=== PATIENT | female | born 1965 | race Caucasian/White ===

== ENCOUNTER → 2020-06-02 11:39 | Outpatient (BNVA) | payer OTHER, SELFPAY | PROVIDERS: PCP Family Medicine; Referring Provider Family Medicine; Visit Provider Internal Medicine Gastroenterology | DX: K21.9 Gastro-esophageal reflux disease without esophagitis (principal); K76.0 Fatty (change of) liver, not elsewhere classified; Z79.899 Other long term (current) drug therapy | CPT/HCPCS: 99214 ==

== ENCOUNTER 2020-06-24 08:46 | Outpatient (REF) | payer OTHER, SELFPAY ==
--- NOTE | 2020-06-24 08:55 | XR_ITS ---
EXAMINATION: XR HAND WRIST, LEFT CLINICAL INFORMATION: Pain in left wrist, extending to left thumb COMPARISON: None TECHNIQUE: The left hand and wrist are imaged together each in combined large [id number] images for a total of 3 views. FINDINGS: There is no acute or healing fracture, dislocation, or destructive process. Bony mineralization is normal. The ulnar variance is neutral. There is some borderline spurring lateral ulnar head at the sigmoid notch. The carpus shows no focal joint narrowing or erosive change or visible chondrocalcinosis. There is a 3 mm corticated ossicle dorsal breast noted on lateral view. There is some borderline spurring base first metacarpal on lateral view. No significant narrowing first carpometacarpal joint. No erosive change. The MCP and interphalangeal joints are unremarkable. XR/XR hand wrist LT IMPRESSION: Small spur base first metacarpal. No significant joint narrowing or erosive changes.
--- NOTE | 2020-06-24 08:56 | XR_ITS ---
EXAMINATION: XR LUMBOSACRAL SPINE CLINICAL INFORMATION: Low back pain. COMPARISON: Radiographs lumbar spine 03/07/2018. TECHNIQUE: 3 views of the lumbosacral spine. FINDINGS: There is normal lumbar segmentation with 5 [id number] lumbar vertebrae of normal height and normal lumbar lordosis. There is no lumbar vertebral compression, spondylolisthesis, destructive process. Again, there are degenerative disc changes greatest at L2-L3 and mild at L1-L2 and L5-S1. There are degenerative disc changes again seen lower thoracic spine greatest at T11-T12 with disc narrowing and bridging anterior osteophyte. There is mild facet degeneration lower lumbar spine L4-S1. There are right lateral bridging osteophytes L-1-L2, L2-L3, and partially at L4-L5. The SI joints and visualized sacrum are unremarkable. XR/XR lumbar spine 2-3V IMPRESSION: 1. Multilevel degenerative disc and facet degeneration similar to prior study 03/07/2018. 2. No vertebral compression, spondylolisthesis, destructive process.
== END 2020-06-24 08:47 | disposition home or self-care (01) ==
LOC: HO.XRAY 08:46
PROVIDERS: PCP Family Medicine; Visit Provider Family Medicine
DX: M25.532 Pain in left wrist (principal); M54.5 Low back pain
CPT/HCPCS: 72100; 73110; 73130

== ENCOUNTER 2020-07-06 07:00 | Day surgery (SDC) | payer OTHER, SELFPAY ==
[2020-07-06 07:16] VITALS: BMI 41.5
[2020-07-06 07:26] VITALS: BP 113/73; PULSE 89; RESP 16; TEMP 36.2; O2SAT 98
[2020-07-06] MEDS: Lactated Ringers 1,000 ML 100 ML IVCONT (07:48)
--- NOTE | 2020-07-06 07:54 | P.CONAN_ITS ---
[facility] Past Medical History Medical History GERD (gastroesophageal reflux disease) Hepatic steatosis NANCY (obstructive sleep apnea) Family History Family History Father Brain cancer Mother Diabetes Family history of problems with anesthesia: No Surgical History Surgical History Hx of cholecystectomy Hx of colonoscopy History of Problems with Anesthesia: No Social History Social History Household Members: Spouse, Family and Children Housing: House Alcohol intake: never Smoking Status: Former smoker Second Hand Smoke Exposure: No Use of substances other than those prescribed or required for medical reasons: No Advance Directives: No Advance Directives Information Provided: Yes Advance Directives on File: No service: No Current occupational status: employed 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 Allergies Allergy/AdvReac Type Severity Reaction Status Date / Time No Known Allergies Allergy Unverified 05/06/20 18:17 Home Medications Medication Instructions Recorded Confirmed Type baclofen 5 mg tablet 5 mg PO TID 06/02/20 07/01/20 History ergocalciferol (vitamin D2) 1,250 1,250 mcg PO QWEEK 06/02/20 07/01/20 History mcg (50,000 unit) capsule loratadine 10 mg tablet 10 mg PO DAILY 06/02/20 07/01/20 History omeprazole 20 mg capsule,delayed 20 mg PO DAILY 06/02/20 07/01/20 History release Exam Exam Date and Time: July 06, 2020 0754 Height,Weight and Vital Signs: Height 5 ft 5 in Weight 113.398 kg Last Vital Signs Temp 97.1 F 07/06/20 07:26 Pulse 89 07/06/20 07:26 Resp 16 07/06/20 07:26 BP 113/73 07/06/20 07:26 Pulse Ox 98 07/06/20 07:26 Airway Mallampati Class: II TM Dist: >3cm Neck ROM: Full Loose/Missing/Broken Teeth: Yes (Missing sides) Heart: RRR Lungs: CTAB Assessment and Plan Assessment Anesthesia Assessment: Anesthesia Plan Discussed and Chart Reviewed Final Anesthetic Review NPO: Yes ASA Class: III Final Preanesthetic Review: No Changes in Pt Med Stat, Meds/Allgs Chart Reviewed, Consent Obtained/Reviewed and Anes Risks/Benef Reviewed Patient Risk: Intermediate Procedure Risk: Low Anesthetic Plan Anesthetic Plan: MAC: Disposition: Standard PACU
--- NOTE | 2020-07-06 09:40 | MHC.SHP ---
Pre-Procedural Eval Section B Chief Complaint: Gerd Details of Present Illness: Refractory symptoms Relevant Family History (Specify if Yes): No Relevant Social History: None Present Medications: see Short Stay Collaborative assessment Medical History: Significant History (NANCY, Hepatic Steatosis, GERD) History of Previous Operations: No relevant previous surgery Allergies: Allergies Allergy/AdvReac Type Severity Reaction Status Date / Time No Known Allergies Allergy Unverified 05/06/20 18:17 Review of Systems Sugical H&P ROS: Negative: Constitution, Cardiovascular and Respiratory and Yes, Specify: Gastrointestinal (worsening GERD) Exam Surgical H&P Exam: Normal: HEENT, Normal: Heart, Normal: Lungs, Normal: Extremities and Normal: Abdomen Plan Diagnosis/Plan: Unchanged Patient has been examined and remains a candidate for the planned procedure
--- NOTE | 2020-07-06 10:07 | PM.PROC ---
Brief Operative Note Date of procedure: 07/06/20 Pre-op diagnosis: Refractory GERD Post-op diagnosis: other (Hiatal hernia, superficial gastritis, Duodenitis) Procedure: endoscopy with bx Anesthesia: MAC (Vivian Chan CRNA) Surgeon: Cherry Arshad Estimated blood loss (mL): 5 Pathology: other (Random Gastric) Condition: stable Disposition: PACU
[2020-07-06 10:10] VITALS: BP 128/80; PULSE 95; RESP 14; TEMP 36.2; O2SAT 96
[2020-07-06 10:25] VITALS: BP 133/86; PULSE 81; RESP 16; TEMP 36.2; O2SAT 97
--- NOTE | 2020-07-06 11:18 | HO.POSTANES ---
Post Anesthesia Evaluation Post Anesthesia Evaluation Vital Signs: Vital Signs Temp Pulse Resp BP Pulse Ox 07/06/20 10:25 97.1 F 81 16 133/86 97 07/06/20 10:10 97.1 F 95 14 128/80 96 07/06/20 07:26 97.1 F 89 16 113/73 98 Anesthesia: Monitored Mental Status: Awake Pain Control: Satisfactory Nausea/Vomiting: None Hydration: Adequate Anesthesia-Related Issues: No Anes. Related Issues
--- NOTE | 2020-07-06 13:50 | OP_ITS ---
SURGEON: Cherry Arshad MD PREOPERATIVE DIAGNOSIS: Refractory gastroesophageal reflux disease. POSTOPERATIVE DIAGNOSIS: See below PROCEDURE PERFORMED: EGD with biopsy. ESTIMATED BLOOD LOSS: Minimal blood loss. COMPLICATIONS: No complications. ANESTHESIA: Monitored. ANESTHESIOLOGIST: Matt Chan CRNA ASSISTANTS: No real estate administrative assistant. SPECIMENS: Specimens removed; random gastric. PRIMARY CARE PROVIDER: Not readily available at the time of this dictation. POSTOPERATIVE DIAGNOSES: Moderate-sized hiatal hernia, elongated stomach, superficial gastritis, mild duodenitis. CATECHIST: Dr. Arshad. CONDITION: Stable. FINDINGS: Video endoscope was introduced without difficulty. It was navigated into the posterior pharynx and into the esophagus. Esophageal mucosa was normal down to the level of the GE junction. Distal to this, was a 2 to 3 cm hiatal hernia. On entering the stomach, there was significant elongation of the fundus, body down into a very short the antrum. There was diffuse erythema in the antrum entering the duodenal bulb and duodenum. There was some submucosal prominence of capillaries and some exudative change consistent with mild duodenitis. Scope was repositioned in the stomach. Random gastric biopsies were obtained as scope was withdrawn. Arytenoid cartilages were slightly puffy(no erythema noted.). Vocal cords were clear. PLAN: The patient will be reseen in the office or by tele visit postprocedure. Once biopsies have been reviewed, further management changes will be discussed with the patient. Changes will depend on the persistence of her clinical symptoms. GRAFT OR IMPLANTS: No grafts or implants. Cherry Arshad MD MEN/MODL / [id number] MTDD
== END 2020-07-06 11:20 | disposition home or self-care (01) ==
PROVIDERS: PCP Family Medicine; Visit Provider Internal Medicine Gastroenterology
PROC: 0DJ08ZZ Inspection of Upper Intestinal Tract, Via Natural or Artificial Opening Endoscopic (ICD-10-PCS; CPT 43235; principal; 2020-07-06 08:30)
DX: K21.9 Gastro-esophageal reflux disease without esophagitis (principal); K29.30 Chronic superficial gastritis without bleeding; K29.80 Duodenitis without bleeding; K76.0 Fatty (change of) liver, not elsewhere classified; K44.9 Diaphragmatic hernia without obstruction or gangrene; G47.33 Obstructive sleep apnea (adult) (pediatric); Z90.49 Acquired absence of other specified parts of digestive tract
CPT/HCPCS: 43239; 88305; 88342

== ENCOUNTER → 2020-08-02 09:10 | Outpatient (BNVA) | payer OTHER, SELFPAY | PROVIDERS: PCP Family Medicine; Referring Provider Family Medicine; Visit Provider Internal Medicine Gastroenterology | DX: Z76.89 Persons encountering health services in other specified circumstances (principal) ==

== ENCOUNTER → 2020-08-03 08:15 | Outpatient (BNVA) | payer OTHER, SELFPAY | PROVIDERS: PCP Family Medicine; Visit Provider Nurse Practitioner Family | DX: Z76.89 Persons encountering health services in other specified circumstances (principal) ==

== ENCOUNTER → 2020-08-23 07:44 | Outpatient (REF) | payer OTHER, SELFPAY ==
--- NOTE | 2020-08-23 07:46 | NM_ITS ---
EXAMINATION: RADIONUCLIDE SOLID FOOD GASTRIC EMPTYING 4-HOUR STUDY CLINICAL INFORMATION: Gastroesophageal reflux disease. COMPARISON: No previous gastric emptying study is available for comparison. TECHNIQUE: A standard meal consisting of 4 oz of Egg Beaters brand equivalent tagged was 1.0 mCi Tc-99m Sulfur Colloid, 8 oz water and 2 slices of toast with jelly was administered orally to the patient. Images were obtained using a dual head gamma camera in the anterior and posterior projections over of the stomach immediately post ingestion and at hourly intervals up to 4 hours post ingestion. The anterior and posterior counts at each time interval were averaged using the geometric mean and expressed as percentage of the immediate post ingestion counts. FINDINGS: There is good visualization of activity in the stomach immediately post ingestion. As the study progresses, there is good clearance of activity from the stomach and visualization of progressively increasing small bowel activity. By the end of the study, there is almost no retention noted in the stomach. Retention in the stomach at each time interval was: 1 hour 83% (normal 37%-90%) 2 hours 33% (normal 30%-60%) 3 hours 21% 4 hours 8% (normal 0%-10%) NM/NM gastric emptying study IMPRESSION: Normal 4-hour solid food gastric emptying study.
== END ==
LOC: HO.NUCMED 07:44
PROVIDERS: Visit Provider Internal Medicine Gastroenterology
DX: K21.9 Gastro-esophageal reflux disease without esophagitis (principal)
CPT/HCPCS: 78264; A9541

== ENCOUNTER → 2020-09-08 08:48 | Outpatient (BNVA) | payer OTHER, SELFPAY | PROVIDERS: PCP Family Medicine; Visit Provider Internal Medicine Cardiovascular Disease | DX: R00.2 Palpitations (principal) | CPT/HCPCS: 93005; 99212 ==

== ENCOUNTER → 2020-10-26 10:16 | Outpatient (BNVA) | payer OTHER, SELFPAY | PROVIDERS: PCP Family Medicine; Visit Provider Nurse Practitioner Family ==

== ENCOUNTER → 2020-11-07 19:47 | Outpatient (REF) | payer OTHER, SELFPAY | LOC: HO.SL 19:47 | PROVIDERS: Visit Provider Nurse Practitioner Family | DX: G47.33 Obstructive sleep apnea (adult) (pediatric) (principal) | CPT/HCPCS: 95810 ==

== ENCOUNTER 2020-11-17 08:04 | Outpatient (REF) | payer OTHER, SELFPAY ==
[2020-11-17 10:03] LABS: MANUAL DIFF FLAG NO
[2020-11-17 10:20] LABS: Basophils Absolute Auto 0.1 X10*3/uL (0.0-0.2); Basophils Percent Auto 0.5 % (0-2); Eosinophils Absolute Auto 0.2 X10*3/uL (0.0-0.4); Eosinophils Percent Auto 1.6 % (0-4); Hematocrit 45.3 % (37-47); Hemoglobin 14.8 g/dl (12.0-16.0); Imm Gran Abs Auto 0.04 X10*3/uL (0.00-0.03); Imm Gran Pct Auto 0.4 % (0.0-0.4); Lymphocytes Absolute Auto 3.4 X10*3/uL (1.2-4.9); Lymphocytes Percent Auto 32.9 % (20-40); Mean Corpuscular HGB Conc 32.7 g/dl (31.0-35.0); Mean Corpuscular Hemoglobin 29.8 pg (27.0-33.0); Mean Corpuscular Volume 91.1 fL (80-98); Mean Platelet Volume 11.2 fL (9.4-12.3); Monocytes Absolute Auto 0.6 X10*3/uL (0.1-1.2); Monocytes Percent Auto 5.6 % (2-11); Platelet Count 207 X10*3/uL (160-400); Red Blood Count 4.97 X10*6/uL (4.20-5.50); Red Cell Distribution Width 13.4 % (11.0-16.0); White Blood Count 10.2 X10*3/uL (4.8-10.8)
[2020-11-17 10:26] LABS: Alanine Aminotransferase 70 U/L (0-31); Albumin Level 4.1 g/dL (3.5-5.0); Alkaline Phosphatase 120 U/L (39-117); Anion Gap 13 (12-20); Aspartate Amino Transferase 62 U/L (5-31); Bilirubin Total 0.5 mg/dL (0.0-1.0); Blood Urea Nitrogen 10 mg/dL (9-16); Carbon Dioxide 26 mmol/L (22-29); Chloride 105 mmol/L (96-108); Cholesterol 140 mg/dL; Estimated Glomerular Filt Rate > 60; Gamma Glutamyl Transpeptidase 42 U/L (7-33); Glucose Fasting 90 mg/dL (60-99); HDL Cholesterol 53 mg/dL; LDL Cholesterol Calculated 70 mg/dl; Potassium 4.7 mmol/L (3.3-5.1); Sodium 139 mmol/L (135-145); Total Protein 7.5 g/dL (6.5-8.0); Triglycerides 87 mg/dL
[2020-11-17 10:41] LABS: Prothrombin Time 12.1 SEC (10.8-13.0)
[2020-11-17 10:52] LABS: TSH reflex Free T4 1.88 uIU/mL (0.32-4.0); Vitamin D 25-OH Total 23.9 ng/mL (>30)
== END 2020-11-17 08:05 | disposition home or self-care (01) ==
LOC: HO.LAB 08:04
PROVIDERS: PCP Family Medicine; Visit Provider Internal Medicine Gastroenterology
DX: K21.9 Gastro-esophageal reflux disease without esophagitis (principal); K59.01 Slow transit constipation; K76.0 Fatty (change of) liver, not elsewhere classified; E66.9 Obesity, unspecified; Z68.36 Body mass index [BMI] 36.0-36.9, adult
CPT/HCPCS: 36415; 80053; 80061; 82306; 82977; 84443; 85025; 85610; 99212

== ENCOUNTER → 2021-01-25 10:09 | Outpatient (BNVA) | payer OTHER, SELFPAY | PROVIDERS: PCP Family Medicine; Visit Provider Nurse Practitioner Family ==

== ENCOUNTER 2021-01-27 08:33 | Outpatient (REF) | payer OTHER, SELFPAY ==
--- NOTE | ~2021-01-27 | MM_ITS ---
EXAMINATION: MM SCREENING DIGITAL BREAST TOMOSYNTHESIS, BILATERAL CLINICAL INFORMATION: Screening. Asymptomatic. The lifetime risk of breast cancer based on the Tyrer-Cuzick Model is 15.8%. COMPARISON: Mammography: October 28, 2019 and studies dating back to October 12, 2011 TECHNIQUE: Digital breast tomosynthesis is performed in both the craniocaudal and mediolateral oblique views along with computer-aided detection (CAD). Synthesized 2D images are generated from the tomosynthesis. FINDINGS: There are scattered areas of fibroglandular density (ACR BI-RADS breast composition Category b). There are no significant masses, abnormal calcifications, or other abnormalities. MM/MM tomosynthesis screening BI IMPRESSION: There are no significant changes from prior study. ASSESSMENT: BI-RADS 1: Negative RECOMMENDATION: Routine annual mammography screening. This patient's information was entered into a reminder system with a target due date for their next mammogram.
== END 2021-01-27 08:34 | disposition home or self-care (01) ==
LOC: HO.MAMMO 08:33
PROVIDERS: Visit Provider Family Medicine
DX: Z12.31 Encounter for screening mammogram for malignant neoplasm of breast (principal)
CPT/HCPCS: 77063; 77067

== ENCOUNTER → 2021-04-27 07:14 | Outpatient (BNVA) | payer OTHER, SELFPAY | PROVIDERS: PCP Family Medicine; Visit Provider Physician Assistant | DX: K76.0 Fatty (change of) liver, not elsewhere classified (principal) | CPT/HCPCS: 99212 ==

== ENCOUNTER 2021-06-16 09:25 | Outpatient (REF) | payer OTHER, SELFPAY ==
--- NOTE | ~2021-06-16 | US_ITS ---
EXAMINATION: US ABDOMEN LIMITED WITH LIVER ELASTOGRAPHY CLINICAL INFORMATION: Fatty changes of the liver. COMPARISON: None. TECHNIQUE: Real-time imaging of the abdominal viscera. Noninvasive ultrasound liver fibrosis assessment is performed using Dago ElastPQ point quantification shear wave elastography (pSWE) with a C5-2 MHz transducer. Multiple elastography samples are obtained. FINDINGS: PANCREAS: Not well seen due to bowel gas. LIVER: The liver demonstrates normal size and shape with increased echogenicity. No focal lesion or intrahepatic biliary duct dilatation. The right lobe measures 18 cm in length. The left lobe measures 12.5 cm in length. Portal flow is towards the liver (hepatopetal). Shear wave liver elastography median stiffness is 1.5 m/s (reference: normal median stiffness is 1.3 m/s or less). IQR/median stiffness to assess sampling precision is 0.11 (reference: good quality data set is IQR/median stiffness of 0.15 or less). GALLBLADDER: Absent. COMMON BILE DUCT: Normal postsurgical caliber measuring 0.9 cm in diameter. RIGHT KIDNEY: Normal. No hydronephrosis. No renal calculi or focal parenchymal lesions. The kidney measures 13.7 cm in maximum dimension. FREE FLUID: None. US/US abdomen dela cruz w elastography IMPRESSION: 1. Hepatic steatosis. 2. Liver elastography: In the absence of other known clinical signs, measurements rule out compensated advanced chronic liver disease. If there are known clinical signs, further testing may be needed for confirmation. Liver stiffness measurement is without significant change from prior exam (change under 10%). REFERENCE: Society of Radiologists in Ultrasound Liver Stiffness Thresholds (2020): LIVER STIFFNESS THRESHOLDS: *Liver Stiffness equal or less than 1.3 m/s: High probability of being normal. *Liver Stiffness less than 1.7 m/s: In the absence of other known clinical signs, rules out compensated advanced chronic liver disease. *Liver Stiffness 1.7-2.1 m/s: Suggestive of compensated advanced chronic liver disease but need further test for confirmation. *Liver Stiffness over 2.1 m/s: Rules in compensated advanced chronic liver disease. *Liver Stiffness over 2.4 m/s: Suggestive of clinically significant portal hypertension. QUALITY OF DATA SET: *IQR/Median value equal or less than 0.15 implies a quality data set. *IQR/Median value over 0.15 implies a poor quality data set. SIGNIFICANT CHANGE FROM PRIOR EXAM: Significant change if liver stiffness measurement is 10% or greater from prior exam. OTHER CONSIDERATIONS: The stage of liver fibrosis may be overestimated in the setting of acute hepatitis, liver inflammation, elevated liver function tests, hepatic vascular congestion, obstructive cholestasis, non-fasting state, and infiltrative diseases such as amyloidosis and lymphoma. In some patients with NAFLD, the liver stiffness thresholds for compensated advanced chronic liver disease may be lower. In causes other than viral hepatitis and NAFLD, liver stiffness thresholds are not well established.
== END 2021-06-16 09:26 | disposition home or self-care (01) ==
LOC: HO.US 09:25
PROVIDERS: PCP Family Medicine; Visit Provider Physician Assistant
DX: K76.0 Fatty (change of) liver, not elsewhere classified (principal)
CPT/HCPCS: 76705; 76981

== ENCOUNTER → 2021-08-16 08:34 | Outpatient (BNVA) | payer OTHER, SELFPAY | PROVIDERS: PCP Family Medicine; Referring Provider Family Medicine; Visit Provider Nurse Practitioner Family | DX: G47.33 Obstructive sleep apnea (adult) (pediatric) (principal) | CPT/HCPCS: 99212 ==

== ENCOUNTER 2021-08-22 11:00 | Outpatient (REF) | payer OTHER, SELFPAY ==
[2021-08-22 11:57] LABS: Hematocrit 46.1 % (37.0-47.0); Hemoglobin 15.2 g/dl (12.0-16.0); Mean Corpuscular Hemoglobin 29.8 pg (27.0-33.0); Mean Corpuscular Volume 90.4 fL (80.0-98.0); Mean Platelet Volume 11.5 fL (9.4-12.3); Platelet Count 208 X10*3/uL (160-400); Red Cell Distribution Width 13.2 % (11.0-16.0); White Blood Count 9.1 X10*3/uL (4.8-10.8)
[2021-08-22 12:04] LABS: Estimated Average Glucose 128 mg/dL; Hemoglobin A1c % 6.1 %
[2021-08-22 12:19] LABS: Alanine Aminotransferase 83 U/L (0-31); Albumin Level 4.2 g/dL (3.5-5.0); Alkaline Phosphatase 154 U/L (39-117); Anion Gap 11 (12-20); Aspartate Amino Transferase 62 U/L (5-31); Bilirubin Direct 0.2 mg/dL (0.0-0.5); Bilirubin Total 0.5 mg/dL (0.0-1.0); Blood Urea Nitrogen 10 mg/dL (9-16); Calcium 9.9 mg/dL (8.4-10.2); Carbon Dioxide 26 mmol/L (22-29); Chloride 106 mmol/L (96-108); Cholesterol 156 mg/dL; Estimated Glomerular Filt Rate > 60; Glucose Random 121 mg/dL (60-115); HDL Cholesterol 54 mg/dL; LDL Cholesterol Calculated 67 mg/dl; Potassium 4.3 mmol/L (3.3-5.1); Sodium 139 mmol/L (135-145); Total Protein 7.8 g/dL (6.5-8.0); Triglycerides 178 mg/dL
[2021-08-22 12:21] LABS: Creatinine Urine 95.17 mg/dL; Microalbum/Creatinine Ratio Ur 12.6 ug/mg cr
[2021-08-22 12:41] LABS: Free T4 (Free Thyroxine) 0.88 ng/dL (0.71-1.85); Vitamin D 25-OH Total 17.1 ng/mL (>30)
[2021-08-22 12:43] LABS: Syphilis Screen Nonreactive (Nonreactive)
[2021-08-22 13:51] LABS: CT PCR NOT DETECTED (Not Detect.); NG PCR NOT DETECTED (Not Detect.)
[2021-08-23 04:38] LABS: ~HepC Num1 0.43 S/CO (0.00-0.79); ~Hepatitis C Antibody Nonreactive (Nonreactive)
[2021-08-23 04:39] LABS: HIV AB/AG Nonreactive (Nonreactive); HIV Num 1 0.08 S/CO (0.00-0.99)
[2021-08-23 11:56] LABS: Alpha Fetoprotein 5.5 ng/mL
== END 2021-08-22 11:01 | disposition home or self-care (01) ==
LOC: HO.LAB 11:00
PROVIDERS: PCP Family Medicine; Visit Provider Family Medicine
DX: Z00.00 Encounter for general adult medical examination without abnormal findings (principal); Z11.4 Encounter for screening for human immunodeficiency virus [HIV]; Z11.3 Encounter for screening for infections with a predominantly sexual mode of transmission; K76.0 Fatty (change of) liver, not elsewhere classified; R73.03 Prediabetes
CPT/HCPCS: 80048; 80061; 80076; 82043; 82105; 82306; 83036; 84439; 84443; 85027; 86780; 86803; 87389; 87491; 87591

== ENCOUNTER 2021-11-26 07:33 | Outpatient (REF) | payer OTHER, SELFPAY ==
[2021-11-26 08:35] LABS: Estimated Average Glucose 114 mg/dL; Hemoglobin A1c % 5.6 %
[2021-11-26 08:42] LABS: Alanine Aminotransferase 64 U/L (0-31); Albumin Level 4.1 g/dL (3.5-5.0); Alkaline Phosphatase 114 U/L (39-117); Anion Gap 12 (12-20); Aspartate Amino Transferase 50 U/L (5-31); Bilirubin Direct 0.4 mg/dL (0.0-0.5); Bilirubin Total 0.9 mg/dL (0.0-1.0); Blood Urea Nitrogen 12 mg/dL (9-16); Calcium 9.3 mg/dL (8.4-10.2); Carbon Dioxide 24 mmol/L (22-29); Chloride 108 mmol/L (96-108); Estimated Glomerular Filt Rate > 60; Glucose Random 112 mg/dL (60-115); Potassium 4.8 mmol/L (3.3-5.1); Sodium 139 mmol/L (135-145); Total Protein 7.2 g/dL (6.5-8.0)
== END 2021-11-26 07:34 | disposition home or self-care (01) ==
LOC: HO.LAB 07:33
PROVIDERS: Absent Provider Family Medicine; PCP Family Medicine; Visit Provider Physician Assistant
DX: K76.0 Fatty (change of) liver, not elsewhere classified (principal)
CPT/HCPCS: 36415; 80048; 80076; 83036

== ENCOUNTER → 2021-11-28 07:11 | Outpatient (BNVA) | payer OTHER, SELFPAY | PROVIDERS: PCP Family Medicine; Referring Provider Family Medicine; Visit Provider Physician Assistant | DX: Z01.818 Encounter for other preprocedural examination (principal); E66.9 Obesity, unspecified; K59.01 Slow transit constipation; K76.0 Fatty (change of) liver, not elsewhere classified; K21.9 Gastro-esophageal reflux disease without esophagitis | CPT/HCPCS: 99212 ==

== ENCOUNTER 2022-03-06 10:57 | Outpatient (REF) | payer OTHER, SELFPAY ==
--- NOTE | ~2022-03-06 | MM_ITS ---
EXAMINATION: MM SCREENING DIGITAL BREAST TOMOSYNTHESIS, BILATERAL CLINICAL INFORMATION: Screening. Asymptomatic. The lifetime risk of breast cancer based on the Tyrer-Cuzick Model is 16%. COMPARISON: Mammography: 01/27/2021, 10/28/2019, 08/10/2018 TECHNIQUE: Digital breast tomosynthesis is performed in both the craniocaudal and mediolateral oblique views along with computer-aided detection (CAD). Synthesized 2D images are generated from the tomosynthesis. Additional left MLO view is provided. FINDINGS: There are scattered areas of fibroglandular density (ACR BI-RADS breast composition Category b). There are no significant masses, abnormal calcifications, or other abnormalities. Incidental intramammary node again seen mid upper outer right breast. The axilla and skin contours are unremarkable. No significant changes. MM/MM tomosynthesis screening BI IMPRESSION: No mammographic evidence of malignancy. ASSESSMENT: BI-RADS 2: Benign RECOMMENDATION: Routine annual mammography screening. This patient's information was entered into a reminder system with a target due date for their next mammogram.
== END 2022-03-06 10:58 | disposition home or self-care (01) ==
LOC: HO.MAMMO 10:57
PROVIDERS: Visit Provider Family Medicine
DX: Z12.31 Encounter for screening mammogram for malignant neoplasm of breast (principal)
CPT/HCPCS: 77063; 77067

== ENCOUNTER 2022-03-09 10:14 | Day surgery (SDC) | payer OTHER, SELFPAY ==
[2022-03-06 09:13] VITALS: BMI 34.4
--- NOTE | 2022-03-08 08:54 | P.CONAN_ITS ---
Documented by User: Jaqueline Bingham NP 03/08/22 08:55 HPI - Anesthesia Eval Consult details Narrative: 56yo F for Colonoscopy PMFSH Active Problems Active Problems: All Active Problems (Updated 11/28/21 @ 08:31 by Jackie Ma PA-C) Encounter for screening colonoscopy (Acute) Obesity (BMI 35.0-39.9 without comorbidity) (Acute) Constipation by delayed colonic transit (Acute) NANCY (obstructive sleep apnea) (Acute) Palpitations (Acute) GERD (gastroesophageal reflux disease) (Acute) Hepatic steatosis (Acute) Past Medical History Medical History Constipation by delayed colonic transit GERD (gastroesophageal reflux disease) Hepatic steatosis History of colon polyps Obesity (BMI 35.0-39.9 without comorbidity) NANCY (obstructive sleep apnea) Family History Family History Father Brain cancer Mother Diabetes Maternal Aunt Breast cancer Paternal Aunt Breast cancer Family history of problems with anesthesia: No Surgical History Surgical History H/O esophagogastroduodenoscopy Hx of cholecystectomy Hx of colonoscopy History of Problems with Anesthesia: No Social History Social History Household Members: Spouse, Family and Children Housing: House Alcohol intake: never Patient Tobacco Use Status: Never used Tobacco Second Hand Smoke Exposure: No Are you DNR?: No Advance Directives: No Advance Directives Information Provided: Yes service: No Current occupational status: employed 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 Allergies Allergy/AdvReac Type Severity Reaction Status Date / Time No Known Allergies Allergy Verified 11/28/21 07:25 Home Medications Medication Instructions Recorded Confirmed Last Taken Type ergocalciferol (vitamin D2) 1,250 1,250 mcg PO QWEEK 06/02/20 11/28/21 Unknown History mcg (50,000 unit) capsule omeprazole 20 mg capsule,delayed 20 mg PO DAILY 06/02/20 11/28/21 07/06/20 History release loratadine 10 mg tablet 10 mg PO DAILY PRN 09/08/20 11/28/21 Unknown History Exam Exam Date and Time: March 08, 2022 0854 Height,Weight and Vital Signs: Height 5 ft 5 in Weight 93.894 kg Pertinent Lab Results Pertinent Lab Results: Laboratory Tests 08/22/21 11/26/21 11:36 07:50 WBC 9.1 Hgb 15.2 Hct 46.1 Plt Count 208 Sodium 139 Potassium 4.8 Chloride 108 Carbon Dioxide 24 BUN 12 Creatinine 0.69 Assessment and Plan Assessment Anesthesia Assessment: Chart Reviewed Final Anesthetic Review Family History of Problems with Anesthesia: No History of Problems with Anesthesia: No Documented by User: Santa Javed MD 03/09/22 11:57 [facility] Active Problems Active Problems: All Active Problems (Updated 11/28/21 @ 08:31 by Jackie Ma PA-C) Encounter for screening colonoscopy (Acute) Obesity (BMI 35.0-39.9 without comorbidity) (Acute) Constipation by delayed colonic transit (Acute) NANCY (obstructive sleep apnea) (Acute). Uses CPAP machine Palpitations (Acute) GERD (gastroesophageal reflux disease) (Acute) Hepatic steatosis (Acute) Back pain Past Medical History Medical History Constipation by delayed colonic transit GERD (gastroesophageal reflux disease) Hepatic steatosis History of colon polyps Obesity (BMI 35.0-39.9 without comorbidity) NANCY (obstructive sleep apnea) Family History Family History Father Brain cancer Mother Diabetes Maternal Aunt Breast cancer Paternal Aunt Breast cancer Surgical History Surgical History H/O esophagogastroduodenoscopy Hx of cholecystectomy Hx of colonoscopy Social History Social History Household Members: Spouse, Family and Children Housing: House Alcohol intake: never Patient Tobacco Use Status: Never used Tobacco Second Hand Smoke Exposure: No Are you DNR?: No Advance Directives: No Advance Directives Information Provided: Yes service: No Current occupational status: employed 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 Allergies Allergy/AdvReac Type Severity Reaction Status Date / Time No Known Allergies Allergy Verified 11/28/21 07:25 Home Medications Medication Instructions Recorded Confirmed Last Taken Type ergocalciferol (vitamin D2) 1,250 1,250 mcg PO QWEEK 06/02/20 11/28/21 Unknown History mcg (50,000 unit) capsule omeprazole 20 mg capsule,delayed 20 mg PO DAILY 06/02/20 11/28/21 07/06/20 History release loratadine 10 mg tablet 10 mg PO DAILY PRN 09/08/20 11/28/21 Unknown History Exam Height,Weight and Vital Signs: Height 5 ft 5 in Weight 93.894 kg Vital Signs Temp Pulse Resp BP Pulse Ox O2 Del Method 03/09/22 10:23 97.5 F 81 18 117/73 95 Room Air Airway Mallampati Class: II TM Dist: >3cm Neck ROM: Full Loose/Missing/Broken Teeth: No (Patient denies) Heart: RRR Lungs: CTAB Assessment and Plan Assessment Anesthesia Assessment: Anesthesia Plan Discussed Final Anesthetic Review NPO: Yes ASA Class: III Final Preanesthetic Review: No Changes in Pt Med Stat, Meds/Allgs Chart Reviewed, Consent Obtained/Reviewed and Anes Risks/Benef Reviewed Patient Risk: Intermediate Procedure Risk: Low Assessment/Block/Sedation in SS: Assess/Block/Sedation-SS Anesthetic Plan Anesthetic Plan: MAC: Disposition: Standard PACU
[2022-03-09 10:23] VITALS: BP 117/73; PULSE 81; RESP 18; TEMP 36.4; O2SAT 95
[2022-03-09] MEDS: Lactated Ringers 1,000 ML 100 ML IVCONT (10:38)
--- NOTE | 2022-03-09 12:32 | MHC.SHP ---
Pre-Procedural Eval Section A Date of Service: 03/09/22 Section B Chief Complaint: Slow transit constipation,screening Relevant Family History (Specify if Yes): No Relevant Social History: None Present Medications: see Short Stay Collaborative assessment Medical History: Significant History (Constipation by delayed colonic transit GERD (gastroesophageal reflux disease) Hepatic steatosis History of colon polyps Obesity (BMI 35.0-39.9 without comorbidity) NANCY (obstructive sleep apnea)) History of Previous Operations: Relevant previous surgery/procedure and date(s) (H/O esophagogastroduodenoscopy Hx of cholecystectomy Hx of colonoscopy) Allergies: Allergies Allergy/AdvReac Type Severity Reaction Status Date / Time No Known Allergies Allergy Verified 11/28/21 07:25 Review of Systems Sugical H&P ROS: Negative: Constitution, Cardiovascular, Respiratory, Neurological, Psychiatric, Hem-Onc, Allergic/Immunologic, Gastrointestinal, Genitourinary, Musculoskeletal, Integumentary, Endocrine and Eyes/Ears/Nose/Throat Exam Surgical H&P Exam: Normal: HEENT, Normal: Heart, Normal: Lungs, Normal: Extremities, Normal: Abdomen, Normal: Skin and Normal: Neurological Plan Diagnosis/Plan: Unchanged I have reviewed the history and physical and performed a pertinent physical examination on my patient. No changes have occurred unless specified.
--- NOTE | 2022-03-09 13:25 | W.PM.OPN ---
Operative Note Operative Note Date of Service: 03/09/22 Narrative: Operative Information Procedure Description: Colonoscopy Indication: constipation Anesthesia: MAC COLONOSCOPY Instrument: Olympus variable stiffness adult scope 190L Colonoscopy Monitoring: Vital signs and clinical assessment, continuous EKG monitoring, Pulse oximetry, Carbon Dioxide monitoring and blood pressure monitoring were done throughout the procedure. Colon withdrawal time was 10 minutes. Procedure: The patient was placed in the left lateral decubitis position and pre-procedure medications were administered. After a digital rectal examination of the ano-rectum, the video colonoscope was inserted into the rectum and advanced through the colon to the cecum/TI. The colonoscope was slowly withdrawn in a retrograde panoramic fashion and the colon mucosa was carefully examined including a retroflexed view of the rectum. Findings and interventions are described below. Procedure Difficulty: moderate, redundant colon and tortuous Findings: Terminal Ileum-normal, bx taken Cecum: granular mucosa, bx taken Ascending Colon: normal Transverse Colon -normal Descending Colon:normal Sigmoid Colon: normal Rectum: Retroflexion with small internal hemorrhoids, grade I Anorectum - normal Colon preparation: [place] Bowel Preparation Scale Right colon; 2 Transverse colon: 2 Left colon; 2 (0 = Unprepared colon segment with mucosa not seen due to solid stool that cannot be cleared. 1 = Portion of mucosa of the colon segment seen, but other areas of the colon segment not well seen due to staining, residual stool and/or opaque liquid. 2 = Minor amount of residual staining, small fragments of stool and/or opaque liquid, but mucosa of colon segment seen well. 3 = Entire mucosa of colon segment seen well with no residual staining, small fragments of stool or opaque liquid) Impression and Post Procedure Diagnosis: tortuous, redundant colon internal hemorrhoids granular mucosa of cecum Plan: High fiber diet leaflet Avoid straining at stool, epsom salts and sitz bath, anusol supps or cream Repeat Colonoscopy in 10 years or earlier if clinically indicated tortuous, redundant colon probable cause of her constipation Above findings were reviewed with the patient and relevant handouts were provided if indicated.
[2022-03-09 14:13] VITALS: BP 184/65; PULSE 88; RESP 16; TEMP 36.2; O2SAT 95
[2022-03-09 14:28] VITALS: BP 132/86; PULSE 79; RESP 16; TEMP 36.1; O2SAT 95
[2022-03-09 14:43] VITALS: BP 134/89; PULSE 82; RESP 16; TEMP 36.2; O2SAT 96
== END 2022-03-09 15:11 | disposition home or self-care (01) ==
PROVIDERS: PCP Family Medicine; Visit Provider Internal Medicine Gastroenterology
PROC: 0DJD8ZZ Inspection of Lower Intestinal Tract, Via Natural or Artificial Opening Endoscopic (ICD-10-PCS; CPT 45378; principal; 2022-03-09 13:30)
DX: Z12.11 Encounter for screening for malignant neoplasm of colon (principal); K59.01 Slow transit constipation; K64.0 First degree hemorrhoids; K63.89 Other specified diseases of intestine; K21.9 Gastro-esophageal reflux disease without esophagitis; K76.0 Fatty (change of) liver, not elsewhere classified; G47.33 Obstructive sleep apnea (adult) (pediatric); E66.9 Obesity, unspecified; Z68.34 Body mass index [BMI] 34.0-34.9, adult; Z79.899 Other long term (current) drug therapy; Z99.89 Dependence on other enabling machines and devices; Z90.49 Acquired absence of other specified parts of digestive tract
CPT/HCPCS: 45380; 88305

== ENCOUNTER → 2022-03-29 08:42 | Outpatient (BNVA) | payer OTHER, SELFPAY | PROVIDERS: PCP Family Medicine; Visit Provider Physician Assistant | DX: K59.01 Slow transit constipation (principal); K21.9 Gastro-esophageal reflux disease without esophagitis; K64.9 Unspecified hemorrhoids; Z98.890 Other specified postprocedural states | CPT/HCPCS: 99212 ==

== ENCOUNTER → 2022-08-01 13:26 | Outpatient (BNVA) | payer OTHER, SELFPAY | PROVIDERS: PCP Family Medicine; Visit Provider Nurse Practitioner Family | DX: G47.33 Obstructive sleep apnea (adult) (pediatric) (principal); Z99.89 Dependence on other enabling machines and devices | CPT/HCPCS: 99212 ==

== ENCOUNTER 2023-03-23 11:17 | Outpatient (REF) | payer OTHER, SELFPAY ==
--- NOTE | ~2023-03-23 | MM_ITS ---
EXAMINATION: MM SCREENING DIGITAL BREAST TOMOSYNTHESIS, BILATERAL CLINICAL INFORMATION: Screening. Asymptomatic. The lifetime risk of breast cancer based on the Tyrer-Cuzick Model is 18%. COMPARISON: Mammography: This study is compared with prior exams dating back to 2018. TECHNIQUE: Digital breast tomosynthesis is performed in both the craniocaudal and mediolateral oblique views along with computer-aided detection (CAD). Synthesized 2D images are generated from the tomosynthesis. FINDINGS: There are scattered areas of fibroglandular density (ACR BI-RADS breast composition Category b). There are no significant masses, abnormal calcifications, or other abnormalities. MM/MM tomosynthesis screening BI IMPRESSION: No mammographic evidence of malignancy. ASSESSMENT: BI-RADS BI-RADS 1 - Negative RECOMMENDATION: Routine annual mammography screening. 1 year F/U This examination should not preclude the clinical evaluation of a suspicious palpable abnormality. This patient's information was entered into a reminder system with a target due date for their next mammogram.
== END 2023-03-23 11:18 | disposition home or self-care (01) ==
LOC: HO.MAMMO 11:17
PROVIDERS: PCP Family Medicine; Visit Provider Family Medicine
DX: Z12.31 Encounter for screening mammogram for malignant neoplasm of breast (principal)
CPT/HCPCS: 77063; 77067

== ENCOUNTER → 2023-03-23 11:45 | Outpatient (BNV) | payer OTHER, SELFPAY | PROVIDERS: PCP Family Medicine; Visit Provider Radiology Diagnostic Radiology | DX: Z12.31 Encounter for screening mammogram for malignant neoplasm of breast (principal) | CPT/HCPCS: 77063; 77067 ==

== ENCOUNTER 2023-04-30 19:05 | Outpatient (REF) | payer OTHER, SELFPAY ==
[2023-04-30 19:49] LABS: Influenza A PCR NEGATIVE (Negative); Influenza B PCR NEGATIVE (Negative); Resp Syncy Virus RNA Qual PCR NEGATIVE (Negative); SARS COV2 PCR INHOUSE NEGATIVE (Negative)
== END 2023-04-30 19:06 | disposition home or self-care (01) ==
LOC: HO.HHCLNP 19:05
PROVIDERS: Visit Provider Emergency Medicine
DX: Z20.822 Contact with and (suspected) exposure to COVID-19 (principal)
CPT/HCPCS: 0241U

== ENCOUNTER 2023-06-08 | Outpatient (REF) | payer OTHER, SELFPAY ==
[2023-06-13 20:37] LABS: HPV mRNA E6/E7 rflx Not Detected (Not Detected)
== END 2023-06-08 00:01 | disposition home or self-care (01) ==
LOC: HO.HHCLNP
PROVIDERS: Visit Provider Family Medicine
DX: Z12.4 Encounter for screening for malignant neoplasm of cervix (principal); Z11.51 Encounter for screening for human papillomavirus (HPV)
CPT/HCPCS: 87624; 88142

== ENCOUNTER 2023-07-31 09:33 | Outpatient (AMB) | payer OTHER, SELFPAY ==
[2023-07-31 09:38] VITALS: BP 110/68; PULSE 80; O2SAT 97; BMI 34.9
--- NOTE | 2023-07-31 09:38 | A.OFFVIS_ITS ---
Intake Vital Signs 07/31/23 09:38 Height 5 ft 5 in Weight 210 lb BMI 34.9 BP 110/68 Blood Pressure Location Rt brachial Position Sitting Pulse 80 Pulse Source Pulse Oximeter Pulse Oximetry (%) 97 Oxygen Delivery Method Room Air Intake Visit Reasons: 1 yr f/u appt - Confirmed throught CW Intake Note: Patient presents for 1 year follow up Allergies No Known Allergies Allergy (Verified 07/31/23 09:40) HPI HPI Comments History of Present Illness Details 58-yr-old female presents for follow-up visit. Pt denies any significant interval medical history changes. Pt reports she is doing well with CPAP. She is sleeping well and feels well rested. However, she would like to try another mask, as she is finding that she is sleeping with her mouth open while suing her nasal mask. She states her uses the F30 mask- and thinks this would work better for her. She has enough CPAP supplies. 07/01/2023 - 07/30/2023 CPAP compliance report reveals: CPAP 9 cmH2O Usage days 30/30 days (100%) >= 4 hours 30 days (100%) EPR Fulltime EPR level 3 AHI: 1.6 PFSH Medical History Constipation by delayed colonic transit GERD (gastroesophageal reflux disease) Hepatic steatosis History of colon polyps Obesity (BMI 35.0-39.9 without comorbidity) NANCY (obstructive sleep apnea) Surgical History H/O esophagogastroduodenoscopy Hx of cholecystectomy Hx of colonoscopy Family History (Updated 07/31/23 @ 09:41 by RAY Kearns) Father Brain cancer Mother Diabetes Breast cancer Maternal Aunt Breast cancer Paternal Aunt Breast cancer Social History Household Members: Spouse, Family and Children Housing: House Alcohol intake: never Patient Tobacco Use Status: Never used Tobacco Second Hand Smoke Exposure: No service: No Current occupational status: employed 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 Review of Systems Const All systems reviewed & are unremarkable except as noted in HPI and below Physical Exam Vital Signs: Last Vital Signs Pulse 80 07/31/23 09:38 BP 110/68 07/31/23 09:38 Pulse Ox 97 07/31/23 09:38 Oxygen Delivery Method Room Air 07/31/23 09:38 BMI result Body Mass Index 34.9 Const General: no acute distress Orientation/consciousness: patient oriented x3 HEENT Head: Yes normocephalic Resp Effort & Inspection: normal respiratory effort and able to speak in complete sentences Auscultation: clear to auscultation bilaterally Cardio Rate: regular rate Rhythm: regular rhythm Neuro General: patient oriented x3 Psych Mental Status: mental status grossly normal Speech and movement: Clear speech present Attitude: cooperative Results Reviewed Results Reviewed: PAP compliance report- see HPI Assessment & Plan Assessment & Plan (1) NANCY (obstructive sleep apnea): Comment: [place] [facility] [place] AHI 11/hr, REM AHI 33/hr, O2 cesar 86%, PLMS 24/hr with PLMS arousal index of 1.5/hr. On CPAP 9 cmH2O. Home care company: [facility]. Code(s): G47.33 - Obstructive sleep apnea (adult) (pediatric) Plan Continue CPAP 9 cmH2O nightly > 4 hours, as pt continues to have good reduction in AHI with good clinical effect. Order written for F30 mask- small. Will send to [facility]- copy of order also given to pt. Clean CPAP machine and supplies routinely. Change CPAP supplies routinely. Monitor for any s/s PLMS. f/u in 1 yr or sooner prn. Coding Level of Care Code Est Pt Level 3 (09747) Diagnoses NANCY (obstructive sleep apnea) G47.33
== END 2023-07-31 10:05 | disposition home or self-care (01) ==
PROVIDERS: Visit Provider Nurse Practitioner Family
DX: G47.33 Obstructive sleep apnea (adult) (pediatric) (principal)
CPT/HCPCS: 99213

== ENCOUNTER → 2023-07-31 09:33 | Outpatient (BNVA) | payer OTHER, SELFPAY | PROVIDERS: Visit Provider Nurse Practitioner Family | DX: G47.33 Obstructive sleep apnea (adult) (pediatric) (principal) | CPT/HCPCS: 99212 ==

== ENCOUNTER 2023-12-28 08:38 | Outpatient (REF) | payer OTHER, SELFPAY ==
[2023-12-28 11:50] LABS: Hematocrit 47.4 % (37.0-47.0); Hemoglobin 15.6 g/dl (12.0-16.0); Mean Corpuscular HGB Conc 32.9 g/dl (31.0-35.0); Mean Corpuscular Hemoglobin 29.8 pg (27.0-33.0); Mean Corpuscular Volume 90.6 fL (80.0-98.0); Mean Platelet Volume 11.4 fL (9.4-12.3); Platelet Count 215 X10*3/uL (160-400); Red Blood Count 5.23 X10*6/uL (4.20-5.50); Red Cell Distribution Width 13.3 % (11.0-16.0); White Blood Count 7.3 X10*3/uL (4.8-10.8)
[2023-12-28 11:52] LABS: Estimated Average Glucose 126 mg/dL
[2023-12-28 12:29] LABS: Alanine Aminotransferase 85 U/L (0-31); Albumin Level 4.2 g/dL (3.5-5.0); Alkaline Phosphatase 137 U/L (39-117); Anion Gap 12 (12-20); Aspartate Amino Transferase 66 U/L (5-31); Bilirubin Direct 0.2 mg/dL (0.0-0.5); Bilirubin Total 0.6 mg/dL (0.0-1.0); Blood Urea Nitrogen 14 mg/dL (9-16); Calcium 9.9 mg/dL (8.4-10.2); Carbon Dioxide 27 mmol/L (22-29); Chloride 108 mmol/L (96-108); Cholesterol 148 mg/dL (<200); Estimated Glomerular Filt Rate > 60; Glucose Random 109 mg/dL (60-115); HDL Cholesterol 52 mg/dL (>40); LDL Cholesterol Calculated 80 mg/dL (<100); Potassium 4.5 mmol/L (3.3-5.1); Sodium 142 mmol/L (135-145); Total Protein 7.9 g/dL (6.5-8.0); Triglycerides 84 mg/dL (<150)
[2023-12-28 12:33] LABS: Vitamin D 25-OH Total 24.6 ng/mL (>30)
[2023-12-28 13:10] LABS: CT PCR NOT DETECTED (Not Detect.); NG PCR NOT DETECTED (Not Detect.)
[2023-12-31 08:36] LABS: Hepatitis A Antibody IgG REACTIVE (Nonreactive); ~Hepatitis A Antibody IgG 7.58 S/CO (0.00-0.99)
[2023-12-31 08:37] LABS: HBS Num1 10.04 mIU/mL (0-7.99); HBsAGNum1 0.23 S/CO (0.00-0.99); HIV AB/AG Nonreactive (Nonreactive); HIV Num 1 0.07 S/CO (0.00-0.99); Hepatitis B Core Antibody Nonreactive (Nonreactive); Hepatitis B Surface Antigen Negative (Negative); ~HepC Num1 0.16 S/CO (0.00-0.79); ~Hepatitis C Antibody Nonreactive (Nonreactive)
[2023-12-31 09:31] LABS: HBS Num2 10.03 mIU/mL (0-7.99); HBS Num3 9.83 mIU/mL (0-7.99); ~Hepatitis B Surface Antibody GRAYZONE (Nonreactive)
[2023-12-31 13:17] LABS: Alpha Fetoprotein 5.2 ng/mL
[2023-12-31 19:38] LABS: RPR Rapid Plasma Reagin NON-REACTIVE (NON-REACTIVE)
== END 2023-12-28 08:39 | disposition home or self-care (01) ==
LOC: HO.HHCL 08:38
PROVIDERS: Visit Provider Family Medicine
DX: Z00.00 Encounter for general adult medical examination without abnormal findings (principal); Z11.4 Encounter for screening for human immunodeficiency virus [HIV]; R73.03 Prediabetes; K76.0 Fatty (change of) liver, not elsewhere classified
CPT/HCPCS: 0353U; 36415; 80048; 80061; 80076; 82105; 82306; 83036; 84439; 84443; 85027; 86592; 86704; 86706; 86708; 86803; 87340; 87389

== ENCOUNTER 2024-04-10 13:50 | Outpatient (REF) | payer OTHER, SELFPAY ==
[2024-04-10 16:08] LABS: MANUAL DIFF FLAG NO
[2024-04-10 16:16] LABS: Basophils Absolute Auto 0.1 X10*3/uL (0.0-0.2); Basophils Percent Auto 0.7 % (0-2); Eosinophils Absolute Auto 0.1 X10*3/uL (0.0-0.4); Eosinophils Percent Auto 1.6 % (0-4); Hemoglobin 14.6 g/dl (12.0-16.0); Imm Gran Abs Auto 0.02 X10*3/uL (0.00-0.03); Imm Gran Pct Auto 0.2 % (0.0-0.4); Lymphocytes Absolute Auto 2.7 X10*3/uL (1.2-4.9); Lymphocytes Percent Auto 33.2 % (20-40); Mean Corpuscular Hemoglobin 30.6 pg (27.0-33.0); Mean Corpuscular Volume 90.1 fL (80.0-98.0); Mean Platelet Volume 11.4 fL (9.4-12.3); Monocytes Absolute Auto 0.5 X10*3/uL (0.1-1.2); Monocytes Percent Auto 6.2 % (2-11); Neutrophils Absolute Auto 4.7 x10*3/uL (2.0-8.3); Neutrophils Percent Auto 58.1 % (45-73); Platelet Count 219 X10*3/uL (160-400); Red Blood Count 4.77 X10*6/uL (4.20-5.50); Red Cell Distribution Width 13.5 % (11.0-16.0); White Blood Count 8.2 X10*3/uL (4.8-10.8)
[2024-04-10 16:31] LABS: Alanine Aminotransferase 75 U/L (0-31); Albumin Level 4.1 g/dL (3.5-5.0); Alkaline Phosphatase 140 U/L (39-117); Anion Gap 11 (12-20); Aspartate Amino Transferase 72 U/L (5-31); Bilirubin Total 0.4 mg/dL (0.0-1.0); Blood Urea Nitrogen 12 mg/dL (9-16); Calcium 9.5 mg/dL (8.4-10.2); Carbon Dioxide 27 mmol/L (22-29); Chloride 107 mmol/L (96-108); Estimated Glomerular Filt Rate > 60; Glucose Random 122 mg/dL (60-115); Lipase 51 U/L (8-78); Potassium 4.2 mmol/L (3.3-5.1); Sodium 141 mmol/L (135-145); Total Protein 7.4 g/dL (6.5-8.0)
== END 2024-04-10 13:51 | disposition home or self-care (01) ==
LOC: HO.HHCL 13:50
PROVIDERS: Visit Provider Internal Medicine
DX: R10.11 Right upper quadrant pain (principal)
CPT/HCPCS: 36415; 80053; 83690; 85025

== ENCOUNTER 2024-04-24 08:58 | Outpatient (REF) | payer OTHER, SELFPAY ==
--- NOTE | ~2024-04-24 | US_ITS ---
EXAMINATION: US ABDOMEN COMPLETE CLINICAL INFORMATION: Right upper quadrant abdominal pain. COMPARISON: Limited abdominal ultrasound with elastography 06/16/2021 and 09/15/2019. CT abdomen and pelvis 11/26/2018. TECHNIQUE: Real-time imaging of the abdominal viscera. FINDINGS: PANCREAS: The visualized pancreas appears unremarkable but the pancreatic tail is obscured by bowel gas. ABDOMINAL AORTA: The proximal, mid, and distal segments are normal in caliber. INFERIOR VENA CAVA: Visualized portions are normal. LIVER: The liver is enlarged measuring over 22 cm in cephalocaudad dimension. The liver contour is normal. There is diffuse increased liver parenchymal echogenicity, consistent with hepatic steatosis. No focal hepatic lesion. There is no intrahepatic biliary duct dilatation seen. GALLBLADDER: Surgically absent. COMMON BILE DUCT: Normal in caliber measuring 0.8 cm in diameter. RIGHT KIDNEY: Normal. No hydronephrosis. No renal calculi or focal parenchymal lesions. The kidney measures 13.0 cm in maximum dimension. LEFT KIDNEY: Normal. No hydronephrosis. No renal calculi or focal parenchymal lesions. The kidney measures 13.0 cm in maximum dimension. SPLEEN: Normal. The spleen measures 10.2 cm in maximum dimension. FREE FLUID: None. US/US abdomen complete IMPRESSION: Enlarged fatty liver. Electronically signed by: John Diaz MD 04/30/2024 03:34 PM EDT
== END 2024-04-24 08:59 | disposition home or self-care (01) ==
LOC: HO.US 08:58
PROVIDERS: Visit Provider Internal Medicine
DX: R10.11 Right upper quadrant pain (principal)
CPT/HCPCS: 76700

== ENCOUNTER 2024-05-02 08:31 | Outpatient (REF) | payer OTHER, SELFPAY ==
--- NOTE | ~2024-05-02 | MM_ITS ---
EXAMINATION: MM SCREENING DIGITAL BREAST TOMOSYNTHESIS, BILATERAL CLINICAL INFORMATION: Screening. Asymptomatic. COMPARISON: Mammography: Comparison is made with available priors TECHNIQUE: Digital breast mammography with tomosynthesis is performed in both the craniocaudal and mediolateral oblique views along with computer-aided detection (CAD). FINDINGS: There are scattered areas of fibroglandular density (ACR BI-RADS breast composition Category b). Left: Prominent axillary lymph node. No suspicious masses calcifications or other abnormal findings. Right: There are no significant masses, abnormal calcifications, or other abnormalities. MM/MM tomosynthesis screening BI IMPRESSION: Right: No mammographic evidence of malignancy. Left: Question prominent axillary lymph node. Ultrasound is recommended at this time. ASSESSMENT: BI-RADS BI-RADS 0 - Incomplete: Needs additional Imaging. RECOMMENDATION: 1. Ultrasound of the left axilla 2. Radiology department staff will contact the patient for additional imaging. Additional Imaging required This examination should not preclude the clinical evaluation of a suspicious palpable abnormality. This patient's information was entered into a reminder system with a target due date for their next mammogram. Electronically signed by: Juju Remy DO 05/14/2024 09:00 AM EDT
== END 2024-05-02 08:32 | disposition home or self-care (01) ==
LOC: HO.MAMMO 08:31
PROVIDERS: PCP Family Medicine; Visit Provider Family Medicine
DX: Z12.31 Encounter for screening mammogram for malignant neoplasm of breast (principal)
CPT/HCPCS: 77063; 77067

== ENCOUNTER → 2024-05-02 08:45 | Outpatient (BNV) | payer OTHER, SELFPAY | PROVIDERS: PCP Family Medicine; Visit Provider Internal Medicine | DX: Z12.31 Encounter for screening mammogram for malignant neoplasm of breast (principal) | CPT/HCPCS: 77063; 77067 ==

== ENCOUNTER 2024-05-22 12:30 | Outpatient (REF) | payer OTHER, SELFPAY ==
--- NOTE | ~2024-05-22 | US_ITS ---
EXAMINATION: US DIAGNOSTIC ULTRASOUND BREAST, left axillary ultrasound. CLINICAL INFORMATION: Called back from screening for prominent left axillary lymph node.. COMPARISON: Screening mammography 05/02/2024. TECHNIQUE: Targeted code Doppler ultrasound of the left axilla was performed with real-time grayscale imaging. FINDINGS: Targeted code upper ultrasound in the left axilla demonstrates a enlarged abnormal left axillary lymph node without a clear delineation of cortex and fatty hilum. There is an adjacent normal-appearing axillary lymph node. Results are discussed with the patient at time of visit. US/US breast LT limited mamm only IMPRESSION: Enlarged left axillary lymph node. Ultrasound guided core needle biopsy is recommended at this time for confirmation. The findings and recommendations were discussed with the patient and the procedure will be scheduled. ASSESSMENT: BI-RADS 4: Suspicious RECOMMENDATION: Left axillary lymph node biopsy recommended at this time. This patient's information was entered into a reminder system with a target due date for their next mammogram. Electronically signed by: Juju Remy DO 05/22/2024 01:36 PM EDT
== END 2024-05-22 12:31 | disposition home or self-care (01) ==
LOC: HO.MAMMO 12:30
PROVIDERS: PCP Family Medicine; Visit Provider Family Medicine
DX: N63.32 Unspecified lump in axillary tail of the left breast (principal)
CPT/HCPCS: 76642

== ENCOUNTER → 2024-05-22 13:00 | Outpatient (BNV) | payer OTHER, SELFPAY | PROVIDERS: PCP Family Medicine; Visit Provider Internal Medicine | DX: R92.8 Other abnormal and inconclusive findings on diagnostic imaging of breast (principal) | CPT/HCPCS: 76642 ==

== ENCOUNTER 2024-05-26 12:26 | Outpatient (AMB) | payer OTHER, SELFPAY ==
--- NOTE | 2024-05-26 13:15 | A.OFFVIS_ITS ---
Vital Signs 05/26/24 13:20 Height 5 ft 5 in Weight 212 lb BMI 35.3 BP 148/87 H Blood Pressure Location Rt brachial Position Sitting Pulse 84 Intake Visit Reasons: US bx Lt br axillary node Intake Note: [facility] for [facility] guided bx on Lt br axillary node. Bx scheduled tomorrow. Patient c/o: reports mass was reflected on mammo/US but she does not feel it on palpation. Mammo: 05-02-2024 US br: 05-23-2024. Nuclear Waste Management Engineer Required: Yes Nuclear Waste Management Engineer Language: Documentation Clerk Services: Nuclear Waste Management Engineer Present (Ai) Information Interpreted: non-clinical & clinical Accompanied by: Self / Same As Patient Allergies No Known Allergies Allergy (Verified 05/26/24 13:23) HPI Comments Details: Patient underwent routine mammography followed by sonogram demonstrating a suspicious left axillary lymph node. Patient herself has no breast issues or complaints. She denies any pain, skin changes, discharge. Her weight energy, and appetite are all good. No significant family history of breast cancer. Chart was reviewed and patient evaluate [facility] Medical History History of colon polyps Obesity (BMI 35.0-39.9 without comorbidity) Constipation by delayed colonic transit NANCY (obstructive sleep apnea) Hepatic steatosis GERD (gastroesophageal reflux disease) Surgical History H/O esophagogastroduodenoscopy Hx of cholecystectomy Hx of colonoscopy Family History Father Brain cancer Mother Diabetes Breast cancer Maternal Aunt Breast cancer Paternal Aunt Breast cancer Social History Household Members: Spouse, Family and Children Housing: House Alcohol intake: never Patient Tobacco Use Status: Never used Tobacco Second Hand Smoke Exposure: No service: No Current occupational status: employed 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 Chest Other: Breast exam demonstrates no obvious mass, discharge, skin changes. Patient was somewhat corpulent. No obvious axillary adenopathy demonstrated. Assessment & Plan Assessment & Plan (1) Lymph node enlargement: Code(s): R59.9 - Enlarged lymph nodes, unspecified Category: Surgical Plan Patient on radiographic findings, patient is to be scheduled for ultrasound- guided biopsy over suspicious left axillary lymph node. Arrangements were made for this and she will see me after the procedure. All questions answered. Orders: Orders US breast ndl core biopsy LT 1 Day R59.9 - Enlarged lymph nodes, unspecified Coding Level of Care Code New Pt Level 4 (80346) Diagnoses Lymph node enlargement R59.9
[2024-05-26 13:20] VITALS: BP 148/87; PULSE 84; BMI 35.3
== END 2024-05-26 13:26 | disposition home or self-care (01) ==
PROVIDERS: PCP Family Medicine; Visit Provider Surgery
DX: R59.9 Enlarged lymph nodes, unspecified (principal)
CPT/HCPCS: 99204

== ENCOUNTER → 2024-05-26 12:26 | Outpatient (BNVA) | payer OTHER, SELFPAY | PROVIDERS: PCP Family Medicine; Visit Provider Surgery | DX: R59.9 Enlarged lymph nodes, unspecified (principal) | CPT/HCPCS: 99202 ==

== ENCOUNTER 2024-05-27 07:32 | Outpatient (REF) | payer OTHER, SELFPAY ==
--- NOTE | ~2024-05-27 | MM_ITS ---
PROCEDURE: US GUIDED BREAST BIOPSY, LEFT CLINICAL INFORMATION: Enlarged left axillary lymph node of unknown etiology for biopsy . COMPARISON: Screening mammography 05/02/2024 and prior studies. Ultrasound left axilla 05/22/2024. PROCEDURAL DETAILS: The details of the procedure, as well as the risks, benefits, and alternatives to the procedure were explained to the patient in detail and all of her questions were answered, after which written informed consent was obtained. Site and side were confirmed. Prior to the procedure, sonography revealed an enlarged left low axillary lymph node measuring approximately 1.5 x 1.1 cm with effaced hilum and thickened cortex. A time-out was performed, the lesion intended for biopsy was targeted, and the skin of the overlying left axilla was then marked, prepped and draped in the usual sterile fashion. Using sonographic guidance, sterile technique, and 1% lidocaine without epinephrine for local anesthesia, multiple core biopsies were obtained through the targeted area with a 14G spring loaded [employer] core biopsy device. There was real-time confirmation of appropriate needle passage. Sampling was documented. At the completion of tissue sampling, a single butterfly shaped metallic clip was deposited at the biopsy site. There was no evidence of immediate complication. SPECIMEN: 4 well formed core samples were obtained. 1 was placed in solution for flow cytometry. DIGITAL POST-PROCEDURE MAMMOGRAPHY: Breast density: The tissue contains scattered areas of fibroglandular density. BI-RADS version 5, category B. There are no new mammographic findings demonstrated. The postprocedure 1-view direct digital mammogram MLO view reveals satisfactory and accurate positioning of the biopsy clip within the targeted lymph node. No hematoma present. The patient tolerated the procedure well and, after assuring adequate hemostasis, was discharged in good condition after reviewing postbiopsy breast care instructions. Final pathology results are pending. MM/MM tomosynthesis diagnostic LT IMPRESSION: 1. No immediate complication from ultrasound-guided percutaneous biopsy enlarged left low axillary lymph node. 2. Ultrasound was used to localize and guide marker clip placement. 3. A 1 view MLO direct digital postprocedure mammogram reveals accurate positioning of the biopsy clip. 4. Final pathology results are pending. A separate report with final recommendations will be issued once these results are made available. Electronically signed by: Karthik Patterson MD 05/27/2024 10:57 AM EDT
[2024-05-27] MEDS: Lidocaine HCl 1 % 20 ML VIAL 9 ML SUBCUT (09:31)
== END 2024-05-27 07:33 | disposition home or self-care (01) ==
LOC: HO.MAMMO 07:32
PROVIDERS: Radiology Diagnostic Radiology; PCP Family Medicine; Visit Provider Surgery
DX: R59.0 Localized enlarged lymph nodes (principal); N63.21 Unspecified lump in the left breast, upper outer quadrant
CPT/HCPCS: 36415; 38505; 76942; 77061; 77065; 88184; 88185; 88300; 88305; A4648; C1894; J2003

== ENCOUNTER → 2024-05-27 08:00 | Outpatient (BNV) | payer OTHER, SELFPAY | PROVIDERS: PCP Family Medicine; Visit Provider Radiology Diagnostic Radiology | DX: N63.32 Unspecified lump in axillary tail of the left breast (principal) | CPT/HCPCS: 38505; 76942; 77061; 77065 ==

== ENCOUNTER 2024-05-28 11:58 | Outpatient (REF) | payer OTHER, SELFPAY ==
[2024-05-28 13:59] LABS: Hematocrit 44.5 % (37.0-47.0); Hemoglobin 14.7 g/dl (12.0-16.0); Mean Corpuscular Hemoglobin 29.8 pg (27.0-33.0); Mean Corpuscular Volume 90.3 fL (80.0-98.0); Mean Platelet Volume 11.5 fL (9.4-12.3); Platelet Count 207 X10*3/uL (160-400); Red Blood Count 4.93 X10*6/uL (4.20-5.50); Red Cell Distribution Width 13.4 % (11.0-16.0); White Blood Count 8.7 X10*3/uL (4.8-10.8)
[2024-05-28 14:11] LABS: Estimated Average Glucose 128 mg/dL; Hemoglobin A1C 151.8834 umol/L; Hemoglobin A1c % 6.1 % (<6.0); Total Hemoglobin (HGBA1C) 3542.1937 umol/L
[2024-05-28 14:15] LABS: Alanine Aminotransferase 74 U/L (0-31); Alkaline Phosphatase 139 U/L (39-117); Anion Gap 10 (12-20); Aspartate Amino Transferase 62 U/L (5-31); Bilirubin Direct 0.2 mg/dL (0.0-0.5); Bilirubin Total 0.4 mg/dL (0.0-1.0); Blood Urea Nitrogen 13 mg/dL (9-16); Calcium 9.2 mg/dL (8.4-10.2); Carbon Dioxide 25 mmol/L (22-29); Chloride 111 mmol/L (96-108); Cholesterol 141 mg/dL (<200); Estimated Glomerular Filt Rate > 60; Gamma Glutamyl Transpeptidase 47 U/L (7-33); Glucose Random 101 mg/dL (60-115); HDL Cholesterol 53 mg/dL (>40); LDL Cholesterol Calculated 68 mg/dL (<100); Potassium 3.9 mmol/L (3.3-5.1); Sodium 142 mmol/L (135-145); Total Protein 7.4 g/dL (6.5-8.0); Triglycerides 104 mg/dL (<150)
[2024-05-28 14:35] LABS: Free T4 (Free Thyroxine) 0.86 ng/dL (0.71-1.85); Thyroid Stimulating Hormone 1.64 uIU/mL (0.32-4.0); Vitamin D 25-OH Total 30.7 ng/mL (>30)
[2024-05-30 13:13] LABS: Alpha Fetoprotein 5.3 ng/mL
== END 2024-05-28 11:59 | disposition home or self-care (01) ==
LOC: HO.HHCL 11:58
PROVIDERS: Visit Provider Family Medicine
DX: K76.0 Fatty (change of) liver, not elsewhere classified (principal)
CPT/HCPCS: 36415; 80048; 80061; 80076; 82105; 82306; 82977; 83036; 84439; 84443; 85027

== ENCOUNTER 2024-06-04 09:26 | Outpatient (AMB) | payer OTHER, SELFPAY ==
--- NOTE | 2024-06-04 11:04 | A.OFFVIS_ITS ---
Intake Visit Reasons: US bx Lt br axillary node Intake Note: Patient here to discuss US bx Lt br axillary node on 05-27-2024. Patient c/o: no concerns. Web Analytics Specialist Required: No Accompanied by: Self / Same As Patient Allergies No Known Allergies Allergy (Verified 06/04/24 11:04) Medication List - Last Reconciled 06/04/24 by Domenico Flores MD baclofen mg PO cholecalciferol (vitamin D3) 50 mcg PO DAILY magnesium oxide 400 mg PO DAILY naproxen 500 mg PO BID omeprazole 20 mg PO BID HPI Comments Details: Patient presents for follow-up. Ultrasound-guided biopsy of left lymph node was benign. Patient was delighted to hear this news. [facility] Medical History History of colon polyps Obesity (BMI 35.0-39.9 without comorbidity) Constipation by delayed colonic transit NANCY (obstructive sleep apnea) Hepatic steatosis GERD (gastroesophageal reflux disease) Surgical History H/O esophagogastroduodenoscopy Hx of cholecystectomy Hx of colonoscopy Family History Father Brain cancer Mother Diabetes Breast cancer Maternal Aunt Breast cancer Paternal Aunt Breast cancer Social History Household Members: Spouse, Family and Children Housing: House Alcohol intake: never Patient Tobacco Use Status: Never used Tobacco Second Hand Smoke Exposure: No service: No Current occupational status: employed 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 Assessment & Plan Assessment & Plan (1) Lymph node enlargement: Code(s): R59.9 - Enlarged lymph nodes, unspecified Category: Surgical Plan Current plan is see the patient 1 year's time with follow-up bilateral mammography. The meantime patient was encouraged to self-breast exams periodically/monthly. She will see me as directed or p.r.n.. Orders: Orders MM screening mammo BI 11 Months R59.9 - Enlarged lymph nodes, unspecified, Z12.31 - Encounter for screening mammogram for malignant neoplasm of breast Coding Level of Care Code Est Pt Level 4 (47946) Diagnoses Lymph node enlargement R59.9
== END 2024-06-04 09:35 | disposition home or self-care (01) ==
PROVIDERS: PCP Family Medicine; Visit Provider Surgery
DX: R59.9 Enlarged lymph nodes, unspecified (principal)
CPT/HCPCS: 99214

== ENCOUNTER → 2024-06-04 09:26 | Outpatient (BNVA) | payer OTHER, SELFPAY | PROVIDERS: PCP Family Medicine; Visit Provider Surgery | DX: R59.9 Enlarged lymph nodes, unspecified (principal) | CPT/HCPCS: 99212 ==

== ENCOUNTER 2024-06-17 08:18 | Outpatient (REF) | payer OTHER, SELFPAY | END 2024-06-17 08:19 | disposition home or self-care (01) | LOC: HO.US 08:18 | PROVIDERS: PCP Family Medicine; Visit Provider Family Medicine | DX: K76.0 Fatty (change of) liver, not elsewhere classified (principal) | CPT/HCPCS: 76700; 76981 ==

== ENCOUNTER 2024-08-04 08:59 | Outpatient (AMB) | payer OTHER, SELFPAY ==
--- NOTE | 2024-08-04 09:24 | A.OFFVIS_ITS ---
Vital Signs 08/04/24 09:25 Height 5 ft 5 in Weight 217 lb 6 oz BMI 36.2 BP 126/80 Blood Pressure Location Rt brachial Position Sitting Pulse 81 Pulse Source Pulse Oximeter Pulse Oximetry (%) 97 Oxygen Delivery Method Room Air Intake Visit Reasons: 1 yr f/u - Healthcare Advisory Services Manager Required: No Accompanied by: Self / Same As Patient Allergies No Known Allergies Allergy (Verified 08/04/24 09:29) HPI Comments Details: 58-yr-old female presents for follow-up visit. Pt denies any significant interval medical history changes. Pt reports she is doing well with CPAP. She is sleeping well and feels well rested. She never received an appointment to have a new mask fitting after last year's visit. However, she would still like to try another mask, as she is finding that she is sleeping with her mouth open while using her nasal mask. She states her uses the F20 mask- and thinks this would work better for her. She has enough CPAP supplies. [facility] Compliance Report Usage 07/05/2024 - 08/03/2024 Usage days 30/30 days (100%) >= 4 hours 29 days (97%) < 4 hours 1 days (3%) Average usage (days used) 7 hours 42 minutes AirSense 10 AutoSet Serial number [id number] Mode CPAP Set pressure 9 cmH2O EPR Fulltime EPR level 3 Therapy Leaks - L/min Median: 1.6 95th percentile: 15.2 Maximum: 24.8 Events per hour AI: 1.3 HI: 0.0 AHI: 1.3 PFSH Medical History History of colon polyps Obesity (BMI 35.0-39.9 without comorbidity) Constipation by delayed colonic transit NANCY (obstructive sleep apnea) Hepatic steatosis GERD (gastroesophageal reflux disease) Surgical History H/O esophagogastroduodenoscopy Hx of cholecystectomy Hx of colonoscopy Family History Father Brain cancer Mother Diabetes Breast cancer Maternal Aunt Breast cancer Paternal Aunt Breast cancer Social History Household Members: Spouse, Family and Children Housing: House Alcohol intake: never Patient Tobacco Use Status: Never used Tobacco Second Hand Smoke Exposure: No service: No Current occupational status: employed 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 Physical Exam Vital Signs: Last Vital Signs Pulse 81 08/04/24 09:25 BP 126/80 08/04/24 09:25 Pulse Ox 97 08/04/24 09:25 Oxygen Delivery Method Room Air 08/04/24 09:25 BMI result Body Mass Index 36.2 Const General: no acute distress Orientation/consciousness: patient oriented x3 Resp Effort & Inspection: normal respiratory effort and able to speak in complete sentences Auscultation: clear to auscultation bilaterally Neuro General: patient oriented x3 Psych Mental Status: mental status grossly normal Speech and movement: Clear speech present Attitude: cooperative Assessment & Plan Assessment & Plan (1) NANCY (obstructive sleep apnea): Comment: In-lab PSG (October [address] [facility] [place]): AHI 11/hr, REM AHI 33/hr, O2 cesar 86%, PLMS 24/hr with PLMS arousal index of 1.5/hr. On CPAP 9 cmH2O. Home care company: [facility]. Code(s): G47.33 - Obstructive sleep apnea (adult) (pediatric) Category: Medical Plan Continue CPAP 9 cmH2O w/ EPR 3 nightly > 4 hours, as pt continues to have good reduction in AHI with good clinical effect. Updated order written for F20/30 style mask fitting and supplies- well send updated order to [facility]. Copy of updated order also given to pt. Clean CPAP machine and supplies routinely. Continue to use distilled water in CPAP water reservoir. Change CPAP supplies routinely. Monitor for any s/s PLMS. f/u in 1 yr or sooner prn. Coding Level of Care Code Est Pt Level 3 (41718) Diagnoses NANCY (obstructive sleep apnea) G47.33
[2024-08-04 09:25] VITALS: BP 126/80; PULSE 81; O2SAT 97; BMI 36.2
== END 2024-08-04 10:13 | disposition home or self-care (01) ==
PROVIDERS: PCP Family Medicine; Visit Provider Nurse Practitioner Family
DX: G47.33 Obstructive sleep apnea (adult) (pediatric) (principal)
CPT/HCPCS: 99213

== ENCOUNTER → 2024-08-04 08:59 | Outpatient (BNVA) | payer OTHER, SELFPAY | PROVIDERS: PCP Family Medicine; Visit Provider Nurse Practitioner Family | DX: G47.33 Obstructive sleep apnea (adult) (pediatric) (principal); Z99.89 Dependence on other enabling machines and devices | CPT/HCPCS: 99212 ==

== ENCOUNTER 2024-08-06 09:51 | Outpatient (AMB) | payer OTHER, SELFPAY ==
--- NOTE | 2024-08-06 10:00 | A.OFFVIS_ITS ---
Vital Signs 08/06/24 10:01 Height 5 ft 5 in Weight 213 lb 13.574 oz BMI 35.6 BP 116/66 Blood Pressure Location Lt brachial Position Sitting Pulse 88 Intake Visit Reasons: jair pt Intake Note: Nae presents in the office as a jair patient for follow up Allergies No Known Allergies Allergy (Verified 08/06/24 10:01) HPI Comments Details: 59 y.o F with PMH of who is here for elevated LFTs. Pt reports RUQ pain x year which radiates to the back which is not associated with food intake, N,V, changes in stool or weight. Patient had LFTs done by primary care provider that have been remarkably elevated. On chart review, she has always had elevated transaminases, however have been gradually increasing as of this year. In addition, primary care provider also ordered a liver elastography on 06/17, however the results are still pending. Previous elastography 2020 did not show chronic liver disease. BMI 35. Pt does not drink. Has prediabetes. No HLD. Does have NANCY. No fam hx of liver disease. PFSH Medical History History of colon polyps Obesity (BMI 35.0-39.9 without comorbidity) Constipation by delayed colonic transit NANCY (obstructive sleep apnea) Hepatic steatosis GERD (gastroesophageal reflux disease) Surgical History H/O esophagogastroduodenoscopy Hx of cholecystectomy Hx of colonoscopy Family History Father Brain cancer Mother Diabetes Breast cancer Maternal Aunt Breast cancer Paternal Aunt Breast cancer Social History Household Members: Spouse, Family and Children Housing: House Alcohol intake: never Patient Tobacco Use Status: Never used Tobacco Second Hand Smoke Exposure: No service: No Current occupational status: employed 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 Review of Systems Const All systems reviewed & are unremarkable except as noted in HPI and below Physical Exam Vital Signs: Last Vital Signs Pulse 88 08/06/24 10:01 BP 116/66 08/06/24 10:01 BMI result Body Mass Index 35.6 No apparent distress Nonicteric Abdomen soft, nondistended Alert and oriented x3, normal gait Assessment & Plan Assessment & Plan (1) Elevated LFTs: Code(s): R79.89 - Other specified abnormal findings of blood chemistry Category: Medical (2) Obesity (BMI 35.0-39.9 without comorbidity): Code(s): E66.9 - Obesity, unspecified Category: Medical (3) Hepatic steatosis: Code(s): K76.0 - Fatty (change of) liver, not elsewhere classified Category: Medical Plan Reviewed with the patient that based on clinical history, most likely has nonalcohol related fatty liver disease. Fib 4 is 1.98 i.e advanced fibrosis not ruled out. As above, elastography has been done, but results are pending. Plan: -will obtain blood work to rule out other causes of chronic liver disease -patient counseled on control of metabolic diseases including obesity and pre diabetes -encourage her to discuss indication of GLP1 with her PCP at the next visit which will not only help with prediabetes, but will also help with obesity and hepatic steatosis -discussed 10% total body weight loss over the next 6 months -hep B surface antibodies in ann zone, will reorder along with core antibody Follow-up in 2 months Orders: Orders AB Reflex Titer and Pattern Today - Other specified abnormal findings of blood chemistry Comprehensive Met. Panel Today - Other specified abnormal findings of blood chemistry Gamma Glutamyl Transpeptidase Today - Other specified abnormal findings of blood chemistry Hepatitis B Core Antibody Today . - Other specified abnormal findings of blood chemistry Immunoglobulin A Today . - Other specified abnormal findings of blood chemistry Immunoglobulin G Today . - Other specified abnormal findings of blood chemistry IRON PROFILE Today . - Other specified abnormal findings of blood chemistry Liver Kidney Microsomal Ab Today . - Other specified abnormal findings of blood chemistry Mitochondrial Antibody Today . - Other specified abnormal findings of blood chemistry Smooth Muscle Antibody Today . - Other specified abnormal findings of blood chemistry Prothrombin Time INR Today . - Other specified abnormal findings of blood chemistry Transglutaminase IgA Today . - Other specified abnormal findings of blood chemistry TSH reflex Free T4 Today . - Other specified abnormal findings of blood chemistry Alkaline Phosphatase Isoenzyme Today . - Other specified abnormal findings of blood chemistry Alpha 1 Anti-trypsin Today . - Other specified abnormal findings of blood chemistry Ceruloplasmin Today R79.89 - Other specified abnormal findings of blood chemistry Ferritin Today R7. - Other specified abnormal findings of blood chemistry Hemoglobin A1c Today R7. - Other specified abnormal findings of blood chemistry Hepatitis B Surface Antibody Today R7. - Other specified abnormal findings of blood chemistry HIV Ab/Ag Today R7. - Other specified abnormal findings of blood chemistry Complete Blood Count no Diff Today R7 - Other specified abnormal findings of blood chemistry Coding Level of Care Code Est Pt Level 4 (17845) Complex EM visit Add On G2211 Diagnoses Elevated LFTs R79.89 Obesity (BMI 35.0-39.9 without comorbidity) E66.9 Hepatic steatosis K76.0
[2024-08-06 10:01] VITALS: BP 116/66; PULSE 88; BMI 35.6
== END 2024-08-06 11:28 | disposition home or self-care (01) ==
PROVIDERS: PCP Family Medicine; Visit Provider Internal Medicine
DX: R79.89 Other specified abnormal findings of blood chemistry (principal); E66.9 Obesity, unspecified; K76.0 Fatty (change of) liver, not elsewhere classified
CPT/HCPCS: 99214; G2211

== ENCOUNTER → 2024-08-06 09:51 | Outpatient (BNVA) | payer OTHER, SELFPAY | PROVIDERS: PCP Family Medicine; Visit Provider Internal Medicine | DX: R79.89 Other specified abnormal findings of blood chemistry (principal); K76.0 Fatty (change of) liver, not elsewhere classified; E66.9 Obesity, unspecified; Z68.35 Body mass index [BMI] 35.0-35.9, adult | CPT/HCPCS: 99212 ==

== ENCOUNTER 2024-08-07 10:21 | Outpatient (REF) | payer OTHER, SELFPAY ==
--- NOTE | ~2024-08-07 | XR_ITS ---
EXAMINATION: XR LUMBAR SPINE CLINICAL INFORMATION: worsening LBP COMPARISON: 2019 TECHNIQUE: Frontal lateral and coned-down L5-S1 frontal lateral, total of 3 views FINDINGS: Five [id number] lumbar vertebrae were identified maintaining normal height and alignments. Narrowing of intervertebral disc spaces suggest underlying degenerative disc disease. This is seen at all visualized levels T12-L1 through L5-S1., Surgical clip right upper quadrant from prior cholecystectomy. Paravertebral soft tissues are unremarkable. There are radiolucencies, most likely superimposed bowel gas.. No radiographic evidence of osteolytic or osteoblastic lesions. XR/XR lumbar spine 2-3V IMPRESSION: No evidence of acute fracture Bone alignment are satisfactory Narrowing of disc spaces at multiple levels suggest underlying degenerative disc disease. Electronically signed by: Coleen Sood MD 08/09/2024 11:52 AM NAVIN MORENO
[2024-08-07 11:17] LABS: Hematocrit 44.3 % (37.0-47.0); Hemoglobin 14.8 g/dl (12.0-16.0); Mean Corpuscular HGB Conc 33.4 g/dl (31.0-35.0); Mean Corpuscular Hemoglobin 30.1 pg (27.0-33.0); Mean Platelet Volume 11.2 fL (9.4-12.3); Platelet Count 204 X10*3/uL (160-400); Red Blood Count 4.92 X10*6/uL (4.20-5.50); Red Cell Distribution Width 13.8 % (11.0-16.0); White Blood Count 6.9 X10*3/uL (4.8-10.8)
[2024-08-07 11:21] LABS: Prothrombin Time 11.1 SEC (10.9-12.4)
[2024-08-07 11:26] LABS: Estimated Average Glucose 134 mg/dL; Hemoglobin A1C 170.3027 umol/L; Hemoglobin A1c % 6.3 % (<6.0); Total Hemoglobin (HGBA1C) 3769.4813 umol/L
[2024-08-07 11:55] LABS: Alkaline Phosphatase 166 U/L (39-117); Anion Gap 7 (12-20); Aspartate Amino Transferase 77 U/L (5-31); Bilirubin Total 0.5 mg/dL (0.0-1.0); Blood Urea Nitrogen 14 mg/dL (9-16); Calcium 9.4 mg/dL (8.4-10.2); Carbon Dioxide 29 mmol/L (22-29); Chloride 109 mmol/L (96-108); Estimated Glomerular Filt Rate > 60; Glucose Random 211 mg/dL (60-115); Iron 121 mcg/dL (30-160); Percent Iron Saturation 53 % (15-50); Potassium 4.4 mmol/L (3.3-5.1); Sodium 141 mmol/L (135-145); Total Iron Binding Capacity 228 mcg/dL (228-428); Total Protein 7.7 g/dL (6.5-8.0); Unsaturated Iron Binding 107 ug/dL
[2024-08-07 12:09] LABS: Alanine Aminotransferase 94 U/L (0-31)
[2024-08-07 12:17] LABS: HBS Num1 > 1000.00 mIU/mL (0-7.99); HBc Num1 0.16 S/CO (0.00-0.79); HIV AB/AG Nonreactive (Nonreactive); HIV Num 1 0.07 S/CO (0.00-0.99); Hepatitis B Core Antibody Nonreactive (Nonreactive); ~Hepatitis B Surface Antibody REACTIVE (Nonreactive)
[2024-08-07 12:26] LABS: Gamma Glutamyl Transpeptidase 54 U/L (7-33)
[2024-08-07 12:56] LABS: Ferritin 327 ng/mL (10-250); TSH reflex Free T4 2.24 uIU/mL (0.32-4.0)
[2024-08-08 19:24] LABS: Transglutaminase IgA <1.0 U/mL
[2024-08-09 14:37] LABS: Immunoglobulin A 247 mg/dL (47-310); Immunoglobulin G 1468 mg/dL (600-1640)
[2024-08-09 23:18] LABS: Alpha 1 Anti-trypsin 155 mg/dL (83-199); Ceruloplasmin 26 mg/dL (14-48)
[2024-08-11 14:43] LABS: Anti Nuclear Antibody Screen NEGATIVE (NEGATIVE)
[2024-08-12 11:13] LABS: Mitochondrial Antibodies NEGATIVE (NEGATIVE)
[2024-08-13 06:27] LABS: Liver Kidney Microsomal Ab <=20.0 U (<=20.0)
[2024-08-14 21:44] LABS: Alk.Phos Iso. Macrohepatic 0 % (<=0); Alk.Phos Isoenzymes Bone 33 % (28-66); Alk.Phos Isoenzymes Intest 35 % (1-24); Alk.Phos Isoenzymes Liver 33 % (25-69); Alk.Phos Isoenzymes Placental 0 % (<=0); Alk.Phos Isoenzymes Total 159 U/L (37-153)
[2024-08-15 14:18] LABS: Smooth Muscle Antibody <20 U (<20)
== END 2024-08-07 10:22 | disposition home or self-care (01) ==
LOC: HO.XRAY 10:21
PROVIDERS: Absent Provider Internal Medicine; PCP Family Medicine; Visit Provider Family Medicine
DX: R79.89 Other specified abnormal findings of blood chemistry (principal); M54.50 Low back pain, unspecified; G89.29 Other chronic pain
CPT/HCPCS: 36415; 72100; 80053; 82103; 82390; 82728; 82784; 82977; 83036; 83540; 84080; 84443; 85027; 85610; 86015; 86038; 86364; 86376; 86381; 86704; 86706; 87389

== ENCOUNTER 2024-09-03 08:01 | Outpatient (AMB) | payer OTHER, SELFPAY ==
--- NOTE | 2024-09-03 08:02 | A.OFFVIS_ITS ---
Vital Signs 09/03/24 08:09 Height 5 ft 5 in Weight 214 lb BMI 35.6 BP 118/61 Blood Pressure Location Rt brachial Position Sitting Pulse 73 Intake Visit Reasons: Consistent pain~ Lt axilla Executive Vice President And Chief Financial Officer Required: No Accompanied by: Self / Same As Patient Allergies No Known Allergies Allergy (Verified 09/03/24 08:09) HPI Comments Details: Patient presents with a several week history of upper anterior chest wall soft tissue discomfort. Patient wants to make sure it is not related to her axillary biopsy back of from the fall. She did not recall any recent trauma to the area. She has not noticed any skin changes. No masses. No other breast symptoms. Patient was due for follow-up bilateral mammograms in the few months time. [facility] Medical History History of colon polyps Obesity (BMI 35.0-39.9 without comorbidity) Constipation by delayed colonic transit NANCY (obstructive sleep apnea) Hepatic steatosis GERD (gastroesophageal reflux disease) Surgical History H/O esophagogastroduodenoscopy Hx of cholecystectomy Hx of colonoscopy Family History Father Brain cancer Mother Diabetes Breast cancer Maternal Aunt Breast cancer Paternal Aunt Breast cancer Social History Household Members: Spouse, Family and Children Housing: House Alcohol intake: never Patient Tobacco Use Status: Never used Tobacco Second Hand Smoke Exposure: No service: No Current occupational status: employed 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 Bilateral upper extremities are grossly neurovascularly intact. Assessment & Plan Assessment & Plan (1) Left-sided chest wall pain: Code(s): R07.89 - Other chest pain Category: Surgical Plan At present, patient was reassured that her symptoms were highly unlikely to be related to her axillary lymph node biopsy. She will be treated conservatively with Tylenol or Motrin. She should also follow up with her medical doctor. She will see me after her scheduled mammogram later this year or p.r.n.. She is encouraged to do self-breast exams. All questions answered. Coding Level of Care Code Est Pt Level 4 (34807) Diagnoses Left-sided chest wall pain R07.89
[2024-09-03 08:09] VITALS: BP 118/61; PULSE 73; BMI 35.6
== END 2024-09-03 08:25 | disposition home or self-care (01) ==
PROVIDERS: PCP Family Medicine; Visit Provider Surgery
DX: R07.89 Other chest pain (principal)
CPT/HCPCS: 99214

== ENCOUNTER → 2024-09-03 08:01 | Outpatient (BNVA) | payer OTHER, SELFPAY | PROVIDERS: PCP Family Medicine; Visit Provider Surgery | DX: R07.89 Other chest pain (principal) | CPT/HCPCS: 99212 ==

== ENCOUNTER 2024-09-04 09:05 | Outpatient (REF) | payer OTHER, SELFPAY ==
[2024-09-04 11:00] LABS: Iron 84 mcg/dL (30-160); Percent Iron Saturation 36 % (15-50); Total Iron Binding Capacity 231 mcg/dL (228-428); Unsaturated Iron Binding 147 ug/dL
[2024-09-04 11:16] LABS: Ferritin 266 ng/mL (10-250)
== END 2024-09-04 09:06 | disposition home or self-care (01) ==
LOC: HO.LAB 09:05
PROVIDERS: PCP Family Medicine; Visit Provider Internal Medicine
DX: E83.19 Other disorders of iron metabolism (principal); R79.89 Other specified abnormal findings of blood chemistry
CPT/HCPCS: 36415; 81256; 82728; 83540

== ENCOUNTER 2024-10-03 10:36 | Outpatient (REF) | payer OTHER, SELFPAY ==
--- NOTE | ~2024-10-03 | XR_ITS ---
EXAMINATION: XR SHOULDER 2 OR MORE VIEWS LEFT HISTORY: L shoulder pain, decreased ROM COMPARISON: There are no prior studies available for comparison. FINDINGS: Six views of the left shoulder are submitted. Osseous mineralization is normal. There is no fracture or dislocation. The glenohumeral joint is maintained. There is mild narrowing of the AC joint. The soft tissues are unremarkable. XR/XR shoulder LT min 2V IMPRESSION: Mild narrowing of the AC joint. Electronically signed by: Jc Chavis MD 10/03/2024 12:25 PM NAVIN MORENO
--- OUTSIDE RECORDS SUMMARY | 2024-10-03 11:25 | XMS_ITS | Encounter Summary ---
Author Organization [employer] [facility] Address [address] [place] [address] [address] [place] [address] Care Team Providers Care Nut Process Helper Name Role Phone Jinny Cunningham DO Primary Care Provider + [phone] Reason for Visit * Reason Onset Date Comments Referral 03/08/2023 Encounter Details Date Type Department Care Team (Late Contact Info) Description 03/08/2023 Telephone [facility] [address] [place], [place] [phone] Jinny Cunningham DO [address] [place] [address] Referral Social History Tobacco Use Types Packs/Day Years Used Date Smoking Tobacco: Never Smokeless Tobacco: Never Alcohol Use Standard Drinks/Week Comments Never 0 (1 standard drink = 0.6 oz pur e alcohol) Comments Unknown Sex and Gender Information Value Date Recorded Sex Assigned at Female 06/19/2022 10:22 AM EDT Legal Sex Female 10:22 AM EDT Gender Identity Female 06/19/2022 10:22 AM EDT Sexual Orientation Straight 06/19/2022 10 :22 AM EDT documented as of this encounter Miscellaneous Notes * Telephone Encounter - Ayesha Lucio - 03/08/2023 10:51 AM EDT Tc from pt requesting status on referral to bag maker. Please contact pt at [phone] (Kenyan) documented in this encounter Plan of Treatment Upcoming Encounters Date Type Department Care Team (Late Contact Info) Description 10/08/2024 8:00 AM EST Office Visit [facility] ADULT D[facility]AL [address] [place] [address] Onel Tejeda 12/29/2024 9:00 AM EDT Immunization [facility] [address] [place] [address] documented as of this encounter Visit Diagnoses Not on filedocumented in this encounter Care Teams Nut Process Helper Relationship Specialty Start Date End Date Jinny Cunningham DO [address] [place] [address] PCP - General Family Medicine 10/03/11 documented as of this encounter
--- OUTSIDE RECORDS SUMMARY | 2024-10-03 11:25 | XMS_ITS | Encounter Summary ---
Author Organization [employer] Address [address] [place] [address] Care Team Providers Care Supervisor Of Guidance And Testing Name Role Phone MarkyJinny canchola Primary Care Provider + [phone] Encounter Details Date Type Department Care Team (Latest Contact Info) Description 09/04/2024 Travel Social History Tobacco Use Types Packs/Day Years Used Date Smoking Tobacco: Never Passive Smoke Exposure: Never Smokeless Tobacco: Never Alcohol Use Standard Drinks/Week Comments Never 0 (1 standard drink = 0.6 oz pur e alcohol) Depression Answer Date Recorded Patient Health Questionnaire-9 Score 6 12/21/2023 Patient Health Questionnaire-9 Score 6 12/21/2023 Last PHQ-9: Questionnaire Data Not on file 0 12/21/2023 Housing Stability Answer Date Recorded What is your housing situation today? I have moe hall 12/14/[address] you li ve. Do you have problems with any of the following? None of the above 12/14/2023 Food Insecurity Answer Date Recorded Within the past 12 months, y ou worried that your food would run out before you got money to buy more: Never True 12/14/2023 Within the past 12 months,th e food you bought just didn't last and you didn't have enough money to get more: Never True Transportation Answer Date Recorded In the past 12 months, has l ack of transportation kept you from medical appts, meetings, work or from getting things needed for daily living? No 12/14/2023 Utilities Answer Date Recorded In the past 12 months, has t he electric, gas, oil or water company threatened to shut off services in your home? No 12/14/2023 Depression Answer Date Recorded Patient Health Questionnaire-2 Score 1 12/21/2023 Comments Unknown Sex and Gender Information Value Date Recorded Sex Assigned at Female 06/19/2022 10:22 AM EDT Legal Sex Female 10:22 AM EDT Gender Identity Female 06/19/2022 10:22 AM EDT Sexual Orientation Straight 06/19/2022 10 :22 AM EDT documented as of this encounter Plan of Treatment Upcoming Encounters Date Type Department Care Team (Late st Contact Info) Description 10/08/2024 8:00 AM EST Office Visit [facility] ADULT DENTAL [address] [place] [address] Onel Tejeda 12/29/2024 9:00 AM EDT Immunization [facility] [address] [place] [address] documented as of this encounter Visit Diagnoses Not on filedocumented in this encounter Additional Health Concerns Assessment Noted Time PHQ-9 Depression Total Score: 6 12/21/19 24 10:44 AM EDT documented as of this encounter Care Teams Supervisor Of Guidance And Testing Relationship Specialty Start Date End Date Jinny Cunningham DO [address] [place] [address] PCP - General Family Medicine 10/03/11 documented as of this encounter
--- OUTSIDE RECORDS SUMMARY | 2024-10-03 11:25 | XMS_ITS | Encounter Summary ---
Author Organization [employer] [facility] Address [address] [place] [address] Care Team Providers Care Dough Puncher Name Role Phone Jinny Cunningham DO Primary Care Provider + [phone] Reason for Visit * Reason Onset Date Comments Nurse Triage 02/15/2024 Encounter Details Date Type Department Care Team ([facility] st Contact Info) Description 02/15/2024 Telephone [facility] MED[facility] [address] [place], [place] [phone] Jinny Cunningham DO [address] [place] [address] Nurse Triage Social History Tobacco Use Types Packs/Day Years [...] encounter Miscellaneous Notes * Telephone Encounter - Batool Ware RN - 02/15/2024 10:51 AM EDT Call returned to Nae Arciniega to triage below. Reports having SE to methocarbamol 750mg 1 tablet BID. Per pt sx onset since first dose. Per pt started same day as visit 12/20. Last dose taken 2 day ago. Per pt having ALVAREZ, dizziness and nausea with taking meds. Per pt has continued Tylenol , diclofenac gel and lidocaine patch without any SE. Has not had sx since stopping med. Per pt just wanted to inform PCP that will continue to hold Methocarbamol and continue with other meds for pain management as providing mild relief. Pt would like Referral to Pain Management as discussed at visit (do not see mention in visit note). Pt advised to return call should pain worsen on stop responding to other meds for pain relief. Pt agrees. Protocol Used: Medication Question Call (Adult) Protocol-Based Disposition: Home Care Override (Final) Disposition: Discuss with PCP and Callback by Nurse PRN Override Reason: Other Override Notes: pt wanted to inform PCP. Positive Triage Question: * Caller has medicine question, adult has minor symptoms, caller declines triage, and triager answers question * All higher-acuity triage questions were negative * Telephone Encounter - Kathy Cordova - 02/15/2024 10:29 AM EDT Symptoms: Medication Reaction, Nausea But No Vomiting, Headache, Dizziness Outcome: Schedule an urgent appointment (within 1 hour) or talk to a nurse or provider soon Reason: methocarbamol (Robaxin) 750 MG tablet The caller accepted this outcome documented in this encounter Plan of Treatment Upcoming Encounters Date Type Department Care Team (Late st Contact Info) Description 10/08/2024 8:00 AM EST Office Visit [facility] ADULT DENTAL [address] [place] [address] Onel Tejeda 12/29/2024 9:00 AM EDT Immunization [facility] [address] [place] [address] documented as of this encounter Visit Diagnoses Not on filedocumented in this encounter Additional Health Concerns Assessment Noted Time PHQ-9 Depression Total Score: 6 12/21/19 24 10:44 AM EDT documented as of this encounter Care Teams Dough Puncher Relationship Specialty Start Date End Date Jinny Cunningham DO [address] [place] [address] PCP - General Family Medicine 10/03/11 documented as of this encounter
--- OUTSIDE RECORDS SUMMARY | 2024-10-03 11:25 | XMS_ITS | Encounter Summary ---
Author Organization [employer] Address [address] [place] [address] Care Team Providers Care Luster Applicator Name Role Phone Jinny Cunningham DO Primary Care Provider + [phone] Encounter Details Date Type Department Care Team (Latest Contact Info) Description 10/03/2024 9:15 AM EST Office Visit [facility] [address] [place], [place] [phone] Jinny Cunningham DO [address] [place] [address] Prediabetes (Primary Dx); Fatty liver; Chronic gastroesophageal reflux disease; Obstructive sleep apnea; Chronic bilateral low back pain, unspecified whether sciatica present; Abnormal mammogram; Healthcare maintenance; Chronic left shoulder pain; Encounter for immunization Social History Tobacco Use Types Packs/Day Years Used Date Smoking Tobacco: Never Passive Smoke Exposure: Never Smokeless Tobacco: Never Alcohol Use Standard Drinks/Week Comments Never 0 (1 standard drink = 0.6 oz pur e alcohol) Depression Answer Date Recorded Patient Health Questionnaire-9 Score 0 10/03/2024 Patient Health Questionnaire-9 Score 0 10/03/2024 Last PHQ-9: Questionnaire Data Not on file 0 10/03/2024 Housing Stability Answer Date Recorded What is your housing situation today? I have moe hall 10/03/[address] you li ve. Do you have problems with any of the following? I am not sure 10/03/2024 Food Insecurity Answer Date Recorded Within the [...] Answer Date Recorded Patient Health Questionnaire-2 Score 0 10/03/2024 Internet Access Answer Date Recorded Internet Access Q1 Yes 10/03/2024 Internet Access Q2 Not on file 10/03/2024 Comments Unknown Sex and Gender Information Value Date Recorded Sex Assigned at Female 06/19/2022 10:22 AM EDT Legal Sex Female 10:22 AM EDT Gender Identity Female 06/19/2022 10:22 AM EDT Sexual Orientation Straight 06/19/2022 10 :22 AM EDT documented as of this encounter Last Filed Vital Signs Vital Sign Reading Time Taken Comments Blood Pressure 122/70 10/03/2024 9:18 AM EST Pulse 80 10/03/2024 9:18 AM EST Temperature 36.1 ??C (97 ??F) 10/03/2024 9:18 AM EST Respiratory Rate 19 10/03/2024 9:18 AM EST Oxygen Saturation 98% 10/03/2024 9:18 AM EST Inhaled Oxygen Concentration - - Weight 95.7 kg (211 lb) 10/03/2024 9:18 AM EST Height 165.1 cm (5' 5 ) 10/03/2024 9:18 AM EST Body Mass Index 35.11 10/03/2024 9:18 AM EST documented in this encounter Plan of Treatment Upcoming Encounters Date Type Department Care Team (Late st Contact Info) Description 10/08/2024 8:00 AM EST Office Visit [facility] ADULT DENTAL [address] [place] [address] Onel Tejeda 12/29/2024 9:00 AM EDT Immunization [facility] [address] [place], [place] [phone] Scheduled Orders Name Type Priority Associated Diagnoses Orde r Schedule XR Shoulder 2+ Views Left Imaging Routine Chronic left shoulder pain Expected: 10/03/2024, Expires: 10/03/2025 Ferritin Lab Routine Fatty liver Expected: 10/03/2024, Expires: 10/03/2025 Iron And Total Iron Binding Capacity Lab Routine Fatty liver Expected: 10/03/2024, Expires: 10/03/2025 CBC Lab Routine Fatty liver Expected: 10/03/2024, Expires: 10/03/2025 Hepatic Function Panel Lab Routine Fatty liver Expected: 10/03/2024 (Approximate), Expires: 10/03/2025 documented as of this encounter Visit Diagnoses Diagnosis Prediabetes- Primary Other abnormal glucose Fatty liver Other chronic nonalcoholic liver disease Chronic gastroesophageal reflux disease Obstructive sleep apnea Obstructive sleep apnea (adult) (pediatric) Chronic bilateral low back pain, unspecified whether sciatica present Abnormal mammogram Abnormal mammogram, unspecified Healthcare maintenance Chronic left shoulder pain Pain in joint, shoulder region Encounter for immunization documented in this encounter Additional Health Concerns Assessment Noted Time PHQ-9 Depression Total Score: 0 10/03/19 25 9:21 AM EST documented as of this encounter Care Teams Luster Applicator Relationship Specialty Start Date End Date Jinny Cunningham DO [address] [place] [address] PCP - General Family Medicine 10/03/11 documented as of this encounter
--- OUTSIDE RECORDS SUMMARY | 2024-10-03 11:25 | XMS_ITS | Encounter Summary ---
Author Organization [employer] Address [address] [place] [address] Care Team Providers Care Addictions Recovery Specialist Name Role Phone MarkyJinny canchola Primary Care Provider + [phone] Encounter Details Date Type Department Care Team (Latest Contact Info) Description 10/03/2024 Travel Social History Tobacco Use Types Packs/Day [...] Description 10/08/2024 8:00 AM EST Office Visit [facility] ADULT D[facility] [address] [place] [address] Onel Tejeda 12/29/2024 9:00 AM EDT Immunization [facility] [address] [place] [address] documented as of this encounter Visit Diagnoses Not on filedocumented in this encounter Additional Health Concerns Assessment Noted Time PHQ-9 Depression Total Score: 0 10/03/19 25 9:21 AM EST documented as of this encounter Care Teams Addictions Recovery Specialist Relationship Specialty Start Date End Date Jinny Cunningham DO [address] [place] [address] PCP - General Family Medicine 10/03/11 documented as of this encounter
--- OUTSIDE RECORDS SUMMARY | 2024-10-03 11:25 | XMS_ITS | Encounter Summary ---
Author Organization [employer] [facility] Address [address] [place] [address] [address] [place] [address] Care Team Providers Care B2B Sales Consultant Name Role Phone Jinny Cunningham DO Primary Care Provider + [phone] Encounter Details Date Type Department Care Team (Late st Contact Info) Description 12/13/2022 Orders Only [facility] [address] [place] [address] Jinny Reynolds LPN Social History Tobacco Use Types Packs/Day Years [...] Description 10/08/2024 8:00 AM EST Office Visit [facility] ADULT DENTAL [address] [place] [address] Onel Tejeda 12/29/2024 9:00 AM EDT Immunization [facility] [address] [place], [place] [phone] documented as of this encounter Visit Diagnoses Not on filedocumented in this encounter Care Teams B2B Sales Consultant Relationship Specialty Start Date End Date Jinny Cunningham DO [address] [place], [place] [phone] PCP - General Family Medicine 10/03/11 documented as of this encounter
--- OUTSIDE RECORDS SUMMARY | 2024-10-03 11:25 | XMS_ITS | Encounter Summary ---
Author Organization [email or web address] [facility] Address [address] [place] [address] Care Team Providers Care Channel Rebuilder Name Role Phone MarkyJinny canchola Primary Care Provider + [phone] Encounter Details Date Type Department Care Team (Late st Contact Info) Description 09/04/2024 Orders Only GENERIC EXTERNAL DATA DEPARTMENT Provider, Generic External Data Social History Tobacco Use Types Packs/Day Years [...] Description 10/08/2024 8:00 AM EST Office Visit [facility] [address] [place] [address] BeMendoza whitakerouard 12/29/2024 9:00 AM EDT Immunization [facility] [address] [place] [address] documented as of this encounter Procedures Procedure Name Priority Date/Time Associated Diagnosis Comments HEREDITARY HEMOCHROMATOSIS DNA MUTATION ANALYSIS Routine 09/04/2024 9:26 AM EST IRON AND TOTAL IRON BINDING CAPACITY Routine 09/04/2024 9:26 AM EST FERRITIN Routine 09/04/2024 9:26 AM EST documented in this encounter Results * Hereditary Hemochromatosis DNA Mutation Analysis (09/04/2024 9:26 AM EST) Hereditary Hemochromatosis DNA Mutation See Below [facility] Comment: 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 This patient is negative for [id number] pathogenic variant. Individuals with this genotype mayhave elevated serum transferrin iron saturation levels. Thisresult reduces the likelihood of hereditary hemochromatosis(HH). However, it does not rule out the presence of otherpathogenic variants within the HFE gene or a diagnosis ofHH. The risk of this individual to carry an HFE pathogenicvariant other than those tested in this assay dependsgreatly on family and clinical history as well as ethnicity.This assay does not test for other primary or secondary ironoverload disorders. Consider genetic counseling and DNAtesting for at-risk family members.Laboratory results and submitted clinical informationreviewed by Krystyna Presley, Ph.D., [facility], [facility].DETAILED ASSAY INFORMATION: Hereditary hemochromatosis (HH)is an autosomal recessive disorder of iron metabolism thatcan result in iron overload and potential organ failure. Itis one of the most common genetic disorders in individualsof - ancestry, with an estimated carrierfrequency of 10%. HH is caused by pathogenic variants in theHFE gene. Most individuals with HH (60-90%) are homozygousfor the C282Y pathogenic variant. A smaller percentage ofaffected individuals are either compound heterozygous forthe C282Y and H63D pathogenic variants (3%-8%), orhomozygous for the H63D pathogenic variant (approximately1%).METHODOLOGY: This assay detects two pathogenic variants inthe HFE gene, C282Y (NM 286129.2: c.845G>A, p.Mfz191Yfh) onpG69F (NM 716750.2: c.187C>G, p.Rig83Nsz), that are commonlyassociated with HH. These variants are detected bymultiplex-polymerase chain reaction (PCR) amplification,followed by restriction enzyme digestion and capillaryelectrophoresis.LIMITATIONS: This assay does not detect other pathogenicvariants in the HFE gene that may be associated with H H.Although rare, false positive or false negative results mayoccur. All results should be interpreted in the context ofclinical findings, relevant history, and other laboratorydata.Health care providers, please contact your local [employer] genetic counselor or call [phone] for assistance with the interpretation ofthese results.This test was developed and its analytical performancecharacteristics have been determined by [employer] [facility]. It has not beencleared or approved by FDA. This assay has been validatedpursuant to the CLIA regulations and is used for clinicalpurposes.For more information, please refer tohttp://education.[employer]/faq/hemochromatosis.(This link is being provided for informational/educationalpurposes only.)A portion of the testing was performed at [facility].Reviewed and signed by Laboratory results and submittedclinical information reviewed by Krystyna Presley, Ph.D., FACMG,CGMB, Signed on 09/15/19 25 at 06:20THIS TEST WAS PERFORMED AT:[employer] [id number] ABRIL HONG ??[id number] FUNK MD,PHD,TEJAS 09/04/2024 9:26 AM EST 09/04/2024 9:26 AM EST us Generic External Data Provider LAB BLOOD ORDERAB LES Final Result Performing Organization Address [facility] Co de Phone Number [facility] [address] [place] [phone] * (ABNORMAL) Ferritin (09/04/2024 9:26 AM EST) Ferritin 266(H) 10 - 250 ng/mL [facility] 09/04/2024 9:26 AM EST 09/04/2024 9:26 AM EST Generic External Data Provider LAB BLOOD ORDERAB LES Final Result Performing Organization Address [facility] de Phone Number [facility] [address] [place] [phone] * Iron And Total Iron Binding Capacity (09/04/2024 9:26 AM EST) Iron 84 30 - 160 mcg/dL [facility] Total Iron Binding Capacity 231 228 - 428 mcg/dL [facility] Percent Iron Saturation 36 15 - 50 % [facility] Unsaturated Iron Binding 147 ug/dL [facility] 09/04/2024 9:26 AM EST 09/04/2024 9:26 AM EST us Generic External Data Provider LAB BLOOD ORDERAB LES Final Result Performing Organization Address [facility] Co de Phone Number [facility] [address] [place] [phone] documented in this encounter Visit Diagnoses Not on filedocumented in this encounter Additional Health Concerns Assessment Noted Time PHQ-9 Depression Total Score: 6 12/21/19 24 10:44 AM EDT documented as of this encounter Care Teams Channel Rebuilder Relationship Specialty Start Date End Date Jinny Cunningham DO [address] [place] [address] PCP - General Family Medicine 10/03/11 documented as of this encounter
--- OUTSIDE RECORDS SUMMARY | 2024-10-03 11:25 | XMS_ITS | Clinical Summary ---
Author Organization [employer] Address [address] [place] [address] Care Team Providers Care Rattlesnake Farmer Name Role Phone MarkyJinny canchola Primary Care Provider + [phone] Allergies No known active allergies Medications magnesium oxide (Mag-Ox) 400 (240 Mg) MG tablet Take 400 mg by mouth in the morning. 3 Active methocarbamol (Robaxin) 750 MG tablet Take 1 tablet (750 mg) by mouth if needed in the morning and at bedtime for muscle spasms. 60 tablet 1 4 12/21/19 25 Active acetaminophen (Tylenol 8 Hour) 650 MG ER tablet Take 1 tablet (650 mg) by mouth every 8 (eight) hours. 40 tablet 1 4 Active Diclofenac Sodium 1 % gel Apply 2 g topically if needed in the morning, at noon, in the evening, and at bedtime (pain). 150 g 3 4 Active triamcinolone (Kenalog) 0.1 % ointment Apply topically if needed in the morning and at bedtime for rash (and itching). 30 g 1 4 Active lidocaine (Lidoderm) 5 % patch Apply 2 patches topically Once per day. Remove & discard patch within 12 hours or as directed by MD. 60 patch 3 4 12/21/19 25 Active omeprazole (PriLOSEC) [address] capsule TAKE 1 CAPSULE (40 MG) BY MOUTH BEFORE BREAKFAST 90 capsule 1 4 Active naproxen (Naprosyn) 500 MG tablet TAKE 1 TABLET BY MOUTH TWICE A DAY 60 tablet Active Active Problems Problem Noted Date Diagnosed Date Healthcare maintenance 10/03/2024 Obstructive sleep apnea 01/20/2024 Prediabetes 12/21/2023 Chronic bilateral low back pain 12/21/2023 Chronic gastroesophageal reflux disease 07/30/20 15 BMI 35.0-35.9,adult 07/30/2015 Osteoarthritis 07/30/2015 Fatty liver 07/30/2015 Resolved Problems Problem Noted Date Diagnosed Date Resolved Date Right upper quadrant abdominal pain 04/10/2024 05/28/2024 Assessment & Plan (04/10/2024 1:48 PM EDT): Pt with c/o new onset of RUQ pain x 4 days, no other associated symptoms. She has a Hx of CCY. On exam there is tenderness to deep palpation RUQ, No rebound, no guarding. Etiology ? Plan: Abd U/S LFTs, CBC and Lipase. F/u with PCP after initial testing completed Pt instructed to present herself to nearest ER if symptoms worsen Encounters Date Type Department Care Team Description 10/03/2024 9:15 AM EST Office Visit [facility] MEDICINE [address] [place] [phone] Jinny Cunningham DO Prediabetes (Primary Dx); Fatty liver; Chronic gastroesophageal reflux disease; Obstructive sleep apnea; Chronic bilateral low back pain, unspecified whether sciatica present; Abnormal mammogram; Healthcare maintenance; Chronic left shoulder pain; Encounter for immunization 10/03/2024 Travel 10/02/2024 Travel 09/26/2024 Travel 09/04/2024 Travel 09/04/2024 Telephone [facility] [address] [place] [address] [phone] Jinny Cunningham DO Recall Follow Up (Follow up for Labs Result) 09/04/2024 Orders Only GENERIC EXTERNAL DATA DEPARTMENT Provider, Generic External Data 08/07/2024 Orders Only GENERIC EXTERNAL DATA DEPARTMENT Provider, Generic External Data 07/28/2024 9:00 AM EST Nurse Only [facility]INE [address] [place] [phone] Jalyn Maciel LPN Encounter for immunization (Primary Dx) 07/22/2024 Refill [facility] [address] [place] [address] [phone] Jinny Cunningham DO from Last 3 Months Immunizations Name Administration Dates Next Due Hep A, Adult 03/26/2013,11/24/2011 Hep B, adult 07/28/2024, 4,08/01/2013,2012,11/24/2011 Influenza injectable quadriv alent IIV4 with preservative 05/22/2018,07/18/2017,08/02/2016,2014 Influenza injectable quadriv alent preservative free 06/08/2023,05/30/2022,05/27/2021,2019 Influenza, IIV3, injectable 05/01/2014, 2 Influenza, Split (incl. krystin fied surface antigen) 06/06/2013,06/11/2012 Influenza, seasonal, injecta ble, preservative free 06/30/2024 Pneumococcal Conjugate PCV 20 10/03/2024 TD (adult), 2 Lf tetanus tox oid, preservative free, adsorbed 10/30/2022 Tdap 06/11/2012,10/03/2011 Social History Tobacco Use Types Packs/Day Years Used Date Smoking Tobacco: Never Passive Smoke Exposure: Never Smokeless Tobacco: Never Tobacco Cessation:Counseling Given: Not Answered Alcohol Use Standard Drinks/Week Comments Never 0 [...] Orientation Straight 06/19/2022 10 :22 AM EDT Last Filed Vital Signs Vital Sign Reading [...] Mass Index 35.11 10/03/2024 9:18 AM EST Plan of Treatment Upcoming Encounters Date Type Department Care Team (Late st Contact Info) Description 10/08/2024 8:00 AM EST Office Visit [facility] ADULT DENTAL [address] [place] [address] Onel Tejeda 12/29/2024 9:00 AM EDT Immunization [facility] [address], [place] [phone] Health Maintenance Due Date Last Done Comments CT Colonography 1965 FIT DNA/Cologuard 1967 FIT 1965 FOBT 1965 Sigmoidoscopy 1965 Zoster Vaccines (1 of 2) 2017 COVID-19 Vaccine ( season) 2024 08/04/2021, 10/22/2020, 10/01/2020 Dental X-Ray: Bitewings 09/22/2024 09/21/2023, 08/31 Dental Oral Exam 10/04/2024 04/02/2024, 09/2023, 08/31/2020 Dental Prophylaxis 10/04/2024 04/02/2024, 0 09/21/2023, 09/16/2020 Mammogram 05/27/2025 05/27/2024, 10/2023, 05/02/2024, Additional history exists Diabetes: Hemoglobin A1C 08/07/2025 024, 05/28/2024, 12/28/2023, Additional history exists Alcohol/Substance Use Screening 10/03/2025 10/03/2024 Depression Screening 10/03/2025 10/03/2024, 10/03/19 25 SDOH Screening 10/03/2025 10/03/2024 Tobacco Screening 10/03/2025 10/03/2024 Cervical Cancer Screening 06/08/2026 Pap Smear 06/08/2026 06/08/2023, 06/25/2020 Dental X-Ray: Full Mouth 09/22/2026 09/21/2023, 08/20 HPV/Cotest 06/08/2028 06/08/2023, 1101/2020, 05/03/2016 Colonoscopy 03/09/2032 03/09/2022, 01/02/2019 Colorectal Cancer Screening 03/09/2032 DTaP/Tdap/Td Vaccines (4 - Td or Tdap) 10/30/2032 10/30/2022, 06/11/2012, 10/03/2011 RSV Patients and Patients Aged 60 years or older (1 - 1-dose 75+ series) 2042 Hepatitis A Vaccines Completed 03/26/2013, 11/24/19 12 Hepatitis C Screening Completed 12/28/2023 , 11/08/2022, 04/07/2022, Additional history exists Influenza Vaccine Completed 06/30/2024, , 05/30/2022, Additional history exists Hepatitis B Vaccines Completed 07/28/2024, 06/30/2024, 08/01/2013, Additional history exists HIV Screening Completed 08/07/2024, 12/18, 11/08/2022, Additional history exists Pneumococcal Vaccine: 50+ Years Completed 10/03/2024 HIB Vaccines Aged Out No longer eligi ble based on patient's age to complete this topic HPV Vaccines Aged Out No longer eligi ble based on patient's age to complete this topic IPV Vaccines Aged Out No longer eligi ble based on patient's age to complete this topic Meningococcal Vaccine Aged Out No rich sebastian eligible based on patient's age to complete this topic RSV under 20 months Aged Out No longe r eligible based on patient's age to complete this topic Rotavirus Vaccines Aged Out No longer eligible based on patient's age to complete this topic Procedures Procedure Name Priority Date/Time Associated Diagnosis Comments HEREDITARY HEMOCHROMATOSIS DNA MUTATION ANALYSIS Routine 09/04/2024 9:26 AM EST FERRITIN Routine 09/04/2024 9:26 AM EST IRON AND TOTAL IRON BINDING CAPACITY Routine 09/04/2024 9:26 AM EST XR LUMBAR SPINE 2-3 VIEWS Routine 08/07/2024 10:44 AM EST Chronic bilateral low back pain with right-sided sciatica ACTIN (SMOOTH MUSCLE) ANTIBODY (IGG) Routine 08/07/2024 10:28 AM EST ALKALINE PHOSPHATASE, ISOENZYMES Routine 08/07/2024 10:28 AM EST LIVER KIDNEY MICROSOME (LKM-1) AB (IGG) Routine 08/07/2024 10:28 AM EST MITOCHONDRIAL ANTIBODY WITH REFLEX TO TITER Routine 08/07/2024 10:28 AM EST AB SCREEN, IFA, W/REFL TITER AND PATTERN Routine 08/07/2024 10:28 AM EST RVDOY-2-JPXBGWQOXJI QN Routine 10:28 AM EST CERULOPLASMIN Routine 08/07/2024 10:28 AM EST IMMUNOGLOBULIN A Routine 08/07/2024 10:2 8 AM EST IMMUNOGLOBULIN G Routine 08/07/2024 10:2 8 AM EST TISSUE TRANSGLUTAMINASE AB, IGA Routine 08/07/2024 10:28 AM EST TSH W/REFLEX TO FT4 Routine 08/07/2024 1 0:28 AM EST FERRITIN Routine 08/07/2024 10:28 AM EST GGT Routine 08/07/2024 10:28 AM EST HIV 1/2 ANTIGEN/ANTIBODY, FOURTH GENERATION W/RFL Routine 08/07/2024 10:28 AM EST HEPATITIS B CORE AB TOTAL Routine 08/07/2024 10:28 AM EST HEPATITIS B SURFACE ANTIBODY, QUALITATIVE Routine 08/07/2024 10:28 AM EST IRON AND TOTAL IRON BINDING CAPACITY Routine 08/07/2024 10:28 AM EST COMPREHENSIVE METABOLIC PANEL Routine 08/07/2024 10:28 AM EST HEMOGLOBIN A1C Routine 08/07/2024 10:28 AM EST PROTHROMBIN TIME-INR Routine 08/07/2024 10:28 AM EST CBC Routine 08/07/2024 10:28 AM EST BI MAMMOGRAM DIAGNOSTIC TOMOSYNTHESIS LEFT Routine 05/27/2024 8:32 AM EDT PROPHYLAXIS - ADULT Routine 04/02/2024 1 0:00 AM EDT PERIODIC ORAL EVALUATION - ESTABLISHED PATIENT Routine 04/02/2024 10:00 AM EDT HEPATITIS C AB W/REFL TO HCV RNA, QN, PCR Routine 12/28/2023 8:42 AM EDT Routine history and physical examination of adult INTRAORAL - COMPLETE SERIES OF RADIOGRAPHIC IMAGES Routine 09/21/2023 2:00 PM EST HPV MRNA E6/E7 REFLEX TO HPV 16, 18/45 Routine 06/08/2023 11:45 AM EDT PAP SMEAR Routine 06/08/2023 11:45 AM EDT HM COLONOSCOPY Routine 03/09/2022 10:01 AM EDT from Last 3 Months or Most Recently Relevant to Health Maintenance Results * Hereditary Hemochromatosis DNA Mutation Analysis (09/04/2024 9:26 AM EST) Hereditary Hemochromatosis DNA Mutation See Below [facility] Comment: 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 This patient is negative for [id number] pathogenic variant. Individuals with this genotype mayhave [...] submitted clinical informationreviewed by Krystyna Presley, Ph.D., [facility], [facility].DETAILED ASSAY INFORMATION: Hereditary hemochromatosis (HH)is an autosomal [...] pathogenic variants inthe HFE gene, C282Y (NM 701735.2: c.845G>A, p.Whv777Lmu) ltzZ55I (NM 503772.2: c.187C>G, p.Sec53Jki), that are commonlyassociated with HH. These variants [...] laboratorydata.Health care providers, please contact your local [employer] genetic counselor or call [phone]( [phone] for assistance with the interpretation ofthese results.This test was developed and its analytical performancecharacteristics have been determined by [facility]. It has not beencleared or approved by FDA. This assay has been validatedpursuant to the CLIA regulations and is used for clinicalpurposes.For more information, please refer [email or web address]/hemochromatosis.(This link is being provided for informational/educationalpurposes only.)A portion of the testing was performed at [facility].Reviewed and signed by Laboratory results and submittedclinical information reviewed by Krystyna Presley, Ph.D., [facility], Signed on 09/15/19 25 at 06:20THIS TEST WAS PERFORMED AT:[employer]/[facility] [id number] [facility], [place] ??[phone] FUNK MD,PHD,TEJAS 09/04/2024 9:26 AM EST 09/04/2024 9:26 AM EST Generic External Data Provider LAB BLOOD ORDERAB LES Final Result Performing Organization Address [facility] de Phone Number [facility] [address] [place] [address] [phone] * Iron And Total Iron Binding Capacity (09/04/2024 9:26 AM EST) Only the most recent of2 resultswithin the time period is included. Iron 84 30 - 160 mcg/dL [facility] Total Iron Binding Capacity 231 228 - 428 mcg/dL [facility] Percent Iron Saturation 36 15 - 50 % [facility] Unsaturated Iron Binding 147 ug/dL [facility] 09/04/2024 9:26 AM EST 09/04/2024 9:26 AM EST Generic External Data Provider LAB BLOOD ORDERAB LES Final Result Performing Organization Address [facility] Phone Number [facility] [address] [place] [address] [phone] * (ABNORMAL) Ferritin (09/04/2024 9:26 AM EST) Only the most recent of2 resultswithin the time period is included. Ferritin 266(H) 10 - 250 ng/mL [facility] 09/04/2024 9:26 AM EST 09/04/2024 9:26 AM EST Generic External Data Provider LAB BLOOD ORDERAB LES Final Result Performing Organization Address [facility] de Phone Number [facility] [address] [place] [phone] * XR Lumbar Spine 2-3 Views (08/07/2024 10:44 AM EST) Anatomical Region Laterality Modality Spine, L-spine Radiographic Sarah ging 08/07/2024 10:4 4 AM EST Narrative 08/09/2024 11:55 AM EST ? [facility] ?[address] ?[place] [address] ?XRay Report ? Signed ? Patient: Jason Demian,Nae ?MR#: [id number] ?? [id number] ? : 1965 ?Acct:[id number] ? Age/Sex: 59 / F ?ADM Date: 08/07/24 ? Loc: HO.XRAY ? Attending Dr: Jinny Cunningham DO ? Ordering Physician: Jinny Cunningham DO ?? Date of Service: 08/07/24 ?? Procedure(s): XR lumbar spine 2-3V ?? Accession Number(s): [id number] ? cc: Jinny Cunningham DO ? EXAMINATION: ?? XR LUMBAR SPINE ? CLINICAL INFORMATION: ?? worsening LBP ? COMPARISON: ?? 2019 ? TECHNIQUE: ?? Frontal lateral and coned-down L5-S1 frontal lateral, total of 3 views ? FINDINGS: ? Five ogq-xoe-ylcymlp lumbar vertebrae were identified maintaining ?? normal height and alignments. Narrowing of intervertebral disc spaces ?? suggest underlying degenerative disc disease. ??This is seen at all ?? visualized levels T12-L1 through L5-S1., Surgical clip right upper ?? quadrant from prior cholecystectomy. Paravertebral soft tissues are ?? unremarkable. There are radiolucencies, most likely superimposed bowel ?? gas.. No radiographic evidence of osteolytic or osteoblastic lesions. ? XR/XR lumbar spine 2-3V ?? IMPRESSION: ?? No evidence of acute fracture ? Bone alignment are satisfactory ? Narrowing of disc spaces at multiple levels suggest underlying ?? degenerative disc disease. ? Electronically signed by: ??Coleen Sood MD ??08/09/2024 11:52 AM EST ?? RP ? Dictated By: ?Coleen Sood MD ? Signed By: ?<Electronically signed by Coleen Sood MD in OV> ?08/09/24 1152 ? DD/ 1044 ? TD/TT: 08/07/24 1104 ? Ruling Machine Set Up Operator: HS ? Procedure Note Amilcar Edmonds - 08/09/[address] [place] [address] XRay Report Signed Patient: Carina Pulido#: [id number] : 1965Acct:[id number] Age/Sex: 59 / FADM Date: 08/07/24 Loc: [facility] Attending Dr: Jinny Cunningham DO Ordering Physician: Jinny Cunningham DO Date of Service: 08/07/24 Procedure(s): XR lumbar spine 2-3V Accession Number(s): [id number] cc: Jinny Cunningham DO EXAMINATION: XR LUMBAR SPINE CLINICAL INFORMATION: worsening LBP COMPARISON: 2019 TECHNIQUE: Frontal lateral and coned-down L5-S1 frontal lateral, total of 3 views FINDINGS: Five xuv-iwr-usjwklk lumbar vertebrae were identified maintaining normal height and alignments. Narrowing of intervertebral disc spaces suggest underlying degenerative disc disease. This is seen at all visualized levels T12-L1 through L5-S1., Surgical clip right upper quadrant from prior cholecystectomy. Paravertebral soft tissues are unremarkable. There are radiolucencies, most likely superimposed bowel gas.. No radiographic evidence of osteolytic or osteoblastic lesions. XR/XR lumbar spine 2-3V IMPRESSION: No evidence of acute fracture Bone alignment are satisfactory Narrowing of disc spaces at multiple levels suggest underlying degenerative disc disease. Electronically signed by: Coleen Sood MD 08/09/2024 11:52 AM EST Dictated By: Coleen Sood MD Signed By: <Electronically signed by Coleen Sood MD in OV> 08/09/24 1152 DD/ 1044 TD/TT: 08/07/24 1104 Ruling Machine Set Up Operator: YUN us Jinny Cunningham DO IMG XR PROCEDURES Edited Res ult - Final * TSH with Reflex to Free T4 (08/07/2024 10:28 AM EST) TSH reflex Free T4 2.24 0.32 - 4.0 uIU/mL [facility] 08/07/2024 10:2 8 AM EST 08/07/2024 10:36 AM EST Generic External Data Provider LAB BLOOD ORDERAB LES Final Result Performing Organization Address [facility]/ZIP Co de Phone Number [facility] [address] [place] [address] [phone] * Actin (Smooth Muscle) Antibody (IgG) (08/07/2024 10:28 AM EST) Smooth Muscle Antibody <20 <20 U [facility] Comment:Reference Range: <20 U: Negative>or=20 U: PositiveAntibodies recognizing actin are the main componentof smooth muscle antibodies associated with auto- immune liver disease. Actin antibodies are found inapproximately 75% of patients with autoimmunehepatitis (AIH) type 1, approximately 65% of patientswith autoimmune cholangitis, approximately 30% ofpatients with primary biliary cirrhosis andapproximately 2% of healthy controls. High values areclosely correlated with AIH type 1.THIS TEST WAS PERFORMED AT:[employer]/[facility] [place] [address]YSHWVRHARPIT GILBERT MD,PHD 08/07/2024 10:2 8 AM EST 08/07/2024 10:36 AM EST Generic External Data Provider LAB BLOOD ORDERAB LES Final Result Performing Organization Address [facility] Co de Phone Number [facility] [address] [place] [address] [phone] * Hhukt-3-Sfjgkvcvgaz, Quantitative (08/07/2024 10:28 AM EST) Mpemy-1-Zzkxjbjv sin QN 155 83 - 199 mg/dL [facility] Comment:THIS TEST WAS PERFOR MED AT:[facility] [address] [address]FPSSDRAFFY AVERY MD 08/07/2024 10:2 8 AM EST 08/07/2024 10:36 AM EST Generic External Data Provider LAB BLOOD ORDERAB LES Final Result Performing Organization Address [facility]/ZIP Co de Phone Number [facility] [address] [place] [phone] * (ABNORMAL) Alkaline phosphatase, isoenzymes (08/07/2024 10:28 AM EST) Alkaline Phosphatase 159(A) 37 - 153 U/L [facility] Intestinal Isoenzymes 35(A) 1 - 24 % [facility] Comment:Increased intestinal alkaline phosphatase can beseen in blood group O and B secretors and afterfatty meals. Bone Isoenzymes 33 28 - 66 % [facility] Liver Isoenzymes 33 25 - 69 % [facility] Placental Isoenzymes 0 <=0 % [facility] Macrohepatic Isoenzymes 0 <=0 % [facility] Comment:THIS TEST WAS PERFOR MED AT:[employer]/[id number] [place] [address]WOHHVOSARPIT GILBERT MD,PHD Interpretation [facility] 08/07/2024 10:2 8 AM EST 08/07/2024 10:36 AM EST Generic External Data Provider LAB BLOOD ORDERAB LES Final Result Performing Organization Address [facility] Co de Phone Number [facility] [address] [place] [address] [phone] * Tissue Transglutaminase Antibody, IgA (08/07/2024 10:28 AM EST) Transglutaminase IgA <1.0 U/mL [facility] Comment:Value Interpretation ----- <15.0 Antibody not detected> or = 15.0 Antibody detectedTHIS TEST WAS PERFORMED AT:[facility] [address] [address]MKKBIRAFFY AVERY MD 08/07/2024 10:2 8 AM EST 08/07/2024 10:36 AM EST us Generic External Data Provider LAB BLOOD ORDERAB LES Final Result Performing Organization Address [facility] de Phone Number [facility] [address] [place] [phone] * Ceruloplasmin (08/07/2024 10:28 AM EST) Ceruloplasmin 26 14 - 48 mg/dL [facility] Comment:THIS TEST WAS PERFOR MED AT:[facility] [place] [id number] AVERY MD 08/07/2024 10:2 8 AM EST 08/07/2024 10:36 AM EST Generic External Data Provider LAB BLOOD ORDERAB LES Final Result Performing Organization Address [facility] Number [facility] [address] [place] [phone] * Hepatitis B Core Antibody, Total (08/07/2024 10:28 AM EST) Hepatitis B Core Antibody Nonreactive Nonreactive [facility] 08/07/2024 10:2 8 AM EST 08/07/2024 10:36 AM EST Generic External Data Provider LAB BLOOD ORDERAB LES Final Result Performing Organization Address [facility] Phone Number [facility] [address] [place] [phone] * Liver Kidney Microsomal (LKM-1) Antibody??(IgG) (08/07/2024 10:28 AM EST) Liver Kidney Microsomal (LKM-1) Antibody IgG <=20.0 <=20.0 U [facility] Comment:Reference Range: <=2 0.0 Negative 20.1-24.9 Equivocal >=25.0 PositiveAnti-liver/kidney microsomal antibodies (Anti-LKM-1)were previously tested by indirect immunofluorescence(IF) using rodent liver/kidney substrate.Identification of a specific antibody target ascytochrome P450 IID6 has led to the current recombinantbased ADORE. Antibodies to this cytochrome are presentin approximately 70% of patients with autoimmunehepatitis type 2. This antibody is also present inapproximately 10% of patients with hepatitis Cinfection.THIS TEST WAS PERFORMED AT:[employer]ITALFFUVABLTT[address] [place] [address]ZZAEIPHARPIT GILBERT MD,PHD 08/07/2024 10:2 8 AM EST 08/07/2024 10:36 AM EST Generic External Data Provider LAB BLOOD ORDERAB LES Final Result Performing Organization Address [facility] Co de Phone Number [facility] [address] [place] [phone] * Mitochondrial Antibody with Reflex to Titer (08/07/2024 10:28 AM EST) Mitochondrial Antibodies NEGATIVE NEGATIVE [facility] Comment:THIS TEST WAS PERFOR MED AT:[facility] [address] [address]QORYCRAFFY AVERY MD Mitochondrial Ab Titer TNP [facility] 08/07/2024 10:2 8 AM EST 08/07/2024 10:36 AM EST us Generic External Data Provider LAB BLOOD ORDERAB LES Final Result Performing Organization Address [facility] Co de Phone Number [facility] [address] [place] [phone] * HIV-1/2 Antigen and Antibodies, Fourth Generation, with Reflexes (08/07/2024 10:28 AM EST) HIV AB/AG Nonreactive Nonreactive [facility] Comment:HIV-1 p24 Ag and/or HIV-1/HIV-2 Ab not detected.A test result that is nonreactive does not exclude thepossibility of exposure to or infection with HIV-1 and/orHIV-2. Nonreactive results in this assay for individualswith prior exposure to HIV-1 and/or HIV-2 may be due toantigen and antibody levels that are below the limit ofdetection of this assay.The [employer] HIV Ag/Ab Combo assay result andsupplemental assay results should be interpreted inconjunction with the patient's clinical presentation,history and other laboratory results. If the results areinconsistent with clinical evidence, additional testing issuggested to confirm the result. 08/07/2024 10:2 8 AM EST 08/07/2024 10:36 AM EST Generic External Data Provider LAB BLOOD ORDERAB LES Final Result Performing Organization Address City/[facility]/ZIP Co de Phone Number [facility] [address] [place] [phone] * Hepatitis B Surface Antibody, Qualitative (08/07/2024 10:28 AM EST) ~Hepatitis B Surface Antibody REACTIVE Nonreactive [facility] Comment:REACTIVE: > 11.99 mI U/mL 08/07/2024 10:2 8 AM EST 08/07/2024 10:36 AM EST Generic External Data Provider LAB BLOOD ORDERAB LES Final Result Performing Organization Address [facility] Co de Phone Number [facility] [address] [place] [phone] * Prothrombin Time-INR (08/07/2024 10:28 AM EST) Prothrombin Time 11.1 10.9 - 12.4 SEC [facility] INTERNATIONAL NORM RATIO 1.0 0.9 - 1.1 [facility] Comment:INTERNATIONAL NORMAL IZED RATIO (INR) REFERENCE RANGES Reference RangeFor patients not on anticoagulant therapy: 0.9 - 1.1INR ranges for oral anticoagulanttherapy:For prevention and treatment of venous thrombosis and pulmonary embolism: 2.0 - 3.0For acute myocardial infarction with aspirin therapy: 2.0 - 3.0For acute myocardial infarction without aspirin therapy: 3.0 - 4.0For patients with mechanical prosthetic heart valves: 2.5 - 3.5 08/07/2024 10:2 8 AM EST 08/07/2024 10:36 AM EST us Generic External Data Provider LAB BLOOD ORDERAB LES Final Result Performing Organization Address [facility] Co de Phone Number [facility] [address] [place] [phone] * CBC (08/07/2024 10:28 AM EST) White Blood Count 6.9 4.8 - 10.8 X10*3/uL [facility] Red Blood Count 4.92 4.20 - 5.50 X10*6/uL [facility] Hemoglobin 14.8 12.0 - 16.0 g/dl [facility] Hematocrit 44.3 37.0 - 47.0 % [facility] Mean Corpuscular Volume 90.0 80.0 - 98.0 fL [facility] Mean Corpuscular Hemoglobin 30.1 27.0 - 33.0 pg [facility] Mean Corpuscular HGB Conc 33.4 31.0 - 35.0 g/dl [facility] Red Cell Distribution Width 13.8 11.0 - 16.0 % [facility] Platelet Count 204 160 - 400 X10*3/uL [facility] Mean Platelet Volume 11.2 9.4 - 12.3 fL [facility] NRBC Pct Auto 0.0 0.0 - 0.2 /100WBC [facility] NRBC Abs Auto 0.000 0.0 - 0.012 X10*3/uL [facility] 08/07/2024 10:2 8 AM EST 08/07/2024 10:36 AM EST us Generic External Data Provider LAB BLOOD ORDERAB LES Final Result Performing Organization Address City/[facility]/ZIP Co de Phone Number [facility] [address] [place] [address] [phone] * AB Screen,IFA, with Reflex to Titer and Pattern (08/07/2024 10:28 AM EST) Anti Nuclear Antibody Screen NEGATIVE NEGATIVE [facility] Comment:AB IFA is a first l ine screen for detecting thepresence of up to approximately 150 autoantibodies invarious autoimmune diseases. A negative AB IFA resultsuggests an AB-associated autoimmune disease is notpresent at this time, but is not definitive. If thereis high clinical suspicion for Sjogren's syndrome,testing for anti-SS-A/Ro antibody should be considered.Anti-Cleo-1 antibody should be considered for clinicallysuspected inflammatory myopathies.AC-0: NegativeInternational Consensus on AB Patterns(https://doi.org/10.1515/vizt-3764-2367)For additional information, please refer tohttp://education.[employer]/faq/PFU322(This link is being provided for informational/educational purposes only.)THIS TEST WAS PERFORMED AT:[email or web address] [place] [phone] AVERY MD AB Titer [facility] AB Pattern [facility] AB TITER 2 (REF LAB) [facility] AB Pattern 2 [facility] AB TITER 3 [facility] AB PATTERN 3 [facility] 08/07/2024 10:2 8 AM EST 08/07/2024 10:36 AM EST us Generic External Data Provider LAB BLOOD ORDERAB LES Final Result Performing Organization Address [facility] Co de Phone Number [facility] [address] [place] [phone] * (ABNORMAL) Hemoglobin A1c (08/07/2024 10:28 AM EST) Hemoglobin A1c 6.3(H) <6.0 % [facility] Comment:Hemoglobin A1C Refer ence Range Adults: 4.8 - 6.0 % Non diabetic: < 6.0 % Goal: < 7.0 %Additional Action Suggested: > 8.0 %Note: Hemoglobin A1c results are invalid for patients with abnormal amounts of HbF. Blood transfusions may impact the HbA1c concentration in the patient sample. Estimated Average Glucose 134 mg/dL [facility] Comment:eAG = Estimated ave rage glucose which is %A1C expressed asaverage glucose, using the formula of the P9X-LbwpieoRfevrcy Glucose study (ADAG), Diabetes Care, Vol.31,#8,2007 08/07/2024 10:2 8 AM EST 08/07/2024 10:36 AM EST Generic External Data Provider LAB BLOOD ORDERAB LES Final Result Performing Organization Address [facility] Co de Phone Number [facility] [address] [place] [phone] * (ABNORMAL) Gamma Glutamyl Transferase (GGT) (08/07/2024 10:28 AM EST) Gamma Glutamyl Transpeptidase 54(H) 7 - 33 U/L [facility] 08/07/2024 10:2 8 AM EST 08/07/2024 10:36 AM EST Generic External Data Provider LAB BLOOD ORDERAB LES Final Result Performing Organization Address [facility] Co de Phone Number [facility] [address] [place] [phone] * Immunoglobulin A (08/07/2024 10:28 AM EST) Immunoglobulin A 247 47 - 310 mg/dL [facility] Comment:THIS TEST WAS PERFOR MED AT:[facility] [place] [phone] AVERY MD 08/07/2024 10:2 8 AM EST 08/07/2024 10:36 AM EST us Generic External Data Provider LAB BLOOD ORDERAB LES Final Result Performing Organization Address [facility] Co de Phone Number [facility] [address] [place] [phone] * Immunoglobulin G (08/07/2024 10:28 AM EST) Immunoglobulin G 1468 600 - 1640 mg/dL [facility] Comment:THIS TEST WAS PERFOR MED AT:[facility] [place] [phone] AVERY MD 08/07/2024 10:2 8 AM EST 08/07/2024 10:36 AM EST Generic External Data Provider LAB BLOOD ORDERAB LES Final Result Performing Organization Address [facility] de Phone Number [facility] [address] [place] [phone] * (ABNORMAL) Comprehensive Metabolic Panel (08/07/2024 10:28 AM EST) Pathologist [facility] Sodium 141 135 - 145 mmol/L [facility] Potassium 4.4 3.3 - 5.1 mmol/L [facility] Chloride 109(H) 96 - 108 mmol/L [facility] Carbon Dioxide 29 22 - 29 mmol/L [facility] Anion Gap 7(L) 12 - 20 [facility] Urea Nitrogen (BUN) 14 9 - 16 mg/dL [facility] Creatinine, Serum 0.82 0.5 - 1.4 mg/dL [facility] Estimated Glomerular Filt Rate >60 [facility] Comment:Chronic Kidney Disea se: Estimated GFR < 60 mL/min/1.77h4Ycltls Kidney Disease: Estimated GFR < 15 mL/min/1.73m2 Glucose 211(H) 60 - 115 mg/dL [facility] Calcium 9.4 8.4 - 10.2 mg/dL [facility] Bilirubin, Total 0.5 0.0 - 1.0 mg/dL [facility] Aspartate Amino Transferase 77(H) 5 - 31 U/L [facility] Alanine Aminotransferase 94(H) 0 - 31 U/L [facility] Total Protein 7.7 6.5 - 8.0 g/dL [facility] Albumin Level 4.0 3.5 - 5.0 g/dL [facility] Alkaline Phosphatase 166(H) 39 - 117 U/L [facility] 08/07/2024 10:2 8 AM EST 08/07/2024 10:36 AM EST us Generic External Data Provider LAB BLOOD ORDERAB LES Final Result Performing Organization Address City/State/[facility] Co de Phone Number [facility] [address] [place] [address] [phone] * BI Mammogram Diagnostic Tomosynthesis Left (05/27/2024 8:32 AM EDT) Anatomical Region Laterality Modality Breast Left Mammography 05/27/2024 8:32 AM EDT Narrative 05/27/2024 11:00 AM EDT ? [facility] [place] ? [address] ?[place] [address] ? Mammography Report ? Signed with Addenda ? Patient: Jason Arciniega,Nae ?MR#: [id number] ?? [id number] ? : 1965 ?Acct:[id number] ? Age/Sex: 58 / F ?ADM Date: 10/08/24 ? Loc: HO.MAMMO ? Attending : Domenico Flores MD ? Ordering Physician: Mark,Domenico JAIN ?Results: ? Date of Service: 05/27/24 ?Follow Up: ? Procedure(s): MM tomosynthesis diagnostic LT ?? Accession Number(s): [id number] ? cc: Jinny Cunningham DO; Domenico Flores MD ?ADDENDUM ? ADDENDUM #1 ? ADDENDUM: ?? Pathology results: ? Lymph node, left axillary region, ultrasound-guided core biopsy of ?? lymph node with flow cytometry: ?? -Reactive lymph node. No evidence of lymphoproliferative disorder or ?? metastatic carcinoma. ? Please see pathology report for comprehensive information regarding the ?? specimen. ? Pathology results are considered concordant with imaging expectations. ? Results made available to Dr. Flores, Dr. Cunningham, and myself via secure ?? fax, 06/02/2024, 8:22 AM. ? RECOMMENDATIONS: ?? Return to routine annual screening. ? Clinical management and follow-up advised for reactive lymph node. ? BI-RADS 2: Benign. ? RECOMMENDATION: ?? 1 year F/U ? Electronically signed by: ??Karthik Patterson MD ??06/03/2024 09:21 AM EDT RP ? Addendum Dictated By: ?Karthik Patterson MD ? Addendum Signed By: ? <Electronically signed by Karthik Patterson MD in OV> ?06/03/24 09 ?? Addendum Cosigned By: ? DD/ /12/832 ? TD/TT: 05/27/2404/12/918 ? PROCEDURE: ?? US GUIDED BREAST BIOPSY, LEFT ? CLINICAL INFORMATION: ?? Enlarged left axillary lymph node of unknown etiology for biopsy . ? COMPARISON: ?? Screening mammography 05/02/2024 and prior studies. ?? Ultrasound left axilla 05/22/2024. ? PROCEDURAL DETAILS: ?? The details of the procedure, as well as the risks, benefits, and ?? alternatives to the procedure were explained to the patient in detail ?? and all of her questions were answered, after which written informed ?? consent was obtained. Site and side were confirmed. ? Prior to the procedure, sonography revealed an enlarged left low ?? axillary lymph node measuring approximately 1.5 x 1.1 cm with effaced ?? hilum and thickened cortex. A time-out was performed, the lesion ?? intended for biopsy was targeted, and the skin of the overlying left ?? axilla was then marked, prepped and draped in the usual sterile ?? fashion. ? Using sonographic guidance, sterile technique, and 1% lidocaine without ?? epinephrine for local anesthesia, multiple core biopsies were obtained ?? through the targeted area with a 14G spring loaded [employer]elligent [employer] System[employer] core ??biopsy ?? device. There was real-time confirmation of appropriate needle passage. ?? Sampling was documented. At the completion of tissue sampling, a single ?? butterfly shaped metallic clip was deposited at the biopsy site. ? There was no evidence of immediate complication. ? SPECIMEN: ?? 4 well formed core samples were obtained. 1 was placed in solution for ?? flow cytometry. ? DIGITAL POST-PROCEDURE MAMMOGRAPHY: ?? Breast density: The tissue contains scattered areas of fibroglandular ?? density. BI-RADS version 5, category B. ? There are no new mammographic findings demonstrated. ? The postprocedure 1-view direct digital mammogram MLO view reveals ?? satisfactory and accurate positioning of the biopsy clip within the ?? targeted lymph node. No hematoma present. ? The patient tolerated the procedure well and, after assuring adequate ?? hemostasis, was discharged in good condition after reviewing postbiopsy ?? breast care instructions. Final pathology results are pending. ? MM/MM tomosynthesis diagnostic LT ?? IMPRESSION: ?? 1. No immediate complication from ultrasound-guided percutaneous biopsy ?? enlarged left low axillary lymph node. ? 2. Ultrasound was used to localize and guide marker clip placement. ? 3. A 1 view MLO direct digital postprocedure mammogram reveals accurate ?? positioning of the biopsy clip. ? 4. Final pathology results are pending. A separate report with final ?? recommendations will be issued once these results are made available. ? Electronically signed by: ??Karthik Patterson MD ??05/27/2024 10:57 AM EDT RP ? Dictated By: ?Karthik Patterson MD ? Signed By: ?<Electronically signed by Karthik Patterson MD in OV> ?05/27/241056 ? DD/ 0832 ? TD/TT: 05/27/24917 ? Ruling Machine Set Up Operator: ? Procedure Note Donotsarahinterpreter, Image - [facility] [address] [place] [address] Mammography Report Signed with Addenda Patient: Carina Pulido#: [id number] : 1965Acct:[id number] Age/Sex: 58 / FADM Date: 05/27/24 Loc: HO.MAMMO Attending Dr: Domenico Flores MD Ordering Physician: Domenico Floresesults: Date of Service: 05/27/24Follow Up: Procedure(s): MM tomosynthesis diagnostic LT Accession Number(s): [id number] cc: Jinny Cunningham DO; Domenico Flores MD ADDENDUM ADDENDUM #1 ADDENDUM: Pathology results: Lymph node, left axillary region, ultrasound-guided core biopsy of lymph node with flow cytometry: -Reactive lymph node. No evidence of lymphoproliferative disorder or metastatic carcinoma. Please see pathology report for comprehensive information regarding the specimen. Pathology results are considered concordant with imaging expectations. Results made available to Dr. Flores, Dr. Cunningham, and myself via secure fax, 06/02/2024, 8:22 AM. RECOMMENDATIONS: Return to routine annual screening. Clinical management and follow-up advised for reactive lymph node. BI-RADS 2: Benign. RECOMMENDATION: 1 year F/U Electronically signed by: Karthik Patterson MD 06/03/2024 09:21 AM EDT Addendum Dictated By: Karthik Patterson MD Addendum Signed By: <Electronically signed by Karthik Patterson MD in OV> 06/03/24920 Addendum Cosigned By: DD/ /12/832 TD/TT: 05/27/2404/12/918 PROCEDURE: US GUIDED BREAST BIOPSY, LEFT CLINICAL INFORMATION: Enlarged left axillary lymph node of unknown etiology for biopsy . COMPARISON: Screening mammography 05/02/2024 and prior studies. Ultrasound left axilla 05/22/2024. PROCEDURAL DETAILS: The details of the procedure, as well as the risks, benefits, and alternatives to the procedure were explained to the patient in detail and all of her questions were answered, after which written informed consent was obtained. Site and side were confirmed. Prior to the procedure, sonography revealed an enlarged left low axillary lymph node measuring approximately 1.5 x 1.1 cm with effaced hilum and thickened cortex. A time-out was performed, the lesion intended for biopsy was targeted, and the skin of the overlying left axilla was then marked, prepped and draped in the usual sterile fashion. Using sonographic guidance, sterile technique, and 1% lidocaine without epinephrine for local anesthesia, multiple core biopsies were obtained through the targeted area with a 14G spring loaded [employer] core biopsy device. There was real-time confirmation of appropriate needle passage. Sampling was documented. At the completion of tissue sampling, a single butterfly shaped metallic clip was deposited at the biopsy site. There was no evidence of immediate complication. SPECIMEN: 4 well formed core samples were obtained. 1 was placed in solution for flow cytometry. DIGITAL POST-PROCEDURE MAMMOGRAPHY: Breast density: The tissue contains scattered areas of fibroglandular density. BI-RADS version 5, category B. There are no new mammographic findings demonstrated. The postprocedure 1-view direct digital mammogram MLO view reveals satisfactory and accurate positioning of the biopsy clip within the targeted lymph node. No hematoma present. The patient tolerated the procedure well and, after assuring adequate hemostasis, was discharged in good condition after reviewing postbiopsy breast care instructions. Final pathology results are pending. MM/MM tomosynthesis diagnostic LT IMPRESSION: 1. No immediate complication from ultrasound-guided percutaneous biopsy enlarged left low axillary lymph node. 2. Ultrasound was used to localize and guide marker clip placement. 3. A 1 view MLO direct digital postprocedure mammogram reveals accurate positioning of the biopsy clip. 4. Final pathology results are pending. A separate report with final recommendations will be issued once these results are made available. Electronically signed by: Karthik Patterson MD 05/27/2024 10:57 AM EDT Dictated By: Karthik Patterson MD Signed By: <Electronically signed by Karthik Patterson MD in OV> 05/27/24 1057 DD/ 0832 TD/TT: 05/27/24 0918 Ruling Machine Set Up Operator: [facility] External Provider IMG BI PROCEDURES Edited Result - Final * Hepatitis C Antibody with Reflex to HCV, RNA, Quantitative, Real-Time PCR (12/28/2023 8:42 AM EDT) Hepatitis C Antibody Nonreactive Nonreactive [facility] Comment:Antibodies to HCV no t detected; does not exclude early acuteHCV infection. Blood Venous blood specimen / Unknown 12/28/2023 8:42 AM EDT 12/28/2023 11:28 AM EDT Jinny Cunningham DO LAB BLOOD ORDERABLES Final R esult [facility] [address] [place] [phone] * HPV mRNA E6/E7 w/Reflex to HPV Genotypes 16, 18/45 (06/08/2023 11:45 AM EDT) HPV nRNA E6/E7 Not Detected Not Detected [facility] Comment:Methodology: Transcr iption-Mediated AmplificationThis assay detects E6/E7 viral messenger RNA (mRNA) from 14high-risk HPV types (16,18,31,33,35,39,45,51,52,56,58,59,66,68).Cervical sources are required for HPV testing.If a vaginal source from a patient who has had atotal hysterectomy with removal of cervix wassubmitted, please contact the testing laboratoryfor alternative testing options.For additional information, please refer tohttp://education.[employer]/faq/LHE480o0(This link if provided for information/educational purposes only.)THIS TEST WAS PERFORMED AT:[facility] [place] [phone] AVERY MD HPV mRNA E6/E7 TNP [facility] HPV 16 RNA TNP [facility] HPV 18/45 RNA TNP [facility] 06/08/2023 11:4 5 AM EDT 06/11/2023 9:15 AM EDT us Jinny Cunningham DO LAB CYTOLOGY ORDERABLES Tahira longoria Result [facility] [address] [place] [phone] * Pap Smear (06/08/2023 11:45 AM EDT) 06/08/2023 11:4 5 AM EDT 06/11/2023 9:15 AM EDT Narrative [facility] - 06/14/2023 9:39 AM EDT ----- ------- Name: Nae Pulido ?Age/Sex: 57/F ? : 1965 Unit#: [id number] ?? Attend Dr: Jinny Cunningham DO ?Re06/08/23 ?Status: DEP REF ? Location: HO.HHCLNP ? Disch: ? ----- ------- SPEC : [id number] ?RECD: 06/11/23 ? STATUS: ??SOUT ? REQ NUM: [id number] ? ZION: 06/08/23 ? SUBM DR: Jinny Cunningham DO ? ENTERED: ??06/11/23 ?SP TYPE: Pap Smr ?OTHR : ? ORDERED: ??Pap Smear ? Interpretation ?? Satisfactory for evaluation. ?? Mild inflammation. ?? Negative for intraepithelial lesion or malignancy. ?HPV mRNA E6/E7: ?NOT DETECTED ? This assay detects E6/E7 viral messenger RNA (mRNA) from 14 high-risk HPV types (16, 18, ?? 31, 33, 35, 39, 45, 51, 52, 56, 58, 59, 66, 68) ?? HPV testing performed by [facility], [place], [place]. ??See reference laboratory ?? pion of the EMR for entire report. ?Clinical Information LMP: Unknown date Previous PAP test: Unknown date, WNL ? Material Received ?? ThinPrep-Cervical ----- ------- Signed (signature on file) SRAVAN Sanches ([facility]) 06/14/23 0939 ? ----- ------- ? END OF REPORT ? us Jinny Cunningham DO LAB CYTOLOGY ORDERABLES Tahira l Result [facility] [address] [place] [phone] * Hm Colonoscopy (03/09/2022 10:01 AM EDT) us Historical Provider HEALTH MAINTENANCE Final Result from Last 3 Months or Most Recently Relevant to Health Maintenance Insurance DENTAL - HSN PARTIAL (MEDICAID) Care Teams Rattlesnake Farmer Relationship Specialty Start Date End Date Jinny Cunningham DO [address] [place] [phone] PCP - General Family Medicine 10/03/11
--- OUTSIDE RECORDS SUMMARY | 2024-10-03 11:25 | XMS_ITS | Encounter Summary ---
Author Organization [facility] Address [address] [place] [address] Care Team Providers Care Golf Ball Cover Treater Name Role Phone Marisa Jinny Primary Care Provider + [phone] Reason for Visit * Reason Comments Med Change Request Encounter Details Date Type Department Care Team ([facility] st Contact Info) Description 03/19/2024 Refill [facility] W[facility] [address] [place] [address] Kristina Cid FNP [address] [place] [phone] Social History Tobacco Use Types Packs/Day Years [...] Description 10/08/2024 8:00 AM EST Office Visit [facility] CHC ADULT DENTAL [address] [place] [address] Onel Tejeda 12/29/2024 9:00 AM EDT Immunization [facility] MEDICINE [address] [place] [address] documented as of this encounter Visit Diagnoses Not on filedocumented in this encounter Additional Health Concerns Assessment Noted Time PHQ-9 Depression Total Score: 6 12/21/19 24 10:44 AM EDT documented as of this encounter Care Teams Golf Ball Cover Treater Relationship Specialty Start Date End Date Jinny Cunningham DO [address] [place] [address] PCP - General Family Medicine 10/03/11 documented as of this encounter
--- OUTSIDE RECORDS SUMMARY | 2024-10-03 11:25 | XMS_ITS | Encounter Summary ---
Author Organization 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
--- OUTSIDE RECORDS SUMMARY | 2024-10-03 11:25 | XMS_ITS | Encounter Summary ---
Author Organization [employer] Address [address] [place] [address] Care Team Providers Care Order Entry Name Role Phone MarkyJinny canchola Primary Care Provider + [phone] Encounter Details Date Type Department Care Team (Latest Contact Info) Description 09/26/2024 Travel Social History Tobacco Use Types Packs/Day [...] Description 10/08/2024 8:00 AM EST Office Visit [facility] ADULT DENTAL [address] [place] [address] Onel Tejeda 12/29/2024 9:00 AM EDT Immunization [facility] MEDICINE [address] [place] [address] documented as of this encounter Visit Diagnoses Not on filedocumented in this encounter Additional Health Concerns Assessment Noted Time PHQ-9 Depression Total Score: 6 12/21/19 24 10:44 AM EDT documented as of this encounter Care Teams Order Entry Relationship Specialty Start Date End Date Jinny Cunningham DO [address] [place] [address] PCP - General Family Medicine 10/03/11 documented as of this encounter
--- OUTSIDE RECORDS SUMMARY | 2024-10-03 11:25 | XMS_ITS | Encounter Summary ---
Author Organization [employer] Address [address] [place] [address] Care Team Providers Care Emergency Planner Name Role Phone MarkyJinny canchola Primary Care Provider + [phone] Encounter Details Date Type Department Care Team (Latest Contact Info) Description 10/02/2024 Travel Social History Tobacco Use Types Packs/Day [...] Description 10/08/2024 8:00 AM EST Office Visit [facility] CHC ADULT DENTAL [address] [place] [address] Onel Tejeda 12/29/2024 9:00 AM EDT Immunization [facility] MEDICINE [address] [place] [address] documented as of this encounter Visit Diagnoses Not on filedocumented in this encounter Additional Health Concerns Assessment Noted Time PHQ-9 Depression Total Score: 6 12/21/19 24 10:44 AM EDT documented as of this encounter Care Teams Emergency Planner Relationship Specialty Start Date End Date Jinny Cunningham DO [address] [place] [address] PCP - General Family Medicine 10/03/11 documented as of this encounter
--- OUTSIDE RECORDS SUMMARY | 2024-10-03 11:25 | XMS_ITS | Encounter Summary ---
Author Organization [facility] Address [address] [place] [address] 7t [place] [address] Care Team Providers Care Paraprofessional Interpreter Name Role Phone Jinny Cunningham DO Primary Care Provider + [phone] Encounter Details Date Type Department Care Team (Latest Contact Info) Description 08/31/2020 Abstract [facility] CONVERSIONS Dental, Provider, DDS Social History Tobacco Use Types Packs/Day Years Used Date Smoking Tobacco: Never Assessed Comments Unknown Sex and Gender Information Value [...] Description 10/08/2024 8:00 AM EST Office Visit [facility] ADULT DENTAL [address] [place] [address] Onel Tejeda 12/29/2024 9:00 AM EDT Immunization [facility] MEDICINE [address] [place] [address] documented as of this encounter Visit Diagnoses Not on filedocumented in this encounter Care Teams Paraprofessional Interpreter Relationship Specialty Start Date End Date Jinny Cunningham DO [address] [place] [address] PCP - General Family Medicine 10/03/11 documented as of this encounter
--- OUTSIDE RECORDS SUMMARY | 2024-10-03 11:25 | XMS_ITS | Encounter Summary ---
Author Organization [facility] Address [address] [place] [address] 7t [place] [address] Care Team Providers Care Baggage Security Checker Name Role Phone Jinny Cunningham Primary Care Provider + [phone] Encounter Details Date Type Department Care Team (Late Contact Info) Description 11/29/2023 Orders Only [facility] MEDICINE [address] [place] [address] Provider, MD Roro Social History Tobacco Use Types Packs/Day Years [...] Description 10/08/2024 8:00 AM EST Office Visit [facility] CHC ADULT DENTAL [address] [place] [address] Onel Tejeda 12/29/2024 9:00 AM EDT Immunization [facility] MEDICINE [address] [place] [address] [phone] documented as of this encounter Procedures Procedure Name Priority Date/Time Associated Diagnosis Comments HM COLONOSCOPY Routine 03/09/2022 10:01 AM EDT HM COLONOSCOPY Routine 01/02/2019 9:59 AM EDT documented in this encounter Results * Hm Colonoscopy (03/09/2022 10:01 AM EDT) us Historical Provider HEALTH MAINTENANCE Final Result * Hm Colonoscopy (01/02/2019 9:59 AM EDT) us Historical Provider HEALTH MAINTENANCE Final Result documented in this encounter Visit Diagnoses Not on filedocumented in this encounter Care Teams Baggage Security Checker Relationship Specialty Start Date End Date Jinny Cunningham DO [address] [place] [phone] PCP - General Family Medicine 10/03/11 documented as of this encounter
--- OUTSIDE RECORDS SUMMARY | 2024-10-03 11:25 | XMS_ITS | Encounter Summary ---
Author Organization [facility] Address [address] [facility] 7t [place] [address] Care Team Providers Care Liquor Grinder Mill Operator Name Role Phone Jinny Cunningham DO Primary Care Provider + [phone] Reason for Visit * Reason Onset Date Comments Recall Follow Up 09/04/2024 Follow up for L abs Result Encounter Details Date Type Department Care Team ([facility] st Contact Info) Description 09/04/2024 Telephone [facility] MEDICINE [address] [place], [place] [phone] Jinny Cunningham DO [address] [place], [place] [phone] Recall Follow Up (Follow up for Labs Result) Social History Tobacco Use Types Packs/Day Years [...] encounter Miscellaneous Notes * Telephone Encounter - Carly Murphy [place] - 09/04/2024 2:19 PM EST 09/04/24-Spoke with patient schedule Follow up for Labs Result. Mailed appt. Letter. * Telephone Encounter - Isaac Seymour - 09/04/2024 1:19 PM EST Tc from pt requesting a callback as requesting appointment for office visit or physical , blocks are on hold so unable to schedule pt. [phone] documented in this encounter Plan of Treatment Upcoming Encounters Date Type Department Care Team (Late st Contact Info) Description 10/08/2024 8:00 AM EST Office Visit [facility] CHC ADULT DENTAL [address] [place] [address] Onel Tejeda 12/29/2024 9:00 AM EDT Immunization [facility] MEDICINE [address] [place] [address] documented as of this encounter Visit Diagnoses Not on filedocumented in this encounter Additional Health Concerns Assessment Noted Time PHQ-9 Depression Total Score: 6 12/21/19 24 10:44 AM EDT documented as of this encounter Care Teams Liquor Grinder Mill Operator Relationship Specialty Start Date End Date Jinny Cunningham DO [address] [place] [address] PCP - General Family Medicine 10/03/11 documented as of this encounter
--- OUTSIDE RECORDS SUMMARY | 2024-10-03 11:25 | XMS_ITS | Encounter Summary ---
Author Organization [facility] Address [address] [place] [address] 7t [place] [address] Care Team Providers Care Dough Scaler And Mixer Name Role Phone Jinny Cunningham DO Primary Care Provider + [phone] Reason for Visit * Reason Onset Date Comments Appointment Request 09/21/2023 Encounter Details Date Type Department Care Team ([facility] Contact Info) Description 09/21/2023 Telephone [facility] MEDICINE [address] [place], [place] [phone] Jinny Cunningham DO [address] [place], [place] [phone] Appointment Request Social History Tobacco Use Types Packs/Day Years [...] encounter Miscellaneous Notes * Telephone Encounter - Benson Abebe - 09/21/2023 10:59 AM EST Tc from patient requesting a follow up appt states was instructed by PCP to call from last appt to schedule however insurance underwriter sales does not see anything on patients chart documented in this encounter Plan of Treatment Upcoming Encounters Date Type Department Care Team ([facility] st Contact Info) Description 10/08/2024 8:00 AM EST Office Visit [facility] CHC ADULT DENTAL [address] [place] [address] Onel Tejeda 12/29/2024 9:00 AM EDT Immunization [facility] MEDICINE [address] [place] [address] documented as of this encounter Visit Diagnoses Not on filedocumented in this encounter Care Teams Dough Scaler And Mixer Relationship Specialty Start Date End Date Jinny Cunningham DO [address] [place] [address] PCP - General Family Medicine 10/03/11 documented as of this encounter
--- OUTSIDE RECORDS SUMMARY | 2024-10-03 11:25 | XMS_ITS | Encounter Summary ---
Author Organization [facility] Address [address] [facility] 7t [place] [address] Care Team Providers Care Fast Food Sales Assistant Name Role Phone Carolina Cunninghamfer Primary Care Provider + [phone] Reason for Referral * Consultation (Routine) - Closed Specialty Diagnoses / Procedures Referred By Contac t Referred To Contact Nutrition Diagnoses Fatty liver Obesity (BMI 30-39.9) Delilah Ayala MD [address] [place] [address] Phone: tel: fax: Referral ID Status Reason Start Date Expiration Date V isits Requested Visits Authorized [id number] Closed Specialty Services Required 04/03/2023 04/02/2024 1 1 Encounter Details Date Type Department Care Team (Late st Contact Info) Description 04/03/2023 Orders Only [facility] MEDICINE [address] [place], [place] [phone] Delilah Ayala MD [address] [place], [place] [phone] Fatty liver (Primary Dx); Obesity (BMI 30-39.9) Social History Tobacco Use Types Packs/Day Years [...] Description 10/08/2024 8:00 AM EST Office Visit [facility] CHC ADULT DENTAL [address] [place] [address] Onel Tejeda 12/29/2024 9:00 AM EDT Immunization [facility] MEDICINE [address] [place] [address] Scheduled Referrals Name Type Priority Associated Diagnoses Orde r Schedule Referral to Nutrition Services Outpatient Referral Routine Fatty liver Obesity (BMI 30-39.9) Expected: 04/03/2023 (Approximate), Expires: 04/03/2024 documented as of this encounter Visit Diagnoses Diagnosis Fatty liver- Primary Other chronic nonalcoholic liver disease Obesity (BMI 30-39.9) documented in this encounter Care Teams Fast Food Sales Assistant Relationship Specialty Start Date End Date Jinny Cunningham DO [address] [place] [address] PCP - General Family Medicine 10/03/11 documented as of this encounter
== END 2024-10-03 10:37 | disposition home or self-care (01) ==
LOC: HO.HHCX 10:36
PROVIDERS: Visit Provider Family Medicine
DX: M25.512 Pain in left shoulder (principal); G89.29 Other chronic pain
CPT/HCPCS: 73030

== ENCOUNTER → 2024-10-03 10:37 | Outpatient (BNV) | payer OTHER, SELFPAY | PROVIDERS: Visit Provider Radiology Diagnostic Radiology | DX: M25.512 Pain in left shoulder (principal) | CPT/HCPCS: 73030 ==

== ENCOUNTER 2024-10-03 10:53 | Outpatient (REF) | payer OTHER, SELFPAY ==
--- OUTSIDE RECORDS SUMMARY | 2024-10-03 11:51 | XMS_ITS | Encounter Summary ---
Author Organization [facility] Address [address] [place] [address] 7t [place] [address] Care Team Providers Care Relay Dispatcher Name Role Phone Jinny Cunningham Primary Care Provider + [phone] Encounter Details Date Type Department Care Team (Late Contact Info) Description 11/29/2023 Orders Only [facility] MEDICINE [address] [place] [phone] Provider, MD Roro Social History Tobacco [...] Description 10/08/2024 8:00 AM EST Office Visit [facility] CHC ADULT DENTAL [address] [place] [address] Onel Tejeda 12/29/2024 9:00 AM EDT Immunization [facility] MEDICINE [address] [place] [address] [phone] documented as of this encounter Procedures Procedure [...] on filedocumented in this encounter Care Teams Relay Dispatcher Relationship Specialty Start Date End Date Jinny Cunningham DO [address] [place] [phone] PCP - General Family Medicine 10/03/11 documented as of this encounter
--- OUTSIDE RECORDS SUMMARY | 2024-10-03 11:51 | XMS_ITS | Encounter Summary ---
Author Organization [facility] Address [address] [place] [address] 7t [place] [address] Care Team Providers Care Pocket And Pulley Machine Operator Name Role Phone Jinny Cunningham DO Primary Care Provider + [phone] Reason for Visit * Reason Onset Date Comments Referral 03/08/2023 Encounter Details Date Type Department Care Team (Late Contact Info) Description 03/08/2023 Telephone [facility] MEDICINE [address] [place], [place] [phone] Jinny Cunningham DO [address] [place] [address] Referral Social History Tobacco Use Types Packs/Day [...] from pt requesting status on referral to saw operator. Please contact pt at [phone] (Uruguayan) documented in this encounter Plan of Treatment Upcoming Encounters Date Type Department Care Team (Late Contact Info) Description 10/08/2024 8:00 AM EST Office Visit [facility] CHC ADULT DENTAL [address] [place] [address] Onel Tejeda 12/29/2024 9:00 AM EDT Immunization [facility] MEDICINE [address] [place] [address] documented as of this encounter Visit Diagnoses Not on filedocumented in this encounter Care Teams Pocket And Pulley Machine Operator Relationship Specialty Start Date End Date Jinny Cunningham DO [address] [place] [address] PCP - General Family Medicine 10/03/11 documented as of this encounter
--- OUTSIDE RECORDS SUMMARY | 2024-10-03 11:51 | XMS_ITS | Encounter Summary ---
Author Organization [employer] Address [address] [facility] 7t [place] [address] Care Team Providers Care Submersible Pilot Name Role Phone Marisa Jinny Primary Care Provider + [phone] Reason for Visit * Reason Comments Med Change Request Encounter Details Date Type Department Care Team ([facility] st Contact Info) Description 03/19/2024 Refill [facility] [address] [place] [address] Kristina Cid FNP [address] [place] [address] Social History Tobacco Use Types Packs/Day Years [...] Description 10/08/2024 8:00 AM EST Office Visit [facility] CHC ADULT DENTAL [address] [place] [address] Onel Tejeda 12/29/2024 9:00 AM EDT Immunization [facility] MEDICINE [address] [place] [address] documented as of this encounter Visit Diagnoses Not on filedocumented in this encounter Additional Health Concerns Assessment Noted Time PHQ-9 Depression Total Score: 6 12/21/19 24 10:44 AM EDT documented as of this encounter Care Teams Submersible Pilot Relationship Specialty Start Date End Date iJnny Cunningham DO [address] [place] [address] PCP - General Family Medicine 10/03/11 documented as of this encounter
--- OUTSIDE RECORDS SUMMARY | 2024-10-03 11:51 | XMS_ITS | Encounter Summary ---
Author Organization [facility] [facility] Address [address] [place] [address] 7t [place] [address] Care Team Providers Care Public Health Educator Name Role Phone Jinny Cunningham DO Primary Care Provider + [phone] Encounter Details Date Type Department Care Team (Late st Contact Info) Description 12/13/2022 Orders Only [facility] [address] [place] [address] Jinny Reynolds LPN Social History Tobacco Use [...] Description 10/08/2024 8:00 AM EST Office Visit [facility] ADULT DENTAL [address] [place] [address] Onel Tejeda 12/29/2024 9:00 AM EDT Immunization [facility] MEDICINE [address] [place], [place] [phone] documented as of this encounter Visit Diagnoses Not on filedocumented in this encounter Care Teams Public Health Educator Relationship Specialty Start Date End Date Jinny Cunningham DO [address] [place], [place] [phone] PCP - General Family Medicine 10/03/11 documented as of this encounter
--- OUTSIDE RECORDS SUMMARY | 2024-10-03 11:51 | XMS_ITS | Encounter Summary ---
Author Organization [facility] Address [address] [facility] 7t [place] [address] Care Team Providers Care Video Surveillance Technician Name Role Phone MarkyJinny canchola Primary Care Provider + [phone] Encounter Details Date Type Department Care Team [...] Description 10/08/2024 8:00 AM EST Office Visit [facility] CHC ADULT DENTAL [address] [place] [address] BeMendoza whitakerouard 12/29/2024 9:00 AM EDT Immunization [facility] MEDICINE [address] [place] [address] documented as of this encounter Procedures Procedure Name Priority Date/Time Associated Diagnosis Comments HEREDITARY HEMOCHROMATOSIS DNA MUTATION ANALYSIS Routine 09/04/2024 9:26 AM EST IRON AND TOTAL IRON BINDING CAPACITY Routine 09/04/2024 9:26 AM EST FERRITIN Routine 09/04/2024 9:26 AM EST documented in this encounter Results * Hereditary Hemochromatosis DNA Mutation Analysis (09/04/2024 9:26 AM EST) Hereditary Hemochromatosis DNA Mutation See Below [facility] Comment: 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 This patient is negative for [id number] pathogenic variant. Individuals with this genotype mayhave [...] submitted clinical informationreviewed by Krystyna Presley, Ph.D., [facility], [facility].DETAILED ASSAY INFORMATION: Hereditary hemochromatosis (HH)is an [...] pathogenic variants inthe HFE gene, C282Y (NM [id number]: c.845G>A, p.Dbj524Soq) bkhZ58T (NM [id number]: c.187C>G, p.Olo79Ggd), that are commonlyassociated with HH. These variants [...] laboratorydata.Health care providers, please contact your local [place] genetic counselor or call [phone]( [phone] for assistance with the interpretation ofthese results.This test was developed and its analytical performancecharacteristics have been determined by [employer] [facility] [place]. It has not beencleared or approved by FDA. This assay has been validatedpursuant to the CLIA regulations and is used for clinicalpurposes.For more information, please refer [email or web address]/faq/hemochromatosis.(This link is being provided for informational/educationalpurposes only.)A portion of the testing was performed at [facility].Reviewed and signed by Laboratory results and submittedclinical information reviewed by Krystyna Presley, Ph.D., FACMG,CGMB, Signed on 09/15/19 25 at 06:20THIS TEST WAS PERFORMED AT:[employer] [id number] ABRIL HONG ??[id number] FUNK MD,PHD,TEJAS 09/04/2024 9:26 AM EST 09/04/2024 9:26 AM EST us Generic External Data Provider LAB BLOOD ORDERAB LES Final Result Performing Organization Address [facility] Co de Phone Number [facility] [address] [place] [phone] * (ABNORMAL) Ferritin (09/04/2024 9:26 AM EST) Ferritin 266(H) 10 - 250 ng/mL [facility] 09/04/2024 9:26 AM EST 09/04/2024 9:26 AM EST Generic External Data Provider LAB BLOOD ORDERAB LES Final Result Performing Organization Address [facility] de Phone Number [facility] [address] [place] [phone] * Iron And Total Iron Binding Capacity (09/04/2024 9:26 AM EST) Iron 84 30 - 160 mcg/dL [facility] Total Iron Binding Capacity 231 228 - 428 mcg/dL [facility] Percent Iron Saturation 36 15 - 50 % [facility] Unsaturated Iron Binding 147 ug/dL [facility] 09/04/2024 9:26 AM EST 09/04/2024 9:26 AM EST us Generic External Data Provider LAB BLOOD ORDERAB LES Final Result Performing Organization Address City/[facility] Co de Phone Number [facility] [address] [place] [address] [phone] documented in this encounter Visit Diagnoses Not on filedocumented in this encounter Additional Health Concerns Assessment Noted Time PHQ-9 Depression Total Score: 6 12/21/19 24 10:44 AM EDT documented as of this encounter Care Teams Video Surveillance Technician Relationship Specialty Start Date End Date Jinny Cunningham DO [address] [place] [address] PCP - General Family Medicine 10/03/11 documented as of this encounter
--- OUTSIDE RECORDS SUMMARY | 2024-10-03 11:51 | XMS_ITS | Encounter Summary ---
Author Organization [employer] [facility] Address [address] [facility] 7t [place] [address] Care Team Providers Care Intellectual Property Legal Assistant Name Role Phone Jinny Cunningham DO Primary Care Provider + [phone] Reason for Visit * Reason Onset Date Comments Nurse Triage 02/15/2024 Encounter Details Date Type Department Care Team ([facility] st Contact Info) Description 02/15/2024 Telephone [facility] MEDICINE [address] [place], [place] [phone] Jinny Cunningham DO [address] [place] [address] Nurse Triage Social History Tobacco Use Types [...] 8:00 AM EST Office Visit [facility] ADULT DENTAL [address] [place] [address] Onel Tejeda 12/29/2024 9:00 AM EDT Immunization [facility] MEDICINE [address] [place] [address] documented as of this encounter Visit Diagnoses Not on filedocumented in this encounter Additional Health Concerns Assessment Noted Time PHQ-9 Depression Total Score: 6 12/21/19 24 10:44 AM EDT documented as of this encounter Care Teams Intellectual Property Legal Assistant Relationship Specialty Start Date End Date Jinny Cunningham DO [address] [place] [address] PCP - General Family Medicine 10/03/11 documented as of this encounter
--- OUTSIDE RECORDS SUMMARY | 2024-10-03 11:51 | XMS_ITS | Clinical Summary ---
Author Organization [employer] Address [address] [place] [address] Care Team Providers Care Broaching Machine Operator Name Role Phone MarkyJinny canchola Primary Care Provider + [phone] Allergies No known active allergies Medications magnesium [...] Description 10/03/2024 9:15 AM EST Office Visit [facility] [address] [place] [phone] Jinny Cunningham DO Prediabetes (Primary Dx); Fatty liver; Chronic gastroesophageal reflux disease; Obstructive sleep apnea; Chronic bilateral low back pain, unspecified whether sciatica present; Abnormal mammogram; Healthcare maintenance; Chronic left shoulder pain; Encounter for immunization 10/03/2024 Travel 10/02/2024 Travel 09/26/2024 Travel 09/04/2024 Travel 09/04/2024 Telephone [facility] [address] [place] [phone] Jinny Cunningham DO Recall Follow Up (Follow up for Labs Result) 09/04/2024 Orders Only GENERIC EXTERNAL DATA DEPARTMENT Provider, Generic External Data 08/07/2024 Orders Only GENERIC EXTERNAL DATA DEPARTMENT Provider, Generic External Data 07/28/2024 9:00 AM EST Nurse Only [facility] [address] [place] [phone] Jalyn Maciel LPN Encounter for immunization (Primary Dx) 07/22/2024 Refill [facility] [address] [place] [address] [phone] Jinny Cunningham DO from Last 3 Months [...] Description 10/08/2024 8:00 AM EST Office Visit [facility] ADULT DENTAL [address] [place] [address] Onel Tejeda 12/29/2024 9:00 AM EDT Immunization [facility] [address] [place], [place] [phone] Health Maintenance Due Date Last Done Comments [...] AND PATTERN Routine 08/07/2024 10:28 AM EST [id number] QN Routine 10:28 AM EST CERULOPLASMIN Routine [...] EST) Hereditary Hemochromatosis DNA Mutation See Below [facility] Comment: 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 This patient is negative for frqH06R pathogenic variant. Individuals with this genotype mayhave [...] submitted clinical informationreviewed by Krystyna Presley, Ph.D., [facility].DETAILED ASSAY INFORMATION: Hereditary hemochromatosis (HH)is an [...] pathogenic variants inthe HFE gene, C282Y (NM 231638.2: c.845G>A, p.Qnv023Gwi) dguN73S ([place] 292331.2: c.187C>G, p.Rhn21Gmk), that are commonlyassociated with HH. These variants [...] laboratorydata.Health care providers, please contact your local [facility] genetic counselor or call [phone]( [phone] for assistance with the interpretation ofthese results.This test was developed and its analytical performancecharacteristics have been determined by [facility]. It has not beencleared or approved by FDA. This assay has been validatedpursuant to the CLIA regulations and is used for clinicalpurposes.For more information, please refer tohttp://education.Needcheck.[employer]/faq/hemochromatosis.(This link is being provided for informational/educationalpurposes only.)A portion of the testing was performed at [facility].Reviewed and signed by Laboratory results and submittedclinical information reviewed by Krystyna Presley, Ph.D., [facility], Signed on 09/15/19 25 at 06:20THIS TEST WAS PERFORMED AT:[employer]/OLIVA [id number] [facility], [place] ??[address]NKUGURYAN FUNK MD,PHD,TEJAS 09/04/2024 9:26 AM EST 09/04/2024 9:26 AM EST Generic External Data Provider LAB BLOOD ORDERAB LES Final Result Performing Organization Address [facility] de Phone Number [facility] [address] [place] [phone] * Iron And Total Iron Binding Capacity (09/04/2024 9:26 AM EST) Only the most recent of2 resultswithin the time period is included. Iron 84 30 - 160 mcg/dL [facility] Total Iron Binding Capacity 231 228 - 428 mcg/dL [facility] Percent Iron Saturation 36 15 - 50 % [facility] Unsaturated Iron Binding 147 ug/dL [facility] 09/04/2024 9:26 AM EST 09/04/2024 9:26 AM EST Generic External Data Provider LAB BLOOD ORDERAB LES Final Result Performing Organization Address [facility] Phone Number [facility] [address] [place] [phone] * (ABNORMAL) Ferritin (09/04/2024 9:26 AM EST) Only the most recent of2 resultswithin the time period is included. Ferritin 266(H) 10 - 250 ng/mL [facility] 09/04/2024 9:26 AM EST 09/04/2024 9:26 AM EST Generic External Data Provider LAB BLOOD ORDERAB LES Final Result Performing Organization Address [facility] de Phone Number [facility] [address] [place] [phone] * XR Lumbar Spine 2-3 Views (08/07/2024 10:44 AM EST) Anatomical Region Laterality Modality Spine, L-spine Radiographic Sarah ging 08/07/2024 10:4 4 AM EST Narrative 08/09/2024 11:55 AM EST ? [facility] [facility] ?[address] ?[place] [address] ?XRay Report ? Signed ? Patient: Jason Demian,Nae ?MR#: [id number] ?? [id number] ? : 1965 ?Acct:[id number] ? Age/Sex: 59 / F ?ADM Date: 08/07/24 ? Loc: HO.XRAY ? Attending Dr: Jinny Cunningham DO ? Ordering Physician: Jinny Cunningham DO ?? Date of Service: 08/07/24 ?? Procedure(s): XR lumbar spine 2-3V ?? Accession Number(s): [id number] ? cc: Jinny Cunningham DO ? EXAMINATION: ?? XR LUMBAR SPINE ? CLINICAL INFORMATION: ?? worsening LBP ? COMPARISON: ?? 2019 ? TECHNIQUE: ?? Frontal lateral and coned-down L5-S1 frontal lateral, total of 3 views ? FINDINGS: ? Five zqi-bjq-trucosq lumbar vertebrae were identified maintaining ?? normal [...] DD/ 1044 ? TD/TT: 08/07/24 1104 ? Last Marker: HS ? Procedure Note Amilcar Edmonds - 08/09/[address] [place] [address] XRay Report Signed Patient: Carina Pulido#: [id number] : 1965Acct:[id number] Age/Sex: 59 / FADM Date: 08/07/24 Loc: [facility]OR[facility]XRCEDRIC Attending Dr: Jinny Cunningham DO Ordering Physician: Jinny Cunningham DO Date of Service: 08/07/24 Procedure(s): XR lumbar spine 2-3V Accession Number(s): [id number] cc: Jinny Cunningham DO EXAMINATION: XR LUMBAR SPINE CLINICAL INFORMATION: worsening LBP COMPARISON: 2019 TECHNIQUE: Frontal lateral and coned-down L5-S1 frontal lateral, total of 3 views FINDINGS: Five zzt-ivx-qyioupq lumbar vertebrae were identified maintaining normal height [...] 08/09/24 1152 DD/ 1044 TD/TT: 08/07/24 1104 Last Marker: YUN us Jinny Cunningham DO IMG XR PROCEDURES Edited Res ult - Final * TSH with Reflex to Free T4 (08/07/2024 10:28 AM EST) TSH reflex Free T4 2.24 0.32 - 4.0 uIU/mL [facility] 08/07/2024 10:2 8 AM EST 08/07/2024 10:36 AM EST Generic External Data Provider LAB BLOOD ORDERAB LES Final Result Performing Organization Address [facility]/ZIP Co de Phone Number [facility] [address] [place] [phone] * Actin (Smooth Muscle) Antibody (IgG) (08/07/2024 10:28 AM EST) Smooth Muscle Antibody <20 <20 U [facility] Comment:Reference Range: <20 U: Negative>or=20 [...] with AIH type 1.THIS TEST WAS PERFORMED AT:[employer] [place] [address]VTXRUDQARPIT GILBERT MD,PHD 08/07/2024 10:2 8 AM EST 08/07/2024 10:36 AM EST Generic External Data Provider LAB BLOOD ORDERAB LES Final Result Performing Organization Address [facility] Co de Phone Number [facility] [address] [place] [phone] * Yakyd-3-Krhzghuexxd, Quantitative (08/07/2024 10:28 AM EST) Bswla-3-Dljcousi sin QN 155 83 - 199 mg/dL [facility] Comment:THIS TEST WAS PERFOR MED AT:[employer] [address] [address]VGDGLRAFFY AVERY MD 08/07/2024 10:2 8 AM EST 08/07/2024 10:36 AM EST Generic External Data Provider LAB BLOOD ORDERAB LES Final Result Performing Organization Address [facility]/ZIP Co de Phone Number [facility] [address] [place] [phone] * (ABNORMAL) Alkaline phosphatase, isoenzymes (08/07/2024 10:28 AM EST) Alkaline Phosphatase 159(A) 37 - 153 U/L [facility] Intestinal Isoenzymes 35(A) 1 - 24 % [facility] Comment:Increased intestinal alkaline phosphatase can beseen in blood group O and B secretors and afterfatty meals. Bone Isoenzymes 33 28 - 66 % [facility] Liver Isoenzymes 33 25 - 69 % [facility] Placental Isoenzymes 0 <=0 % [facility] Macrohepatic Isoenzymes 0 <=0 % [facility] Comment:THIS TEST WAS PERFOR MED AT:[employer]/[facility] [place] [address]HIGVLGAARPIT GILBERT MD,PHD Interpretation [facility] 08/07/2024 10:2 8 AM EST 08/07/2024 10:36 AM EST Generic External Data Provider LAB BLOOD ORDERAB LES Final Result Performing Organization Address [facility] Co de Phone Number [facility] [address] [place] [phone] * Tissue Transglutaminase Antibody, IgA (08/07/2024 10:28 AM EST) Transglutaminase IgA <1.0 U/mL [facility] Comment:Value Interpretation ----- <15.0 Antibody not detected> or = 15.0 Antibody detectedTHIS TEST WAS PERFORMED AT:[employer] [address] [address]QXUWQRAFFY AVERY MD 08/07/2024 10:2 8 AM EST 08/07/2024 10:36 AM EST us Generic External Data Provider LAB BLOOD ORDERAB LES Final Result Performing Organization Address [facility] de Phone Number [facility] [address] [place] [phone] * Ceruloplasmin (08/07/2024 10:28 AM EST) Ceruloplasmin 26 14 - 48 mg/dL [facility] Comment:THIS TEST WAS PERFOR MED AT:[facility] [place] [phone] AVERY MD 08/07/2024 10:2 8 AM EST 08/07/2024 10:36 AM EST Generic External Data Provider LAB BLOOD ORDERAB LES Final Result Performing Organization Address [facility] Number [facility] [address] [place] [phone] * Hepatitis B Core Antibody, Total (08/07/2024 10:28 AM EST) Hepatitis B Core Antibody Nonreactive Nonreactive [facility] 08/07/2024 10:2 8 AM EST 08/07/2024 10:36 AM EST Generic External Data Provider LAB BLOOD ORDERAB LES Final Result Performing Organization Address [facility] Phone Number [facility] [address] [place] [phone] * Liver Kidney Microsomal (LKM-1) Antibody??(IgG) (08/07/2024 10:28 AM EST) Liver Kidney Microsomal (LKM-1) Antibody IgG <=20.0 <=20.0 U [facility] Comment:Reference Range: <=2 0.0 Negative [...] patients with hepatitis Cinfection.THIS TEST WAS PERFORMED AT:[employer]/[facility]ITALZQQUUAIEW[address] [place] [address]ZVAPQDUARPIT GILBERT MD,PHD 08/07/2024 10:2 8 AM EST 08/07/2024 10:36 AM EST Generic External Data Provider LAB BLOOD ORDERAB LES Final Result Performing Organization Address [facility] Co de Phone Number [facility] [address] [place] [phone] * Mitochondrial Antibody with Reflex to Titer (08/07/2024 10:28 AM EST) Mitochondrial Antibodies NEGATIVE NEGATIVE [facility] Comment:THIS TEST WAS PERFOR MED AT:[employer] [address] [address]MXYBCRAFFY AVERY MD Mitochondrial Ab Titer TNP [facility] 08/07/2024 10:2 8 AM EST 08/07/2024 10:36 AM EST us Generic External Data Provider LAB BLOOD ORDERAB LES Final Result Performing Organization Address [facility] Co de Phone Number [facility] [address] [place] [phone] * HIV-1/2 Antigen and Antibodies, Fourth Generation, with Reflexes (08/07/2024 10:28 AM EST) HIV AB/AG Nonreactive Nonreactive [facility] Comment:HIV-1 p24 Ag and/or HIV-1/HIV-2 Ab not detected.A test result that is nonreactive does not exclude thepossibility of exposure to or infection with HIV-1 and/orHIV-2. Nonreactive results in this assay for individualswith prior exposure to HIV-1 and/or HIV-2 may be due toantigen and antibody levels that are below the limit ofdetection of this assay.The [employer] HIV Ag/Ab Combo assay result andsupplemental assay results should be interpreted inconjunction with the patient's clinical presentation,history and other laboratory results. If the results areinconsistent with clinical evidence, additional testing issuggested to confirm the result. 08/07/2024 10:2 8 AM EST 08/07/2024 10:36 AM EST Generic External Data Provider LAB BLOOD ORDERAB LES Final Result Performing Organization Address City/[facility]/ZIP Co de Phone Number [facility] [address] [place] [phone] * Hepatitis B Surface Antibody, Qualitative (08/07/2024 10:28 AM EST) ~Hepatitis B Surface Antibody REACTIVE Nonreactive [facility] Comment:REACTIVE: > 11.99 mI U/mL 08/07/2024 10:2 8 AM EST 08/07/2024 10:36 AM EST Generic External Data Provider LAB BLOOD ORDERAB LES Final Result Performing Organization Address [facility] Co de Phone Number [facility] [address] [place] [phone] * Prothrombin Time-INR (08/07/2024 10:28 AM EST) Prothrombin Time 11.1 10.9 - 12.4 SEC [facility] INTERNATIONAL NORM RATIO 1.0 0.9 - 1.1 [facility] Comment:INTERNATIONAL NORMAL IZED RATIO (INR) [...] ORDERAB LES Final Result Performing Organization Address [facility] Co de Phone Number [facility] [address] [place] [phone] * CBC (08/07/2024 10:28 AM EST) White Blood Count 6.9 4.8 - 10.8 X10*3/uL [facility] Red Blood Count 4.92 4.20 - 5.50 X10*6/uL [facility] Hemoglobin 14.8 12.0 - 16.0 g/dl [facility] Hematocrit 44.3 37.0 - 47.0 % [facility] Mean Corpuscular Volume 90.0 80.0 - 98.0 fL [facility] Mean Corpuscular Hemoglobin 30.1 27.0 - 33.0 pg [facility] Mean Corpuscular HGB Conc 33.4 31.0 - 35.0 g/dl [facility] Red Cell Distribution Width 13.8 11.0 - 16.0 % [facility] Platelet Count 204 160 - 400 X10*3/uL [facility] Mean Platelet Volume 11.2 9.4 - 12.3 fL [facility] NRBC Pct Auto 0.0 0.0 - 0.2 /100WBC [facility] NRBC Abs Auto 0.000 0.0 - 0.012 X10*3/uL [facility] 08/07/2024 10:2 8 AM EST 08/07/2024 10:36 AM EST us Generic External Data Provider LAB BLOOD ORDERAB LES Final Result Performing Organization Address City/[facility]/ZIP Co de Phone Number [facility] [address] [place] [phone] * AB Screen,IFA, with Reflex to Titer and Pattern (08/07/2024 10:28 AM EST) Anti Nuclear Antibody Screen NEGATIVE NEGATIVE [facility] Comment:AB IFA is a first [...] clinicallysuspected inflammatory myopathies.AC-0: NegativeInternational Consensus on AB Patterns(https://doi.org/10.1515/pzyw-1319-1726)For additional information, please refer tohttp://education.Mogad/faq/PAB746(This link is being provided for informational/educational purposes only.)THIS TEST WAS PERFORMED AT:[facility] [place] [address]ZXHLTRAFFY AVERY MD AB Titer [facility] AB Pattern [facility] AB TITER 2 (REF LAB) [facility] AB Pattern 2 [facility] AB TITER 3 [facility] AB PATTERN 3 [facility] 08/07/2024 10:2 8 AM EST 08/07/2024 10:36 AM EST us Generic External Data Provider LAB BLOOD ORDERAB LES Final Result Performing Organization Address [facility] Co de Phone Number [facility] [address] [place] [phone] * (ABNORMAL) Hemoglobin A1c (08/07/2024 10:28 AM EST) Hemoglobin A1c 6.3(H) <6.0 % [facility] Comment:Hemoglobin A1C Refer ence Range Adults: 4.8 - 6.0 % Non diabetic: < 6.0 % Goal: < 7.0 %Additional Action Suggested: > 8.0 %Note: Hemoglobin A1c results are invalid for patients with abnormal amounts of HbF. Blood transfusions may impact the HbA1c concentration in the patient sample. Estimated Average Glucose 134 mg/dL [facility] Comment:eAG = Estimated ave rage glucose which is %A1C expressed asaverage glucose, using the formula of the T8R-HjjivbeZqamyfv Glucose study (ADAG), Diabetes Care, Vol.31,#8,2007 08/07/2024 10:2 8 AM EST 08/07/2024 10:36 AM EST Generic External Data Provider LAB BLOOD ORDERAB LES Final Result Performing Organization Address [facility] Co de Phone Number [facility] [address] [place] [phone] * (ABNORMAL) Gamma Glutamyl Transferase (GGT) (08/07/2024 10:28 AM EST) Gamma Glutamyl Transpeptidase 54(H) 7 - 33 U/L [facility] 08/07/2024 10:2 8 AM EST 08/07/2024 10:36 AM EST Generic External Data Provider LAB BLOOD ORDERAB LES Final Result Performing Organization Address [facility] Co de Phone Number [facility] [address] [place] [phone] * Immunoglobulin A (08/07/2024 10:28 AM EST) Immunoglobulin A 247 47 - 310 mg/dL [facility] Comment:THIS TEST WAS PERFOR MED AT:[facility] [place] [address]GARVDRAFFY AVERY MD 08/07/2024 10:2 8 AM EST 08/07/2024 10:36 AM EST us Generic External Data Provider LAB BLOOD ORDERAB LES Final Result Performing Organization Address [facility] Co de Phone Number [facility] [address] [place] [phone] * Immunoglobulin G (08/07/2024 10:28 AM EST) Immunoglobulin G 1468 600 - 1640 mg/dL [facility] Comment:THIS TEST WAS PERFOR MED AT:[facility] [place] [address]SOBVZRAFFY AVERY MD 08/07/2024 10:2 8 AM EST 08/07/2024 10:36 AM EST Generic External Data Provider LAB BLOOD ORDERAB LES Final Result Performing Organization Address [facility] de Phone Number [facility] [address] [place] [phone] * (ABNORMAL) Comprehensive Metabolic Panel (08/07/2024 10:28 AM EST) Pathologist [facility] Sodium 141 135 - 145 mmol/L [facility] Potassium 4.4 3.3 - 5.1 mmol/L [facility] Chloride 109(H) 96 - 108 mmol/L [facility] Carbon Dioxide 29 22 - 29 mmol/L [facility] Anion Gap 7(L) 12 - 20 [facility] Urea Nitrogen (BUN) 14 9 - 16 mg/dL [facility] Creatinine, Serum 0.82 0.5 - 1.4 mg/dL [facility] Estimated Glomerular Filt Rate >60 [facility] Comment:Chronic Kidney Disea se: Estimated GFR < 60 mL/min/1.79l1Kybnrd Kidney Disease: Estimated GFR < 15 mL/min/1.73m2 Glucose 211(H) 60 - 115 mg/dL [facility] Calcium 9.4 8.4 - 10.2 mg/dL [facility] Bilirubin, Total 0.5 0.0 - 1.0 mg/dL [facility] Aspartate Amino Transferase 77(H) 5 - 31 U/L [facility] Alanine Aminotransferase 94(H) 0 - 31 U/L [facility] Total Protein 7.7 6.5 - 8.0 g/dL [facility] Albumin Level 4.0 3.5 - 5.0 g/dL [facility] Alkaline Phosphatase 166(H) 39 - 117 U/L [facility] 08/07/2024 10:2 8 AM EST 08/07/2024 10:36 AM EST us Generic External Data Provider LAB BLOOD ORDERAB LES Final Result Performing Organization Address City/State/[facility] Co de Phone Number [facility] [address] [place] [phone] * BI Mammogram Diagnostic Tomosynthesis Left (05/27/2024 8:32 AM EDT) Anatomical Region Laterality Modality Breast Left Mammography 05/27/2024 8:32 AM EDT Narrative 05/27/2024 11:00 AM EDT ? [facility] [place] ? [address] ?[place] [address] ? Mammography Report ? Signed with Addenda ? Patient: Jason Arciniega,Nae ?MR#: [id number] ?? [id number] ? : 1965 ?Acct:[id number] ? Age/Sex: 58 / F ?ADM Date: 10/08/24 ? Loc: HO.MAMMO ? Attending : Domenico Flores MD ? Ordering Physician: Mark,Domenico JAIN ?Results: ? Date of Service: 05/27/24 ?Follow Up: ? Procedure(s): MM tomosynthesis diagnostic LT ?? Accession Number(s): [id number] ? cc: Jinny Cunningham DO; Domenico Flores [...] targeted area with a 14G spring loaded Nanigansera core ??biopsy ?? device. There was real-time [...] ? DD/ 0832 ? TD/TT: 05/27/24917 ? Last Marker: ? Procedure Note Donotsarahinterpreter, Image - [facility] [address] [place] [address] Mammography Report Signed with Addenda Patient: Carina Pulido#: [id number] : 1965Acct:[id number] Age/Sex: 58 / FADM Date: 05/27/24 Loc: HO.MAMMO Attending Dr: Domenico Flores MD Ordering Physician: Domenico Floresesults: Date of Service: 05/27/24Follow Up: Procedure(s): MM tomosynthesis diagnostic LT Accession Number(s): [id number] cc: Jinny Cunningham DO; Domenico Flores MD [...] targeted area with a 14G spring loaded Nanigansera core biopsy device. There was real-time confirmation [...] 05/27/24 1057 DD/ 0832 TD/TT: 05/27/24 0918 Last Marker: [facility] External Provider IMG BI PROCEDURES Edited Result - Final * Hepatitis C Antibody with Reflex to HCV, RNA, Quantitative, Real-Time PCR (12/28/2023 8:42 AM EDT) Hepatitis C Antibody Nonreactive Nonreactive [facility] Comment:Antibodies to HCV no t detected; does not exclude early acuteHCV infection. Blood Venous blood specimen / Unknown 12/28/2023 8:42 AM EDT 12/28/2023 11:28 AM EDT Jinny Cunningham DO LAB BLOOD ORDERABLES Final R esult [facility] [address] [place] [phone] * HPV mRNA E6/E7 w/Reflex to HPV Genotypes 16, 18/45 (06/08/2023 11:45 AM EDT) HPV nRNA E6/E7 Not Detected Not Detected [facility] Comment:Methodology: Transcr iption-Mediated AmplificationThis assay detects E6/E7 viral messenger RNA (mRNA) from 14high-risk HPV types (16,18,31,33,35,39,45,51,52,56,58,59,66,68).Cervical sources are required for HPV testing.If a vaginal source from a patient who has had atotal hysterectomy with removal of cervix wassubmitted, please contact the testing laboratoryfor alternative testing options.For additional information, please refer tohttp://education.[employer] Talk[employer]c (P)/faq/FAN783r2(This link if provided for information/educational purposes only.)THIS TEST WAS PERFORMED AT:[facility] [place] [id number] AVERY MD HPV mRNA E6/E7 TNP [facility] HPV 16 RNA TNP [facility] HPV 18/45 RNA TNP [facility] 06/08/2023 11:4 5 AM EDT 06/11/2023 9:15 AM EDT us Jinny Cunningham DO LAB CYTOLOGY ORDERABLES Tahira longoria Result [facility] [address] [place] [phone] * Pap Smear (06/08/2023 11:45 AM EDT) 06/08/2023 11:4 5 AM EDT 06/11/2023 9:15 AM EDT Narrative [facility] - 06/14/2023 9:39 AM EDT ----- ------- Name: Nae Pulido ?Age/Sex: 57/F ? : 1965 Unit#: [id number] ?? Attend Dr: Jinny Cunningham DO ?Re06/08/23 ?Status: DEP REF ? Location: HO.[facility]CLNP ? Disch: ? ----- ------- SPEC : [id number] ?RECD: 06/11/23 ? STATUS: ??SOUT ? REQ NUM: [id number] ? ZION: 06/08/23 ? SUBM DR: Jinny [...] 66, 68) ?? HPV testing performed by [employer], [place], [place]. ??See reference laboratory ?? pion of the EMR for entire report. ?Clinical Information LMP: Unknown date Previous PAP test: Unknown date, WNL ? Material Received ?? ThinPrep-Cervical ----- ------- Signed (signature on file) SRAVAN Sanches ([facility]) 06/14/23 0939 ? ----- ------- ? END OF REPORT ? us Jinny Cunningham DO LAB CYTOLOGY ORDERABLES Tahira l Result [facility] [address] [place] [phone] * Hm Colonoscopy (03/09/2022 10:01 AM EDT) us Historical Provider HEALTH MAINTENANCE Final Result from Last 3 Months or Most Recently Relevant to Health Maintenance Insurance DENTAL - HSN PARTIAL (MEDICAID) Care Teams Broaching Machine Operator Relationship Specialty Start Date End Date Jinny Cunningham DO [address] [place] [address] PCP - General Family Medicine 10/03/11
--- OUTSIDE RECORDS SUMMARY | 2024-10-03 11:51 | XMS_ITS | Encounter Summary ---
Author Organization [employer] [facility] Address [address] [facility] 7t [place] [address] Care Team Providers Care Supervisor Lending Activities Name Role Phone Carolina Cunninghamfer Primary Care Provider + [phone] Reason for Referral * Consultation (Routine) - Closed Specialty Diagnoses / Procedures Referred By Contac t Referred To Contact Nutrition Diagnoses Fatty liver Obesity (BMI 30-39.9) Delilah Ayala MD [address] [place] [address] Phone: tel: fax: Referral ID Status Reason Start Date Expiration Date V isits Requested Visits Authorized [id number] Closed Specialty Services Required 04/03/2023 04/02/2024 1 1 Encounter Details Date Type Department Care Team (Late st Contact Info) Description 04/03/2023 Orders Only [facility] [address] [place], [place] [phone] Delilah Ayala MD [address] [place], [place] [phone] Fatty liver (Primary Dx); Obesity (BMI 30-39.9) [...] Description 10/08/2024 8:00 AM EST Office Visit [facility] ADULT DENTAL [address] [place] [address] Onel Tejeda 12/29/2024 9:00 AM EDT Immunization [facility] [address] [place] [address] Scheduled Referrals Name Type Priority Associated Diagnoses Orde r Schedule Referral to Nutrition Services Outpatient Referral Routine Fatty liver Obesity (BMI 30-39.9) Expected: 04/03/2023 (Approximate), Expires: 04/03/2024 documented as of this encounter Visit Diagnoses Diagnosis Fatty liver- Primary Other chronic nonalcoholic liver disease Obesity (BMI 30-39.9) documented in this encounter Care Teams Supervisor Lending Activities Relationship Specialty Start Date End Date Jinny Cunningham DO [address] [place] [address] PCP - General Family Medicine 10/03/11 documented as of this encounter
--- OUTSIDE RECORDS SUMMARY | 2024-10-03 11:51 | XMS_ITS | Encounter Summary ---
Author Organization [employer] Address [address] [facility] [address] 7t [place] [address] Care Team Providers Care Welfare Eligibility Interviewer Name Role Phone MarkyJinny canchola Primary Care Provider + [phone] Encounter Details Date Type Department Care Team [...] [facility] [address] [place] [address] Onel Tejeda 12/29/2024 9:00 AM EDT Immunization [facility] [address] [place] [address] documented as of this encounter Visit Diagnoses Not on filedocumented in this encounter Additional Health Concerns Assessment Noted Time PHQ-9 Depression Total Score: 6 12/21/19 24 10:44 AM EDT documented as of this encounter Care Teams Welfare Eligibility Interviewer Relationship Specialty Start Date End Date Jinny Cunningham DO [address] [place] [address] PCP - General Family Medicine 10/03/11 documented as of this encounter
--- OUTSIDE RECORDS SUMMARY | 2024-10-03 11:51 | XMS_ITS | Encounter Summary ---
Author Organization [employer] [facility] Address [address] [place] [address] 7t [place] [address] Care Team Providers Care Back Closer Name Role Phone Jinny Cunningham DO Primary Care Provider + [phone] Encounter Details Date Type Department Care Team (Latest Contact Info) Description 08/31/2020 Abstract [facility] CONVERSIONS Dental, Provider, DDS Social History Tobacco [...] Description 10/08/2024 8:00 AM EST Office Visit [facility] ADULT DENTAL [address] [place] [address] Onel Tejeda 12/29/2024 9:00 AM EDT Immunization [facility] [address] [place] [address] documented as of this encounter Visit Diagnoses Not on filedocumented in this encounter Care Teams Back Closer Relationship Specialty Start Date End Date Jinny Cunningham DO [address] [place] [address] PCP - General Family Medicine 10/03/11 documented as of this encounter
--- OUTSIDE RECORDS SUMMARY | 2024-10-03 11:51 | XMS_ITS | Encounter Summary ---
Author Organization [employer] [facility] Address [address] [place] [address] 7t [place] [address] Care Team Providers Care As400 Administrator Name Role Phone Jinny Cunningham DO Primary Care Provider + [phone] Reason for Visit * Reason Onset Date Comments Appointment Request 09/21/2023 Encounter Details Date Type Department Care Team ([facility] Contact Info) Description 09/21/2023 Telephone [facility] [address] [place], [place] [phone] Jinny Cunningham DO [address] [place], [place] [phone] Appointment Request Social History Tobacco Use Types [...] call from last appt to schedule however race and sports book writer does not see anything on patients chart documented in this encounter Plan of Treatment Upcoming Encounters Date Type Department Care Team ([facility] st Contact Info) Description 10/08/2024 8:00 AM EST Office Visit [facility] CH[facility] ADULT DENTAL [address] [place] [address] Onel Tejeda 12/29/2024 9:00 AM EDT Immunization [facility] [address] [place] [address] documented as of this encounter Visit Diagnoses Not on filedocumented in this encounter Care Teams As400 Administrator Relationship Specialty Start Date End Date Jinny Cunningham DO [address] [place] [address] PCP - General Family Medicine 10/03/11 documented as of this encounter
--- OUTSIDE RECORDS SUMMARY | 2024-10-03 11:51 | XMS_ITS | Encounter Summary ---
Author Organization [employer] Address [address] 7t [place] [address] Care Team Providers Care Bi Lead Name Role Phone MarkyJinny canchola Primary Care Provider + [phone] Encounter Details Date Type Department Care Team [...] Description 10/08/2024 8:00 AM EST Office Visit [facility] CH[facility] ADULT DENTAL [address] [place] [address] Onel Tejeda 12/29/2024 9:00 AM EDT Immunization [facility] MEDICINE [address] [place] [address] documented as of this encounter Visit Diagnoses Not on filedocumented in this encounter Additional Health Concerns Assessment Noted Time PHQ-9 Depression Total Score: 0 10/03/19 25 9:21 AM EST documented as of this encounter Care Teams Bi Lead Relationship Specialty Start Date End Date Jinny Cunningham DO [address] [place] [address] PCP - General Family Medicine 10/03/11 documented as of this encounter
--- OUTSIDE RECORDS SUMMARY | 2024-10-03 11:51 | XMS_ITS | Encounter Summary ---
Author Organization [employer] [facility] Address [address] [facility] 7t [place] [address] Care Team Providers Care Slurry Plant Operator Name Role Phone Jinny Cunningham DO Primary Care Provider + [phone] Reason for Visit * Reason Onset Date Comments Recall Follow Up 09/04/2024 Follow up for L abs Result Encounter Details Date Type Department Care Team ([facility] st Contact Info) Description 09/04/2024 Telephone [facility] [address] [place], [place] [phone] Jinny Cunningham DO [address] [place], [place] [phone] Recall Follow Up (Follow up for Labs [...] on hold so unable to schedule pt. [phone] documented in this encounter Plan of Treatment Upcoming Encounters Date Type Department Care Team (Late st Contact Info) Description 10/08/2024 8:00 AM EST Office Visit [facility] CH[facility] ADULT DENTAL [address] [place] [address] Onel Tejeda 12/29/2024 9:00 AM EDT Immunization [facility] [address] [place] [address] documented as of this encounter Visit Diagnoses Not on filedocumented in this encounter Additional Health Concerns Assessment Noted Time PHQ-9 Depression Total Score: 6 12/21/19 24 10:44 AM EDT documented as of this encounter Care Teams Slurry Plant Operator Relationship Specialty Start Date End Date Jinny Cunningham DO [address] [place] [address] PCP - General Family Medicine 10/03/11 documented as of this encounter
--- OUTSIDE RECORDS SUMMARY | 2024-10-03 11:51 | XMS_ITS | Encounter Summary ---
Author Organization [employer] Address [address] [place] [address] Care Team Providers Care Rubber Tubing Backer Name Role Phone MarkyJinny canchola Primary Care Provider + [phone] Encounter Details Date Type Department Care Team [...] Description 10/08/2024 8:00 AM EST Office Visit [facility] CHC ADULT DENTAL [address] [place] [address] Onel Tejeda 12/29/2024 9:00 AM EDT Immunization [facility] MED[facility] [address] [place] [address] documented as of this encounter Visit Diagnoses Not on filedocumented in this encounter Additional Health Concerns Assessment Noted Time PHQ-9 Depression Total Score: 6 12/21/19 24 10:44 AM EDT documented as of this encounter Care Teams Rubber Tubing Backer Relationship Specialty Start Date End Date Jinny Cunningham DO [address] [place] [address] PCP - General Family Medicine 10/03/11 documented as of this encounter
--- OUTSIDE RECORDS SUMMARY | 2024-10-03 11:51 | XMS_ITS | Encounter Summary ---
Author Organization [employer] Address [address] [place] [address] Care Team Providers Care Manager Health Name Role Phone MarkyJinny canchola Primary Care Provider + [phone] Encounter Details Date Type Department Care Team [...] Description 10/08/2024 8:00 AM EST Office Visit [facility] ADULT D[facility]AL [address] [place] [address] Onel Tejeda 12/29/2024 9:00 AM EDT Immunization [facility] [address] [place] [address] documented as of this encounter Visit Diagnoses Not on filedocumented in this encounter Additional Health Concerns Assessment Noted Time PHQ-9 Depression Total Score: 6 12/21/19 24 10:44 AM EDT documented as of this encounter Care Teams Manager Health Relationship Specialty Start Date End Date Jinny Cunningham DO [address] [place] [address] PCP - General Family Medicine 10/03/11 documented as of this encounter
--- OUTSIDE RECORDS SUMMARY | 2024-10-03 11:51 | XMS_ITS | Encounter Summary ---
Author Organization [employer] Address [address] [facility] 7t [place] [address] Care Team Providers Care Laborer Shipyard Name Role Phone Jinny Cunningham DO Primary Care Provider + [phone] Encounter Details Date Type Department Care Team (Latest Contact Info) Description 10/03/2024 9:15 AM EST Office Visit [facility] [address] [place], [place] [phone] Jinny Cunningham DO [address] [place] [address] Prediabetes (Primary Dx); Fatty liver; Chronic gastroesophageal [...] Description 10/08/2024 8:00 AM EST Office Visit [facility] CHC ADULT DENTAL [address] [place] [address] Onel Tejeda 12/29/2024 9:00 AM EDT Immunization [facility] MED[facility] [address] [place], [place] [phone] Scheduled Orders Name Type Priority Associated Diagnoses [...] documented as of this encounter Care Teams Laborer Shipyard Relationship Specialty Start Date End Date Jinny Cunningham DO [address] [place] [address] PCP - General Family Medicine 10/03/11 documented as of this encounter
[2024-10-03 13:24] LABS: Hematocrit 45.4 % (37.0-47.0); Hemoglobin 15.1 g/dl (12.0-16.0); Mean Corpuscular HGB Conc 33.3 g/dl (31.0-35.0); Mean Corpuscular Hemoglobin 30.3 pg (27.0-33.0); Mean Corpuscular Volume 91.2 fL (80.0-98.0); Mean Platelet Volume 11.9 fL (9.4-12.3); Platelet Count 202 X10*3/uL (160-400); Red Blood Count 4.98 X10*6/uL (4.20-5.50); Red Cell Distribution Width 13.3 % (11.0-16.0); White Blood Count 8.1 X10*3/uL (4.8-10.8)
[2024-10-03 13:44] LABS: Alanine Aminotransferase 98 U/L (0-31); Albumin Level 4.1 g/dL (3.5-5.0); Alkaline Phosphatase 144 U/L (39-117); Aspartate Amino Transferase 85 U/L (5-31); Bilirubin Direct 0.2 mg/dL (0.0-0.5); Bilirubin Total 0.5 mg/dL (0.0-1.0); Iron 105 mcg/dL (30-160); Percent Iron Saturation 44 % (15-50); Total Iron Binding Capacity 237 mcg/dL (228-428); Total Protein 7.9 g/dL (6.5-8.0); Unsaturated Iron Binding 132 ug/dL
[2024-10-03 14:03] LABS: Ferritin 209 ng/mL (10-250)
== END 2024-10-03 10:54 | disposition home or self-care (01) ==
LOC: HO.HHCL 10:53
PROVIDERS: Visit Provider Family Medicine
DX: K76.0 Fatty (change of) liver, not elsewhere classified (principal)
CPT/HCPCS: 36415; 80076; 82728; 83540; 85027

== ENCOUNTER 2024-10-15 09:08 | Outpatient (AMB) | payer OTHER, SELFPAY ==
--- NOTE | 2024-10-15 09:12 | A.OFFVIS_ITS ---
Vital Signs 10/15/24 09:16 Height 5 ft 5 in Weight 202 lb 13.204 oz BMI 33.7 BP 136/71 Blood Pressure Location Lt brachial Position Sitting Pulse 82 Intake Visit Reasons: 2 mo f/u LFT'S Intake Note: Nae presents in the office as a 2 month follow up for elevated LFTs. CC: She states that her Dr did labs and liver and iron are high. She states that she has been watching her diet so it is concerning her. [employer] Consultant Required: Yes [employer] Consultant Name: Martha Allergies No Known Allergies Allergy (Verified 10/15/24 09:16) HPI Comments Details: 59 y.o F with PMH of who is here for elevated LFTs. Pt reports RUQ pain x year which radiates to the back which is not associated with food intake, N,V, changes in stool or weight. Patient had LFTs done by primary care provider that have been remarkably elevated. On chart review, she has always had elevated transaminases, however have been gradually increasing as of this year. In addition, primary care provider also ordered a liver elastography on 06/17, however the results are still pending. Previous elastography 2020 did not show chronic liver disease. BMI 35. Pt does not drink. Has prediabetes. No HLD. Does have NANCY. No fam hx of liver disease. 10/15/24: Seen with Martha WRAY for interpretation. W/up consistent with non etOH fatty liver. Pt has been working on weight and has already lost 10 lbs since she was last seen! Also waiting on insurance approval for GLP-1. Results were already reviewed with the pt previously and reinforced again today. [facility] Medical History History of colon polyps Obesity (BMI 35.0-39.9 without comorbidity) Constipation by delayed colonic transit NANCY (obstructive sleep apnea) Hepatic steatosis GERD (gastroesophageal reflux disease) Surgical History H/O esophagogastroduodenoscopy Hx of cholecystectomy Hx of colonoscopy Family History Father Brain cancer Mother Diabetes Breast cancer Maternal Aunt Breast cancer Paternal Aunt Breast cancer Social History Household Members: Spouse, Family and Children Housing: House Alcohol intake: never Patient Tobacco Use Status: Never used Tobacco Second Hand Smoke Exposure: No service: No Current occupational status: employed 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 Review of Systems Const All systems reviewed & are unremarkable except as noted in HPI and below Physical Exam Vital Signs: Last Vital Signs Pulse 82 10/15/24 09:16 BP 136/71 10/15/24 09:16 BMI result Body Mass Index 33.7 No apparent distress Nonicteric Abdomen soft, nondistended Alert and oriented x3, normal gait Assessment & Plan Assessment & Plan (1) Elevated LFTs: Code(s): R79.89 - Other specified abnormal findings of blood chemistry Category: Medical (2) Obesity (BMI 35.0-39.9 without comorbidity): Code(s): E66.9 - Obesity, unspecified Category: Medical (3) Hepatic steatosis: Code(s): K76.0 - Fatty (change of) liver, not elsewhere classified Category: Medical (4) Type 2 diabetes mellitus: Code(s): E11.9 - Type 2 diabetes mellitus without complications Category: Medical Plan Reviewed with the patient that based on clinical history, most likely has nonalcohol related fatty liver disease. Risk factors include obesity, prediabetes. Fib 4 is 1.98. Elastography NOT consistent with cirrhosis. Plan: -Encouraged modification of metabolic risk factors including DM, obesity -150 mins/week of mod intensity exercise -GLP-1 being Rxed by PCP -Limited benefit of Vit E in non-biopsy proven STEELE -Nutrition referral -Will recheck Fib 4 and elastography in 6 months Follow up 6 months Orders: Orders US abdomen comp w elastography 6 Months K76.0 - Fatty (change of) liver, not elsewhere classified, R79.89 - Other specified abnormal findings of blood chemistry Prothrombin Time INR 6 Months K76.0 - Fatty (change of) liver, not elsewhere classified, R79.89 - Other specified abnormal findings of blood chemistry Complete Blood Count no Diff 6 Months K76.0 - Fatty (change of) liver, not elsewhere classified, R79.89 - Other specified abnormal findings of blood chemistry Comprehensive Met. Panel 6 Months K76.0 - Fatty (change of) liver, not elsewhere classified, R79.89 - Other specified abnormal findings of blood chemistry Referrals Medical Nutrition Therapy Referral R79.89 - Other specified abnormal findings of blood chemistry Coding Level of Care Code Est Pt Level 4 (41248) Diagnoses Elevated LFTs R79.89 Obesity (BMI 35.0-39.9 without comorbidity) E66.9 Hepatic steatosis K76.0 Type 2 diabetes mellitus E11.9
[2024-10-15 09:16] VITALS: BP 136/71; PULSE 82; BMI 33.7
--- OUTSIDE RECORDS SUMMARY | 2024-10-15 10:04 | XMS_ITS | Encounter Summary ---
Author Organization [employer] Address [address] [facility] 7t [place] [address] Care Team Providers Care Water Chemist Name Role Phone Marisa Jinny Primary Care Provider + [phone] Reason for Visit * Reason Comments Med Change Request Encounter Details Date Type Department Care Team ([facility] st Contact Info) Description 03/19/2024 Refill [facility] [address] [place] [address] Kristina Cid FNP [address] [place] [address] Social History Tobacco Use Types Packs/Day Years [...] Care Team (Late st Contact Info) Description 12/29/2024 9:00 AM EDT Immunization [facility] MEDICINE [address] [place] [address] 04/08/2025 9:00 AM EDT Office Visit [facility] CHC ADULT DENTAL [address] [place] [address] Onel Tejeda documented as of this encounter Visit Diagnoses Not on filedocumented in this encounter Additional Health Concerns Assessment Noted Time PHQ-9 Depression Total Score: 6 12/21/19 24 10:44 AM EDT documented as of this encounter Care Teams Water Chemist Relationship Specialty Start Date End Date Jinny Cunningham DO [address] [place] [address] PCP - General Family Medicine 10/03/11 documented as of this encounter
--- OUTSIDE RECORDS SUMMARY | 2024-10-15 10:04 | XMS_ITS | Encounter Summary ---
Author Organization [facility] Address [address] [place] [address] Care Team Providers Care Sexual Health Physician Name Role Phone Jinny Cunningham DO Primary Care Provider Unava ilable Encounter Details Date Type Department Care Team Description 09/16/2018 Commissions Specialist Report Medical Records [address] [place] [address] Jinny Cunningham DO Social History Tobacco Use Types Packs/Day Years Used Date Smoking Tobacco: Never Assessed Sex Assigned at Date Recorded Not on file documented as of this encounter Plan of Treatment Not on file documented as of this encounter Visit Diagnoses Not on filedocumented in this encounter Care Teams Sexual Health Physician Relationship Specialty Start Date End Date Jinny Cunningham DO PCP - General Internal Medicine 12/12/18 documented as of this encounter
--- OUTSIDE RECORDS SUMMARY | 2024-10-15 10:04 | XMS_ITS | Encounter Summary ---
Author Organization [employer] Address [address] [facility] 7t [place] [address] Care Team Providers Care E Commerce Architect Name Role Phone MarkyJinny canchola Primary Care Provider + [phone] Encounter Details Date Type Department Care Team [...] Info) Description 12/29/2024 9:00 AM EDT Immunization [facility] [address] [place] [address] 04/08/2025 9:00 AM EDT Office Visit [facility] CH[facility] ADULT DENTAL [address] [place] [address] Onel Tejeda documented as of this encounter Visit Diagnoses Not on filedocumented in this encounter Additional Health Concerns Assessment Noted Time PHQ-9 Depression Total Score: 6 12/21/19 24 10:44 AM EDT documented as of this encounter Care Teams E Commerce Architect Relationship Specialty Start Date End Date Jinny Cunningham DO [address] [place] [address] PCP - General Family Medicine 10/03/11 documented as of this encounter
--- OUTSIDE RECORDS SUMMARY | 2024-10-15 10:04 | XMS_ITS | Encounter Summary ---
Author Organization [facility] Address [address] [place] [address] Care Team Providers Care Timber Sizer Operator Name Role Phone Jinny Cunningham DO Primary Care Provider Unava ilable Encounter Details Date Type Department Care Team Description 08/26/2019 Release of Information Medical Records [address] [place] [phone] Abstract, Provider Social History Tobacco Use Types Packs/Day Years Used Date Smoking Tobacco: Never Smokeless Tobacco: Never Alcohol Use Standard Drinks/Week Comments No 0 (1 standard drink = 0.6 oz pur e alcohol) Sex Assigned at Date Recorded Not on file documented as of this encounter Plan of Treatment Not on file documented as of this encounter Visit Diagnoses Not on filedocumented in this encounter Care Teams Timber Sizer Operator Relationship Specialty Start Date End Date Jinny Cunningham DO PCP - General Internal Medicine 12/12/18 documented as of this encounter
--- OUTSIDE RECORDS SUMMARY | 2024-10-15 10:04 | XMS_ITS | Encounter Summary ---
Author Organization [employer] [facility] Address [address] [place] [address] 7t [place] [address] Care Team Providers Care Ultrasonic Seaming Machine Operator Name Role Phone Jinny Cunningham Primary Care Provider + [phone] Encounter Details Date Type Department Care Team (Late Contact Info) Description 11/29/2023 Orders Only [address] [phone] Provider, MD Roro Social History Tobacco Use [...] Department Care Team (Late Contact Info) Description 12/29/2024 9:00 AM EDT Immunization [facility] [address] [place] [phone] 04/08/2025 9:00 AM EDT Office Visit [facility] CHC ADULT DENTAL [address] [place] [address] Onel Tejeda documented as of this encounter Procedures Procedure [...] on filedocumented in this encounter Care Teams Ultrasonic Seaming Machine Operator Relationship Specialty Start Date End Date Jinny Cunningham DO [address] [place] [address] PCP - General Family Medicine 10/03/11 documented as of this encounter
--- OUTSIDE RECORDS SUMMARY | 2024-10-15 10:04 | XMS_ITS | Encounter Summary ---
Author Organization [employer] Address [address] 7[address] [place] [address] Care Team Providers Care Wireline Supervisor Name Role Phone Jinny Cunningham DO Primary Care Provider + [phone] Reason for Visit * Reason Onset Date Comments Results 10/03/2024 Encounter Details Date Type Department Care Team ([facility] st Contact Info) Description 10/03/2024 Telephone [facility] MEDICINE [address] [place], [place] [phone] Jinny Cunningham DO [address] [place], [place] [phone] Results Social History Tobacco Use Types Packs/Day Years [...] encounter Miscellaneous Notes * Telephone Encounter - Jade Crowe RN - 10/03/2024 2:34 PM EST TC placed to patient [phone] in regards to below message. Patient verbalized understanding andis aware she will receive a letter or a call from the office with appointment date and time. Patient to f/u PRN. ----- Message from Jinny Cunningham DO sent at 10/03/2024 2:19 PM EST ----- Please let pt know that her MRI showed mild arthritis. She will be contacted with ortho appt. Melissa. ----- Message ----- From: Interface, Ris Results In Sent: 10/03/2024 12:29 PM EST To: Jinny Cunningham DO documented in this encounter Plan of Treatment Upcoming Encounters Date Type Department Care Team (Late st Contact Info) Description 12/29/2024 9:00 AM EDT Immunization [facility] MEDICINE [address] [place], [place] [phone] 04/08/2025 9:00 AM EDT Office Visit [facility] CHC ADULT DENTAL [address] [place] [address] Onel Tejeda documented as of this encounter Visit Diagnoses Not on filedocumented in this encounter Additional Health Concerns Assessment Noted Time PHQ-9 Depression Total Score: 0 10/03/19 25 9:21 AM EST documented as of this encounter Care Teams Wireline Supervisor Relationship Specialty Start Date End Date Jinny Cunningham DO [address] [place] [address] PCP - General Family Medicine 10/03/11 documented as of this encounter
--- OUTSIDE RECORDS SUMMARY | 2024-10-15 10:04 | XMS_ITS | Encounter Summary ---
Author Organization [employer] [facility] Address [address] [place] [address] 7t [place] [address] Care Team Providers Care Automatic Wheel Line Operator Name Role Phone Jinny Cunningham DO Primary Care Provider + [phone] Encounter Details Date Type Department Care Team (Latest Contact Info) Description 08/31/2020 Abstract [facility] CONVERSIONS Dental, Provider, DDS Social [...] Info) Description 12/29/2024 9:00 AM EDT Immunization [facility] MEDICINE [address] [place] [address] 04/08/2025 9:00 AM EDT Office Visit [facility] CHC ADULT DENTAL [address] [place] [address] Onel Tejeda documented as of this encounter Visit Diagnoses Not on filedocumented in this encounter Care Teams Automatic Wheel Line Operator Relationship Specialty Start Date End Date Jinny Cunningham DO [address] [place] [address] PCP - General Family Medicine 10/03/11 documented as of this encounter
--- OUTSIDE RECORDS SUMMARY | 2024-10-15 10:04 | XMS_ITS | Encounter Summary ---
Author Organization [employer] [facility] Address [address] [place] [address] Care Team Providers Care Jockey Agent Name Role Phone Jinny Cunningham DO Primary Care Provider + [phone] Reason for Visit * Reason Onset Date Comments Nurse Triage 02/15/2024 Encounter Details Date Type Department Care Team ([facility] st Contact Info) Description 02/15/[address] [facility] MEDICINE [address] [place], [place] [phone] Jinny Cunningham DO [address] [place], [place] [phone] Nurse Triage Social History Tobacco Use Types [...] Info) Description 12/29/2024 9:[address] [facility] MEDICINE [address] [place] [address] 04/08/2025 9:00 AM EDT Office Visit [facility] ADULT DENTAL [address] [place] [address] Onel Tejeda documented as of this encounter Visit Diagnoses Not on filedocumented in this encounter Additional Health Concerns Assessment Noted Time PHQ-9 Depression Total Score: 6 12/21/19 24 10:44 AM EDT documented as of this encounter Care Teams Jockey Agent Relationship Specialty Start Date End Date Jinny Cunningham DO [address] [place] [address] PCP - General Family Medicine 10/03/11 documented as of this encounter
--- OUTSIDE RECORDS SUMMARY | 2024-10-15 10:04 | XMS_ITS | Encounter Summary ---
Author Organization [employer] [facility] Address [address] [place] [address] Care Team Providers Care Pershing Missile Crewmember Name Role Phone Jinny Cunningham DO Primary Care Provider [phone] Reason for Referral * Medications - Closed Specialty Diagnoses / Procedures Referred By Contac t Referred To Contact Diagnoses BMI 35.0-35.9,adult Jinny Cunningham DO [address] [place] [address] Phone: tel: fax: Referral ID Status Reason Start Date Expiration Date Visits Re quested Visits Authorized [id number] Closed 10/03/2024 10/03/2025 1 1 * Consultation (Urgent) - Authorized Specialty Diagnoses / Procedures Referred By Contac t Referred To Contact Orthopaedic Surgery Diagnoses Chronic left shoulder pain Jinny Cunnignham DO [address] [place] [address] Phone: tel: fax: [facility] [address] [place], [place] Phone: tel: fax: Referral ID Status Reason Start Date Expiration Date Visits Requested Visits Authorized [id number] Authorized Specialty Services Required 10/03/2024 10/03/2025 1 1 * Consultation (Urgent) - Authorized Specialty Diagnoses / Procedures Referred By Contac t Referred To Contact Cardiology Diagnoses Chest pain, unspecified type Jinny Cunningham DO [address] [place] [address] Phone: tel: fax: [facility] Referral ID Status Reason Start Date Expiration Date Visits Requested Visits Authorized [id number] Authorized Specialty Services Required 10/03/2024 10/03/2025 1 1 * Consultation (Routine) - Pending Review Specialty Diagnoses / Procedures Referred By Contstephanie motta Referred To Contact Bariatrics Diagnoses BMI 35.0-35.9,adult Jinny Cunningham DO [address] [place] [address] Phone: tel: fax: Referral ID Status Reason Start Date Expiration Date Visits Requested Visits Authorized [id number] Pending Review Specialty Services Required 10/03/2024 10/03/2025 1 1 Encounter Details Date Type Department Care Team (Latest Contact Info) Description 10/03/2024 9:15 AM EST Office Visit [facility] MEDICINE [address] [place] [phone] Jinny Cunningham DO [address] [place] [address] Prediabetes (Primary Dx); Fatty liver; Chronic gastroesophageal reflux disease; Obstructive sleep apnea; Chronic bilateral low back pain, unspecified whether sciatica present; Abnormal mammogram; Chronic left shoulder pain; Chest pain, unspecified type; BMI 35.0-35.9,adult; Healthcare maintenance; Encounter for immunization; Dietary counseling; Exercise counseling Social History Tobacco Use Types Packs/Day Years [...] 9:18 AM EST documented in this encounter Progress Notes * Jinny Guerreroak, DO - 10/03/2024 9:15 AM EST SUBJECTIVE: Nae Arciniega is a 59 y.o. year old female who presents for follow up. HPI She had axillary LN biopsy in May; path showed reactive LN, no evidence of lymphoproliferative disorder or metastatic disease. She says that since her bx she has been having pain in her L shoulder and L chest which she never had before. She went to see her surgeon and was dx'd with L sided chest wall pain and was advised to see her PCP. She says that the pain in her chest and shoulder is constant, sometimes more than others. Sometimes the pain is burning, other times sharp. She denies any associated sx; no SOB, no N/V, no heartburn. Her pain is worse when she moves her arm. She can't carry anything heavy. She can't sleep on her left side. She hasn't used any pain meds because she doesn't like to take meds. She has nofamily h/o heart disease. She saw GI in Jul and was sent for bloodwork. She received a call to review labs and was told that they are concerned about her iron levels and the size of her liver. She has appt with GI in October She has been on a strict diet since her visit with GI but has only lost 7 lbs. She was seen by PSS for her back and referred to PT. She went to PT for 3 mos and had no improvement. She had f/u last week and was referred for MRI which she already had done and has f/u at end of the mos. She is using naprosyn only when she can't take the pain. Review of Systems Constitutional: Negative for chills and fever. Eyes: Negative for visual disturbance. Respiratory: Negative for shortness of breath. Cardiovascular: Negative for chest pain and leg swelling. Gastrointestinal: Negative for abdominal pain, diarrhea and vomiting. Neurological: Negative for headaches. Patient Active Problem List Diagnosis Chronic gastroesophageal reflux disease BMI 35.0-35.9,adult Osteoarthritis Fatty liver Prediabetes Chronic bilateral low back pain Obstructive sleep apnea Healthcare maintenance No Known Allergies OBJECTIVE Vitals: 10/03/24 0918 BP: 122/70 BP Location: Left arm Patient Position: Sitting BP Cuff Size: Adult Pulse: 80 Resp: 19 Temp: 97 ??F (36.1 ??C) TempSrc: Oral SpO2: 98% Weight: 211 lb (95.7 kg) Height: 5' 5 (1.651 m) Physical Exam Constitutional: General: She is not in acute distress. Appearance: Normal appearance. Cardiovascular: Rate and Rhythm: Normal rate and regular rhythm. Heart sounds: Normal heart sounds. No murmur heard. Pulmonary: Effort: Pulmonary effort is normal. Breath sounds: Normal breath sounds. No wheezing or rhonchi. Neurological: General: No focal deficit present. Mental Status: She is alert and oriented to person, place, and time. Cranial Nerves: No cranial nerve deficit. Motor: No weakness. Gait: Gait normal. Psychiatric: Mood and Affect: Mood normal. ASSESSMENT/PLAN Diagnoses and all orders for this visit: Pre-diabetes A1c 6.20 May 2024 -encouraged dietary changes for prevention of DM Fatty liver -abd US with enlarged echogenic liver, elastography 1.24 May 2024 -abd US with enlarged echogenic liver, no focal lesion May 2024 -LFTs stable, AFP nml May 2024 -Hep A/B immune -f/u with GI next mos as scheduled - Ferritin; Future - Iron And Total Iron Binding Capacity; Future - CBC; Future - Hepatic Function Panel; Future Obstructive sleep apnea -cont CPAP nightly -f/u with sleep medicine as scheduled Chronic GERD -encouraged prilosec BID -f/u with GI as scheduled Chronic bilateral low back pain without sciatica No improvement with PT -MRI L spine with mild degenerative changes with no nerve root impingement AUG 2021, awaiting copy of recent MRI -L spine XR with multilevel DDD and facet degeneration, similar to prior JUN 2020 -encouraged robaxin as needed -encouraged tylenol/naprosyn prn -cont diclofenac gel prn -f/u with PSS as scheduled Abnormal mammogram -mammo BIRADS Apr->US BIRADS 23 MAY 2024, s/p US-guided breast biopsy MAY 2024 path negative May 2024 Chronic left shoulder pain Likely 2/2 OA flare -referred for xrays -encouraged pain meds as needed -she declines PT -referred to ortho for eval - XR Shoulder 2+ Views Left; Future - Referral to Orthopaedic Surgery; Future Chest pain, unspecified type Likely atypical CP -provided reassurance -given age and RF, referred to cardiology for eval and stress testing -advised rtc or go to ED if sx change or worsen - Referral to Cardiology; Future BMI 35.0-35.9,adult Desiring weight loss -she is appropriate candidate for GLP-1, she has no contraindications and agrees to trial zepbound,will begin PA process -referred to weight loss program at [facility] to discuss surgical weight loss options - Referral to Bariatric Surgery; Future - Tirzepatide-Weight Management (Zepbound) 2.5 MG/0.5ML solution auto-injector; Inject 0.5 mL (2.5 mg) under the skin 1 (one) time per week. Healthcare maintenance -s/p flu vaccine MAY 2023, she declines repeat -she declines COVID vaccine -s/p Tdap Sep 2011 -s/p Td OCT 2022 -PCV20 today -Hep A/B immune -mammo BIRADS Apr->US BIRADS 23 MAY 2024 -pap nml/HPV neg MAY 2023 -colonoscopy with poor prep and hyperplastic polyp DECEMBER 2018, review next visit* -LDL May -STI/HIV screen negative neg DECEMBER 2023 Encounter for immunization - PCV-20 VACCINE 6 wks + F/U with me in 4 mos or sooner prn Current Outpatient Medications: acetaminophen (Tylenol 8 Hour) 650 MG ER tablet, Take 1 tablet (650 mg) by mouth every 8 (eight) hours., Disp: 40 tablet, Rfl: 1 Diclofenac Sodium 1 % gel, Apply 2 g topically if needed in the morning, at noon, in the evening, and at bedtime (pain)., Disp: 150 g, Rfl: 3 lidocaine (Lidoderm) 5 % patch, Apply 2 patches topically Once per day. Remove & discard patch within 12 hours or as directed by MD., Disp: 60 patch, Rfl: 3 magnesium oxide (Mag-Ox) 400 (240 Mg) MG tablet, Take 400 mg by mouth in the morning., Disp: , Rfl: methocarbamol (Robaxin) 750 MG tablet, Take 1 tablet (750 mg) by mouth if needed in the morning andat bedtime for muscle spasms., Disp: 60 tablet, Rfl: 1 naproxen (Naprosyn) 500 MG tablet, TAKE 1 TABLET BY MOUTH TWICE A DAY, Disp: 60 tablet, Rfl: 0 omeprazole (PriLOSEC) [address] capsule, TAKE 1 CAPSULE (40 MG) BY MOUTH BEFORE BREAKFAST, Disp: 90 capsule, Rfl: 1 triamcinolone (Kenalog) 0.1 % ointment, Apply topically if needed in the morning and at bedtime forrash (and itching)., Disp: 30 g, Rfl: 1 documented in this encounter Plan of Treatment Upcoming Encounters Date Type Department Care Team (Late st Contact Info) Description 12/29/2024 9:00 AM EDT Immunization [facility] MEDICINE [address] [place], [place] [phone] 04/08/2025 9:00 AM EDT Office Visit [facility] CH[facility] ADULT DENTAL [address] [place] [address] Onel Tejeda Scheduled Referrals Name Type Priority Associated Diagnoses Orde r Schedule Referral to Bariatric Surgery Outpatient Referral Routine BMI 35.0-35.9,adult Expected: 10/03/2024 (Approximate), Expires: 10/03/2025 Referral to Cardiology Outpatient Referral Urgent Chest pain, unspecified type Expected: 10/03/2024 (Approximate), Expires: 10/03/2025 Referral to Orthopaedic Surgery Outpatient Referral Urgent Chronic left shoulder pain Expected: 10/03/2024 (Approximate), Expires: 10/03/2025 documented as of this encounter Procedures Procedure Name Priority Date/Time Associated Diagnosis Comments IRON AND TOTAL IRON BINDING CAPACITY Routine 10/03/2024 10:58 AM EST Fatty liver CBC Routine 10/03/2024 10:58 AM EST Fatty liver FERRITIN Routine 10/03/2024 10:58 AM EST Fatty liver HEPATIC FUNCTION PANEL Routine 10/03/2024 10:58 AM EST Fatty liver XR SHOULDER 2+ VIEWS LEFT Routine 10/03/2024 10:37 AM EST Chronic left shoulder pain documented in this encounter Results * (ABNORMAL) Hepatic Function Panel (10/03/2024 10:58 AM EST) Pathologist [facility] Bilirubin, Total 0.5 0.0 - 1.0 mg/dL [facility] Bilirubin, Direct 0.2 0.0 - 0.5 mg/dL [facility] Aspartate Amino Transferase 85(H) 5 - 31 U/L [facility] Alanine Aminotransferase 98(H) 0 - 31 U/L [facility] Total Protein 7.9 6.5 - 8.0 g/dL [facility] Albumin Level 4.1 3.5 - 5.0 g/dL [facility] Alkaline Phosphatase 144(H) 39 - 117 U/L [facility] Blood Venous blood specimen / Unknown 10/03/2024 10:58 AM EST 10/03/2024 1:10 PM EST us Jinny Cunningham DO LAB BLOOD ORDERABLES Final R esult Performing Organization Address City/State/[facility] Co de Phone Number [facility] [address] [place] [phone] * CBC (10/03/2024 10:58 AM EST) [facility] White Blood Count 8.1 4.8 - 10.8 X10*3/uL [facility] Red Blood Count 4.98 4.20 - 5.50 X10*6/uL [facility] Hemoglobin 15.1 12.0 - 16.0 g/dl [facility] Hematocrit 45.4 37.0 - 47.0 % [facility] Mean Corpuscular Volume 91.2 80.0 - 98.0 fL [facility] Mean Corpuscular Hemoglobin 30.3 27.0 - 33.0 pg [facility] Mean Corpuscular HGB Conc 33.3 31.0 - 35.0 g/dl [facility] Red Cell Distribution Width 13.3 11.0 - 16.0 % [facility] Platelet Count 202 160 - 400 X10*3/uL [facility] Mean Platelet Volume 11.9 9.4 - 12.3 fL [facility] NRBC Pct Auto 0.0 0.0 - 0.2 /100WBC [facility] NRBC Abs Auto 0.000 0.0 - 0.012 X10*3/uL [facility] Blood Venous blood specimen / Unknown 10/03/2024 10:58 AM EST 10/03/2024 1:10 PM EST Jinny Cunningham DO LAB BLOOD ORDERABLES Final R esult Performing Organization Address City/[facility] Co de Phone Number [facility] [address] [place] [phone] * Iron And Total Iron Binding Capacity (10/03/2024 10:58 AM EST) Iron 105 30 - 160 mcg/dL [facility] Total Iron Binding Capacity 237 228 - 428 mcg/dL [facility] Percent Iron Saturation 44 15 - 50 % [facility] Unsaturated Iron Binding 132 ug/dL [facility] Blood Venous blood specimen / Unknown 10/03/2024 10:58 AM EST 10/03/2024 1:10 PM EST Jinny Cunningham DO LAB BLOOD ORDERABLES Final R esult Performing Organization Address [facility] Co de Phone Number [facility] [address] [place] [phone] * Ferritin (10/03/2024 10:58 AM EST) Ferritin 209 10 - 250 ng/mL [facility] Blood Venous blood specimen / Unknown 10/03/2024 10:58 AM EST 10/03/2024 1:10 PM EST Jinny Cunningham DO LAB BLOOD ORDERABLES Final R esult Performing Organization Address City/[facility] Co de Phone Number [facility] [address] [place] [phone] * XR Shoulder 2+ Views Left (10/03/2024 10:37 AM EST) Anatomical Region Laterality Modality Upper Extremities, Shoulder Left Radi ographic Imaging 10/03/2024 10:3 7 AM EST Narrative 10/03/2024 12:29 PM EST ?[facility] ?[address] ?[place] ?XRay Report ? Signed ? Patient: Jason Arciniega,Nae ?MR#: [id number] ?? [id number] ? : 1965 ?Acct:[id number] ? Age/Sex: 59 / F ?ADM Date: 10/03/24 ? Loc: HO.HHCX ? Attending Dr: Jinny Cunningham DO ? Ordering Physician: Jinny Cunningham DO ?? Date of Service: 10/03/24 ?? Procedure(s): XR shoulder LT min 2V ?? Accession Number(s): [id number] ? cc: Jinny Cunningham DO ? EXAMINATION: ??XR SHOULDER 2 OR MORE VIEWS LEFT ? HISTORY: L shoulder pain, decreased ROM ? COMPARISON: There are no prior studies available for comparison. ? FINDINGS: ? Six views of the left shoulder are submitted. ??Osseous mineralization ?? is normal. ??There is no fracture or dislocation. ??The glenohumeral ?? joint is maintained. There is mild narrowing of the AC joint. ??The soft ?? tissues are unremarkable. ? XR/XR shoulder LT min 2V ?? IMPRESSION: ? Mild narrowing of the AC joint. ? Electronically signed by: ??Jc Chavis MD ??10/03/2024 12:25 PM EST ?? RP ? Dictated By: ?Jc Chavis MD ? Signed By: ?<Electronically signed by Jc Chavis MD in OV> ?10/03/24 1225 ? DD/ 1037 ? TD/TT: 10/03/24 1100 ? Residential Living Assistant: ? Procedure Note Kendal, Amilcar - 10/03/2024 [facility] [address] [place] [address] XRay Report Signed Patient: Carina Pulido#: [id number] : 1965Acct:[id number] Age/Sex: 59 / FADM Date: 10/03/24 Loc: HO.HHCX Attending Dr: Jinny Cunningham DO Ordering Physician: Jinny Cunningham DO Date of Service: 10/03/24 Procedure(s): XR shoulder LT min 2V Accession Number(s): [id number] cc: Jinny Cunningham DO EXAMINATION: XR SHOULDER 2 OR MORE VIEWS LEFT HISTORY: L shoulder pain, decreased ROM COMPARISON: There are no prior studies available for comparison. FINDINGS: Six views of the left shoulder are submitted. Osseous mineralization is normal. There is no fracture or dislocation. The glenohumeral joint is maintained. There is mild narrowing of the AC joint. The soft tissues are unremarkable. XR/XR shoulder LT min 2V IMPRESSION: Mild narrowing of the AC joint. Electronically signed by: Jc Chavis MD 10/03/2024 12:25 PM EST Dictated By: Jc Chavis MD Signed By: <Electronically signed by Jc Chavis MD in OV> 10/03/24 1225 DD/ 1037 TD/TT: 10/03/24 1100 Residential Living Assistant: Jinny Cunningham DO IMG XR PROCEDURES Edited Res ult - Final documented in this encounter Visit Diagnoses Diagnosis Prediabetes- Primary Other abnormal glucose Fatty liver Other chronic nonalcoholic liver disease Chronic gastroesophageal reflux disease Obstructive sleep apnea Obstructive sleep apnea (adult) (pediatric) Chronic bilateral low back pain, unspecified whether sciatica present Abnormal mammogram Abnormal mammogram, unspecified Chronic left shoulder pain Pain in joint, shoulder region Chest pain, unspecified type BMI 35.0-35.9,adult Healthcare maintenance Encounter for immunization Dietary counseling Dietary surveillance and counseling Exercise counseling documented in this encounter Additional Health Concerns Assessment Noted Time PHQ-9 Depression Total Score: 0 10/03/19 9:21 AM EST documented as of this encounter Care Teams Pershing Missile Crewmember Relationship Specialty Start Date End Date Jinny Cunningham DO [address] [place] [address] PCP - General Family Medicine 10/03/11 documented as of this encounter
--- OUTSIDE RECORDS SUMMARY | 2024-10-15 10:04 | XMS_ITS | Encounter Summary ---
Author Organization [employer] [facility] Address [address] [place] [address] 7[address] [place] [address] Care Team Providers Care Capsule Filling Machine Operator Name Role Phone Jinny Cunningham DO Primary Care Provider + [phone] Reason for Visit * Reason Onset Date Comments Referral 03/08/2023 Encounter Details Date Type Department Care Team (Late Contact Info) Description 03/08/2023 Telephone [facility] MEDICINE [address] [place], [place] [phone] Jinny Cunningham DO [address] [place] [address] Referral Social History Tobacco Use Types Packs/Day [...] from pt requesting status on referral to director of vocational training. Please contact pt at [phone] (Chilean) documented in this encounter Plan of Treatment Upcoming Encounters Date Type Department Care Team (Late Contact Info) Description 12/29/2024 9:00 AM EDT Immunization [facility] MEDICINE [address] [place] [address] 04/08/2025 9:00 AM EDT Office Visit [facility] CHC ADULT DENTAL [address] [place] [address] Onel Tejeda documented as of this encounter Visit Diagnoses Not on filedocumented in this encounter Care Teams Capsule Filling Machine Operator Relationship Specialty Start Date End Date Jinny Cunningham DO [address] [place] [address] PCP - General Family Medicine 10/03/11 documented as of this encounter
--- OUTSIDE RECORDS SUMMARY | 2024-10-15 10:04 | XMS_ITS | Encounter Summary ---
Author Organization [employer] [facility] Address [address] [place] [address] [address] [place] [address] Care Team Providers Care Physical Biochemist Name Role Phone Jinny Cunningham DO Primary Care Provider + [phone] Encounter Details Date Type Department Care Team (Late st Contact Info) Description 12/13/2022 Orders Only [facility] [address] [place] [address] Jinny Reynolds LPN Social History Tobacco Use [...] Info) Description 12/29/2024 9:00 AM EDT Immunization [facility] MED[facility] [address] [place] [address] 04/08/2025 9:00 AM EDT Office Visit [facility] ADULT DENTAL [address] [place] [address] Onel Tejeda documented as of this encounter Visit Diagnoses Not on filedocumented in this encounter Care Teams Physical Biochemist Relationship Specialty Start Date End Date Jinny Cunningham DO [address] [place] [address] PCP - General Family Medicine 10/03/11 documented as of this encounter
--- OUTSIDE RECORDS SUMMARY | 2024-10-15 10:04 | XMS_ITS | Encounter Summary ---
Author Organization [email or web address] Address [address] [facility] 7 [place] [address] Care Team Providers Care Blood Bank Credit Clerk Name Role Phone MarkyJinny canchola Primary Care Provider + [phone] Reason for Visit * Reason Comments Routine Cleaning Dental Exam Encounter Details Date Type Department Care Team ([facility] Contact Info) Description 10/08/2024 8:00 AM EST Office Visit [facility] ADULT DENTAL [address] [place] [address] James Bello [address] [place] [address] Dental calculus (Primary Dx) Social History Tobacco Use Types Packs/Day Years [...] Sign Reading Time Taken Comments Blood Pressure 114/64 10/08/2024 8:02 AM EST Pulse 65 10/08/2024 8:02 AM EST Temperature - - Respiratory Rate - - Oxygen Saturation - - Inhaled Oxygen Concentration - - Weight - - Height - - Body Mass Index - - documented in this encounter Progress Notes * Onel Tejeda - 10/08/2024 8:00 AM EST Patient ID: Nae Arciniega is a 59 y.o. female. Time Out: Timeout Date: 10/08/24, Timeout Time: 0809 Location: [facility] Tooth: Maxilla and Mandible Procedure: Exam, X-rays, and Prophylaxis Verified the above with patient, janitorial assistant, and provider. Confirmed via patient's chart, intraorally and by radiographs. Certified Master Safe Technician: not applicable Medical Hx: Vitals: Blood pressure 114/64, pulse 65. Medications, Med Hx reviewed with patient and updated in chart. Treatment Provided Dental procedures in this visit D1110 - PROPHYLAXIS - ADULT Full (Completed) Service provider: Onel Tejeda Billing provider: Yoli Anaya DDS D0274 - BITEWINGS - 4 RADIOGRAPHIC IMAGES (Completed) Service provider: Onel Tejeda Billing provider: Yoli Anaya DDS D1230 - ORAL HYGIENE INSTRUCTIONS (Completed) Service provider: Onel Tejeda Billing provider: Yoli Anaya DDS D0220 - INTRAORAL - PERIAPICAL FIRST RADIOGRAPHIC IMAGE (Completed) Service provider: Onel Tejeda Billing provider: Yoli Anaya DDS D0230 - INTRAORAL - PERIAPICAL EACH ADDITIONAL RADIOGRAPHIC IMAGE (Completed) Service provider: Onel Tejeda Billing provider: Yoli Anaya DDS D9450 - CASE PRESENTATION, DETAILED AND EXTENSIVE TREATMENT PLANNING (Completed) Service provider: Onel Tejeda Billing provider: Yoli Anaya DDS Instruments Used: Hand Scalers and Prophy angle Fluoride: N/A Oral Cancer Screening: No lesions Head/Neck Exam: No Lesions Calculus: Light and Localized Plaque: Light and Localized Stain: Light and Generalized Bleeding: Light and Localized Gingiva: Healthy and Perio Charting Completed [place]: Fair Perio Chart: Completed Oral hygiene instructions provided to patient including brushing technique and flossing. Dental exam done by . Recommendations: [place] two times daily, modified dhaliwal technique, Floss daily Recall Frequency: 6 mo NV: christin #18 Hygienist: Onel Tejeda RDH * James Bello - 10/08/2024 8:00 AM EST Dental procedures in this visit D1110 - PROPHYLAXIS - ADULT Full (Completed) Service provider: Onel Tejeda [place] provider: Yoli Anaya DDS D0274 - BITEWINGS - 4 RADIOGRAPHIC IMAGES (Completed) Service provider: Onel Tejeda [place] provider: Yoli Anaya DDS D1330 - ORAL HYGIENE INSTRUCTIONS (Completed) Service provider: Onel Tejeda Billing provider: Yoli Anaya DDS D0220 - INTRAORAL - PERIAPICAL FIRST RADIOGRAPHIC IMAGE (Completed) Service provider: Onel Tejeda Billing provider: Yoli Anaya DDS D0230 - INTRAORAL - PERIAPICAL EACH ADDITIONAL RADIOGRAPHIC IMAGE (Completed) Service provider: Onel Tejeda Billing provider: Yoli Anaya DDS D9450 - CASE PRESENTATION, DETAILED AND EXTENSIVE TREATMENT PLANNING (Completed) Service provider: Onel Andersoning provider: Yoli Anaya DDS D0120 - PERIODIC ORAL EVALUATION - ESTABLISHED PATIENT (Completed) Service provider: Jmaes Bello Billing provider: Yoli Anaya DDS D0180 - COMPREHENSIVE PERIODONTAL EVALUATION - NEW OR ESTABLISHED PATIENT (Completed) Service provider: James Bello Billing provider: Yoli Anaya DDS Patient ID: Nae Arciniega is a 59 y.o. female. Time Out: Date: 10/08/2024 Location: [facility] Tooth: Maxilla and Mandible Procedure: Exam Verified the above with patient, janitorial assistant, and provider. Confirmed via patient's chart, intraorally and by radiographs. Certified Master Safe Technician: not applicable 59 y.o. years old female presents for a periodic examination done by Dr. James Bello CONSENT FORM INITIALED & SIGNED BY THE PATIENT AND COUNTER SIGNED BY Dr. James Bello Chief Complaint: I'm here for my cleaning Medical History: Patient does not report any changes in health issues that could alter the Treatment Plan. Medical consult / medical clearance needed: No [facility] [employer] [place]: Pain: N/A Duration: N/A Scale of pain from 1 - 10: N/A Aggravating factors: N/A Pain radiating: N/A Postural variation: N/A Allergies: Reviewed in EHR Medications: Reviewed in EHR Vital signs: Blood pressure 114/64, pulse 65. Habits: Smoking: No Drinking: No Brushing: Twice Flossing: Yes Cancer screening: Extra-oral: wnl Intraoral: wnl Extra-oral examination TMJ Deviation - right Clicking - yes right Tenderness - no Facial symmetry - yes Lymph nodes - wnl Cheeks - wnl Intraoral examination Soft tissues - wnl Palate - wnl Tongue - wnl Buccal mucosa - wnl Floor of mouth - wnl Vestibules - wnl Glands - wnl Duct area - wnl Oropharynx - wnl Gingiva Color - pink Contour - Smooth Recession - Yes Consistency - Smooth Texture - Thin Bleeding on probing - No Radiographs Full Mouth X-rays taken on: 10/08/24 Quality are of diagnostic value and appropriate for radiographic analysis? : yes Radiograph interpretation Thickened PDL on: No Abnormal root resorption: No Horizontal Bone Resorption: Yes Abnormal root formation: No Vertical Bone Loss: Yes Periodontal diagnosis: Periodontitis Stage 2 Grade B Hard tissue exam Missing - as charted Plaque - light localized Calculus - light localized Abfraction - yes Mobility - no Furcation - no Occlusion Overbite (mm): can't be determined Overjet (mm): can't be determined Diastema: none Right Molar Occlusion: class 1 Left Molar Occlusion: class 1 Right Canine Occlusion: class 1 Left Canine Occlusion: class 1 Midline: can't be determined Anterior/Posterior crossbite: anterior Arches: narrow Wear Facets: yes DIAGNOSIS Findings, risks, benefits and alternatives discussed with pt. Reviewed radiographs with pt. Pointedout areas of radiographic calculus. Discussed sequelae of bacteria on gingiva and underlying bone. Recommended prophy, OHI, and SRP. Advised increased frequency of brushing and flossing. 4-6 week perio reevaluation to determine if further treatment indicated. TREATMENT PLAN Phase 1 - Christin Phase 2 - Recall Patient agrees with treatment plan. Patient satisfied, dismissed in stable condition. NV: Recall Provider: Dr. James Bello Dental Care Attendant: Hanna Grant Supervising Dentist: Dr. Anaya * Yoli Anaya DDS - 10/08/2024 8:00 AM EST I have reviewed the documentation and dental procedures completed by the rendering provider, James Bello DDS, and approve their chart entries for this visit. ARIADNE Magana DDS documented in this encounter Plan of Treatment Upcoming Encounters Date Type Department Care Team (Late st Contact Info) Description 12/29/2024 9:00 AM EDT Immunization [facility] MEDICINE [address] [place] [address] 04/08/2025 9:00 AM EDT Office Visit [facility] ADULT DENTAL [address] [place] [address] Onel Tejeda documented as of this encounter Procedures Procedure Name Priority Date/Time Associated Diagnosis Comments Full PROPHYLAXIS - ADULT Routine 025 8:00 AM EST PERIODIC ORAL EVALUATION - ESTABLISHED PATIENT Routine 10/08/2024 8:00 AM EST ORAL HYGIENE INSTRUCTIONS Routine 2024 8:00 AM EST INTRAORAL - PERIAPICAL FIRST RADIOGRAPHIC IMAGE Routine 10/08/2024 8:00 AM EST INTRAORAL - PERIAPICAL EACH ADDITIONAL RADIOGRAPHIC IMAGE Routine 10/08/2024 8:00 AM EST COMPREHENSIVE PERIODONTAL EVALUATION - NEW OR ESTABLISHED PATIENT Routine 10/08/2024 8:00 AM EST CASE PRESENTATION, DETAILED AND EXTENSIVE TREATMENT PLANNING Routine 10/08/2024 8:00 AM EST BITEWINGS - 4 RADIOGRAPHIC IMAGES Routine 10/08/2024 8:00 AM EST documented in this encounter Visit Diagnoses Diagnosis Dental calculus- Primary Accretions on teeth documented in this encounter Additional Health Concerns Assessment Noted Time PHQ-9 Depression Total Score: 0 10/03/19 25 9:21 AM EST documented as of this encounter Care Teams Blood Bank Credit Clerk Relationship Specialty Start Date End Date Jinny Cunningham DO [address] [place] [address] PCP - General Family Medicine 10/03/11 documented as of this encounter
--- OUTSIDE RECORDS SUMMARY | 2024-10-15 10:04 | XMS_ITS | Encounter Summary ---
Author Organization [facility] Address [address] [place] [address] Care Team Providers Care Casing Tier Name Role Phone Jinny Cunningham DO Primary Care Provider Unava ilable Encounter Details Date Type Department Care Team Description 02/15/2019 Building Inspector Report Medical Records [address] [place] [address] Jinny Cunningham DO Social History Tobacco Use [...] on filedocumented in this encounter Care Teams Casing Tier Relationship Specialty Start Date End Date Jinny Cunningham DO PCP - General Internal Medicine 12/12/18 documented as of this encounter
--- OUTSIDE RECORDS SUMMARY | 2024-10-15 10:04 | XMS_ITS | Encounter Summary ---
Author Organization [employer] [facility] Address [address] [facility] [address]t [place] [address] Care Team Providers Care Columnist Name Role Phone Carolina Cunninghamfer Primary Care Provider + [phone] Reason for Referral * Consultation (Routine) - Closed Specialty Diagnoses / Procedures Referred By Contac t Referred To Contact Nutrition Diagnoses Fatty liver Obesity (BMI 30-39.9) Delilah Ayala MD [address] [place] [address] Phone: tel: fax: Referral ID Status Reason Start Date Expiration Date V isits Requested Visits Authorized [id number] Closed Specialty Services Required 04/03/2023 04/02/2024 1 1 Encounter Details Date Type Department Care Team (Late st Contact Info) Description 04/03/2023 Orders Only [facility] MEDICINE [address] [place], [place] [phone] Delilah Ayala MD [address] [place], [place] [phone] Fatty liver (Primary Dx); Obesity (BMI 30-39.9) [...] Info) Description 12/29/2024 9:00 AM EDT Immunization [facility] MEDICINE [address] [place] [address] 04/08/2025 9:00 AM EDT Office Visit [facility] ADULT DENTAL [address] [place] [address] Onel Tejeda Scheduled Referrals Name Type Priority Associated Diagnoses Orde r Schedule Referral to Nutrition Services Outpatient Referral Routine Fatty liver Obesity (BMI 30-39.9) Expected: 04/03/2023 (Approximate), Expires: 04/03/2024 documented as of this encounter Visit Diagnoses Diagnosis Fatty liver- Primary Other chronic nonalcoholic liver disease Obesity (BMI 30-39.9) documented in this encounter Care Teams Columnist Relationship Specialty Start Date End Date Jinny Cunningham DO [address] [place] [id number] PCP - General Family Medicine 10/03/11 documented as of this encounter
--- OUTSIDE RECORDS SUMMARY | 2024-10-15 10:04 | XMS_ITS | Encounter Summary ---
Author Organization [employer] [facility] Address [address] [place] [address] [address] [place] [address] Care Team Providers Care Bath Tester Name Role Phone Jinny Cunningham DO Primary Care Provider + [phone] Reason for Visit * Reason Onset Date Comments Appointment Request 09/21/2023 Encounter Details Date Type Department Care Team ([facility] Contact Info) Description 09/21/2023 Telephone [facility] MEDICINE [address] [place], [place] [phone] Jinny Cunningham DO [address] [place], [place] [phone] Appointment Request Social History Tobacco Use Types [...] call from last appt to schedule however junior technical writer does not see anything on patients chart documented in this encounter Plan of Treatment Upcoming Encounters Date Type Department Care Team ([facility] st Contact Info) Description 12/29/2024 9:00 AM EDT Immunization [facility] MEDICINE [address] [place] [address] 04/08/2025 9:00 AM EDT Office Visit [facility] ADULT DENTAL [address] [place] [address] Onel Tejeda documented as of this encounter Visit Diagnoses Not on filedocumented in this encounter Care Teams Bath Tester Relationship Specialty Start Date End Date Jinny Cunningham DO [address] [place] [address] PCP - General Family Medicine 10/03/11 documented as of this encounter
--- OUTSIDE RECORDS SUMMARY | 2024-10-15 10:04 | XMS_ITS | Clinical Summary ---
Author Organization [employer] Address [address] [place] [address] Care Team Providers Care Global Marketing Intern Name Role Phone YolandaJinny salas Primary Care Provider + [phone] Allergies No known active allergies Medications magnesium oxide (Mag-Ox) 400 (240 Mg) MG tablet Take 400 mg by mouth in the morning. 03/11/20 23 Active methocarbamol (Robaxin) 750 MG tablet Take 1 tablet (750 mg) by mouth if needed in the morning and at bedtime for muscle spasms. 60 tablet 1 12/21/19 24 025 Active acetaminophen (Tylenol 8 Hour) 650 MG ER tablet Take 1 tablet (650 mg) by mouth every 8 (eight) hours. 40 tablet 1 12/21/19 24 Active triamcinolone (Kenalog) 0.1 % ointment Apply topically if needed in the morning and at bedtime for rash (and itching). 30 g 1 12/21/19 24 Active lidocaine (Lidoderm) 5 % patch Apply 2 patches topically Once per day. Remove & discard patch within 12 hours or as directed by MD. 60 patch 3 12/21/19 24 025 Active omeprazole (PriLOSEC) [address] capsule TAKE 1 CAPSULE (40 MG) BY MOUTH BEFORE BREAKFAST 90 capsule 1 06/05/20 24 Active naproxen (Naprosyn) 500 MG tablet TAKE 1 TABLET BY MOUTH TWICE A DAY 60 tablet 07/23/20 24 Active Diclofenac Sodium 1 % gel Apply 2 g topically if needed in the morning, at noon, in the evening, and at bedtime (pain). 150 g 3 10/03/19 25 Active Tirzepatide-We ight Management (Zepbound) 2.5 MG/0.5ML solution auto-injectorI ndications:BMI 35.0-35.9,adul t Inject 0.5 mL (2.5 mg) under the skin 1 (one) time per week. 2 mL 3 10/03/19 25 Active Diclofenac Sodium 1 % gel Apply 2 g topically if needed in the morning, at noon, in the evening, and at bedtime (pain). 150 g 3 12/21/19 24 025 Discontinued(Re order (will not trigger notification to Pharmacy)) Active Problems Problem Noted Date Diagnosed Date [...] Encounters Date Type Department Care Team Description 10/08/2024 9:00 AM EST Office Visit [facility] [address] [place] [address] Eugenia, James 10/08/2024 8:00 AM EST Office Visit [facility] [address] [place] [address] James Bello Dental calculus (Primary Dx) 10/03/2024 9:15 AM EST Office Visit [address] [phone] Jinny Cunningham DO Prediabetes (Primary Dx); Fatty liver; Chronic gastroesophageal reflux disease; Obstructive sleep apnea; Chronic bilateral low back pain, unspecified whether sciatica present; Abnormal mammogram; Chronic left shoulder pain; Chest pain, unspecified type; BMI 35.0-35.9,adult; Healthcare maintenance; Encounter for immunization; Dietary counseling; Exercise counseling 10/03/2024 Telephone [facility] MEDICINE [address] [place] [phone] Jinny Cunningham DO Results 10/03/2024 Travel 10/02/2024 Travel 09/26/2024 Travel 09/04/2024 Travel 09/04/2024 Telephone [facility] MED[facility]INE [address] [place] [phone] Jinny Cunningham DO Recall Follow Up (Follow up for Labs Result) 09/04/2024 Orders Only GENERIC EXTERNAL DATA DEPARTMENT Provider, Generic External Data 08/07/2024 Orders Only GENERIC EXTERNAL DATA DEPARTMENT Provider, Generic External Data 07/28/2024 9:00 AM EST Nurse Only [facility]INE [address] [place] [phone] Jalyn Maciel LPN Encounter for immunization (Primary Dx) 07/22/2024 Refill [facility] W[facility] [address] [place] [phone] Jinny Cunningham DO from Last 3 Months Immunizations Name Administration Dates Next Due Hep A, Adult 03/26/2013,11/24/2011 Hep B, adult 07/28/2024,,08/01/2013,2012,11/24/2011 Influenza injectable quadriv alent IIV4 with preservative [...] Pulse 65 10/08/2024 8:02 AM EST Temperature 36.1 ??C (97 ??F) [...] Info) Description 12/29/2024 9:00 AM EDT Immunization [facility] MED[facility]INE [address], [place] [phone] 04/08/2025 9:00 AM EDT Office Visit [facility] ADULT DENTAL [address] [place] [address] Onel Tejeda Health Maintenance Due Date Last Done Comments CT Colonography 1965 FIT DNA/Cologuard 1967 FIT 1965 FOBT 1965 Sigmoidoscopy 1965 Zoster Vaccines (1 of 2) 2017 COVID-19 Vaccine ( season) 2024 08/04/2021, 10/22/2020, 10/01/2020 Dental Oral Exam 04/08/2025 10/08/2024, , 09/21/2023, Additional history exists Dental Prophylaxis 04/08/2025 10/08/2024, 0 04/02/2024, 09/21/2023, Additional history exists Mammogram 05/27/2025 05/27/2024, 1010/2023, 05/02/2024, Additional history exists Diabetes: Hemoglobin A1C 08/07/2025 024, 05/28/2024, 12/28/2023, Additional history exists Alcohol/Substance Use Screening 10/03/2025 10/03/2024 Depression Screening 10/03/2025 10/03/2024, 10/03/19 25 SDOH Screening 10/03/2025 10/03/2024 Tobacco Screening 10/08/2025 10/08/2024 Dental X-Ray: Bitewings 10/09/2025 10/08/19 25, 09/21/2023, 08/31/2020 Cervical Cancer Screening 06/08/2026 Pap Smear 06/08/2026 [...] Procedure Name Priority Date/Time Associated Diagnosis Comments 18 AMALGAM - 3 SURF, PRIMARY OR PERMANENT Routine 10/08/2024 9:00 AM EST PERIODIC ORAL EVALUATION - ESTABLISHED PATIENT Routine 10/08/2024 8:00 AM EST COMPREHENSIVE PERIODONTAL EVALUATION - NEW OR ESTABLISHED PATIENT Routine 10/08/2024 8:00 AM EST INTRAORAL - PERIAPICAL EACH ADDITIONAL RADIOGRAPHIC IMAGE Routine 10/08/2024 8:00 AM EST INTRAORAL - PERIAPICAL FIRST RADIOGRAPHIC IMAGE Routine 10/08/2024 8:00 AM EST ORAL HYGIENE INSTRUCTIONS Routine 10/08/2024 8:00 AM EST BITEWINGS - 4 RADIOGRAPHIC IMAGES Routine 10/08/2024 8:00 AM EST Full PROPHYLAXIS - ADULT Routine 025 8:00 AM EST CASE PRESENTATION, DETAILED AND EXTENSIVE TREATMENT PLANNING Routine 10/08/2024 8:00 AM EST HEPATIC FUNCTION PANEL Routine 10:58 AM EST Fatty liver CBC Routine 10/03/2024 10:58 AM EST Fatty liver IRON AND TOTAL IRON BINDING CAPACITY Routine 10/03/2024 10:58 AM EST Fatty liver FERRITIN Routine 10/03/2024 10:58 AM EST Fatty liver XR SHOULDER 2+ VIEWS LEFT Routine 10/03/2024 10:37 AM EST Chronic left shoulder pain HEREDITARY HEMOCHROMATOSIS DNA MUTATION ANALYSIS Routine 09/04/2024 [...] AND PATTERN Routine 08/07/2024 10:28 AM EST [id number] QN Routine 10:28 AM EST CERULOPLASMIN Routine [...] TOMOSYNTHESIS LEFT Routine 05/27/2024 8:32 AM EDT HEPATITIS C AB W/REFL TO [...] Recently Relevant to Health Maintenance Results * Iron And Total Iron Binding Capacity (10/03/2024 10:58 AM EST) Only the most recent of3 resultswithin the time period is included. Iron 105 30 - 160 mcg/dL [facility] Total Iron Binding Capacity 237 228 - 428 mcg/dL [facility] Percent Iron Saturation 44 15 - 50 % [facility] Unsaturated Iron Binding 132 ug/dL [facility] Blood Venous blood specimen / Unknown 10/03/2024 10:58 AM EST 10/03/2024 1:10 PM EST us Jinny Cunningham DO LAB BLOOD ORDERABLES Final R esult [facility] [address] [place] [phone] * CBC (10/03/2024 10:58 AM EST) Only the most recent of2 resultswithin the time period is included. White Blood Count 8.1 4.8 - 10.8 X10*3/uL [facility] Red Blood Count 4.98 4.20 - 5.50 X10*6/uL [facility] Hemoglobin 15.1 12.0 - 16.0 g/dl [facility] Hematocrit 45.4 37.0 - 47.0 % [facility] Mean Corpuscular Volume 91.2 80.0 - 98.0 fL [facility] Mean Corpuscular Hemoglobin 30.3 27.0 - 33.0 pg [facility] Mean Corpuscular HGB Conc 33.3 31.0 - 35.0 g/dl [facility] Red Cell Distribution Width 13.3 11.0 - 16.0 % [facility] Platelet Count 202 160 - 400 X10*3/uL [facility] Mean Platelet Volume 11.9 9.4 - 12.3 fL [facility] NRBC Pct Auto 0.0 0.0 - 0.2 /100WBC [facility] NRBC Abs Auto 0.000 0.0 - 0.012 X10*3/uL [facility] Blood Venous blood specimen / Unknown 10/03/2024 10:58 AM EST 10/03/2024 1:10 PM EST us Jinny Cunningham DO LAB BLOOD ORDERABLES Final R esult [facility] [address] [place] [phone] * Ferritin (10/03/2024 10:58 AM EST) Only the most recent of3 resultswithin the time period is included. Ferritin 209 10 - 250 ng/mL [facility] Blood Venous blood specimen / Unknown 10/03/2024 10:58 AM EST 10/03/2024 1:10 PM EST us Jinny Cunningham DO LAB BLOOD ORDERABLES Final R esult Performing Organization Address [facility] de Phone Number [facility] [address] [place] [address] [phone] * (ABNORMAL) Hepatic Function Panel (10/03/2024 10:58 AM EST) Bilirubin, Total 0.5 0.0 - 1.0 mg/dL [facility] Bilirubin, Direct 0.2 0.0 - 0.5 mg/dL [facility] Aspartate Amino Transferase 85(H) 5 - 31 U/L [facility] Alanine Aminotransferase 98(H) 0 - 31 U/L [facility] Total Protein 7.9 6.5 - 8.0 g/dL [facility] Albumin Level 4.1 3.5 - 5.0 g/dL [facility] Alkaline Phosphatase 144(H) 39 - 117 U/L [facility] Blood Venous blood specimen / Unknown 10/03/2024 10:58 AM EST 10/03/2024 1:10 PM EST Jinny Negronnekamaritza DO LAB BLOOD ORDERABLES Final Marietta Gladitoodtavo Performing Organization Address [facility] de Phone Number [facility] [address] [place] [phone] * XR Shoulder 2+ Views Left (10/03/2024 10:37 AM EST) Anatomical Region Laterality Modality Upper Extremities, Shoulder Left Radi ographic Imaging 10/03/2024 10:3 7 AM EST Narrative 10/03/2024 12:29 PM EST ?[facility] ?[address] ?[place] [address] ?XRay Report ? Signed ? Patient: Jason Demian,Nae ?MR#: [id number] ?? [id number] ? : 1965 ?Acct:[id number] ? Age/Sex: 59 / F ?ADM Date: /14/25 ? Loc: HO.HHCX ? Attending Dr: Jinny Cunningham DO ? Ordering Physician: Jinny Cunningham DO ?? Date of Service: 10/03/24 ?? Procedure(s): XR shoulder LT min 2V ?? Accession Number(s): [id number] ? cc: Jinny Cunningham DO ? EXAMINATION: [...] ??Jc Chavis MD ??10/03/2024 12:25 PM EST ? Dictated By: ?Jc Chavis MD ? Signed By: ?<Electronically signed by Jc Chavis MD in OV> ?10/03/24 1225 ? DD/ 1037 ? TD/TT: 10/03/24 1100 ? Garnett Machine Operator Helper: ? Procedure Note Amilcar Edmonds - 10/03/2024 [place] [address] XRay Report Signed Patient: Carina Pulido#: [id number] : 1965Acct:[id number] Age/Sex: 59 / FADM Date: 10/03/24 Loc: HO.HHCX Attending Dr: Jinny Cunningham DO Ordering Physician: Jinny Cunningham DO Date of Service: 10/03/24 Procedure(s): XR shoulder LT min 2V Accession Number(s): [id number] cc: Jinny Cunningham DO EXAMINATION: XR SHOULDER [...] Jc Chavis MD 10/03/2024 12:25 PM EST RP Dictated By: Jc Chavis MD Signed By: <Electronically signed by Jc Chavis MD in OV> 10/03/24 1225 DD/ 1037 TD/TT: 10/03/24 1100 Garnett Machine Operator Helper: us Jinny Marisa DO IMG XR PROCEDURES Edited Res ult - Final * Hereditary Hemochromatosis DNA Mutation Analysis (09/04/2024 9:26 AM EST) Hereditary Hemochromatosis DNA Mutation See Below [facility] Comment: 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 This patient is negative for jbsB12T pathogenic variant. Individuals with this genotype mayhave [...] submitted clinical informationreviewed by Krystyna Presley, Ph.D., [facility], [facility].DETAILED ASSAY INFORMATION: Hereditary hemochromatosis (HH)is an [...] pathogenic variants inthe HFE gene, C282Y (NM 480733.2: c.845G>A, p.Syz804Yhh) nluK67C (NM 885312.2: c.187C>G, p.Xwa41Pbk), that are commonlyassociated with HH. These variants [...] laboratorydata.Health care providers, please contact your local [employer] genetic counselor or call [phone]( ) for assistance with the interpretation ofthese results.This test was developed and its analytical performancecharacteristics have been determined by [facility]. It has not beencleared or approved by FDA. This assay has been validatedpursuant to the CLIA regulations and is used for clinicalpurposes.For more information, please refer tohttp://education.Neterion.GeoVario/faq/hemochromatosis.(This link is being provided for informational/educationalpurposes only.)A portion of the testing was performed at [facility].Reviewed and signed by Laboratory results and submittedclinical information reviewed by Krystyna Presley, Ph.D., [facility], Signed on 09/15/19 25 at 06:20THIS TEST WAS PERFORMED AT:[employer]/[facility] [id number] [place] ??[address]NBRWORYAN FUNK MD,PHD,TEJAS 09/04/2024 9:26 AM EST 09/04/2024 9:26 AM EST us Generic External Data Provider LAB BLOOD ORDERAB LES Final Result [facility] [address] [place] [phone] [phone] * XR Lumbar Spine 2-3 Views (08/07/2024 10:44 AM EST) Anatomical Region Laterality Modality Spine, L-spine Radiographic Sarah ging 08/07/2024 10:4 4 AM EST Narrative 08/09/2024 11:55 AM EST ? [facility] ?[address] ?[place] [address] ?XRay Report ? Signed ? Patient: Nae Pulido ?MR#: [id number] ?? [id number] ? : 1965 ?Acct:[id number] ? Age/Sex: 59 / F ?ADM Date: 08/07/24 ? Loc: HO.XRAY ? Attending Dr: Jinny Cunningham DO ? Ordering Physician: Jinny Cunningham DO ?? Date of Service: 08/07/24 ?? Procedure(s): XR lumbar spine 2-3V ?? Accession Number(s): [id number] ? cc: Jinny Cunningham DO ? EXAMINATION: ?? XR LUMBAR SPINE ? CLINICAL INFORMATION: ?? worsening LBP ? COMPARISON: ?? 2020 ? TECHNIQUE: ?? Frontal lateral and coned-down L5-S1 frontal lateral, total of 3 views ? FINDINGS: ? Five ntb-jxd-ypulvhm lumbar vertebrae were identified maintaining ?? normal [...] DD/ 1044 ? TD/TT: 08/07/24 1104 ? Garnett Machine Operator Helper: HS ? Procedure Note Donotsarahinterpreter, Image - 08/09/[address] [address] XRay Report Signed Patient: Carina Pulido#: [id number] : 1965Acct:[id number] Age/Sex: 59 / FADM Date: 08/07/24 Loc: HO.CHRISTA Attending Dr: Jinny Cunningham DO Ordering Physician: Jinny Cunningham DO Date of Service: 08/07/24 Procedure(s): XR lumbar spine 2-3V Accession Number(s): [id number] cc: Jinny Cunningham DO EXAMINATION: XR LUMBAR SPINE CLINICAL INFORMATION: worsening LBP COMPARISON: 2020 TECHNIQUE: Frontal lateral and coned-down L5-S1 frontal lateral, total of 3 views FINDINGS: Five txs-roz-ykmbizy lumbar vertebrae were identified maintaining normal height [...] 08/09/24 1152 DD/ 1044 TD/TT: 08/07/24 1104 Garnett Machine Operator Helper: HS us Jinny Cunningham DO IMG XR PROCEDURES Edited Res ult - Final * TSH with Reflex to Free T4 (08/07/2024 10:28 AM EST) TSH reflex Free T4 2.24 0.32 - 4.0 uIU/mL [facility] 08/07/2024 10:2 8 AM EST 08/07/2024 10:36 AM EST us Generic External Data Provider LAB BLOOD ORDERAB LES Final Result Performing Organization Address [facility]/ZIP Co de Phone Number [facility] [address] [place] [phone] * Actin (Smooth Muscle) Antibody (IgG) (08/07/2024 10:28 AM EST) Smooth Muscle Antibody <20 <20 U [facility] Comment:Reference Range: <20 U: Negative>or=20 [...] with AIH type 1.THIS TEST WAS PERFORMED AT:[employer] [place] [address]XAUXXARARPIT GILBERT MD,PHD 08/07/2024 10:2 8 AM EST 08/07/2024 10:36 AM EST us Generic External Data Provider LAB BLOOD ORDERAB LES Final Result Performing Organization Address City/[facility]/ZIP Co de Phone Number [facility] [address] [place] [phone] * Dcchr-0-Clupvrkpoya, Quantitative (08/07/2024 10:28 AM EST) Brqqb-9-Bqcudpjf sin QN 155 83 - 199 mg/dL [facility] Comment:THIS TEST WAS PERFOR MED AT:[facility] [id number] [place] [id number] AVERY MD 08/07/2024 10:2 8 AM EST 08/07/2024 10:36 AM EST Generic External Data Provider LAB BLOOD ORDERAB LES Final Result Performing Organization Address [facility] Co de Phone Number [facility] [address] [place] [phone] * (ABNORMAL) Alkaline phosphatase, isoenzymes (08/07/2024 10:28 AM EST) Alkaline Phosphatase 159(A) 37 - 153 U/L [facility] Intestinal Isoenzymes 35(A) 1 - 24 % [facility] Comment:Increased intestinal alkaline phosphatase can beseen in blood group O and B secretors and afterfatty meals. Bone Isoenzymes 33 28 - 66 % [facility] Liver Isoenzymes 33 25 - 69 % [facility] Placental Isoenzymes 0 <=0 % [facility] Macrohepatic Isoenzymes 0 <=0 % [facility] Comment:THIS TEST WAS PERFOR MED AT:[employer]/[id number] [place] [address]NROZJLUARPIT GILBERT MD,PHD Interpretation [facility] 08/07/2024 10:2 8 AM EST 08/07/2024 10:36 AM EST Generic External Data Provider LAB BLOOD ORDERAB LES Final Result Performing Organization Address [facility] Co de Phone Number [facility] [address] [place] [phone] * Tissue Transglutaminase Antibody, IgA (08/07/2024 10:28 AM EST) Transglutaminase IgA <1.0 U/mL [facility] Comment:Value Interpretation ----- <15.0 Antibody not detected> or = 15.0 Antibody detectedTHIS TEST WAS PERFORMED AT:[facility] [place] [phone] AVERY MD 08/07/2024 10:2 8 AM EST 08/07/2024 10:36 AM EST us Generic External Data Provider LAB BLOOD ORDERAB LES Final Result Performing Organization Address [facility] Co de Phone Number [facility] [address] [place] [phone] * Ceruloplasmin (08/07/2024 10:28 AM EST) Ceruloplasmin 26 14 - 48 mg/dL [facility] Comment:THIS TEST WAS PERFOR MED AT:[facility] [place] [phone] AVERY MD 08/07/2024 10:2 8 AM EST 08/07/2024 10:36 AM EST us Generic External Data Provider LAB BLOOD ORDERAB LES Final Result Performing Organization Address [facility] Co de Phone Number [facility] [address] [place] [phone] * Hepatitis B Core Antibody, Total (08/07/2024 10:28 AM EST) Hepatitis B Core Antibody Nonreactive Nonreactive [facility] 08/07/2024 10:2 8 AM EST 08/07/2024 10:36 AM EST us Generic External Data Provider LAB BLOOD ORDERAB LES Final Result Performing Organization Address City/[facility] Co de Phone Number [facility] [address] [place] [address] [place] [phone] * Liver Kidney Microsomal (LKM-1) Antibody??(IgG) (08/07/2024 10:28 AM EST) Liver Kidney Microsomal (LKM-1) Antibody IgG <=20.0 <=20.0 U [facility] Comment:Reference Range: <=2 0.0 Negative [...] patients with hepatitis Cinfection.THIS TEST WAS PERFORMED AT:[facility] [place] [address]QBUGCFIARPIT GILBERT MD,PHD 08/07/2024 10:2 8 AM EST 08/07/2024 10:36 AM EST Generic External Data Provider LAB BLOOD ORDERAB LES Final Result Performing Organization Address [facility] Co de Phone Number [facility] [address] [place] [phone] * Mitochondrial Antibody with Reflex to Titer (08/07/2024 10:28 AM EST) Mitochondrial Antibodies NEGATIVE NEGATIVE [facility] Comment:THIS TEST WAS PERFOR MED AT:[facility] [address] [phone] AVERY MD Mitochondrial Ab Titer TNP [facility] 08/07/2024 10:2 8 AM EST 08/07/2024 10:36 AM EST us Generic External Data Provider LAB BLOOD ORDERAB LES Final Result Performing Organization Address City/[facility]/ZIP Co de Phone Number [facility] [address] [place] [phone] * HIV-1/2 Antigen and Antibodies, Fourth Generation, with Reflexes (08/07/2024 10:28 AM EST) HIV AB/AG Nonreactive Nonreactive [facility] Comment:HIV-1 p24 Ag and/or HIV-1/HIV-2 Ab not detected.A test result that is nonreactive does not exclude thepossibility of exposure to or infection with HIV-1 and/orHIV-2. Nonreactive results in this assay for individualswith prior exposure to HIV-1 and/or HIV-2 may be due toantigen and antibody levels that are below the limit ofdetection of this assay.The [employer] HIV Ag/Ab Combo assay result andsupplemental assay results should be interpreted inconjunction with the patient's clinical presentation,history and other laboratory results. If the results areinconsistent with clinical evidence, additional testing issuggested to confirm the result. 08/07/2024 10:2 8 AM EST 08/07/2024 10:36 AM EST us Generic External Data Provider LAB BLOOD ORDERAB LES Final Result Performing Organization Address [facility] Co de Phone Number [facility] [address] [place] [phone] * Hepatitis B Surface Antibody, Qualitative (08/07/2024 10:28 AM EST) ~Hepatitis B Surface Antibody REACTIVE Nonreactive [facility] Comment:REACTIVE: > 11.99 mI U/mL 08/07/2024 10:2 8 AM EST 08/07/2024 10:36 AM EST us Generic External Data Provider LAB BLOOD ORDERAB LES Final Result Performing Organization Address [facility]/ZIP Co de Phone Number [facility] [address] [place] [phone] * Prothrombin Time-INR (08/07/2024 10:28 AM EST) Prothrombin Time 11.1 10.9 - 12.4 SEC [facility] INTERNATIONAL NORM RATIO 1.0 0.9 - 1.1 [facility] Comment:INTERNATIONAL NORMAL IZED RATIO (INR) [...] ORDERAB LES Final Result Performing Organization Address City/State/[facility] Co de Phone Number [facility] [address] [place] [phone] * AB Screen,IFA, with Reflex to Titer and Pattern (08/07/2024 10:28 AM EST) Anti Nuclear Antibody Screen NEGATIVE NEGATIVE [facility] Comment:AB IFA is a first [...] clinicallysuspected inflammatory myopathies.AC-0: NegativeInternational Consensus on AB Patterns(https://doi.org/10.1515/fxys-6157-3023)For additional information, please refer tohttp://education.Curbsy/faq/URY614(This link is being provided for informational/educational purposes only.)THIS TEST WAS PERFORMED AT:[facility] [place], [place] [phone] AVERY MD AB Titer TNP [facility] AB Pattern TNP [facility] AB TITER 2 ([facility]) [facility] AB Pattern 2 TNP [facility] AB TITER 3 [facility] 3 [facility] 08/07/2024 10:2 8 AM EST 08/07/2024 10:36 AM EST us Generic External Data Provider LAB BLOOD ORDERAB LES Final Result Performing Organization Address [facility]/ZIP Co de Phone Number [facility] [address] [place] [phone] * (ABNORMAL) Hemoglobin A1c (08/07/2024 10:28 AM EST) Hemoglobin A1c 6.3(H) <6.0 % [facility] Comment:Hemoglobin A1C Refer ence Range Adults: 4.8 - 6.0 % Non diabetic: < 6.0 % Goal: < 7.0 %Additional Action Suggested: > 8.0 %Note: Hemoglobin A1c results are invalid for patients with abnormal amounts of HbF. Blood transfusions may impact the HbA1c concentration in the patient sample. Estimated Average Glucose 134 mg/dL [facility] Comment:eAG = Estimated ave rage glucose which is %A1C expressed asaverage glucose, using the formula of the L3N-WswwlskStqtrzd Glucose study (ADAG), Diabetes Care, Vol.31,#8,Mar. 2007 08/07/2024 10:2 8 AM EST 08/07/2024 10:36 AM EST us Generic External Data Provider LAB BLOOD ORDERAB LES Final Result Performing Organization Address [facility]/ZIP Co de Phone Number [facility] [address] [place] [phone] * (ABNORMAL) Gamma Glutamyl Transferase (GGT) (08/07/2024 10:28 AM EST) Gamma Glutamyl Transpeptidase 54(H) 7 - 33 U/L [facility] 08/07/2024 10:2 8 AM EST 08/07/2024 10:36 AM EST us Generic External Data Provider LAB BLOOD ORDERAB LES Final Result Performing Organization Address [facility]/ZIP Co de Phone Number [facility] [address] [place] [phone] * Immunoglobulin A (08/07/2024 10:28 AM EST) Pathologist [facility] Immunoglobulin A 247 47 - 310 mg/dL [facility] Comment:THIS TEST WAS PERFOR MED AT:[facility] [place] [phone] AVERY MD 08/07/2024 10:2 8 AM EST 08/07/2024 10:36 AM EST Generic External Data Provider LAB BLOOD ORDERAB LES Final Result Performing Organization Address [facility] Phone Number [facility] [address] [place] [phone] * Immunoglobulin G (08/07/2024 10:28 AM EST) Pathologist [facility] Immunoglobulin G 1468 600 - 1640 mg/dL [facility] Comment:THIS TEST WAS PERFOR MED AT:[facility] [place] [phone] AVERY MD 08/07/2024 10:2 8 AM EST 08/07/2024 10:36 AM EST us Generic External Data Provider LAB BLOOD ORDERAB LES Final Result Performing Organization Address [facility]/RUST Co de Phone Number [facility] [address] [place] [phone] * (ABNORMAL) Comprehensive Metabolic Panel (08/07/2024 10:28 AM EST) Sodium 141 135 - 145 mmol/L [facility] Potassium 4.4 3.3 - 5.1 mmol/L [facility] Chloride 109(H) 96 - 108 mmol/L [facility] Carbon Dioxide 29 22 - 29 mmol/L [facility] Anion Gap 7(L) 12 - 20 [facility] Urea Nitrogen (BUN) 14 9 - 16 mg/dL [facility] Creatinine, Serum 0.82 0.5 - 1.4 mg/dL [facility] Estimated Glomerular Filt Rate >60 [facility] Comment:Chronic Kidney Disea se: Estimated GFR < 60 mL/min/1.17d4Ebsxcj Kidney Disease: Estimated GFR < 15 mL/min/1.73m2 Glucose 211(H) 60 - 115 mg/dL [facility] Calcium 9.4 8.4 - 10.2 mg/dL [facility] Bilirubin, Total 0.5 0.0 - 1.0 mg/dL [facility] Aspartate Amino Transferase 77(H) 5 - 31 U/L [facility] Alanine Aminotransferase 94(H) 0 - 31 U/L [facility] Total Protein 7.7 6.5 - 8.0 g/dL [facility] Albumin Level 4.0 3.5 - 5.0 g/dL [facility] Alkaline Phosphatase 166(H) 39 - 117 U/L [facility] 08/07/2024 10:2 8 AM EST 08/07/2024 10:36 AM EST us Generic External Data Provider LAB BLOOD ORDERAB LES Final Result [facility] [address] [place] [phone] * BI Mammogram Diagnostic Tomosynthesis Left (05/27/2024 8:32 AM EDT) Anatomical Region Laterality Modality Breast Left Mammography 05/27/2024 8:32 AM EDT Narrative 05/27/2024 11:00 AM EDT ? [facility] ? [address] ?[place] [address] ? Mammography Report ? Signed with Addenda ? Patient: Jason Demian,Nae ?MR#: [id number] ?? [id number] ? : 1965 ?Acct:[id number] ? Age/Sex: 58 / F ?ADM Date: 05/27/24 ? Loc: HO.MAMMO ? Attending Dr: Domenico Flores MD ? Ordering Physician: Domenico Flores MD ?Results: ? Date of Service: 05/27/24 ?Follow Up: ? Procedure(s): MM tomosynthesis diagnostic LT ?? Accession Number(s): [id number] ? cc: Jinny Cunningham DO; Mark,Domenico MD ?ADDENDUM ? ADDENDUM #1 ? ADDENDUM: [...] by Karthik Patterson MD in [place]> ?06/03/24 0921 ?? Addendum Cosigned By: ? DD/ /12/832 [...] targeted area with a 14G spring loaded Sertera core ??biopsy ?? device. There was real-time [...] Patterson MD ??05/27/2024 10:57 AM EDT RP ?? Workstation: [place] [id number] ? Dictated By: ?Karthik Patterson MD ? Signed By: ?<Electronically signed by Karthik Patterson MD in [place]> ?05/27/241056 ? DD/ 1 ? TD/TT: 05/27/24917 ? Garnett Machine Operator Helper: ? Procedure Note Amilcar Edmonds - 06/12/2024 [facility] [address] [place], [place] [address] Mammography Report Signed with Addenda Patient: aCrina Pulido#: [id number] : 1965Acct:[id number] Age/Sex: 58 / FADM Date: 05/27/24 Loc: [facility] Attending Dr: Domenico Flores MD Ordering Physician: Domenico Floresesults: Date of Service: 05/27/24Follow Up: Procedure(s): MM tomosynthesis diagnostic LT Accession Number(s): [id number] cc: Jinny Cunningham DO; Domenico Flores MD [...] targeted area with a 14G spring loaded [employer] core biopsy device. There was real-time confirmation [...] 05/27/24 1057 DD/ 0832 TD/TT: 05/27/24 0918 Garnett Machine Operator Helper: [facility] External Provider IMG BI PROCEDURES Edited Result - Final * Hepatitis C Antibody with Reflex to HCV, RNA, Quantitative, Real-Time PCR (12/28/2023 8:42 AM EDT) Hepatitis C Antibody Nonreactive Nonreactive [facility] Comment:Antibodies to HCV no t detected; does not exclude early acuteHCV infection. Blood Venous blood specimen / Unknown 12/28/2023 8:42 AM EDT 12/28/2023 11:28 AM EDT Jinny Cunningham DO LAB BLOOD ORDERABLES Final R esult [facility] [address] [place] [phone] * HPV mRNA E6/E7 w/Reflex to HPV Genotypes 16, 18/45 (06/08/2023 11:45 AM EDT) HPV nRNA E6/E7 Not Detected Not Detected [facility] Comment:Methodology: Transcr iption-Mediated AmplificationThis assay detects E6/E7 viral messenger RNA (mRNA) from 14high-risk HPV types (16,18,31,33,35,39,45,51,52,56,58,59,66,68).Cervical sources are required for HPV testing.If a vaginal source from a patient who has had atotal hysterectomy with removal of cervix wassubmitted, please contact the testing laboratoryfor alternative testing options.For additional information, please refer tohttp://education.WorkProducts/faq/LTQ772g4(This link if provided for information/educational purposes only.)THIS TEST WAS PERFORMED AT:[facility] [place] [phone] AVERY MD HPV mRNA E6/E7 [facility] HPV 16 RNA [facility] HPV 18/45 RNA [facility] 06/08/2023 11:4 5 AM EDT 06/11/2023 9:15 AM EDT us Jinny Cunningham DO LAB CYTOLOGY ORDERABLES Tahira l Result [facility] [address] [place], [place] [phone] * Pap Smear (06/08/2023 11:45 AM EDT) 06/08/2023 11:4 5 AM EDT 06/11/2023 9:15 AM EDT Narrative [facility] - 06/14/2023 9:39 AM EDT ----- ------- Name: Nae Pulido ?Age/Sex: 57/F ? : 1965 Unit#: [id number] ?? Attend Dr: Jinny Cunningham DO ?Re06/08/23 ?Status: DEP REF ? Location: HO.HHCLNP ? Disch: ? ----- ------- SPEC : [id number] ?RECD: 06/11/23 ? STATUS: ??SOUT ? REQ NUM: [id number] ? ZION: 06/08/238528 ? SUBM DR: Jinny Cunningham DO ? ENTERED: ??06/11/237 ?SP TYPE: Pap Smr ?OTHR : ? [...] 66, 68) ?? HPV testing performed by [facility], [place], [place]. ??See reference laboratory ?? pion of the EMR for entire report. ?Clinical Information LMP: Unknown date Previous PAP test: Unknown date, WNL ? Material Received ?? ThinPrep-Cervical ----- ------- Signed (signature on file) SRAVAN Sanches (ASCP) 06/14/23 0939 ? ----- ------- ? END OF REPORT ? us Jinny Cunningham DO LAB CYTOLOGY ORDERABLES Tahira l Result [facility] [address] [place] [phone] [phone] * Hm Colonoscopy (03/09/2022 10:01 AM EDT) Historical Provider HEALTH MAINTENANCE Final Result from Last 3 Months or Most Recently Relevant to Health Maintenance [place] [address] [place] [address] [id number]MEDICAID) Care Teams Global Marketing Intern Relationship Specialty Start Date End Date Jinny Cunningham DO [address] [place] [phone] PCP - General Family Medicine 10/03/11
--- OUTSIDE RECORDS SUMMARY | 2024-10-15 10:04 | XMS_ITS | Encounter Summary ---
Author Organization [employer] Address [address] [facility] 7 [place] [address] Care Team Providers Care Machine Loader Name Role Phone Yolandamaritza Jinny Primary Care Provider + [phone] Reason for Visit * Reason Comments cheondoism Encounter Details Date Type Department Care Team ([facility] Contact Info) Description 10/08/2024 9:00 AM EST Office Visit [facility] [address] [place], [place] [phone] James Bello [address] [place] [address] Social History Tobacco Use Types Packs/Day Years [...] AM EDT documented as of this encounter Progress Notes * James Bello - 10/08/2024 9:00 AM EST Dental procedures in this visit D2160 - AMALGAM - 3 SURF, PRIMARY OR PERMANENT 18 (Completed) Service provider: James Bello Billing provider: Yoli Anaya DDS Patient ID: Nae Arciniega is a 59 y.o. female. Time Out: Date: 10/08/2024 Location: [facility] Tooth: #3 Procedure: Yazdanism Verified the above with patient, assistant financial accountant, and provider. Confirmed via patient's chart, intraorally and by radiographs. Sales Planning Analyst: not applicable Amalgam cheondoism done on # [address] James Bello Risk, benefits, and alternatives discussed with the patient. CONSENT FORM INITIALED & SIGNED BY THE PATIENT AND COUNTERSIGNED BY Dr. James Bello Medical history: Reviewed in EHR Vitals: There were no vitals taken for this visit. Allergies: Reviewed in EHR Medications: Reviewed in EHR - LA: 20% topical benzocaine; Local infiltration with 1 carpule 4% septocaine/articaine 1:100,000 epinephrine - Decay removed. - Matrix band and wedge used as needed. - Amalgam cheondoism alloy type placed - Anatomy and margins adjusted - Occlusion checked with articulating paper. - Proximal contact confirmed with floss. - Necessary reductions made. - post op instructions given Patient satisfied, left in stable condition Patient made aware possible post op sensitivity NV: Recall Provider: Dr. James Bello Clerk Checker: Hanna Grant Supervising dentist: Dr. Anaya * Yoli Anaya DDS - 10/08/2024 9:00 AM EST I have reviewed the documentation and dental procedures completed by the rendering provider, James Bello DDS, and approve their chart entries for this visit. ARIADNE Mgaana DDS documented in this encounter Plan of Treatment Upcoming Encounters Date Type Department Care Team (Late st Contact Info) Description 12/29/2024 9:00 AM EDT Immunization [facility] [address] [place] [address] 04/08/2025 9:00 AM EDT Office Visit [facility] [address] [place] [address] Onel Tejeda documented as of this encounter Procedures Procedure Name Priority Date/Time Associated Diagnosis Comments 18 AMALGAM - 3 SURF, PRIMARY OR PERMANENT Routine 10/08/2024 9:00 AM EST documented in this encounter Visit Diagnoses Not on filedocumented in this encounter Additional Health Concerns Assessment Noted Time PHQ-9 Depression Total Score: 0 10/03/19 25 9:21 AM EST documented as of this encounter Care Teams Machine Loader Relationship Specialty Start Date End Date Jinny Cunningham DO [address] [place] [phone] PCP - General Family Medicine 10/03/11 documented as of this encounter
--- OUTSIDE RECORDS SUMMARY | 2024-10-15 10:04 | XMS_ITS | Encounter Summary ---
Author Organization [employer] Address [address] [facility] 7t [place] [address] Care Team Providers Care Kitchen Lead Name Role Phone MarkyJinny canchola Primary Care Provider + [phone] Encounter Details Date Type Department Care Team [...] Info) Description 12/29/2024 9:00 AM EDT Immunization [facility] [address] [place] [address] 04/08/2025 9:00 AM EDT Office Visit [facility] [address] [place] [address] Onel Tejeda documented as of this encounter Visit Diagnoses Not on filedocumented in this encounter Additional Health Concerns Assessment Noted Time PHQ-9 Depression Total Score: 6 12/21/19 24 10:44 AM EDT documented as of this encounter Care Teams Kitchen Lead Relationship Specialty Start Date End Date Jinny Cunningham DO [address] [place] [phone] PCP - General Family Medicine 10/03/11 documented as of this encounter
--- OUTSIDE RECORDS SUMMARY | 2024-10-15 10:04 | XMS_ITS | Encounter Summary ---
Author Organization [employer] Address [address] [facility] 7t [place] [address] Care Team Providers Care Production Assembly Operator Name Role Phone MarkyJinny canchola Primary Care Provider + [phone] Encounter Details Date Type Department Care Team [...] Info) Description 12/29/2024 9:00 AM EDT Immunization [facility] [address] [place] [address] 04/08/2025 9:00 AM EDT Office Visit [facility]ULT [facility] [address] [place] [address] Onel Tejeda documented as of this encounter Visit Diagnoses Not on filedocumented in this encounter Additional Health Concerns Assessment Noted Time PHQ-9 Depression Total Score: 0 10/03/19 25 9:21 AM EST documented as of this encounter Care Teams Production Assembly Operator Relationship Specialty Start Date End Date Jinny Cunningham DO [address] [place] [address] PCP - General Family Medicine 10/03/11 documented as of this encounter
== END 2024-10-15 10:04 | disposition home or self-care (01) ==
PROVIDERS: PCP Family Medicine; Visit Provider Internal Medicine
DX: R79.89 Other specified abnormal findings of blood chemistry (principal); E66.9 Obesity, unspecified; K76.0 Fatty (change of) liver, not elsewhere classified; E11.9 Type 2 diabetes mellitus without complications
CPT/HCPCS: 99214

== ENCOUNTER → 2024-10-15 09:08 | Outpatient (BNVA) | payer OTHER, SELFPAY | PROVIDERS: PCP Family Medicine; Visit Provider Internal Medicine | DX: R79.89 Other specified abnormal findings of blood chemistry (principal); E66.9 Obesity, unspecified; Z68.33 Body mass index [BMI] 33.0-33.9, adult; K76.0 Fatty (change of) liver, not elsewhere classified; E11.9 Type 2 diabetes mellitus without complications | CPT/HCPCS: 99212 ==

== ENCOUNTER 2024-11-19 10:30 | Outpatient (AMB) | payer OTHER, SELFPAY ==
--- NOTE | 2024-11-19 10:35 | MHC.OFFVIS ---
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 Patient was seen by her PCP for left shoulder and chest pain s/p biopsy. Patient reports constant burning pain and at times sharp for about 5 months. Her pain increases with arm movement and she is unable to sleep on her left side due to her discomfort. She states that she has tried taking naproxen with mild relief. 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 She associates the onset of pain with positioning during a biopsy performed under her left armpit. The pain is reported to radiate to her neck and chest, affecting her ability to lift heavy objects. She experiences pain during movements above shoulder height or behind her back and reports discomfort at night. The patient denies numbness or tingling and has not undergone previous treatments like physical therapy or injections. [facility] Medical History History of colon polyps Obesity (BMI 35.0-39.9 without comorbidity) Constipation by delayed colonic transit NANCY (obstructive sleep apnea) Hepatic steatosis GERD (gastroesophageal reflux disease) Surgical History H/O esophagogastroduodenoscopy Hx of cholecystectomy Hx of colonoscopy Family History Father Brain cancer Mother Diabetes Breast cancer Maternal Aunt Breast cancer Paternal Aunt Breast cancer Social History (Updated 11/19/24 @ 10:37 by Darryn Ramirez) Household Members: Spouse, Family and Children Housing: House Alcohol intake: never Patient Tobacco Use Status: Never used Tobacco Second Hand Smoke Exposure: No service: No Current occupational status: employed 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 She has full range of motion in all planes. She has tenderness to palpation over the proximal biceps tendon and into the AC joint. She has positive Mena and positive cross-body abduction. She is able to activate rotator cuff strength with mild discomfort. Office Procedures AMB Joint Injection/Aspiration Joint Injection/Aspiration Primary Site: left shoulder Prep: site was prepped using aseptic technique, ethochloride spray was applied and injection warnings given Injected: 80 mg of, DepoMedrol, with 8 mL of, 1% plain lidocaine and in the subcromial space Approach Used: posterolateral Procedure: The patient tolerated the procedure well and there was some relief with the local anesthesia Coding - Glenohumeral/Tronchanteric Bursa/Intraarticular Procedure code (CPT) selection complete Results Reviewed Results Reviewed: X-rays of the left shoulder obtained on 10/03/2024 are negative for any acute or chronic abnormalities. Assessment & Plan Assessment & Plan (1) Tendonitis of left rotator cuff: Code(s): M75.82 - Other shoulder lesions, left shoulder Category: Medical (2) Myofascial pain on left side: Code(s): M79.18 - Myalgia, other site Category: Medical Plan I discussed with the patient her diagnosis of left shoulder pain due to presumed rotator cuff inflammation. We agreed on administering a cortisone injection to manage inflammation and subsequently referred her to physical therapy, which is intended to stabilize and strengthen the affected muscles. I explained the benefits of the injection in reducing pain and inflammation and emphasized the importance of physical therapy for long-term improvement. Consent for the injection was obtained and injection was tolerated well without complications, and the patient was agreeable to the proposed treatment plan. She will f/u in 6-8 weeks if symptoms persist or worsen. Orders: Orders PT Evaluation and Treatment Today M75.82 - Other shoulder lesions, left shoulder, M79.18 - Myalgia, other site Coding Level of Care Code New Pt Level 3 (43927) Complex EM visit Add On G2211 Diagnoses Tendonitis of left rotator cuff M75.82 Myofascial pain on left side M79.18 CPT Codes Coding - Joint 7: 95975 - Glenohumeral/Tronchanteric Bursa/Intraarticular ([id number])
--- OUTSIDE RECORDS SUMMARY | 2024-11-19 12:21 | XMS_ITS | Encounter Summary ---
Author Organization [email or web address] Address 75 [facility] 7t [place] [address] Care Team Providers Care Pets Salesperson Name Role Phone Marisa Jinny Primary Care Provider + [phone] Reason for Visit * Reason Comments Med Change Request Encounter Details Date Type Department Care Team ([facility] st Contact Info) Description 03/19/2024 Refill [facility] [address] [place] [address] Kristina Cid FNP [address] [place] [address] Social History Tobacco Use Types Packs/Day Years [...] Info) Description 12/29/2024 9:00 AM EDT Immunization [facility] [address] [place] [address] 04/08/2025 9:00 AM EDT Office Visit [facility] [address] [place] [address] Onel Tejeda documented as of this encounter Visit Diagnoses Not on filedocumented in this encounter Additional Health Concerns Assessment Noted Time PHQ-9 Depression Total Score: 6 12/21/19 24 10:44 AM EDT documented as of this encounter Care Teams Pets Salesperson Relationship Specialty Start Date End Date Jinny Cunningham DO [address] [place] [address] PCP - General Family Medicine 10/03/11 documented as of this encounter
--- OUTSIDE RECORDS SUMMARY | 2024-11-19 12:21 | XMS_ITS | Encounter Summary ---
Author Organization [facility] Address [address] [place] [address] Care Team Providers Care Plant Facilities Technician Name Role Phone Jinny Cunningham DO Primary Care Provider Unava ilable Encounter Details Date Type Department Care Team Description 09/16/2018 Pediatrician Report Medical Records [address] [place] [phone] Jinny Cunningham DO Social History Tobacco Use Types Packs/Day Years Used Date Smoking Tobacco: Never Assessed Sex Assigned at Date Recorded Not on file documented as of this encounter Plan of Treatment Not on file documented as of this encounter Visit Diagnoses Not on filedocumented in this encounter Care Teams Plant Facilities Technician Relationship Specialty Start Date End Date Jinny Cunningham DO PCP - General Internal Medicine 12/12/18 documented as of this encounter
--- OUTSIDE RECORDS SUMMARY | 2024-11-19 12:21 | XMS_ITS | Encounter Summary ---
Author Organization [facility] Address [address] [place] [address] 7t [place] [address] Care Team Providers Care Dance Artist Name Role Phone Jinny Cunningham DO Primary Care Provider + [phone] Encounter Details Date Type Department Care Team (Late st Contact Info) Description 12/13/2022 Orders Only [facility] [address] [place] [address] Jinny Reynolds LPN Social History Tobacco Use [...] Description 12/29/2024 9:[address] [facility] [address] [place] [address] 04/08/2025 9:00 AM EDT Office Visit [facility] ADULT [facility] [address] [place] [address] Onel Tejeda documented as of this encounter Visit Diagnoses Not on filedocumented in this encounter Care Teams Dance Artist Relationship Specialty Start Date End Date Jinny Cunningham DO [address] [place] [address] PCP - General Family Medicine 10/03/11 documented as of this encounter
--- OUTSIDE RECORDS SUMMARY | 2024-11-19 12:21 | XMS_ITS | Encounter Summary ---
Author Organization [employer] [facility] Address [address] [facility] 7t [place] [address] Care Team Providers Care Technology Officer Name Role Phone Carolina Cunninghamfer Primary Care Provider + [phone] Reason for Referral * Consultation (Routine) - Closed Specialty Diagnoses / Procedures Referred By Contac t Referred To Contact Nutrition Diagnoses Fatty liver Obesity (BMI 30-39.9) Delilah Ayala MD [address] [place] [address] Phone: tel: fax: Referral ID Status Reason Start Date Expiration Date V isits Requested Visits Authorized [id number] Closed Specialty Services Required 04/03/2023 04/02/2024 1 1 Encounter Details Date Type Department Care Team (Late st Contact Info) Description 04/03/2023 Orders Only [facility] [address] [place], [place] [phone] Delilah Ayala MD [address] [place], [place] [phone] Fatty liver (Primary Dx); Obesity (BMI 30-39.9) [...] Info) Description 12/29/2024 9:00 AM EDT Immunization [facility] [address] [place] [address] 04/08/2025 9:00 AM EDT Office Visit [facility] ADULT D[facility]AL [address] [place] [address] Onel Tejeda Scheduled Referrals Name Type Priority Associated Diagnoses Orde r Schedule Referral to Nutrition Services Outpatient Referral Routine Fatty liver Obesity (BMI 30-39.9) Expected: 04/03/2023 (Approximate), Expires: 04/03/2024 documented as of this encounter Visit Diagnoses Diagnosis Fatty liver- Primary Other chronic nonalcoholic liver disease Obesity (BMI 30-39.9) documented in this encounter Care Teams Technology Officer Relationship Specialty Start Date End Date Jinny Cunningham DO [address] [place] [phone] PCP - General Family Medicine 10/03/11 documented as of this encounter
--- OUTSIDE RECORDS SUMMARY | 2024-11-19 12:21 | XMS_ITS | Encounter Summary ---
Author Organization [facility] Address [address] [place] [address] 7t [place] [address] Care Team Providers Care Data Center Consultant Name Role Phone Jinny Cunningham DO Primary Care Provider + [phone] Reason for Visit * Reason Onset Date Comments Referral 03/08/2023 Encounter Details Date Type Department Care Team (Late Contact Info) Description 03/08/2023 Telephone [facility] [address] [place], [place] [phone] Jinny Cunningham DO [address] [place] [address] Referral Social History Tobacco Use Types Packs/Day [...] from pt requesting status on referral to early head start teacher. Please contact pt at [phone] (Kyrgyz) documented in this encounter Plan of Treatment Upcoming Encounters Date Type Department Care Team (Late Contact Info) Description 12/29/2024 9:00 AM EDT Immunization [facility] [address] [place] [address] 04/08/2025 9:00 AM EDT Office Visit [facility] ADULT [facility] [address] [place] [address] Onel Tejeda documented as of this encounter Visit Diagnoses Not on filedocumented in this encounter Care Teams Data Center Consultant Relationship Specialty Start Date End Date Jinny Cunningham DO [address] [place] [address] PCP - General Family Medicine 10/03/11 documented as of this encounter
--- OUTSIDE RECORDS SUMMARY | 2024-11-19 12:21 | XMS_ITS | Clinical Summary ---
Author Organization [email or web address] Address [address] [facility] 7t [place] [address] Care Team Providers Care Plate Shop Helper Name Role Phone YolandaJinny salas Primary Care Provider + [phone] Allergies No known active allergies Medications magnesium [...] (eight) hours. 40 tablet 1 4 Active triamcinolone (Kenalog) 0.1 % ointment [...] BY MOUTH TWICE A DAY 60 tablet 4 Active Diclofenac Sodium 1 % gel Apply 2 g topically if needed in the morning, at noon, in the evening, and at bedtime (pain). 150 g 3 5 Active Tirzepatide-Dwight ght Management (Zepbound) 2.5 MG/0.5ML solution auto-injectorIn dications:BMI 35.0-35.9,adult Inject 0.5 mL (2.5 mg) under the skin 1 (one) time per week. 2 mL 3 5 Active Active Problems Problem Noted Date Diagnosed [...] Encounters Date Type Department Care Team Description 11/04/2024 Telephone [facility] [address] [place] [phone] Jinny Cunningham DO Referral 10/15/[address] [address] Jinny Cunningham DO Medication Question 10/08/2024 9:00 AM EST Office Visit [facility] ADULT D[facility] [address] [place] [address] EugeniaHilary escalantericio 10/08/2024 8:00 AM EST Office Visit [facility] ADULT D[facility]AL [address] [place] [address] EugeniaHilary escalantericio Dental calculus (Primary Dx) 10/03/2024 9:15 AM EST Office Visit [address] [address] Jinny Cunningham DO Prediabetes (Primary Dx); Fatty liver; Chronic gastroesophageal reflux disease; Obstructive sleep apnea; Chronic bilateral low back pain, unspecified whether sciatica present; Abnormal mammogram; Chronic left shoulder pain; Chest pain, unspecified type; BMI 35.0-35.9,adult; Healthcare maintenance; Encounter for immunization; Dietary counseling; Exercise counseling 10/03/2024 Telephone [facility] [address] [place] [address] Jinny Cunningham DO Results 10/03/2024 Travel 10/02/2024 Travel 09/26/2024 Travel 09/04/2024 Travel 09/04/2024 Telephone [facility] [address] [place] [address] Jinny Cunningham DO Recall Follow Up (Follow up for Labs Result) 09/04/2024 Orders Only GENERIC EXTERNAL DATA DEPARTMENT Provider, Generic External Data from Last 3 Months Immunizations Name Administration [...] Info) Description 12/29/2024 9:00 AM EDT Immunization [facility] [address] [place] [address] 04/08/2025 9:00 AM EDT Office Visit [facility] ADULT [facility] [address] [place] [address] Onel Tejeda Health Maintenance Due Date Last [...] 10/03/2025 10/03/2024 Depression Screening 10/03/2025 10/03/2024, 10/03/19 SDOH Screening 10/03/2025 10/03/2024 Tobacco Screening 10/08/2025 10/08/2024 Dental X-Ray: Bitewings 10/09/2025 10/08/19, 09/21/2023, 08/31/2020 Cervical Cancer Screening 06/08/2026 Pap Smear 06/08/2026 06/08/2023, 06/25/2020 Dental X-Ray: Full Mouth 09/22/2026 09/21/2023, 08/20 HPV/Cotest 06/08/2028 06/08/2023, 11/0 01/2020, 05/03/2016 Colonoscopy 03/09/2032 03/09/2022, 01/02/2019 Colorectal Cancer [...] AM EST Full PROPHYLAXIS - ADULT Routine 10/08/2024 8:00 AM EST CASE PRESENTATION, [...] BINDING CAPACITY Routine 09/04/2024 9:26 AM EST HIV 1/2 ANTIGEN/ANTIBODY, FOURTH GENERATION W/RFL Routine 08/07/2024 10:28 AM EST HEMOGLOBIN A1C Routine 08/07/2024 10:28 AM EST BI MAMMOGRAM [...] of2 resultswithin the time period is included. Pathologist [facility] Iron 105 30 - 160 mcg/dL [facility] Total Iron Binding Capacity 237 228 - 428 mcg/dL [facility] Percent Iron Saturation 44 15 - 50 % [facility] Unsaturated Iron Binding 132 ug/dL [facility] Blood Venous blood specimen / Unknown 10/03/2024 10:58 AM EST 10/03/2024 1:10 PM EST us Jinny Cunningham DO LAB BLOOD ORDERABLES Final R esult Performing Organization Address City/State/[facility] Co de Phone Number [facility] [address] [place] [phone] * CBC (10/03/2024 10:58 AM EST) [facility] White Blood Count 8.1 4.8 - 10.8 X10*3/uL [facility] Red Blood Count 4.98 4.20 - 5.50 X10*6/uL [facility] Hemoglobin 15.1 12.0 - 16.0 g/dl [facility] Hematocrit 45.4 37.0 - 47.0 % [facility] Mean Corpuscular Volume 91.2 80.0 - 98.0 fL [facility] Mean Corpuscular Hemoglobin 30.3 27.0 - 33.0 pg [facility] Mean Corpuscular HGB Conc 33.3 31.0 - 35.0 g/dl [facility] Red Cell Distribution Width 13.3 11.0 - 16.0 % [facility] Platelet Count 202 160 - 400 X10*3/uL [facility] Mean Platelet Volume 11.9 9.4 - 12.3 fL [facility] NRBC Pct Auto 0.0 0.0 - 0.2 /100WBC [facility] NRBC Abs Auto 0.000 0.0 - 0.012 X10*3/uL [facility] Blood Venous blood specimen / Unknown 10/03/2024 10:58 AM EST 10/03/2024 1:10 PM EST Jinny Cunningham DO LAB BLOOD ORDERABLES Final R esult Performing Organization Address City/[facility]/ZIP Co de Phone Number [facility] [address] [place] [phone] * Ferritin (10/03/2024 10:58 AM EST) Only the most recent of2 resultswithin the time period is included. Pathologist [facility] Ferritin 209 10 - 250 ng/mL [facility] Blood Venous blood specimen / Unknown 10/03/2024 10:58 AM EST 10/03/2024 1:10 PM EST Jinny Cunningham DO LAB BLOOD ORDERABLES Final R esult Performing Organization Address City/[facility]/ZIP Co de Phone Number [facility] [address] [place] [phone] * (ABNORMAL) Hepatic Function Panel (10/03/2024 10:58 AM EST) Bilirubin, Total 0.5 0.0 - 1.0 mg/dL [facility] Bilirubin, Direct 0.2 0.0 - 0.5 mg/dL [facility] Aspartate Amino Transferase 85(H) 5 - 31 U/L [facility] Alanine Aminotransferase 98(H) 0 - 31 U/L [facility] Total Protein 7.9 6.5 - 8.0 g/dL [facility] Albumin Level 4.1 3.5 - 5.0 g/dL [facility] Alkaline Phosphatase 144(H) 39 - 117 U/L [facility] Blood Venous blood specimen / Unknown 10/03/2024 10:58 AM EST 10/03/2024 1:10 PM EST us Jinny Cunningham DO LAB BLOOD ORDERABLES Final R esult [facility] [address] [place] [phone] * XR Shoulder 2+ Views Left (10/03/2024 10:37 AM EST) Anatomical Region Laterality Modality Upper Extremities, Shoulder Left Radi ographic Imaging 10/03/2024 10:3 7 AM EST Narrative 10/03/2024 12:29 PM EST ?[facility] ?[address] ?[place] [address] ?XRay Report ? Signed ? Patient: Nae Pulido ?MR#: [id number] ?? [id number] ? : 1965 ?Acct:[id number] ? Age/Sex: 59 / F ?ADM Date: 10/03/24 ? Loc: HO.HHCX ? Attending Dr: Jinny Cunningham DO ? Ordering Physician: Jinny Cunningham DO ?? Date of Service: 10/03/24 ?? Procedure(s): XR shoulder LT min 2V ?? Accession Number(s): [id number] ? cc: Jinny Cunningham DO ? EXAMINATION: [...] DD/ 1037 ? TD/TT: 10/03/24 1100 ? Termite Control Representative: ? Procedure Note Donotuseinterpreter, Image - 10/03/[address] [address] XRay Report Signed Patient: Carina Pulido#: [id number] : 1965Acct:[id number] Age/Sex: 59 / FADM Date: 10/03/24 Loc: HO.HHCX Attending Dr: Jinny Cunningham DO Ordering Physician: Jinny Cunningham DO Date of Service: 10/03/24 Procedure(s): XR shoulder LT min 2V Accession Number(s): [id number] cc: Jinny Cunningham DO EXAMINATION: XR SHOULDER [...] 10/03/24 1225 DD/ 1037 TD/TT: 10/03/24 1100 Termite Control Representative: Jinny Cunningham DO IMG XR PROCEDURES Edited Res ult - Final * Hereditary Hemochromatosis DNA Mutation Analysis (09/04/2024 9:26 AM EST) Hereditary Hemochromatosis DNA Mutation See Below [facility] Comment: 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 This patient is negative for ekiE40A pathogenic variant. Individuals with this genotype mayhave [...] submitted clinical informationreviewed by Krystyna Presley, Ph.D., [facility], [facility].DETAILED ASSAY INFORMATION: Hereditary hemochromatosis (HH)is an [...] pathogenic variants inthe HFE gene, C282Y (NM 658732.2: c.845G>A, p.Vgv939Mvq) asgU94G (NM 205650.2: c.187C>G, p.Qjn46Zeh), that are commonlyassociated with HH. These variants [...] laboratorydata.Health care providers, please contact your local [facility] genetic counselor or call [phone]( ) for assistance with the interpretation ofthese results.This test was developed and its analytical performancecharacteristics have been determined by [facility]. It has not beencleared or approved by FDA. This assay has been validatedpursuant to the CLIA regulations and is used for clinicalpurposes.For more information, please refer tohttp://education.DigitalMR/faq/hemochromatosis.(This link is being provided for informational/educationalpurposes only.)A portion of the testing was performed at [facility].Reviewed and signed by Laboratory results and submittedclinical information reviewed by Krystyna Presley, Ph.D., [facility], Signed on 09/15/19 25 at 06:20THIS TEST WAS PERFORMED AT:[employer] [id number] [facility], [place] ??[id number] FUNK MD,PHD,TEJAS 09/04/2024 9:26 AM EST 09/04/2024 9:26 AM EST us Generic External Data Provider LAB BLOOD ORDERAB LES Final Result [facility] [address] [place] [phone] * HIV-1/2 Antigen and Antibodies, Fourth Generation, with Reflexes (08/07/2024 10:28 AM EST) HIV AB/AG Nonreactive Nonreactive [facility] Comment:HIV-1 p24 Ag and/or HIV-1/HIV-2 Ab not detected.A test result that is nonreactive does not exclude thepossibility of exposure to or infection with HIV-1 and/orHIV-2. Nonreactive results in this assay for individualswith prior exposure to HIV-1 and/or HIV-2 may be due toantigen and antibody levels that are below the limit ofdetection of this assay.The Fullbridge HIV Ag/Ab Combo assay result andsupplemental assay results should be interpreted inconjunction with the patient's clinical presentation,history and other laboratory results. If the results areinconsistent with clinical evidence, additional testing issuggested to confirm the result. 08/07/2024 10:2 8 AM EST 08/07/2024 10:36 AM EST Generic External Data Provider LAB BLOOD ORDERAB LES Final Result Performing Organization Address [facility] Co de Phone Number [facility] [address] [place] [phone] * (ABNORMAL) Hemoglobin A1c (08/07/2024 10:28 AM EST) Hemoglobin A1c 6.3(H) <6.0 % [facility] Comment:Hemoglobin A1C Refer ence Range Adults: 4.8 - 6.0 % Non diabetic: < 6.0 % Goal: < 7.0 %Additional Action Suggested: > 8.0 %Note: Hemoglobin A1c results are invalid for patients with abnormal amounts of HbF. Blood transfusions may impact the HbA1c concentration in the patient sample. Estimated Average Glucose 134 mg/dL [facility] Comment:eAG = Estimated ave rage glucose which is %A1C expressed asaverage glucose, using the formula of the T5J-UtconmqUcbrmke Glucose study (ADAG), Diabetes Care, Vol.31,#8,Mar. 2007 08/07/2024 10:2 8 AM EST 08/07/2024 10:36 AM EST [employer] External Data Provider LAB BLOOD ORDERAB LES Final Result Performing Organization Address [facility] Co de Phone Number [facility] [address] [place] [phone] * BI Mammogram Diagnostic Tomosynthesis Left (05/27/2024 8:32 AM EDT) Anatomical Region Laterality Modality Breast Left Mammography 05/27/2024 8:32 AM EDT Narrative 05/27/2024 11:00 AM EDT ? [place] [facility] ? [address] ?[place] [address] ? Mammography Report ? Signed with Addenda ? Patient: Jason Demian,Nae ?MR#: [id number] ?? [id number] ? : 1965 ?Acct:[id number] ? Age/Sex: 58 / F ?ADM Date: 05/27/24 ? Loc: HO.MAMMO ? Attending Dr: Domenico Flores MD ? Ordering Physician: Domenico Flores MD ?Results: ? Date of Service: 05/27/24 ?Follow Up: ? Procedure(s): MM tomosynthesis diagnostic LT ?? Accession Number(s): [id number] ? cc: Jinny Cunningham DO; Domenico Flores [...] ? DD/ 1 ? TD/TT: 05/27/24917 ? Termite Control Representative: ? Procedure Note Kendal, Amilcar - 06/12/2024 [facility] [address] [place], [place] [address] Mammography Report Signed with Addenda Patient: Carina Pulido#: [id number] : 1965Acct:[id number] Age/Sex: 58 / FADM Date: 05/27/24 Loc: HORavenMAMMO Attending Dr: Domenico Flores MD Ordering Physician: Domenico Floresesults: Date of Service: 05/27/24Follow Up: Procedure(s): MM tomosynthesis diagnostic LT Accession Number(s): [id number] cc: Jinny Cunningham DO; Domenico Flores MD [...] targeted area with a 14G spring loaded Tidal Lab[employer]a core biopsy device. There was real-time confirmation [...] 05/27/24 1057 DD/ 0832 TD/TT: 05/27/24 0918 Termite Control Representative: [facility] External Provider IMG BI PROCEDURES Edited Result - Final * Hepatitis C Antibody with Reflex to HCV, RNA, Quantitative, Real-Time PCR (12/28/2023 8:42 AM EDT) Hepatitis C Antibody Nonreactive Nonreactive [facility] Comment:Antibodies to HCV no t detected; does not exclude early acuteHCV infection. Blood Venous blood specimen / Unknown 12/28/2023 8:42 AM EDT 12/28/2023 11:28 AM EDT Jinny Cunningham DO LAB BLOOD ORDERABLES Final R esult [facility] [address] [place] [phone] * HPV mRNA E6/E7 w/Reflex to HPV Genotypes 16, 18/45 (06/08/2023 11:45 AM EDT) HPV nRNA E6/E7 Not Detected Not Detected [facility] Comment:Methodology: Transcr iption-Mediated AmplificationThis assay detects E6/E7 viral messenger RNA (mRNA) from 14high-risk HPV types (16,18,31,33,35,39,45,51,52,56,58,59,66,68).Cervical sources are required for HPV testing.If a vaginal source from a patient who has had atotal hysterectomy with removal of cervix wassubmitted, please contact the testing laboratoryfor alternative testing options.For additional information, please refer tohttp://education.DigitalMR/faq/PRW269x7(This link if provided for information/educational purposes only.)THIS TEST WAS PERFORMED AT:[facility] [place] [phone] AVERY MD HPV mRNA E6/E7 TNP [facility] HPV 16 [facility] HPV 18/45 RNA [facility] 06/08/2023 11:4 5 AM EDT 06/11/2023 9:15 AM EDT us Jinny Cunningham DO LAB CYTOLOGY ORDERABLES Tahira longoria Result [facility] [address] [place] [phone] * Pap Smear (06/08/2023 11:45 AM EDT) 06/08/2023 11:4 5 AM EDT 06/11/2023 9:15 AM EDT Narrative [facility] - 06/14/2023 9:39 AM EDT ----- ------- Name: Nae Pulido ?Age/Sex: 57/F ? : 1965 Unit#: [id number] ?? Attend Dr: Jinny Cunningham DO ?Re06/08/23 ?Status: DEP REF ? Location: HO.HHCLNP ? Disch: ? ----- ------- SPEC : [id number] ?RECD: 06/11/23 ? STATUS: ??SOUT ? REQ NUM: [id number] ? ZION: 06/08/23 ? SUBM DR: Jinny Cunningham DO ? ENTERED: ??06/11/232 ?SP TYPE: Pap Smr ?OTHR : ? [...] 66, 68) ?? HPV testing performed by [employer] [facility], [place], [place]. ??See reference laboratory ?? pion of the EMR for entire report. ?Clinical Information LMP: Unknown date Previous PAP test: Unknown date, WNL ? Material Received ?? ThinPrep-Cervical ----- ------- Signed (signature on file) SRAVAN Sanches (ASCP) 06/14/23 0939 ? ----- ------- ? END OF REPORT ? us Jinny Cunningham DO LAB CYTOLOGY ORDERABLES Tahira von Result [facility] [address] [place] [phone] * Hm Colonoscopy (03/09/2022 10:01 AM EDT) us Historical Provider MD HEALTH MAINTENANCE Final Result from Last 3 Months or Most Recently Relevant to Health Maintenance [place] [address] [facility]ICAID) Care Teams Plate Shop Helper Relationship Specialty Start Date End Date Jinny Cunningham DO [address] [place] [phone] PCP - General Family Medicine 10/03/11
--- OUTSIDE RECORDS SUMMARY | 2024-11-19 12:21 | XMS_ITS | Encounter Summary ---
Author Organization [employer] [facility] Address [address] [place] [address] 7t [place] [address] Care Team Providers Care Missing Persons Investigator Name Role Phone Jinny Cunningham DO Primary Care Provider + [phone] Reason for Visit * Reason Onset Date Comments Appointment Request 09/21/2023 Encounter Details Date Type Department Care Team ([facility] Contact Info) Description 09/21/2023 Telephone [facility] [address] [place], [place] [phone] Jinny Cunningham DO [address] [place] [address] Appointment Request Social History Tobacco Use Types [...] call from last appt to schedule however customs entry writer does not see anything on patients chart documented in this encounter Plan of Treatment Upcoming Encounters Date Type Department Care Team ([facility] st Contact Info) Description 12/29/2024 9:00 AM EDT Immunization [facility] [address] [place] [address] 04/08/2025 9:00 AM EDT Office Visit [facility] ADULT [facility] [address] [place] [address] Onel Tejeda documented as of this encounter Visit Diagnoses Not on filedocumented in this encounter Care Teams Missing Persons Investigator Relationship Specialty Start Date End Date Jinny Cunningham DO [address] [place] [address] PCP - General Family Medicine 10/03/11 documented as of this encounter
--- OUTSIDE RECORDS SUMMARY | 2024-11-19 12:21 | XMS_ITS | Encounter Summary ---
Author Organization [employer] [facility] Address [address] [place] [address] 7t [place] [address] Care Team Providers Care Cartographic Aide Name Role Phone Jinny Cunningham Primary Care Provider + [phone] Encounter Details Date Type Department Care Team (Late Contact Info) Description 11/29/2023 Orders Only [address] [phone] Provider, MD Roro Social History Tobacco Use [...] Info) Description 12/29/2024 9:00 AM EDT Immunization [facility] [address] [place] [phone] 04/08/2025 9:00 AM EDT Office Visit [facility] ADULT DENTAL [address] [place] [address] Onel Tejeda documented as of this encounter [...] on filedocumented in this encounter Care Teams Cartographic Aide Relationship Specialty Start Date End Date Jinny Cunningham DO [address] [place] [phone] PCP - General Family Medicine 10/03/11 documented as of this encounter
--- OUTSIDE RECORDS SUMMARY | 2024-11-19 12:21 | XMS_ITS | Encounter Summary ---
Author Organization [email or web address] [facility] Address [address] [place] [address] 7t [place] [address] Care Team Providers Care Coach Name Role Phone Jinny Cunningham DO Primary Care Provider + [phone] Encounter Details Date Type Department Care Team (Latest Contact Info) Description 08/31/2020 Abstract [facility] CONVERSIONS Dental, Provider, DDS Social History [...] Info) Description 12/29/2024 9:00 AM EDT Immunization [facility] [address] [place] [address] 04/08/2025 9:00 AM EDT Office Visit [facility] ADULT DENTAL [address] [place] [address] Onel Tejeda documented as of this encounter Visit Diagnoses Not on filedocumented in this encounter Care Teams Coach Relationship Specialty Start Date End Date Jinny Cunningham DO [address] [place] [address] PCP - General Family Medicine 10/03/11 documented as of this encounter
--- OUTSIDE RECORDS SUMMARY | 2024-11-19 12:21 | XMS_ITS | Encounter Summary ---
Author Organization [employer] [facility] Address [address] [facility] 7t [place] [address] Care Team Providers Care Construction Project Mgr Name Role Phone Jinny Cunningham DO Primary Care Provider + [phone] Reason for Visit * Reason Onset Date Comments Nurse Triage 02/15/2024 Encounter Details Date Type Department Care Team ([facility] st Contact Info) Description 02/15/2024 Telephone [facility] MEDICINE [address] [place], [place] [phone] Jinny Cunningham DO [address] [place] [address] Nurse Triage Social History Tobacco Use Types [...] 12/29/2024 9:00 AM EDT Immunization [facility] MED[facility]INE [address] [place] [address] 04/08/2025 9:00 AM EDT Office Visit [facility] ADULT DENTAL [address] [place] [address] Onel Tejeda documented as of this encounter Visit Diagnoses Not on filedocumented in this encounter Additional Health Concerns Assessment Noted Time PHQ-9 Depression Total Score: 6 12/21/19 24 10:44 AM EDT documented as of this encounter Care Teams Construction Project Mgr Relationship Specialty Start Date End Date Jinny Cunningham DO [address] [place] [phone] PCP - General Family Medicine 10/03/11 documented as of this encounter
--- OUTSIDE RECORDS SUMMARY | 2024-11-19 12:22 | XMS_ITS | Encounter Summary ---
Author Organization [facility] Address [address] [place] [address] Care Team Providers Care Gas Cutting Machine Operator Name Role Phone Jinny Cunningham DO Primary Care Provider Unava ilable Encounter Details Date Type Department Care Team Description 02/15/2019 Lithographic Artist Report Medical Records [address] [place] [id number] Jinny Cunningham DO Social History Tobacco Use [...] on filedocumented in this encounter Care Teams Gas Cutting Machine Operator Relationship Specialty Start Date End Date Jinny Cunningham DO PCP - General Internal Medicine 12/12/18 documented as of this encounter
--- OUTSIDE RECORDS SUMMARY | 2024-11-19 12:22 | XMS_ITS | Clinical Summary ---
Author Organization [facility] Address [address] [place] [address] Care Team Providers Care Farm Machinery Erector Name Role Phone Jinny Cunningham DO Primary Care Provider Unava ilable Medications Medication Sig Dispensed Refills Start Date End Date Status omeprazole (PRILOSEC) 20 MG capsule Take 20 mg by mouth daily. 0 Active acetaminophen (TYLENOL) 650 MG CR tablet Take 650 mg by mouth every 8 hours as needed. 0 Active baclofen (LIORESAL) 10 MG tablet Take 10 mg by mouth 3 times daily. 0 Active Vitamins A & D (VITAMIN A & D OR) Take 3,000 Units by mouth. 0 Active Social History Tobacco Use Types Packs/Day Years Used Date Smoking Tobacco: Never Smokeless Tobacco: Never Alcohol Use Standard Drinks/Week Comments No 0 (1 standard drink = 0.6 oz pur e alcohol) Sex Assigned at Date Recorded Not on file Last Filed Vital Signs Vital Sign Reading Time Taken Comments Blood Pressure 110/70 01/15/2019 2:33 PM EDT Pulse 72 01/15/2019 2:33 PM EDT Temperature - - Respiratory Rate - - Oxygen Saturation - - Inhaled Oxygen Concentration - - Weight 93 kg (205 lb) 01/15/2019 2:33 PM EDT Height - - Body Mass Index - - Plan of Treatment Health Maintenance Due Date Last Done Comments Covid-19 Vaccine (#1) 1967 HEPATITIS C SCREENING 1985 DTAP/TDAP/TD (1 - Tdap) 1986 CHOLESTEROL SCREENING 1987 CERVICAL CANCER SCREENING 1988 BASELINE HEALTH EXAM 40-64 2007 MAMMOGRAM 2007 COLON CANCER SCREENING 2017 SHINGLES VACCINE (1 of 2) 2017 BMI CHECK/ADVISE 08/20/2024 DEPRESSION SCREENING/FOLLOWUP 08/20/2024 SOCIAL NEEDS SCREENING 08/20/2024 INFLUENZA (Season Ended) 2025 PNEUMOCOCCAL VACCINE FOR HIGH RISK PATIENTS (#1) 06/09 Care Teams Farm Machinery Erector Relationship Specialty Start Date End Date Jinny Cunningham DO PCP - General Internal Medicine 12/12/18
== END 2024-11-19 11:26 | disposition home or self-care (01) ==
LOC: HO.HOS 10:30
PROVIDERS: Visit Provider Physician Assistant
DX: M75.82 Other shoulder lesions, left shoulder (principal); M79.18 Myalgia, other site
CPT/HCPCS: 20610; 99203

== ENCOUNTER → 2024-11-19 10:30 | Outpatient (BNVA) | payer OTHER, SELFPAY | PROVIDERS: Visit Provider Physician Assistant | DX: M75.82 Other shoulder lesions, left shoulder (principal); M79.18 Myalgia, other site | CPT/HCPCS: 20610; 99202; J1010; J2003 ==

== ENCOUNTER 2024-12-29 09:53 | Outpatient (AMB) | payer OTHER, SELFPAY ==
--- OUTSIDE RECORDS SUMMARY | 2024-12-29 10:14 | XMS_ITS | Encounter Summary ---
Author Organization [employer] Address [address] 7[address] [place] [address] Care Team Providers Care Debridging Machine Operator Name Role Phone Marisa Jinny Primary Care Provider + [phone] Reason for Visit * Reason Comments Med Change Request Encounter Details Date Type Department Care Team ([facility] st Contact Info) Description 03/19/2024 Refill [facility] [address] [place] [address] Kristina Cid FNP [address] [place] [address] Social History Tobacco Use Types Packs/Day Years [...] Care Team (Late st Contact Info) Description 02/02/2025 9:15 AM EDT Office Visit [facility] MEDICINE [address] [place] [address] Mable Price MD [address] [place] [address] 04/08/2025 9:00 AM EDT Office Visit [facility] ADULT DENTAL [address] [place] [address] Onel Tejeda documented as of this encounter Visit Diagnoses Not on filedocumented in this encounter Additional Health Concerns Assessment Noted Time PHQ-9 Depression Total Score: 6 12/21/19 24 10:44 AM EDT documented as of this encounter Care Teams Debridging Machine Operator Relationship Specialty Start Date End Date Jinny Cunningham DO [address] [place] [phone] PCP - General Family Medicine 10/03/11 documented as of this encounter
--- OUTSIDE RECORDS SUMMARY | 2024-12-29 10:14 | XMS_ITS | Clinical Summary ---
Author Organization [facility] Address [address] [place] [address] Care Team Providers Care Foster Care Worker Name Role Phone Jinny Cunningham DO Primary [...] HIGH RISK PATIENTS (#1) 06/09 Care Teams Foster Care Worker Relationship Specialty Start Date End Date Jinny Cunningham DO PCP - General Internal Medicine 12/12/18
--- OUTSIDE RECORDS SUMMARY | 2024-12-29 10:14 | XMS_ITS | Encounter Summary ---
Author Organization [employer] Address [address] [facility] 7t [place] [address] Care Team Providers Care Digital Imaging Technician Name Role Phone Jinny Cunningham Primary Care Provider + [phone] Encounter Details Date Type Department Care Team (Late st Contact Info) Description 11/29/2023 Orders Only [facility] MEDICINE [address] [place] [phone] ProviderRoro MD Social History Tobacco Use Types Packs/Day Years [...] Description 02/02/2025 9:15 AM EDT Office Visit [facility] MEDICINE [address] [place] [address] Mable Price MD [address] [place] [address] 04/08/2025 9:00 AM EDT Office Visit [facility] CHC ADULT DENTAL [address] [place] [address] Onel Tejeda documented as of this encounter Procedures Procedure Name Priority Date/Time Associated Diagnosis Comments COLONOSCOPY Routine 03/09/2022 10:01 AM EDT HM COLONOSCOPY Routine 01/02/2019 9:59 AM EDT documented in this encounter Results * Hm Colonoscopy (03/09/2022 10:01 AM EDT) us Historical Provider HEALTH MAINTENANCE Final Result * Hm Colonoscopy (01/02/2019 9:59 AM EDT) us Historical Provider HEALTH MAINTENANCE Final Result documented in this encounter Visit Diagnoses Not on filedocumented in this encounter Care Teams Digital Imaging Technician Relationship Specialty Start Date End Date Jinny Cunningham DO [address] [place] [phone] PCP - General Family Medicine 10/03/11 documented as of this encounter
--- OUTSIDE RECORDS SUMMARY | 2024-12-29 10:14 | XMS_ITS | Encounter Summary ---
Author Organization [employer] Address [address] [facility] [address] [place] [address] Care Team Providers Care Paper Handler Name Role Phone Jinny Cunningham DO Primary Care Provider + [phone] Encounter Details Date Type Department Care Team (Latest Contact Info) Description 08/31/2020 Abstract [facility] CONVERSIONS Dental, Provider, DDS Social History Tobacco [...] Description 02/02/2025 9:15 AM EDT Office Visit [facility] MEDICINE [address] [place] [address] Mable Price MD [address] [place] [address] 04/08/2025 9:00 AM EDT Office Visit [facility] ADULT DENTAL [address] [place] [address] Onel Tejeda documented as of this encounter Visit Diagnoses Not on filedocumented in this encounter Care Teams Paper Handler Relationship Specialty Start Date End Date Jinny Cunningham DO [address] [place] [address] PCP - General Family Medicine 10/03/11 documented as of this encounter
--- OUTSIDE RECORDS SUMMARY | 2024-12-29 10:14 | XMS_ITS | Encounter Summary ---
Author Organization [employer] Address [address] [facility] 7t [place] [address] Care Team Providers Care Solar Project Manager Name Role Phone Jinny Cunningham DO Primary Care Provider + [phone] Encounter Details Date Type Department Care Team (Late st Contact Info) Description 12/13/2022 Orders Only [facility] MED & PEDS [address] [place] [address] Jinny Reynolds LPN Social History Tobacco Use [...] Description 02/02/2025 9:15 AM EDT Office Visit [facility] MEDICINE [address] [place] [address] Mable Price MD [address] [place], [place] [phone] 04/08/2025 9:00 AM EDT Office Visit [facility] ADULT DENTAL [address] [place] [address] Onel Tejeda documented as of this encounter Visit Diagnoses Not on filedocumented in this encounter Care Teams Solar Project Manager Relationship Specialty Start Date End Date Jinny Cunningham DO [address] [place] [address] PCP - General Family Medicine 10/03/11 documented as of this encounter
--- OUTSIDE RECORDS SUMMARY | 2024-12-29 10:14 | XMS_ITS | Encounter Summary ---
Author Organization [employer] Address [address] [place] [address] Care Team Providers Care Coat Examiner Name Role Phone MarkyJinny canchola Primary Care Provider + [phone] Encounter Details Date Type Department Care Team (Latest Contact Info) Description 12/29/2024 Travel Social History Tobacco Use Types Packs/Day [...] Description 02/02/2025 9:15 AM EDT Office Visit [facility] MEDICINE [address] [place] [phone] Mable Price MD [address] [place] [address] 04/08/2025 9:00 AM EDT Office Visit [facility] CHC ADULT DENTAL [address] [place] [address] Onel Tejeda documented as of this encounter Visit Diagnoses Not on filedocumented in this encounter Additional Health Concerns Assessment Noted Time PHQ-9 Depression Total Score: 0 10/03/19 25 9:21 AM EST documented as of this encounter Care Teams Coat Examiner Relationship Specialty Start Date End Date Jinny Cunningham DO [address] [place] [address] PCP - General Family Medicine 10/03/11 documented as of this encounter
--- OUTSIDE RECORDS SUMMARY | 2024-12-29 10:14 | XMS_ITS | Encounter Summary ---
Author Organization [employer] Address [address] [facility] 7t [place] [address] Care Team Providers Care Supervisor Pastry Name Role Phone Jinny Cunningham DO Primary Care Provider [phone] Reason for Referral * Consultation (Routine) - Closed Specialty Diagnoses / Procedures Referred By Contac t Referred To Contact Nutrition Diagnoses Fatty liver Obesity (BMI 30-39.9) Delilah Ayala MD [address] [place] [address] Phone: tel: fax: Referral ID Status Reason Start Date Expiration Date V isits Requested Visits Authorized [id number] Closed Specialty Services Required 04/03/2023 04/02/2024 1 1 Encounter Details Date Type Department Care Team (Late st Contact Info) Description 04/03/2023 Orders Only [facility] MEDICINE [address] [place], [place] [phone] Delilah Ayala MD [address] [place], [place] [phone] Fatty liver (Primary Dx); Obesity (BMI 30-39.9) [...] Description 02/02/2025 9:15 AM EDT Office Visit [facility] MEDICINE [address] [place] [address] Mable Price MD [address] [place] [address] 04/08/2025 9:00 AM EDT Office Visit [facility] CHC ADULT DENTAL [address] [place] [address] Onel Tejeda Scheduled Referrals Name Type Priority Associated Diagnoses Orde r Schedule Referral to Nutrition Services Outpatient Referral Routine Fatty liver Obesity (BMI 30-39.9) Expected: 04/03/2023 (Approximate), Expires: 04/03/2024 documented as of this encounter Visit Diagnoses Diagnosis Fatty liver- Primary Other chronic nonalcoholic liver disease Obesity (BMI 30-39.9) documented in this encounter Care Teams Supervisor Pastry Relationship Specialty Start Date End Date Jinny Cunningham DO [address] [place] [address] PCP - General Family Medicine 10/03/11 documented as of this encounter
--- OUTSIDE RECORDS SUMMARY | 2024-12-29 10:14 | XMS_ITS | Clinical Summary ---
Author Organization [employer] Address [address] [employer] [employer] [address] [employer] [address] [place] [address] Care Team Providers Care Appointment Specialist Name Role Phone MarisaJinny Primary Care Provider + [phone] Allergies No known active allergies Medications magnesium oxide (Mag-Ox) 400 (240 Mg) MG tablet Take 400 mg by mouth in the morning. 03/11/20 23 Active methocarbamol (Robaxin) 750 MG tablet Take 1 tablet (750 mg) by mouth if needed in the morning and at bedtime for muscle spasms. 60 tablet 1 12/21/19 24 Active acetaminophen (Tylenol 8 Hour) 650 MG ER tablet Take 1 tablet (650 mg) by mouth every 8 (eight) hours. 40 tablet 1 12/21/19 24 Active triamcinolone (Kenalog) 0.1 % ointment Apply topically if needed in the morning and at bedtime for rash (and itching). 30 g 1 12/21/19 24 Active naproxen (Naprosyn) 500 MG tablet [...] week. 2 mL 3 10/03/19 25 Active omeprazole (PriLOSEC) [address] capsule TAKE 1 CAPSULE (40 MG) BY MOUTH BEFORE BREAKFAST 90 capsule 1 12/02/19 25 Active lidocaine (Lidoderm) 5 % patch Apply 2 patches topically Once per day. Remove & discard patch within 12 hours or as directed by . 60 patch 3 12/21/19 24 025 omeprazole (PriLOSEC) [address] capsule TAKE 1 CAPSULE (40 MG) BY MOUTH BEFORE BREAKFAST 90 capsule 1 06/05/20 24 025 Discontinued meclizine (Antivert) 25 MG tablet Take 1 tablet (25 mg) by mouth if needed in the morning, at noon, and at bedtime for dizziness for up to 10 days. 30 tablet 12/12/19 25 025 Active Problems Problem Noted Date Diagnosed Date Vertigo 12/11/2024 Assessment & Plan (12/11/2024 9:06 AM EDT): EKG was normal as well as RBS. Start meclizine 25 mg 2-3 times per day as needed vertigo. Discussed with her regarding side effects including sedation and occasional palpitations. I advised to take 1 or 2 days off work Reminded her to remain hydrated, to have small infection meals and follow-up with PCP Reconsult as needed worsening of symptoms, new onset of severe headache, visual changes or worsening chest pain Healthcare maintenance 10/03/2024 Obstructive sleep apnea 01/20/2024 [...] Encounters Date Type Department Care Team Description 12/29/2024 9:30 AM EDT Clinical Support [address] [address] Diane De León RN Encounter for immunization 12/29/2024 Travel 12/22/2024 Travel 12/18/[address] [address] Jinny Cunningham DO Appointment Confirmation 12/16/2024 Travel 12/11/2024 9:00 AM EDT Office Visit [facility] [address] [address] Adrianna Bonilla MD Fatty liver (Primary Dx); Vertigo; Dizziness 12/11/2024 Telephone [facility] [address] [address] Adrianna Bonilla MD Nurse Triage 12/11/2024 Travel 12/09/[address] [address] Jinny Cunningham DO Lab Orders 11/29/[address] [address] Jinny Cunningham DO 11/04/[address] [address] Jinny Cunningham DO Referral 10/15/[address] [address] Jinny Cunningham DO Medication Question 10/08/2024 9:00 AM EST Office Visit [facility] [address] [place] [address] Eugenia, James 10/08/2024 8:00 AM EST Office Visit [facility] [address] [place] [address] EugeniaHilary escalantericio Dental calculus (Primary Dx) 10/03/2024 9:15 AM EST Office Visit [address] [address] Jinny Cunningham DO Prediabetes (Primary Dx); Fatty liver; Chronic gastroesophageal reflux disease; Obstructive sleep apnea; Chronic bilateral low back pain, unspecified whether sciatica present; Abnormal mammogram; Chronic left shoulder pain; Chest pain, unspecified type; BMI 35.0-35.9,adult; Healthcare maintenance; Encounter for immunization; Dietary counseling; Exercise counseling 10/03/2024 Telephone [facility] [address] [place] [address] Jinny Cunningham DO Results 10/03/2024 Travel 10/02/2024 Travel from Last 3 Months Immunizations Name Administration Dates Next Due Hep A, Adult 03/26/2013,11/24/2011 Hep B, adult 12/29/2024,,06/30/2024,2012,04/16/2013,11/24/2011 Influenza injectable quadriv alent IIV4 with preservative [...] your housing situation today? I have moe sing 10/03/[address] you li [...] Sign Reading Time Taken Comments Blood Pressure 130/82 12/11/2024 8:57 AM EDT Pulse 69 12/11/2024 8:57 AM EDT Temperature 36.6 ??C (97.9 ??F) 12/11/2024 8:57 AM ED T Respiratory Rate 18 12/11/2024 8:57 AM EDT Oxygen Saturation 94% 12/11/2024 8:57 AM EDT Inhaled Oxygen Concentration - - Weight 95.7 kg (211 lb) 10/03/2024 9:18 AM EST Height 165.1 cm (5' 5 ) 10/03/2024 9:18 AM EST Body Mass Index 35.11 10/03/2024 9:18 AM EST Plan of Treatment Upcoming Encounters Date Type Department Care Team (Late st Contact Info) Description 02/02/2025 9:15 AM EDT Office Visit [facility] [address] [place] [address] Mable Price MD [address] [place] [address] 04/08/2025 9:00 AM EDT Office Visit [facility] [address] [place] [address] Onel Tejeda Health Maintenance Due Date Last Done Comments CT Colonography 1965 FIT DNA/Cologuard 1965 FIT 1965 FOBT 1965 Sigmoidoscopy 1965 Zoster Vaccines (1 of 2) 2017 COVID-19 Vaccine ( season) 2024 08/04/2021, 10/22/2020, 10/01/2020 Dental Oral Exam 04/08/2025 10/08/2024, , 09/21/2023, Additional history exists Dental Prophylaxis 04/08/2025 10/08/2024, 0 04/02/2024, 09/21/2023, Additional history exists Mammogram 05/27/2025 05/27/2024, 10/2023, 05/02/2024, Additional history exists Diabetes: Hemoglobin A1C 08/07/2025 024, 05/28/2024, 12/28/2023, Additional history exists Alcohol/Substance Use Screening 10/03/2025 10/03/2024 Depression Screening 10/03/2025 10/03/2024, 10/03/19 SDOH Screening 10/03/2025 10/03/2024 Tobacco Screening 10/08/2025 10/08/2024 Dental X-Ray: Bitewings 10/09/2025 10/08/19, 09/21/2023, 08/31/2020 Cervical Cancer Screening 06/08/2026 Pap Smear 06/08/2026 06/08/2023, 06/25/2020 Dental X-Ray: Full Mouth 09/22/2026 09/21/2023, 01/1 09/2020 HPV/Cotest 06/08/2028 06/08/2023, 11/0 01/2020, 05/03/2016 Colonoscopy [...] Completed 06/30/2024, , 05/30/2022, Additional history exists HIV Screening Completed 08/07/2024, 12/18, 11/08/2022, Additional history exists Pneumococcal Vaccine: 50+ Years Completed 10/03/2024 Hepatitis B Vaccines Completed 12/29/2024, 07/28/2024, 06/30/2024, Additional history exists HIB Vaccines Aged Out No longer eligi [...] Procedure Name Priority Date/Time Associated Diagnosis Comments ECG 12-LEAD Routine 12/11/2024 1:41 PM EDT Dizziness AMB REFERRAL TO ORTHOPAEDIC SURGERY Urgent 11/19/2024 Chronic left shoulder pain 18 AMALGAM - 3 SURF, PRIMARY OR [...] 10:37 AM EST Chronic left shoulder pain HIV 1/2 ANTIGEN/ANTIBODY, FOURTH GENERATION W/RFL Routine [...] Recently Relevant to Health Maintenance Results * ECG 12 lead (12/11/2024 1:41 PM EDT) Narrative Adrianna Bonilla MD - 12/11/2024 1:41 PM EDT NSR@64 bpm, normal axis. No ST/T abn. No ischemic changes Adrianna Bonilla MD ECG ORDERABLES Final Re sult * Referral to Orthopaedic Surgery (11/19/2024) Jinny Cunningham DO OUTPATIENT REFERRAL ORDERABL ES Final Result * Iron And Total Iron Binding Capacity (10/03/2024 10:58 AM EST) [facility] Iron 105 30 - 160 mcg/dL [facility] Total Iron Binding Capacity 237 228 - 428 mcg/dL [facility] Percent Iron Saturation 44 15 - 50 % [facility] Unsaturated Iron Binding 132 ug/dL [facility] Blood Venous blood specimen / Unknown 10/03/2024 10:58 AM EST 10/03/2024 1:10 PM EST Jinny Cunningham DO LAB BLOOD ORDERABLES Final R esult [facility] [address] [place] [phone] * CBC (10/03/2024 10:58 AM EST) [facility] White Blood Count 8.1 4.8 - 10.8 X10*3/uL [facility] Red Blood Count 4.98 4.20 - 5.50 X10*6/uL [facility] Hemoglobin 15.1 12.0 - 16.0 g/dl [facility] Hematocrit 45.4 37.0 - 47.0 % [facility] Mean Corpuscular Volume 91.2 80.0 - 98.0 fL [facility] Mean Corpuscular Hemoglobin 30.3 27.0 - 33.0 pg [facility] Mean Corpuscular HGB Conc 33.3 31.0 - 35.0 g/dl [facility] Red Cell Distribution Width 13.3 11.0 - 16.0 % [facility] Platelet Count 202 160 - 400 X10*3/uL [facility] Mean Platelet Volume 11.9 9.4 - 12.3 fL [facility] NRBC Pct Auto 0.0 0.0 - 0.2 /100WBC [facility] NRBC Abs Auto 0.000 0.0 - 0.012 X10*3/uL [facility] Blood Venous blood specimen / Unknown 10/03/2024 10:58 AM EST 10/03/2024 1:10 PM EST Jinny Cunningham LAB BLOOD ORDERABLES Final R esult Performing Organization Address City/[facility]/ZIP Co de Phone Number [facility] [address] [place] [phone] * Ferritin (10/03/2024 10:58 AM EST) Pathologist [facility] Ferritin 209 10 - 250 ng/mL [facility] Blood Venous blood specimen / Unknown 10/03/2024 10:58 AM EST 10/03/2024 1:10 PM EST Jinny Cunningham LAB BLOOD ORDERABLES Final R esult Performing Organization Address City/[facility]/ZIP Co de Phone Number [facility] [address] [place] [phone] * (ABNORMAL) Hepatic Function Panel (10/03/2024 10:58 AM EST) Bilirubin, Total 0.5 0.0 - 1.0 mg/dL [facility] Bilirubin, Direct 0.2 0.0 - 0.5 mg/dL [facility] Aspartate Amino Transferase 85(H) 5 - 31 U/L [facility] Alanine Aminotransferase 98(H) 0 - 31 U/L [facility] Total Protein 7.9 6.5 - 8.0 g/dL [facility] Albumin Level 4.1 3.5 - 5.0 g/dL [facility] Alkaline Phosphatase 144(H) 39 - 117 U/L [facility] Blood Venous blood specimen / Unknown 10/03/2024 10:58 AM EST 10/03/2024 1:10 PM EST us Jinny Marisa DO LAB BLOOD ORDERABLES Final R esult [facility] [address] [place] [address] [phone] * XR Shoulder 2+ Views Left (10/03/2024 10:37 AM EST) Anatomical Region Laterality Modality Upper Extremities, Shoulder Left Radi ographic Imaging 10/03/2024 10:3 7 AM EST Narrative 10/03/2024 12:29 PM EST ?[facility] ?[address] ?[place] [address] ?XRay Report ? Signed ? Patient: Jason DemianNae ?MR#: [id number] ?? [id number] ? : 1965 ?Acct:[id number] ? Age/Sex: 59 / F ?ADM Date: 10/03/24 ? Loc: HO.HHCX ? Attending Dr: Jinny Cunningham DO ? Ordering Physician: Jinny Cunningham DO ?? Date of Service: 10/03/24 ?? Procedure(s): XR shoulder LT min 2V ?? Accession Number(s): [id number] ? cc: Jinny Cunningham DO ? EXAMINATION: [...] 1037 ? TD/TT: 10/03/24 1100 ? Residential Solar Sales Consultant: ? Procedure Note Donsalaster, Image - 10/03/[address] [address] XRay Report Signed Patient: Carina Pulido#: [id number] : 1965Acct:[id number] Age/Sex: 59 / FADM Date: 10/03/24 Loc: HO.HHCX Attending Dr: Jinny Cunningham DO Ordering Physician: Jinny Cunningham DO Date of Service: 10/03/24 Procedure(s): XR shoulder LT min 2V Accession Number(s): [id number] cc: Jinny Cunningham DO EXAMINATION: XR SHOULDER [...] 1225 DD/ 1037 TD/TT: 10/03/24 1100 Residential Solar Sales Consultant: Jinny Cunningham DO IMG XR PROCEDURES Edited Res ult - Final * HIV-1/2 Antigen and Antibodies, Fourth Generation, with Reflexes (08/07/2024 10:28 AM EST) HIV AB/AG Nonreactive Nonreactive [facility] Comment:HIV-1 p24 Ag and/or HIV-1/HIV-2 Ab not detected.A test result that is nonreactive does not exclude thepossibility of exposure to or infection with HIV-1 and/orHIV-2. Nonreactive results in this assay for individualswith prior exposure to HIV-1 and/or HIV-2 may be due toantigen and antibody levels that are below the limit ofdetection of this assay.The [employer] HIV Ag/Ab Combo assay result andsupplemental assay results should be interpreted inconjunction with the patient's clinical presentation,history and other laboratory results. If the results areinconsistent with clinical evidence, additional testing issuggested to confirm the result. 08/07/2024 10:2 8 AM EST 08/07/2024 10:36 AM EST us Generic External Data Provider LAB BLOOD ORDERAB LES Final Result [facility] [address] [place] [phone] * (ABNORMAL) Hemoglobin A1c (08/07/2024 10:28 AM EST) Hemoglobin A1c 6.3(H) <6.0 % [facility] Comment:Hemoglobin A1C Refer ence Range Adults: 4.8 - 6.0 % Non diabetic: < 6.0 % Goal: < 7.0 %Additional Action Suggested: > 8.0 %Note: Hemoglobin A1c results are invalid for patients with abnormal amounts of HbF. Blood transfusions may impact the HbA1c concentration in the patient sample. Estimated Average Glucose 134 mg/dL [facility] Comment:eAG = Estimated ave rage glucose which is %A1C expressed asaverage glucose, using the formula of the Z1J-MtbahkxXerhmrm Glucose study (ADAG), Diabetes Care, Vol.31,#8,2007 08/07/2024 10:2 8 AM EST 08/07/2024 10:36 AM EST us Generic External Data Provider LAB BLOOD ORDERAB LES Final Result [facility] [address] [facility] [place] [address] [phone] * BI Mammogram Diagnostic Tomosynthesis Left (05/27/2024 8:32 AM EDT) Anatomical Region Laterality Modality Breast Left Mammography 05/27/2024 8:32 AM EDT Narrative 05/27/2024 11:00 AM EDT ? [facility] ? [address] ?[place] [address] ? Mammography Report ? Signed with Addenda ? Patient: Nae Pulido ?MR#: [id number] ?? [id number] ? : 1965 ?Acct:[id number] ? Age/Sex: 58 / F ?ADM Date: 05/27/24 ? Loc: HO.MAMMO ? Attending Dr: Domenico Flores MD ? Ordering Physician: Domenico Flores MD ?Results: ? Date of Service: 05/27/24 ?Follow Up: ? Procedure(s): MM tomosynthesis diagnostic LT ?? Accession Number(s): [id number] ? cc: Jinny Cunningham DO; Domenico Flores [...] signed by Karthik Patterson MD in OV> ?06/03/24920 ?? Addendum Cosigned By: ? DD/ /12/832 [...] signed by Karthik Patterson MD in OV> ?05/27/24 1057 ? DD/ 0832 ? TD/TT: 05/27/24 0918 ? Residential Solar Sales Consultant: ? Procedure Note Kendal, Amilcar - 06/12/2024 [facility] [address] [place] [address] Mammography Report Signed with Addenda Patient: Carina Pulido#: [id number] : 1965Acct:[id number] Age/Sex: 58 / FADM Date: 05/27/24 Loc: HO.MAMMO Attending Dr: Domenico Flores MD Ordering Physician: Domenico Floresesults: Date of Service: 05/27/24Follow Up: Procedure(s): MM tomosynthesis diagnostic LT Accession Number(s): [id number] cc: Jinny Cunningham DO; Domenico Flores MD [...] targeted area with a 14G spring loaded [employer] core biopsy device. There was real-time confirmation [...] Patterson MD in OV> 05/27/24 1057 DD/ TD/TT: 05/27/24 09 [employer]idential Solar Sales Consultant: [facility] External Provider IMG BI PROCEDURES Edited Result - Final * Hepatitis C Antibody with Reflex to HCV, RNA, Quantitative, Real-Time PCR (12/28/2023 8:42 AM EDT) Hepatitis C Antibody Nonreactive Nonreactive [facility] Comment:Antibodies to HCV no t detected; does not exclude early acuteHCV infection. Blood Venous blood specimen / Unknown 12/28/2023 8:42 AM EDT 12/28/2023 11:28 AM EDT Jinny Cunningham LAB BLOOD ORDERABLES Final R esult Performing Organization Address [facility] Co de Phone Number [facility] [address] [place] [address] [phone] * HPV mRNA E6/E7 w/Reflex to HPV Genotypes 16, 18/45 (06/08/2023 11:45 AM EDT) Pathologist [facility] HPV nRNA E6/E7 Not Detected Not Detected [facility] Comment:Methodology: Transcr iption-Mediated AmplificationThis assay detects E6/E7 viral messenger RNA (mRNA) from 14high-risk HPV types (16,18,31,33,35,39,45,51,52,56,58,59,66,68).Cervical sources are required for HPV testing.If a vaginal source from a patient who has had atotal hysterectomy with removal of cervix wassubmitted, please contact the testing laboratoryfor alternative testing options.For additional information, please refer tohttp://education.Soceaniq/faq/VYF944x6(This link if provided for information/educational purposes only.)THIS TEST WAS PERFORMED AT:[address] [place] [id number] AVERY MD HPV mRNA E6/E7 [facility] HPV 16 RNA [facility] HPV 18/45 RNA [facility] 06/08/2023 11:4 5 AM EDT 06/11/2023 9:15 AM EDT Jinny Cunningham DO LAB CYTOLOGY ORDERABLES Tahira l Result Performing Organization Address [facility]/ZIP Co de Phone Number [facility] [address] [place] [address] [phone] * Pap Smear (06/08/2023 11:45 AM EDT) 06/08/2023 11:4 5 AM EDT 06/11/2023 9:15 AM EDT Narrative [facility] - 06/14/2023 9:39 AM EDT ----- ------- Name: Nae Pulido ?Age/Sex: 57/F ? : 1965 Unit#: [id number] ?? Attend Dr: Jinny Cunningham DO ?Re06/08/23 ?Status: DEP REF ? Location: HO.HHCLNP ? Disch: ? ----- ------- SPEC : [id number] ?RECD: 06/11/23 ? STATUS: ??SOUT ? REQ NUM: [id number] ? ZION: 06/08/230 ? SUBM DR: Jinny Cunningham DO ? ENTERED: ??06/11/23 ?SP TYPE: Pap Smr ?OTHR DR: ? ORDERED: ??Pap Smear ? Interpretation ?? Satisfactory for evaluation. ?? Mild inflammation. ?? Negative for intraepithelial lesion or malignancy. ?HPV mRNA E6/E7: ?NOT DETECTED ? This assay detects E6/E7 viral messenger RNA (mRNA) from 14 high-risk HPV types (16, 18, ?? 31, 33, 35, 39, 45, 51, 52, 56, 58, 59, 66, 68) ?? HPV testing performed by [facility], [place], [place]. ??See reference laboratory ?? pion of the EMR for entire report. ?Clinical Information LMP: Unknown date Previous PAP test: Unknown date, WNL ? Material Received ?? ThinPrep-Cervical ----- ------- Signed (signature on file) SRAVAN Sanches (ASCP) 06/14/23 0939 ? ----- ------- ? END OF REPORT ? Jinny Cunningham DO LAB CYTOLOGY ORDERABLES Tahira l Result [facility] [address] [place] [phone] * Colonoscopy (03/09/2022 10:01 AM EDT) Historical Provider HEALTH MAINTENANCE Final Result from Last 3 Months or Most Recently Relevant to Health Maintenance [place] [place] [address] DENTAL - HSN PARTIAL (MEDICAID) Care Teams Appointment Specialist Relationship Specialty Start Date End Date Jinny Cunningham DO [address] [place] [phone] PCP - General Family Medicine 10/03/11
--- OUTSIDE RECORDS SUMMARY | 2024-12-29 10:14 | XMS_ITS | Encounter Summary ---
Author Organization [employer] Address [address] [facility] [address]t [place] [address] Care Team Providers Care Scrap Cutter Name Role Phone Jinny Cunningham DO Primary Care Provider + [phone] Reason for Visit * Reason Onset Date Comments Nurse Triage 02/15/2024 Encounter Details Date Type Department Care Team ([facility] st Contact Info) Description 02/15/2024 Telephone [facility] [address] [place], [place] [phone] Jinny Cunningham DO [address] [place] [address] Nurse Triage Social History Tobacco Use Types [...] Description 02/02/2025 9:15 AM EDT Office Visit [facility] [address] [place] [address] Mable Price MD [address] [place] [address] 04/08/2025 9:00 AM EDT Office Visit [facility] [address] [place] [address] Onel Tejeda documented as of this encounter Visit Diagnoses Not on filedocumented in this encounter Additional Health Concerns Assessment Noted Time PHQ-9 Depression Total Score: 6 12/21/19 24 10:44 AM EDT documented as of this encounter Care Teams Scrap Cutter Relationship Specialty Start Date End Date Jinny Cunningham DO [address] [place] [phone] PCP - General Family Medicine 10/03/11 documented as of this encounter
--- OUTSIDE RECORDS SUMMARY | 2024-12-29 10:14 | XMS_ITS | Encounter Summary ---
Author Organization [facility] Address [address] [place] [address] Care Team Providers Care Biblical Languages Professor Name Role Phone Jinny Cunningham DO Primary Care Provider Unava ilable Encounter Details Date Type Department Care Team Description 08/26/2019 Release of Information Medical Records [address] [place] [id number] Abstract, Provider Social History Tobacco Use Types [...] on filedocumented in this encounter Care Teams Biblical Languages Professor Relationship Specialty Start Date End Date Jinny Cunningham DO PCP - General Internal Medicine 12/12/18 documented as of this encounter
--- OUTSIDE RECORDS SUMMARY | 2024-12-29 10:14 | XMS_ITS | Encounter Summary ---
Author Organization [employer] Address [address] [place] [address] Care Team Providers Care Flavorings Compounder Name Role Phone MarkyJinny canchola Primary Care Provider + [phone] Encounter Details Date Type Department Care Team (Latest Contact Info) Description 12/29/2024 9:30 AM EDT Clinical Support [facility] [address] [place] [address] Diane De León RN Encounter for immunization Social History Tobacco Use [...] as of this encounter Progress Notes * Diane De León RN - 12/29/2024 9:30 AM EDT Patient medicated with 3rd Hep B vaccine. Patient tolerated well. documented in this encounter Plan of Treatment Upcoming Encounters Date Type Department Care Team (Late st Contact Info) Description 02/02/2025 9:15 AM EDT Office Visit [facility] [address] [place] [address] Mable Price MD [address] [place] [address] 04/08/2025 9:00 AM EDT Office Visit [facility] [address] [place] [address] Onel Tejeda documented as of this encounter Visit Diagnoses Diagnosis Encounter for immunization documented in this encounter Additional Health Concerns Assessment Noted Time PHQ-9 Depression Total Score: 0 10/03/19 25 9:21 AM EST documented as of this encounter Care Teams Flavorings Compounder Relationship Specialty Start Date End Date Jinny Cunningham DO [address] [place] [phone] PCP - General Family Medicine 10/03/11 documented as of this encounter
--- OUTSIDE RECORDS SUMMARY | 2024-12-29 10:14 | XMS_ITS | Encounter Summary ---
Author Organization [facility] Address [address] [place] [address] Care Team Providers Care Mill Work Name Role Phone Jinny Cunningham DO Primary Care Provider Unava ilable Encounter Details Date Type Department Care Team Description 02/15/2019 Information Systems Coordinator Report Medical Records [address] [place] [address] Jinny Cunningham DO Social History Tobacco Use [...] on filedocumented in this encounter Care Teams Mill Work Relationship Specialty Start Date End Date Jinny Cunningham DO PCP - General Internal Medicine 12/12/18 documented as of this encounter
--- OUTSIDE RECORDS SUMMARY | 2024-12-29 10:14 | XMS_ITS | Encounter Summary ---
Author Organization [employer] Address [address] [facility] 7t [place] [address] Care Team Providers Care Supervisor Fertilizer Name Role Phone Jinny Cunningham DO Primary Care Provider + [phone] Reason for Visit * Reason Onset Date Comments Referral 03/08/2023 Encounter Details Date Type Department Care Team (Late Contact Info) Description 03/08/2023 Telephone [facility] [address] [place], [place] [phone] Jinny Cunningham DO [address] [place] [address] Referral Social History Tobacco Use Types Packs/Day [...] from pt requesting status on referral to runner on. Please contact pt at [phone] (Greenlandic) documented in this encounter Plan of Treatment Upcoming Encounters Date Type Department Care Team (Late Contact Info) Description 02/02/2025 9:15 AM EDT Office Visit [facility] [address] [place] [address] Mable Price MD [address] [place] [address] 04/08/2025 9:00 AM EDT Office Visit [facility] [address] [place] [address] Onel Tejeda documented as of this encounter Visit Diagnoses Not on filedocumented in this encounter Care Teams Supervisor Fertilizer Relationship Specialty Start Date End Date Jinny Cunningham DO [address] [place] [address] PCP - General Family Medicine 10/03/11 documented as of this encounter
--- OUTSIDE RECORDS SUMMARY | 2024-12-29 10:14 | XMS_ITS | Encounter Summary ---
Author Organization [employer] Address [address] [facility] 7t [place] [address] Care Team Providers Care Cotton Opener Name Role Phone Jinny Cunningham DO Primary Care Provider + [phone] Reason for Visit * Reason Onset Date Comments Appointment Request 09/21/2023 Encounter Details Date Type Department Care Team (Late st Contact Info) Description 09/21/2023 Telephone [facility] [address] [place], [place] [phone] Jinny Cunningham DO [address] [place] [address] Appointment Request Social History Tobacco Use Types [...] call from last appt to schedule however designer/writer does not see anything on patients chart documented in this encounter Plan of Treatment Upcoming Encounters Date Type Department Care Team (Late st Contact Info) Description 02/02/2025 9:15 AM EDT Office Visit [facility] [address] [place] [address] Mable Price MD [address] [place] [address] 04/08/2025 9:00 AM EDT Office Visit [facility] [address] [place] [address] Onel Tejeda documented as of this encounter Visit Diagnoses Not on filedocumented in this encounter Care Teams Cotton Opener Relationship Specialty Start Date End Date Jinny Cunningham DO [address] [place] [address] PCP - General Family Medicine 10/03/11 documented as of this encounter
[2024-12-29 10:49] VITALS: BMI 31.1
--- NOTE | 2024-12-29 10:49 | MHC.AMNUTRGE ---
VS Expanded 12/29/24 10:49 12/31/24 12:35 Height 5 ft 5 in 5 ft 5 in Weight 186 lb 11.704 oz 187 lb BMI 31.1 31.1 Intake Visit Reasons: fatty liver and obesity Allergies No Known Allergies Allergy (Verified 11/19/24 10:37) Nutrition Presentation Details: Pt presents for MNT for fatty liver and obesity The Pt reports actively making diet changes, reducing on sugars and fats in the diet. Pt has lost about 15 lbs in 3 monhts at a rate of 1 lb/wk . Pt reports monitoring weight at home Pt denies constipation/diarrhea. Reports feeling well Pt reports having a variety of foods, reading food labels , working on reducing sugar/sfats mainly B: 2 egg whites with turkey with 45 calories high fiber bread, coffee with milk 1% lunch arepa (pumpkin and carrot with avocado and tuna with olive oil snack oats with cottage cheese or yogurt whipped cream (sugar free and fruits dinner: ramen noodles with eggs and carrots physical activity : walking 2 x/week, 60 minutes + stairs at home Beverages: water 36 oz + coffee, milk, or tea etoh/smoking-denies fruits/d: 0-1 veg: daily 0-1/d dairy 2/d fish 2x/wk starches > 20 BS Monitoring Most Recent Diabetes Results: Creatinine 0.82 mg/dL (0.5-1.4) 08/07/24 Blood Urea Nitrogen 14 mg/dL (9-16) 08/07/24 Sodium 141 mmol/L (135-145) 08/07/24 Potassium 4.4 mmol/L (3.3-5.1) 08/07/24 Chloride 109 mmol/L (96-108) H 08/07/24 Carbon Dioxide 29 mmol/L (22-29) 08/07/24 Calcium 9.4 mg/dL (8.4-10.2) 08/07/24 AST 85 U/L (5-31) H 10/03/24 ALT 98 U/L (0-31) H 10/03/24 Total Protein 7.9 g/dL (6.5-8.0) 10/03/24 Albumin 4.1 g/dL (3.5-5.0) 10/03/24 REO-Lfcavbf-Ko.Jeor Equation Height: 5 ft 5 in Weight: 187 lb Resting Metabolic Rate: 1437.80 Calculated Activity Level: Mild Activity Calories Needed to Maintain Weight: 1976.98 Diagnosis Nutrition problem #1: overweight/obesity As related to (etiology) #1: diagnosis As evidenced by (sign/symptom) #1: high BMI [facility] Medical History History of colon polyps Obesity (BMI 35.0-39.9 without comorbidity) Constipation by delayed colonic transit NANCY (obstructive sleep apnea) Hepatic steatosis GERD (gastroesophageal reflux disease) Surgical History H/O esophagogastroduodenoscopy Hx of cholecystectomy Hx of colonoscopy Family History Father Brain cancer Mother Diabetes Breast cancer Maternal Aunt Breast cancer Paternal Aunt Breast cancer Social History (Updated 11/19/24 @ 10:37 by Darryn Ramirez) Household Members: Spouse, Family and Children Housing: House Alcohol intake: never Patient Tobacco Use Status: Never used Tobacco Second Hand Smoke Exposure: No service: No Current occupational status: employed 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 Assessment & Plan Assessment & Plan (1) Hepatic steatosis: Comment: Pt also has T2DM Code(s): K76.0 - Fatty (change of) liver, not elsewhere classified Category: Medical Plan: Wt: 85 Kg ( 01/11 ) Est kcal needs as per MSJ: 1999-250= 1700 (40% carb, 30% protein/fat) Est fluid needs as per 25-30 ml/d: 2600 Est prot per day as per 1 g/kg bw: 85 Recommend fiber intake : 8-10 g per day and gradually increase to 25-28 g per day for women and 35-38 g for men or as tolerated Recommend sodium intake per day : less than 2000 mg Educated patient on: ( R = reviewed V = verbalizes understanding N/R = needs review N/A = not applicable Food sources of carbohydrate, adequate serving sizes and its role in various health conditions: R Differences between complex carbohydrates a simple carbohydrates, role of fiber in diet: R Lean protein sources of foods: R V Differences between types of fats and role in diet (mono on saturated fat fatty acids, saturated fatty acids, trans fats): R Food sources of sodium in salt and healthy modifications for heart health in kidney health: R V R/V Vitamins and minerals: R V N/R Healthy plate method concept: R Physical activity: Benefits a precaution: R V N/R Hypoglycemia protocol (rule of 15): R V N/R Dietary prevention of Hyperglycemia: R Patient Instructions: Continue working on including fiber rich foods , gradually increasing by 5 =6 g as tolerated increase water intake as you increase fiber to prevent constipation continue working on reducing sat'd fats/hidden fats continue physically active 30-40 min walk daily see 1700 rogers meal plan Coding Level of Care Code Nutr Indiv Intake (11739) Diagnoses Hepatic steatosis K76.0 Time Spent (min) 30
[2024-12-31 12:35] VITALS: BMI 31.1
== END 2024-12-29 11:19 | disposition home or self-care (01) ==
PROVIDERS: PCP Family Medicine; Visit Provider Dietitian, Registered
DX: K76.0 Fatty (change of) liver, not elsewhere classified (principal)

== ENCOUNTER → 2024-12-29 09:53 | Outpatient (BNVA) | payer OTHER, SELFPAY | PROVIDERS: PCP Family Medicine; Visit Provider Dietitian, Registered | DX: K76.0 Fatty (change of) liver, not elsewhere classified (principal); E66.9 Obesity, unspecified; Z68.31 Body mass index [BMI] 31.0-31.9, adult | CPT/HCPCS: 97802 ==

== ENCOUNTER 2025-01-27 12:28 | Outpatient (REF) | payer OTHER, SELFPAY ==
[2025-01-27 13:45] LABS: Hematocrit 47.8 % (37.0-47.0); Hemoglobin 15.9 g/dl (12.0-16.0); Mean Corpuscular HGB Conc 33.3 g/dl (31.0-35.0); Mean Corpuscular Hemoglobin 30.2 pg (27.0-33.0); Mean Corpuscular Volume 90.7 fL (80.0-98.0); Mean Platelet Volume 11.4 fL (9.4-12.3); Platelet Count 221 X10*3/uL (160-400); Red Blood Count 5.27 X10*6/uL (4.20-5.50); Red Cell Distribution Width 13.5 % (11.0-16.0); White Blood Count 11.8 X10*3/uL (4.8-10.8)
[2025-01-27 13:53] LABS: Prothrombin Time 11.1 SEC (10.9-12.4)
[2025-01-27 14:15] LABS: Alanine Aminotransferase 59 U/L (0-31); Albumin Level 4.7 g/dL (3.5-5.0); Alkaline Phosphatase 139 U/L (39-117); Anion Gap 13 (12-20); Aspartate Amino Transferase 40 U/L (5-31); Bilirubin Total 0.4 mg/dL (0.0-1.0); Blood Urea Nitrogen 21 mg/dL (9-16); Calcium 10.1 mg/dL (8.4-10.2); Carbon Dioxide 30 mmol/L (22-29); Chloride 105 mmol/L (96-108); Estimated Glomerular Filt Rate > 60; Glucose Random 99 mg/dL (60-115); Potassium 4.4 mmol/L (3.3-5.1); Sodium 144 mmol/L (135-145)
--- OUTSIDE RECORDS SUMMARY | 2025-01-27 14:41 | XMS_ITS | Encounter Summary ---
Author Organization [employer] Address [address] [facility] 7t [place] [address] Care Team Providers Care Proposal Rep Name Role Phone Jinny Cunningham DO Primary Care Provider [phone] Reason for Referral * Consultation (Routine) - Closed Specialty Diagnoses / Procedures Referred By Contac t Referred To Contact Nutrition Diagnoses Fatty liver Obesity (BMI 30-39.9) Delilah Ayala MD [address] [place] [address] Phone: tel: fax: Referral ID Status Reason Start Date Expiration Date V isits Requested Visits Authorized [id number] Closed Specialty Services Required 04/03/2023 04/02/2024 1 1 Encounter Details Date Type Department Care Team (Late st Contact Info) Description 04/03/2023 Orders Only [facility] [address] [place], [place] [phone] Delilah Ayala MD [address] [place], [place] [phone] Fatty liver (Primary Dx); Obesity (BMI 30-39.9) [...] Description 02/02/2025 9:15 AM EDT Office Visit [facility] [address] [place] [address] Mable Price MD [address] [place] [address] 04/08/2025 9:00 AM EDT Office Visit [facility] [address] [place] [address] Onel Tejeda Scheduled Referrals Name Type Priority Associated Diagnoses Orde r Schedule Referral to Nutrition Services Outpatient Referral Routine Fatty liver Obesity (BMI 30-39.9) Expected: 04/03/2023 (Approximate), Expires: 04/03/2024 documented as of this encounter Visit Diagnoses Diagnosis Fatty liver- Primary Other chronic nonalcoholic liver disease Obesity (BMI 30-39.9) documented in this encounter Care Teams Proposal Rep Relationship Specialty Start Date End Date Jinny Cunningham DO [address] [place] [address] PCP - General Family Medicine 10/03/11 documented as of this encounter
== END 2025-01-27 12:29 | disposition home or self-care (01) ==
LOC: HO.LAB 12:28
PROVIDERS: PCP Family Medicine; Visit Provider Internal Medicine
DX: R79.89 Other specified abnormal findings of blood chemistry (principal); K76.0 Fatty (change of) liver, not elsewhere classified
CPT/HCPCS: 36415; 80053; 85027; 85610

== ENCOUNTER 2025-01-28 10:24 | Outpatient (AMB) | payer OTHER, SELFPAY ==
--- NOTE | 2025-01-28 10:28 | MHC.OFFVIS ---
Vital Signs 01/28/25 10:29 Height 5 ft 5 in Weight 182 lb 15.739 oz BMI 30.4 BP 108/71 Blood Pressure Location Lt brachial Position Sitting Pulse 71 Intake Visit Reasons: F/U LFT's Intake Note: Nae presents in the office as a follow up elevated LFT. CC: She states that she is not having concerns at this time. Allergies No Known Allergies Allergy (Verified 04/06/25 13:27) HPI Comments Details: 59 y.o F with PMH of who is here for elevated LFTs. Pt reports RUQ pain x year which radiates to the back which is not associated with food intake, N,V, changes in stool or weight. Patient had LFTs done by primary care provider that have been remarkably elevated. On chart review, she has always had elevated transaminases, however have been gradually increasing as of this year. In addition, primary care provider also ordered a liver elastography on 06/17, however the results are still pending. Previous elastography 2020 did not show chronic liver disease. BMI 35. Pt does not drink. Has prediabetes. No HLD. Does have NANCY. No fam hx of liver disease. 10/15/24: Seen with Martha WRAY for interpretation. W/up consistent with non etOH fatty liver. Pt has been working on weight and has already lost 10 lbs since she was last seen! Also waiting on insurance approval for GLP-1. Results were already reviewed with the pt previously and reinforced again today. 01/28/25: Seen with therapeutic recreation assistant. Has lost 20 lbs since Aug. Fib 4 improved to 1.34. Reports GLP 1 not approved by insurance but she plans to review this further with PCP who had previously recommended zepbound. Otherwise no acute GI complaints. [facility] Medical History (Updated 04/06/25 @ 13:45 by Kiko Luong MD) BMI 30.0-30.9,adult Obesity Abnormal barium swallow History of colon polyps Obesity (BMI 35.0-39.9 without comorbidity) Constipation by delayed colonic transit NANCY (obstructive sleep apnea) Hepatic steatosis GERD (gastroesophageal reflux disease) Surgical History H/O esophagogastroduodenoscopy Hx of cholecystectomy Hx of colonoscopy Family History Father Brain cancer Mother Diabetes Breast cancer Maternal Aunt Breast cancer Paternal Aunt Breast cancer Social History (Updated 02/18/25 @ 11:11 by Stacey Mccarthy [facility]) Household Members: Spouse, Family and Children Housing: House Alcohol intake: never Patient Tobacco Use Status: Never used Tobacco Second Hand Smoke Exposure: No service: No Current occupational status: employed 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 Review of Systems Const All systems reviewed & are unremarkable except as noted in HPI and below Physical Exam Vital Signs: Last Vital Signs Pulse 71 01/28/25 10:29 BP 108/71 01/28/25 10:29 BMI result Body Mass Index 30.4 No apparent distress Nonicteric Abdomen soft, nondistended Alert and oriented x3, normal gait Assessment & Plan Assessment & Plan (1) Elevated LFTs: Code(s): R79.89 - Other specified abnormal findings of blood chemistry Category: Medical (2) Obesity (BMI 35.0-39.9 without comorbidity): Code(s): E66.9 - Obesity, unspecified Category: Medical (3) Hepatic steatosis: Comment: Pt also has T2DM Code(s): K76.0 - Fatty (change of) liver, not elsewhere classified Category: Medical (4) Type 2 diabetes mellitus: Code(s): E11.9 - Type 2 diabetes mellitus without complications Category: Medical Plan Reviewed with the patient that based on clinical history, most likely has nonalcohol related fatty liver disease. Risk factors include obesity, prediabetes. Fib 4 has improved. Prev elastography not consistent with cirrhosis. Last imaging was done 2023, will get updated US with elasto. Plan: -Encouraged modification of metabolic risk factors including DM, obesity -150 mins/week of mod intensity exercise -GLP-1 being explored by PCP -Limited benefit of Vit E in non-biopsy proven STEELE -Nutrition referral -US elasto ordered -If patient remains with low fib 4 and no advanced fibrosis on the next evaluation, can be discharged back to primary care provider's care. -Discussed bariatric surgery referral but pt is ambivalent about this and would like to consider after she has tried zepbound Follow up 6 months Orders: Orders US abdomen comp w elastography 01/28/25 R79.89 - Other specified abnormal findings of blood chemistry Coding Level of Care Code Est Pt Level 4 (53546) Diagnoses Elevated LFTs R79.89 Obesity (BMI 35.0-39.9 without comorbidity) E66.9 Hepatic steatosis K76.0 Type 2 diabetes mellitus E11.9
[2025-01-28 10:29] VITALS: BP 108/71; PULSE 71; BMI 30.4
--- OUTSIDE RECORDS SUMMARY | 2025-01-28 11:49 | XMS_ITS | Encounter Summary ---
Author Organization [employer] Address [address] [facility] 7t [place] [address] Care Team Providers Care Data Reporting Analyst Name Role Phone Jinny Cunningham DO Primary Care Provider [phone] Reason for Referral * Consultation (Routine) - Closed Specialty Diagnoses / Procedures Referred By Contac t Referred To Contact Nutrition Diagnoses Fatty liver Obesity (BMI 30-39.9) Delilah Ayala MD [address] [place] [address] Phone: tel: fax: Referral ID Status Reason Start Date Expiration Date V isits Requested Visits Authorized [id number] Closed Specialty Services Required 04/03/2023 04/02/2024 1 1 Encounter Details Date Type Department Care Team (Late st Contact Info) Description 04/03/2023 Orders Only [facility] [address] [place], [place] [phone] Delilah Ayala MD [address] [place], [place] [phone] Fatty liver (Primary Dx); Obesity (BMI 30-39.9) [...] Office Visit [facility] [address] [place] [address] Mable Price MD [address] [place] [address] 04/08/2025 9:00 AM EDT Office Visit [facility] [address] [place] [address] Onel Tejeda Scheduled Referrals Name Type Priority Associated Diagnoses Orde r Schedule Referral to Nutrition Services Outpatient Referral Routine Fatty liver Obesity (BMI 30-39.9) Expected: 04/03/2023 (Approximate), Expires: 04/03/2024 documented as of this encounter Visit Diagnoses Diagnosis Fatty liver- Primary Other chronic nonalcoholic liver disease Obesity (BMI 30-39.9) documented in this encounter Care Teams Data Reporting Analyst Relationship Specialty Start Date End Date Jinny Cunningham DO [address] [place] [address] PCP - General Family Medicine 10/03/11 documented as of this encounter
== END 2025-01-28 11:04 | disposition home or self-care (01) ==
LOC: HO.HGI 10:25
PROVIDERS: PCP Family Medicine; Visit Provider Internal Medicine
DX: R79.89 Other specified abnormal findings of blood chemistry (principal); E66.9 Obesity, unspecified; K76.0 Fatty (change of) liver, not elsewhere classified; E11.9 Type 2 diabetes mellitus without complications
CPT/HCPCS: 99214

== ENCOUNTER → 2025-01-28 10:24 | Outpatient (BNVA) | payer OTHER, SELFPAY | PROVIDERS: PCP Family Medicine; Visit Provider Internal Medicine | DX: R79.89 Other specified abnormal findings of blood chemistry (principal); E66.9 Obesity, unspecified; K76.0 Fatty (change of) liver, not elsewhere classified; E11.9 Type 2 diabetes mellitus without complications; Z68.30 Body mass index [BMI] 30.0-30.9, adult | CPT/HCPCS: 99212 ==

== ENCOUNTER 2025-02-18 10:15 | Outpatient (AMB) | payer OTHER, SELFPAY ==
--- OUTSIDE RECORDS SUMMARY | 2025-02-18 10:49 | XMS_ITS | Encounter Summary ---
Author Organization [employer] Address [address] [facility] 7t [place] [address] Care Team Providers Care Education Intern Name Role Phone Jinny Cunningham DO Primary Care Provider [phone] Reason for Referral * Consultation (Routine) - Closed Specialty Diagnoses / Procedures Referred By Contac t Referred To Contact Nutrition Diagnoses Fatty liver Obesity (BMI 30-39.9) Delilah Ayala MD [address] [place] [address] Phone: tel: fax: Referral ID Status Reason Start Date Expiration Date V isits Requested Visits Authorized [id number] Closed Specialty Services Required 04/03/2023 04/02/2024 1 1 Encounter Details Date Type Department Care Team (Late st Contact Info) Description 04/03/2023 Orders Only [facility] [address] [place], [place] [phone] Delilah Ayala MD [address] [place], [place] [phone] Fatty liver (Primary Dx); Obesity (BMI 30-39.9) [...] Care Team (Late st Contact Info) Description 02/27/2025 10:15 AM EDT Office Visit [facility] [address] [place] [address] Jinny Cunningham DO [address] [place] [address] 04/08/2025 9:00 AM EDT Office Visit [facility]ULT D[facility] [address] [place] [address] Onel Tejeda Scheduled Referrals Name Type Priority Associated Diagnoses Orde r Schedule Referral to Nutrition Services Outpatient Referral Routine Fatty liver Obesity (BMI 30-39.9) Expected: 04/03/2023 (Approximate), Expires: 04/03/2024 documented as of this encounter Visit Diagnoses Diagnosis Fatty liver- Primary Other chronic nonalcoholic liver disease Obesity (BMI 30-39.9) documented in this encounter Care Teams Education Intern Relationship Specialty Start Date End Date Jinny Cunningham DO [address] [place] [address] PCP - General Family Medicine 10/03/11 documented as of this encounter
--- NOTE | 2025-02-18 11:06 | MHC.OFFVIS ---
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 She was previously seen in 2020 when she presented for palpitations and no obvious cause was found. She was doing fine and was advised to see us as needed. She has been experiencing a pressure-like feeling in her chest for months. She said she had a biopsy on the left axillary area and since then she has been getting a pressure-like feeling in the chest. This is a persistent feeling which she has 247. She takes naproxen for pain and has been using this on most days. She has known acid reflux and currently takes omeprazole. No exertional worsening of the symptoms. Denying any other complaints currently. [facility] Medical History History of colon polyps Obesity (BMI 35.0-39.9 without comorbidity) Constipation by delayed colonic transit NANCY (obstructive sleep apnea) Hepatic steatosis GERD (gastroesophageal reflux disease) Surgical History H/O esophagogastroduodenoscopy Hx of cholecystectomy Hx of colonoscopy Family History Father Brain cancer Mother Diabetes Breast cancer Maternal Aunt Breast cancer Paternal Aunt Breast cancer Social History (Updated 02/18/25 @ 11:11 by Stacey Mccarthy CMA) Household Members: Spouse, Family and Children Housing: House Alcohol intake: never Patient Tobacco Use Status: Never used Tobacco Second Hand Smoke Exposure: No service: No Current occupational status: employed 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 Review of Systems Const Denies chills, Denies fatigue, Denies fever(s), Denies frequent falls, Denies weakness, Denies weight gain and Denies weight loss ENT Denies dizziness Card Denies chest pain, Denies leg edema, Denies lightheadedness, Denies palpitations, Denies dyspnea, Denies dyspnea on exertion and Denies orthopnea Resp Denies cough, Denies dyspnea and Denies dyspnea on exertion GI Denies bloating and Denies change in bowel habits Musc Denies muscle weakness, Denies numbness and Denies tingling Neuro Denies dizziness, Denies frequent falls, Denies numbness, Denies tingling and Denies weakness Endo Denies fatigue and Denies palpitations Physical Exam Vital Signs: Last Vital Signs Pulse 72 02/18/25 11:09 BP 110/62 02/18/25 11:09 BMI result Body Mass Index 30.5 GENERAL APPEARANCE: in no acute distress, pleasant. NECK: no carotid bruit, no jugular venous distention. SKIN: no suspicious lesions, warm and dry. HEART: no murmurs, regular rate and rhythm. LUNGS: clear to auscultation bilaterally. ABDOMEN: soft, nontender. EXTREMITIES: no edema. PERIPHERAL PULSES: equal. NEUROLOGIC: No gross deficits, AAO X 3 Office Procedures EKG Details: Sinus rhythm 72 beats per minute, normal axis, normal ECG, QTC 429 milliseconds [id number], Complete Assessment & Plan Assessment & Plan (1) Chest pain: Code(s): R07.9 - Chest pain, unspecified Category: Medical Plan 59 year female who is here for assessment of chest pain. She was seen in 2020 for palpitations. She was advised to see us as needed. She has persistent discomfort in the chest. She has known history of acid reflux. Symptoms appear to be GI related, suspect esophageal spasm. Currently I have advised her to follow up with GI. I do not think she needs stress testing currently. Clinical story is not consistent with angina. I have advised her to stop the naproxen and use Tylenol instead. She will see us back in few months. If her symptoms changed she will report to us. Thank you for allowing me to participate in the care of your patient. Please feel free to contact me if you have any questions. Coding Level of Care Code New Pt Level 3 (81745) Diagnoses Chest pain R07.9 CPT Codes EKG - CPT: 76448-[id number], Complete ([id number])
[2025-02-18 11:09] VITALS: BP 110/62; PULSE 72; BMI 30.5
== END 2025-02-18 11:39 | disposition home or self-care (01) ==
LOC: HO.HCS 10:16
PROVIDERS: PCP Family Medicine; Visit Provider Internal Medicine Cardiovascular Disease
DX: R07.9 Chest pain, unspecified (principal)
CPT/HCPCS: 93010; 99203

== ENCOUNTER → 2025-02-18 10:15 | Outpatient (BNVA) | payer OTHER, SELFPAY | PROVIDERS: PCP Family Medicine; Visit Provider Internal Medicine Cardiovascular Disease | DX: R00.2 Palpitations (principal); R07.9 Chest pain, unspecified | CPT/HCPCS: 93005; 99202 ==

== ENCOUNTER 2025-02-27 13:37 | Outpatient (REF) | payer OTHER, SELFPAY ==
--- OUTSIDE RECORDS SUMMARY | 2025-02-27 13:41 | XMS_ITS | Encounter Summary ---
Author Organization [employer] Address [address] [facility] 7t [place] [address] Care Team Providers Care Self Pay Representative Name Role Phone Jinny Cunningham DO Primary Care Provider [phone] Reason for Referral * Consultation (Routine) - Closed Specialty Diagnoses / Procedures Referred By Contac t Referred To Contact Nutrition Diagnoses Fatty liver Obesity (BMI 30-39.9) Delilah Ayala MD [address] [place] [address] Phone: tel: fax: Referral ID Status Reason Start Date Expiration Date V isits Requested Visits Authorized [id number] Closed Specialty Services Required 04/03/2023 04/02/2024 1 1 Encounter Details Date Type Department Care Team (Late st Contact Info) Description 04/03/2023 Orders Only [facility] MEDICINE [address] [place], [place] [phone] Delilah Ayala MD [address] [place], [place] [phone] Fatty liver (Primary Dx); Obesity (BMI 30-39.9) [...] Care Team (Late st Contact Info) Description 04/08/2025 9:00 AM EDT Office Visit [facility] ADULT DENTAL [address] [place] [address] Onel Tejeda Scheduled Referrals Name Type Priority Associated Diagnoses Orde r Schedule Referral to Nutrition Services Outpatient Referral Routine Fatty liver Obesity (BMI 30-39.9) Expected: 04/03/2023 (Approximate), Expires: 04/03/2024 documented as of this encounter Visit Diagnoses Diagnosis Fatty liver- Primary Other chronic nonalcoholic liver disease Obesity (BMI 30-39.9) documented in this encounter Care Teams Self Pay Representative Relationship Specialty Start Date End Date Jinny Cunningham DO [address] [place] [id number] PCP - General Family Medicine 10/03/11 documented as of this encounter
== END 2025-02-27 13:38 | disposition home or self-care (01) ==
LOC: HO.HHCLNP 13:37
PROVIDERS: Visit Provider Family Medicine
DX: R10.2 Pelvic and perineal pain (principal)
CPT/HCPCS: 87086

== ENCOUNTER 2025-03-02 08:29 | Outpatient (REF) | payer OTHER, SELFPAY ==
--- OUTSIDE RECORDS SUMMARY | 2025-03-02 08:35 | XMS_ITS | Encounter Summary ---
Author Organization [employer] Address [address] [facility] 7t [place] [address] Care Team Providers Care Hair Blender Name Role Phone Jinny Cunningham DO Primary Care Provider [phone] Reason for Referral * Consultation (Routine) - Closed Specialty Diagnoses / Procedures Referred By Contac t Referred To Contact Nutrition Diagnoses Fatty liver Obesity (BMI 30-39.9) Delilah Ayala MD [address] [place] [address] Phone: tel: fax: Referral ID Status Reason Start Date Expiration Date V isits Requested Visits Authorized [id number] Closed Specialty Services Required 04/03/2023 04/02/2024 1 1 Encounter Details Date Type Department Care Team (Late st Contact Info) Description 04/03/2023 Orders Only [facility] MEDICINE [address] [place], [place] [phone] Delilah Ayala MD [address] [place], [place] [phone] Fatty liver (Primary Dx); Obesity (BMI 30-39.9) [...] Description 04/08/2025 9:00 AM EDT Office Visit [facility] ADULT DENTAL [address] [place] [address] Onel Tejeda Scheduled Referrals Name Type Priority Associated Diagnoses Orde r Schedule Referral to Nutrition Services Outpatient Referral Routine Fatty liver Obesity (BMI 30-39.9) Expected: 04/03/2023 (Approximate), Expires: 04/03/2024 documented as of this encounter Visit Diagnoses Diagnosis Fatty liver- Primary Other chronic nonalcoholic liver disease Obesity (BMI 30-39.9) documented in this encounter Care Teams Hair Blender Relationship Specialty Start Date End Date Jinny Cunningham DO [address] [place] [id number] PCP - General Family Medicine 10/03/11 documented as of this encounter
[2025-03-02 11:39] LABS: Hematocrit 44.9 % (37.0-47.0); Hemoglobin 14.7 g/dl (12.0-16.0); Mean Corpuscular HGB Conc 32.7 g/dl (31.0-35.0); Mean Corpuscular Hemoglobin 30.1 pg (27.0-33.0); Mean Corpuscular Volume 91.8 fL (80.0-98.0); NRBC Abs Auto 0.000 X10*3/uL (0.0-0.012); NRBC Pct Auto 0.0 /100WBC (0.0-0.2); Platelet Count 207 X10*3/uL (160-400); Red Blood Count 4.89 X10*6/uL (4.20-5.50); White Blood Count 6.4 X10*3/uL (4.8-10.8)
[2025-03-02 11:59] LABS: Hemoglobin A1C 140.6914 umol/L; Total Hemoglobin (HGBA1C) 3847.6116 umol/L
[2025-03-02 12:11] LABS: Alanine Aminotransferase 50 U/L (0-31); Albumin Level 4.2 g/dL (3.5-5.0); Alkaline Phosphatase 119 U/L (39-117); Anion Gap 10 (12-20); Aspartate Amino Transferase 47 U/L (5-31); Blood Urea Nitrogen 16 mg/dL (9-16); Calcium 9.3 mg/dL (8.4-10.2); Carbon Dioxide 27 mmol/L (22-29); Chloride 109 mmol/L (96-108); Cholesterol 157 mg/dL (<200); Estimated Glomerular Filt Rate > 60; Free T4 (Free Thyroxine) 0.87 ng/dL (0.71-1.85); HDL Cholesterol 53 mg/dL (>40); Potassium 4.3 mmol/L (3.3-5.1); Sodium 142 mmol/L (135-145); Thyroid Stimulating Hormone 1.85 uIU/mL (0.32-4.0); Total Protein 7.2 g/dL (6.5-8.0); Triglycerides 79 mg/dL (<150)
[2025-03-02 13:49] LABS: CT PCR Urine NOT DETECTED (Not Detect.); NG PCR Urine NOT DETECTED (Not Detect.)
== END 2025-03-02 08:30 | disposition home or self-care (01) ==
LOC: HO.HHCL 08:29
PROVIDERS: PCP Family Medicine; Visit Provider Family Medicine
DX: Z00.00 Encounter for general adult medical examination without abnormal findings (principal); R10.2 Pelvic and perineal pain; R73.03 Prediabetes; G47.33 Obstructive sleep apnea (adult) (pediatric); K21.9 Gastro-esophageal reflux disease without esophagitis; M54.50 Low back pain, unspecified; G89.29 Other chronic pain; R92.8 Other abnormal and inconclusive findings on diagnostic imaging of breast; M25.512 Pain in left shoulder; R07.9 Chest pain, unspecified; E66.811 Obesity, class 1; R42 Dizziness and giddiness; K76.0 Fatty (change of) liver, not elsewhere classified
CPT/HCPCS: 36415; 80048; 80061; 80076; 82105; 82306; 83036; 84439; 84443; 85027; 87491; 87591

== ENCOUNTER 2025-03-16 06:55 | Outpatient (REF) | payer OTHER, SELFPAY ==
--- NOTE | ~2025-03-16 | FL_ITS ---
EXAMINATION: XR BARIUM SWALLOW CLINICAL INFORMATION: Gastroesophageal reflux disease without esophagitis COMPARISON: None available. TECHNIQUE: Routine upright barium swallow with thick barium and saltine crackers and thin barium in prone lying position was performed FINDINGS: Following oral administration of thick barium in upright view there is normal propagation bolus from the oral cavity through the pharynx, esophagus into stomach without obstruction, narrowing or stricture. No intraluminal filling defect or extrinsic compression. On oral administration of saltine crackers coated with barium paste there is normal oral mastication and propagation bolus from the oral cavity through the pharynx, esophagus into stomach. On placing patient prone lying and oral demonstration of thin barium there is good distention of the esophagus prominent circular muscular contractions in the midesophagus along the anterior margin at the level of bronchial bifurcation. Incidental diagnosis submucosal edema or underlying lesion. No gastroesophageal reflux or hiatal hernia seen in supine and prone lying position. FLUOROSCOPY TIME: 2 minute 30 seconds DOSE AREA PRODUCT: 57.47 uGy-m2 (microgray-meter squared) FL/FL barium swallow IMPRESSION: Prominent indentation along the anterior margin of mid esophagus likely muscular contractions. Other etiologies to consider submucosal edema or underlying lesion. Electronically signed by: Chente Borja MD 03/17/2025 07:17 AM EDT
== END 2025-03-16 06:56 | disposition home or self-care (01) ==
LOC: HO.XRAY 06:55
PROVIDERS: PCP Family Medicine; Visit Provider Internal Medicine
DX: R07.9 Chest pain, unspecified (principal); K21.9 Gastro-esophageal reflux disease without esophagitis
CPT/HCPCS: 74220

== ENCOUNTER → 2025-03-16 06:57 | Outpatient (BNV) | payer OTHER, SELFPAY | PROVIDERS: PCP Family Medicine; Visit Provider Radiology Diagnostic Radiology | DX: K21.9 Gastro-esophageal reflux disease without esophagitis (principal) | CPT/HCPCS: 74220 ==

== ENCOUNTER 2025-03-18 09:40 | Outpatient (RCR) | payer OTHER, SELFPAY ==
--- NOTE | 2025-01-28 10:09 | MHC.PT.EP ---
[facility] [place] Office [place] Office [place] Office [address] Stacey Brasher [address] [phone] F: [phone] F: [phone] F: [phone] F: [phone] Physical Therapy Plan of Care Date of Evaluation: 01/28/25 Date of Surgery: n/a Diagnosis: Other shoulder lesions, left shoulder Myalgia, other site Tendonitis of left rotator cuff *Myofascial pain on left side Assessment: Pt is a pleasant and motivated 59yo F who presents to PT with L shoulder pain. She reports onset of pain after biopsy to L armpit in May. Her pain radiates into her L neck, pec region, and UE. She presents to PT with current impairments in pain, decreased ROM, decreased strength, soft tissue restrictions, and impaired posture. She is limited functionally by sweeping, mopping, lifting, overhead ADLs, and sleeping. She is a good candidate for skilled PT in order to address current impairments to facilitate return to PLOF. She is recommended to be seen 1x/week for 5 weeks and will be reassessed at that time Frequency and Duration: The patient will be seen 1x/week for 5 weeks Short Term Goals: Pt will be I with HEP to promote self management of symptoms Pt will improve L shoulder flexion by at least 10 degrees Prison Goals: Pt will achieve full ROM and strength all planes of right shoulder to assist with lifting Pt will perform overhead ADLs with minimal to no pain or compensation Pt will demonstrate improvements in function as evidenced by statistically significant improvement in SPADI outcome measure Treatment Plan: Modalities to reduce pain, spasms and effusion. Manual therapy to restore motion and function. Therapeutic exercise to improve strength and flexibility. Neuromuscular re-education for posture and balance. Therapeutic activities to return to functional activities of daily living. Electronically signed by: Chica Moore, PT, DPT Please sign and return to therapist. Thank you for your referral.
--- NOTE | 2025-03-25 07:10 | MHC.PT.DC ---
[facility] [place] [facility] [place] [facility] [place] Office [address] [phone] F: [phone] F: [phone] F: [phone] F: [phone] Physical Therapy Discharge Report Diagnosis: Other shoulder lesions, left shoulder Myalgia, other site Tendonitis of left rotator cuff *Myofascial pain on left side Date of Surgery: n/a Date of Evaluation: 01/28/25 Date of Discharge: 03/25/25 Treatments to Date: 7 Cancellations to Date: No Shows to Date: Discharge Status: Improved Function Independent with HEP Discharge Summary: Pt has made good progress since SOC. She has demonstrated improvements in L shoulder ROM. She has improved her score on SPADI outcome measure from 112/130 on initial PT evaluation to 22/130 at last attended session on 03/18/25. She has had a decrease in soft tissue restrictions throughout L upper trap region. She does continue to have discomfort in L pec region however her symptoms are improving and she demonstrates independence with HEP. She has been D/C to HEP Electronically signed by: Chica Moore, PT, DPT Please sign and return to therapist. Thank you for your referral.
== END 2025-03-25 07:11 | disposition home or self-care (01) ==
LOC: HO.PTS 09:40
PROVIDERS: PCP Family Medicine; Visit Provider Physician Assistant
DX: M75.82 Other shoulder lesions, left shoulder (principal); M79.18 Myalgia, other site
CPT/HCPCS: 97014; 97110; 97140; 97161

== ENCOUNTER 2025-04-06 09:49 | Outpatient (AMB) | payer OTHER, SELFPAY ==
--- OUTSIDE RECORDS SUMMARY | 2025-04-06 10:32 | XMS_ITS | Clinical Summary ---
Author Organization [facility] Address [address] [address] Phone Care Team Providers Care Mission Analyst Name Role Phone Jinny Cunningham DO Primary Care Provider [phone] Social History Tobacco Use Types Packs/Day Years Used Date Smoking Tobacco: Never Assessed Education Answer Date Recorded Are you interested in more education? Not on marcellus e 11/20/2024 Are you concerned about learning? Not on file 11/20/2024 No 11/20/2024 No 11/20/2024 Digital Access Answer Date Recorded No 11/20/2024 No 11/20/2024 Reliable internet access at home? Not on file 11/20/2024 Device with a working camera? Not on file Comments Unknown Sex and Gender Information Value Date Recorded Sex Assigned at Not on file Legal Sex Female 11:06 AM EDT Gender Identity Not on file Sexual Orientation Not on file Plan of Treatment Health Maintenance Due Date Last Done Comments Adult Td,Tdap Booster 1967 LIPID PANEL 1967 DEPRESSION SCREENING 1979 SMOKING Hx and SMOKELESS TOB ACCO SCREENING 1980 HEPATITIS C SCREENING 1985 HIV ONE-TIME SCREENING (18-6 5 YEARS) 1985 PAP SMEAR 1988 MAMMOGRAM 2007 COLOGUARD 2012 COLONOSCOPY 2012 COLORECTAL CANCER SCREENING 2012 FIT TEST 2012 FOBT 2012 SIGMOIDOSCOPY 2012 VIRTUAL COLONOSCOPY 2012 PNEUMOCOCCAL VACCINES (50+ y ears) (1 of 1 - PCV) 2017 ZOSTER VACCINES (1 of 2) 2017 COVID-19 VACCINE (2023-2 5 season) 2024 HEPATITIS A VACCINES Aged Out No long er eligible based on patient's age to complete this topic HIB VACCINES Aged Out No longer eligi ble based on patient's age to complete this topic MENINGOCOCCAL VACCINES (ACWY) Aged Out No longer eligible based on patient's age to complete this topic MENINGOCOCCAL VACCINES (B) Aged Out N o longer eligible based on patient's age to complete this topic Medical Devices Not on file Insurance [address] [address] [facility] [address] [place] [address] [facility] [employer] [employer] Care Teams Mission Analyst Relationship Specialty Start Date End Date Jinny Cunningham DO [address] [place] [address] PCP - General Family Medicine 11/04/24 Additional Source Comments The information contained in this document represents components of the legal health record. It is not the complete legal health record.[facility]
--- OUTSIDE RECORDS SUMMARY | 2025-04-06 10:32 | XMS_ITS | Encounter Summary ---
Author Organization [employer] Address [address] [facility] [address]t [place] [address] Care Team Providers Care Molding And Trim Installer Name Role Phone Jinny Cunningham DO Primary Care Provider [phone] Reason for Referral * Consultation (Routine) - Closed Specialty Diagnoses / Procedures Referred By Contac t Referred To Contact Nutrition Diagnoses Fatty liver Obesity (BMI 30-39.9) Delilah Ayala MD [address] [place] [address] Phone: tel: fax: Referral ID Status Reason Start Date Expiration Date V isits Requested Visits Authorized [id number] Closed Specialty Services Required 04/03/2023 04/02/2024 1 1 Encounter Details Date Type Department Care Team (Late st Contact Info) Description 04/03/2023 Orders Only [facility] MEDICINE [address] [place], [place] [phone] Delilah Ayala MD [address] [place], [place] [phone] Fatty liver (Primary Dx); Obesity (BMI 30-39.9) [...] Description 04/08/2025 9:00 AM EDT Office Visit [facility] ADULT DENTAL [address] [place] [address] Onel Tejeda Scheduled Referrals Name Type Priority Associated Diagnoses Orde r Schedule Referral to Nutrition Services Outpatient Referral Routine Fatty liver Obesity (BMI 30-39.9) Expected: 04/03/2023 (Approximate), Expires: 04/03/2024 documented as of this encounter Visit Diagnoses Diagnosis Fatty liver- Primary Other chronic nonalcoholic liver disease Obesity (BMI 30-39.9) documented in this encounter Care Teams Molding And Trim Installer Relationship Specialty Start Date End Date Jinny Cunningham DO [address] [place] [phone] PCP - General Family Medicine 10/03/11 documented as of this encounter
--- OUTSIDE RECORDS SUMMARY | 2025-04-06 10:32 | XMS_ITS | Encounter Summary ---
Author Organization [facility] Address [address] [place] [address] Care Team Providers Care Customer Sales Service Manager Name Role Phone Jinny Cunningham DO Primary Care Provider Unava ilable Encounter Details Date Type Department Care Team Description 09/16/2018 Office Mail Clerk Report Medical Records [address] [place] [address] Jinny Cunningham DO Social History Tobacco Use Types Packs/Day Years Used Date Smoking Tobacco: Never Assessed Sex Assigned at Date Recorded Not on file documented as of this encounter Plan of Treatment Not on file documented as of this encounter Visit Diagnoses Not on filedocumented in this encounter Care Teams Customer Sales Service Manager Relationship Specialty Start Date End Date Jinny Cunningham DO PCP - General Internal Medicine 12/12/18 documented as of this encounter
--- NOTE | 2025-04-06 13:27 | MHC.OFFVISWM ---
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 30.2 *INTEPRETER* Regional Business Development Manager Required: Yes Regional Business Development Manager Services: Regional Business Development Manager Present Information Interpreted: clinical only Allergies No Known Allergies Allergy (Verified 04/06/25 13:27) Medication List - Last Reconciled 04/06/25 by Kiko Luong MD cetirizine 10 mg PO DAILY PRN cholecalciferol (vitamin D3) 50 mcg PO DAILY docusate sodium 100 mg PO DAILY magnesium oxide 400 mg PO DAILY naproxen 500 mg PO BID omeprazole 40 mg PO DAILY tirzepatide (weight loss) (Zepbound) 5 mg subcut QWEEK HPI HPI TV REFUSE LABORER SWL BMI 30.2 *INTEPRETER*: Details: Start time: 1.37pm, End time: 1.47pm ?I spent 25 minutes speaking with the patient on the phone plus an additional 5 minutes reviewing and updating records for a total of 30 minutes HPI Comments Details: Previous weight loss efforts: Zepbound 5mg/wk: lost 5lbs Wakes up: 7am, Sleeps: 9am Breakfast: 8am (eggs, pancakes) Lunch: 12.30pm (chicken, rice) Dinner: 5pm (chicken, pasta) Snacks: 3pm (fruits, yogurt), 7pm (fruits or yogurt) Exercise: has home treadmill Beverages: Coffee: 2 cups/d (Stevia), Tea: none, Soda/Juice: none, ETOH: none PFSH Medical History (Updated 04/06/25 @ 13:45 by Kiko Luogn MD) BMI 30.0-30.9,adult Obesity Abnormal barium swallow History of colon polyps Obesity (BMI 35.0-39.9 without comorbidity) Constipation by delayed colonic transit NANCY (obstructive sleep apnea) Hepatic steatosis GERD (gastroesophageal reflux disease) Surgical History H/O esophagogastroduodenoscopy Hx of cholecystectomy Hx of colonoscopy Family History Father Brain cancer Mother Diabetes Breast cancer Maternal Aunt Breast cancer Paternal Aunt Breast cancer Social History (Updated 02/18/25 @ 11:11 by Stacey Mccarthy CMA) Household Members: Spouse, Family and Children Housing: House Alcohol intake: never Patient Tobacco Use Status: Never used Tobacco Second Hand Smoke Exposure: No service: No Current occupational status: employed 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 Telehealth Telehealth Telehealth Platform: Telephone Location of provider rendering services: practice address Location of patient: address on file Patient Identification confirmed using: Name, : Yes Telehealth method: voice only Patient verbally consented to treatment: Yes Patient verbally consented to billing insurance company: Yes Patient informed of any privacy concerns related to visit: Yes Minutes spent on Phone/Video with Pt.: 30 Assessment & Plan Assessment & Plan (1) Obesity: Code(s): E66.9 - Obesity, unspecified Category: Medical Qualifiers: Obesity type: due to excess calories Obesity classification: adult class 1 (BMI 30 - 34.9) Serious obesity comorbidity presence: with serious comorbidity Body mass index: BMI 30.0-30.9 Qualified Code(s): E66.811 - Obesity, class 1; E66.09 - Other obesity due to excess calories; Z68.30 - Body mass index [BMI] 30.0-30.9, adult Plan: The patient wishes to continue to manage her Zepbound through her PCP and also wishes to continue to follow with a warp trucker regarding her meal plan. She will call us if she wishes to seek our help.
== END 2025-04-06 13:48 | disposition home or self-care (01) ==
LOC: HO.HBS 09:49
PROVIDERS: PCP Family Medicine; Visit Provider Surgery
DX: E66.811 Obesity, class 1 (principal); E66.09 Other obesity due to excess calories; Z68.30 Body mass index [BMI] 30.0-30.9, adult
CPT/HCPCS: 99203

== ENCOUNTER 2025-04-14 07:38 | Outpatient (REF) | payer OTHER, SELFPAY ==
--- OUTSIDE RECORDS SUMMARY | 2025-04-08 09:00 | XMS_ITS | Encounter Summary ---
Author Organization [employer] Address [address] 7t [place] [address] Care Team Providers Care Skull Splitter Name Role Phone Jinny Cunningham DO Primary Care Provider [phone] Reason for Visit * Reason Comments Routine Cleaning Dental Exam Encounter Details Date Type Department Care Team ([facility] st Contact Info) Description 04/08/2025 9:00 AM EDT Office Visit [facility] AD[facility] D[facility] [address] [place] [address] Onel Tejeda Dental calculus (Primary Dx); Encounter for dental examination and cleaning with abnormal findings Social History Tobacco Use Types Packs/Day Years [...] Access Q2 Not on file 10/03/2024 Comments No Sex and Gender Information Value Date Recorded Sex Assigned at Female 06/19/2022 10:22 AM EDT Legal Sex Female 10:22 AM EDT Gender Identity Female 06/19/2022 10:22 AM EDT Sexual Orientation Straight 06/19/2022 10 :22 AM EDT documented as of this encounter Last Filed Vital Signs Vital Sign Reading Time Taken Comments Blood Pressure 116/64 04/08/2025 8:56 AM EDT Pulse 72 04/08/2025 8:56 AM EDT Temperature - - Respiratory Rate - - Oxygen Saturation - - Inhaled Oxygen Concentration - - Weight - - Height - - Body Mass Index - - documented in this encounter Progress Notes * Onel Tejeda - 04/08/2025 9:00 AM EDT Patient ID: Nae Arciniega is a 59 y.o. female. Time Out: Timeout Date: 04/08/25, Timeout Time: 857 Location: [facility] Tooth: Maxilla and Mandible Procedure: Exam and Prophylaxis Verified the above with patient, offset press assistant, and provider. Confirmed via patient's chart, intraorally and by radiographs. Pan Washer: not applicable Medical Hx: Vitals: Blood pressure 116/64, pulse 72. Medications, Med Hx reviewed with patient and updated in chart. Treatment Provided Dental procedures in this visit D1110 - PROPHYLAXIS - ADULT (Completed) Service provider: Onel Tejeda Billeran provider: Cesar Osborne DMD D1330 - ORAL HYGIENE INSTRUCTIONS (Completed) Service provider: Onel Tejeda Billing provider: Cesar Osborne DMD [id number] - CASE PRESENTATION, DETAILED AND EXTENSIVE TREATMENT PLANNING (Completed) Service provider: Onel Tejeda Billing provider: Cesar Osborne DMD Instruments Used: Hand Scalers and Prophy angle Fluoride: N/A Oral Cancer Screening: No lesions Head/Neck Exam: No Lesions Calculus: Light and Localized Plaque: Light and Generalized Stain: Light and Localized Bleeding: Light and Localized Gingiva: Healthy OH: Fair Perio Chart: Not Completed Oral hygiene instructions provided to patient including brushing technique and flossing. Dental exam done by . Recommendations: Bridgeton two times daily, modified dhaliwal technique, Floss daily Recall Frequency: 6 mo NV: 6mr, take pa of 18 Hygienist: Onel Tejeda RDH * Cesar Osborne DMD - 04/08/2025 9:00 AM EDT Dental procedures in this visit D1110 - PROPHYLAXIS - ADULT (Completed) Service provider: Onel Tejeda Billing provider: Cesar Osborne DMD D1330 - ORAL HYGIENE INSTRUCTIONS (Completed) Service provider: Onel Tejeda Billing provider: Cesar Osborne DMD [id number] - CASE PRESENTATION, DETAILED AND EXTENSIVE TREATMENT PLANNING (Completed) Service provider: Onel Tejeda Billing provider: Cesar Osborne DMD D0120 - PERIODIC ORAL EVALUATION - ESTABLISHED PATIENT (Completed) Service provider: Cesar Osborne DMD Billing provider: Cesar Osborne DMD Patient ID: Nae Arciniega is a 59 y.o. female. Time Out: Timeout Date: 04/08/25, Timeout Time: 857 Location: [facility] Tooth: all Procedure: Exam Verified the above with patient, offset press assistant, and provider. Confirmed via patient's chart, intraorally and by radiographs. Pan Washer: not applicable Chief Complaint Patient presents with Routine Cleaning Dental Exam Medical Hx: Vitals: Blood pressure 116/64, pulse 72. Medical History[1] Medications: Encounter Medications[2] Objective HPI: pt notes she is having discomfort chewing on LL brittany recently completed Soft Tissue Exam No findings documented this visit Head and Neck Exam: all structures examined Details: no swellings, ulcerations or lymphadenopathies OCS: negative Dental Exam Pt had large amalgam completed about 6 months ago Pt notes she has discomfort when chewing Checked occlusion and adjusted high contact on distal marginal ridge. Pt confirmed improvement Informed pt of large bahai and tipped tooth, as well as caries being close to nerve. Reviewedquestionable watermelon inspector prognosis and possibility that tooth may need extraction in future Pt expressed understanding, all questions answered No treatment indicated at this time, no new findings Recommend updated PA of #18 at NV Radiographic Interpretation: Associated radiographs for today's visit were reviewed and finding(s) were discussed with the patient. Findings include: see above Hard Tissue Exam: No decay Perio Dx: Generalized Chronic Periodontitis Stage: I Grade: B Reference tooth chart for additional findings. Oral Cancer Risk: Low Risk Oral Hygiene Instructions: Bridgeton two times daily, modified dhaliwal technique, Floss daily, Electric toothbrush, Soft bristle toothbrush, Bridgeton Tongue, Anti- sensitivity toothpaste Caries Risk Assessment: High- two or more risk factors Assessment/Plan Recare Patient tolerated procedure well, all questions answered and expressed understanding. Dismissed in good condition. NV: Recare; take updated PA #18 Piano Assembler: Onel Tejeda Dentist: Cesar Osborne DMD [1] Past Medical History: Diagnosis Date Fatty liver Pre-diabetes [2] Outpatient Encounter Medications as of 04/08/2025 Medication Sig Dispense Refill acetaminophen (Tylenol 8 Hour) 650 MG ER tablet Take 1 tablet (650 mg) by mouth every 8 (eight) hours. 40 tablet 1 cetirizine (ZyrTEC) 10 MG tablet Take 1 tablet (10 mg) by mouth Once per day. 30 tablet 3 Diclofenac Sodium 1 % gel Apply 2 g topically if needed in the morning, at noon, in the evening, and at bedtime (pain). 150 g 3 docusate sodium (Colace) 100 MG capsule Take 1 capsule (100 mg) by mouth 2 times daily. 180 capsule3 esomeprazole (NexIUM) [address] capsule Take 1 capsule (20 mg) by mouth before breakfast and before evening meal. Do not open capsule. 60 capsule 11 fluticasone (Flonase) 50 MCG/ACT nasal spray Administer 2 sprays into each nostril Once per day. Shake gently. Before first use, prime pump. After use, clean tip and replace cap. 16 g 3 magnesium oxide (Mag-Ox) 400 (240 Mg) MG tablet Take 400 mg by mouth Once per day. methocarbamol (Robaxin) 750 MG tablet Take 1 tablet (750 mg) by mouth if needed in the morning and at bedtime for muscle spasms. 60 tablet 1 naproxen (Naprosyn) 500 MG tablet TAKE 1 TABLET BY MOUTH TWICE A DAY 60 tablet 0 phentermine 15 MG capsule Take 1 capsule (15 mg) by mouth before breakfast. 30 capsule 1 polycarbophil (Fibercon) 625 MG tablet Take 1 tablet (625 mg) by mouth 2 times daily. 180 tablet 3 Tirzepatide-Weight Management (Zepbound) 5 MG/0.5ML solution auto-injector Inject 0.5 mL (5 mg) under the skin 1 (one) time per week. 2 mL 0 triamcinolone (Kenalog) 0.1 % ointment Apply topically if needed in the morning and at bedtime for rash (and itching). 30 g 1 No facility-administered encounter medications on file as of 04/08/2025. documented in this encounter Plan of Treatment Upcoming Encounters Date Type Department Care Team (Late st Contact Info) Description 10/12/2025 10:00 AM EST Office Visit [facility] ADULT D[facility] [address] [place], [place] [phone] Onel Tejeda Scheduled Orders Name Type Priority Associated Diagnoses Orde r Schedule PROPHYLAXIS - ADULT Dental Routine 1 Occ urrences starting 04/08/2025 documented as of this encounter Procedures Procedure Name Priority Date/Time Associated Diagnosis Comments PROPHYLAXIS - ADULT Routine 04/08/2025 9 :00 AM EDT Encounter for dental examination and cleaning with abnormal findings PERIODIC ORAL EVALUATION - ESTABLISHED PATIENT Routine 04/08/2025 9:00 AM EDT Encounter for dental examination and cleaning with abnormal findings ORAL HYGIENE INSTRUCTIONS Routine 04/08/2025 9:00 AM EDT Encounter for dental examination and cleaning with abnormal findings CASE PRESENTATION, DETAILED AND EXTENSIVE TREATMENT PLANNING Routine 04/08/2025 9:00 AM EDT Encounter for dental examination and cleaning with abnormal findings documented in this encounter Visit Diagnoses Diagnosis Dental calculus- Primary Accretions on teeth Encounter for dental examination and cleaning with abnormal findings documented in this encounter Additional Health Concerns Assessment Noted Time PHQ-9 Depression Total Score: 0 10/03/19 25 9:21 AM EST documented as of this encounter Care Teams Skull Splitter Relationship Specialty Start Date End Date Jinny Cunningham DO [address] [place] [address] PCP - General Family Medicine 10/03/11 documented as of this encounter
--- NOTE | ~2025-04-14 | US_ITS ---
EXAMINATION: US ABDOMEN COMPLETE WITH LIVER ELASTOGRAPHY HISTORY: R79.89 - Other specified abnormal findings of blood chemistry TECHNIQUE: Real-time grayscale ultrasound imaging of the abdomen was performed and images were reviewed. COMPARISON: Comparison is made with the prior examination dated 06/17/2024. FINDINGS: Liver: The right lobe of the liver measures 14.5 cm in size. The left lobe of the liver measures 9.7 cm in size. The liver demonstrates increased echotexture, consistent with steatosis. No focal mass or intrahepatic biliary ductal dilatation is identified. There is normal hepatopedal flow in the portal vein. Ultrasound elastography of the liver was performed with 10 separate measurements of the liver parenchyma with the patient in the supine position. Measurements were obtained approximately 2 cm below Evie's capsule and perpendicular to the capsule. The median shear wave velocity is 1.64 m/s (previously 1.50 m/s). The interquartile range/median (IQR/median) is 0.15. Gallbladder and biliary tree: The gallbladder is surgically absent. The common bile duct is normal in caliber measuring 5 mm. Kidneys: The right kidney measures 12.6 cm in length. The left kidney measures 11.5 cm in length. The kidneys are unremarkable, without evidence of masses, hydronephrosis, or calculi. Pancreas: The pancreas is obscured by bowel gas. Spleen: The spleen is normal in size and contour, measuring 9.3 cm in length. Abdominal aorta and inferior vena cava: The visualized portions of the abdominal aorta and inferior vena cava are normal in caliber. There is no free fluid in the abdomen. US/US abdomen comp w elastography IMPRESSION: Hepatic steatosis. The median shear wave velocity in the liver is 1.64 m/s, corresponding to a median liver stiffness of 8.28 kPa. The IQR/median value is 0.15. This is indicative of a quality data set. Findings are indicative of a low elastography value which rules out advanced chronic liver disease in asymptomatic patients. REFERENCE: Society of Radiologists in Ultrasound Liver Stiffness Thresholds (2019): LIVER STIFFNESS THRESHOLDS: *Shear wave velocity less than 1.3 m/s (Liver Stiffness equal or less than 5 kPa): High probability of being normal. *Shear wave velocity less than 1.7 m/s (Liver Stiffness less than 9 kPa): In the absence of other known clinical signs, rules out compensated advanced chronic liver disease. *Shear wave velocity between 1.7-2.1 m/s (Liver Stiffness 9-13 kPa): Suggestive of compensated advanced chronic liver disease but need further test for confirmation. *Shear wave velocity between 2.1-2.4 m/s (Liver Stiffness 13-17 kPa): Rules in compensated advanced chronic liver disease. *Shear wave velocity greater than 2.4 m/s (Liver Stiffness over 17 kPa): Suggestive of clinically significant portal hypertension. QUALITY OF DATA SET: *IQR/Median value equal or less than 0.15 implies a quality data set. *IQR/Median value over 0.15 implies a poor quality data set. SIGNIFICANT CHANGE FROM PRIOR EXAM: Significant change if liver stiffness measurement is 10% or greater from prior exam. OTHER CONSIDERATIONS: The stage of liver fibrosis may be overestimated in the setting of acute hepatitis, liver inflammation, elevated liver function tests, hepatic vascular congestion, obstructive cholestasis, non-fasting state, and infiltrative diseases such as amyloidosis and lymphoma. In some patients with NAFLD, the liver stiffness thresholds for compensated advanced chronic liver disease may be lower. In causes other than viral hepatitis and NAFLD, liver stiffness thresholds are not well established. Electronically signed by: Jc Chavis MD 04/14/2025 08:38 AM EDT
--- OUTSIDE RECORDS SUMMARY | 2025-04-14 07:46 | XMS_ITS | Clinical Summary ---
Author Organization [facility] Address [address] [address] Phone Care Team Providers Care Transportation Lead Name Role Phone Jinny Cunningham DO Primary Care Provider + [phone] Social History Tobacco Use Types Packs/Day Years [...] topic Medical Devices Not on file [place] [place] [address] [facility] [place] [address] [address] [facility] Care Teams Transportation Lead Relationship Specialty Start Date End Date Jinny Cunningham DO [address] [place] [address] PCP - General Family Medicine 11/04/24 Additional Source Comments The information contained in this document represents components of the legal health record. It is not the complete legal health record.[facility]
--- OUTSIDE RECORDS SUMMARY | 2025-04-14 07:46 | XMS_ITS | Encounter Summary ---
Author Organization [employer] Address [address] [facility] 7t [place] [address] Care Team Providers Care Kit Planner Name Role Phone Yolandamaritza Jinny Primary Care Provider + [phone] Encounter Details Date Type Department Care Team (Late Contact Info) Description 11/29/2023 Orders Only [facility] MEDICINE [address] [place] [id number] Provider, Roro, Social History Tobacco Use Types Packs/Day Years [...] Description 10/12/2025 10:00 AM EST Office Visit [facility] ADULT DENTAL [address] [place] [address] Onel Tejeda documented as of this encounter Procedures Procedure Name Priority Date/Time Associated Diagnosis Comments HM COLONOSCOPY Routine 03/09/2022 10:01 AM EDT HM COLONOSCOPY Routine 01/02/2019 9:59 AM EDT documented in this encounter Results * Hm Colonoscopy (03/09/2022 10:01 AM EDT) Historical Provider HEALTH MAINTENANCE Final Result * Hm Colonoscopy (01/02/2019 9:59 AM EDT) us Historical Provider MD HEALTH MAINTENANCE Final Result documented in this encounter Visit Diagnoses Not on filedocumented in this encounter Care Teams Kit Planner Relationship Specialty Start Date End Date Jinny Cunningham DO [address] [place] [address] PCP - General Family Medicine 10/03/11 documented as of this encounter
--- OUTSIDE RECORDS SUMMARY | 2025-04-14 07:46 | XMS_ITS | Encounter Summary ---
Author Organization [employer] Address 75 [facility] 7t [place] [address] Care Team Providers Care Statistical Analyst Name Role Phone Jinny Cunningham DO Primary Care Provider + [phone] Encounter Details Date Type Department Care Team (Latest Contact Info) Description 08/31/2020 Abstract [facility] CONVERSIONS Dental, Provider, DDS Social [...] Description 10/12/2025 10:00 AM EST Office Visit [facility] ADULT [facility] [address] [place] [address] Onel Tejeda documented as of this encounter Visit Diagnoses Not on filedocumented in this encounter Care Teams Statistical Analyst Relationship Specialty Start Date End Date Jinny Cunningham DO [address] [place] [address] PCP - General Family Medicine 10/03/11 documented as of this encounter
--- OUTSIDE RECORDS SUMMARY | 2025-04-14 07:46 | XMS_ITS | Encounter Summary ---
Author Organization [employer] Address 75 [facility] 7t [place] [address] Care Team Providers Care Garde Manger Name Role Phone Jinny Cunningham DO Primary Care Provider [phone] Reason for Referral * Consultation (Routine) - Closed Specialty Diagnoses / Procedures Referred By Contac t Referred To Contact Nutrition Diagnoses Fatty liver Obesity (BMI 30-39.9) Delilah Ayala MD [address] [place] [address] Phone: tel: fax: Referral ID Status Reason Start Date Expiration Date V isits Requested Visits Authorized [id number] Closed Specialty Services Required 04/03/2023 04/02/2024 1 1 Encounter Details Date Type Department Care Team (Late st Contact Info) Description 04/03/2023 Orders Only [facility] MEDICINE [address] [place], [place] [phone] Delilah Ayala MD [address] [place], [place] [phone] Fatty liver (Primary Dx); Obesity (BMI 30-39.9) [...] 10/12/2025 10:00 AM EST Office Visit [facility] AD[facility] DENTAL [address] [place] [address] Onel Tejeda Scheduled Referrals Name Type Priority Associated Diagnoses Orde r Schedule Referral to Nutrition Services Outpatient Referral Routine Fatty liver Obesity (BMI 30-39.9) Expected: 04/03/2023 (Approximate), Expires: 04/03/2024 documented as of this encounter Visit Diagnoses Diagnosis Fatty liver- Primary Other chronic nonalcoholic liver disease Obesity (BMI 30-39.9) documented in this encounter Care Teams Garde Manger Relationship Specialty Start Date End Date Jinny Cunningham DO [address] [place] [phone] PCP - General Family Medicine 10/03/11 documented as of this encounter
--- OUTSIDE RECORDS SUMMARY | 2025-04-14 07:46 | XMS_ITS | Encounter Summary ---
Author Organization [employer] Address [address] [facility] 7t [place] [address] Care Team Providers Care Heel Gouger Name Role Phone Jinny Cunningham DO Primary Care Provider + [phone] Reason for Visit * Reason Onset Date Comments Referral 03/08/2023 Encounter Details Date Type Department Care Team (Late Contact Info) Description 03/08/2023 Telephone [facility] MEDICINE [address] [place], [place] [phone] Jinny Cunningham DO [address] [place] [address] Referral Social History Tobacco Use Types Packs/Day [...] from pt requesting status on referral to medical collections. Please contact pt at [phone] ([place]) documented in this encounter Plan of Treatment Upcoming Encounters Date Type Department Care Team (Late Contact Info) Description 10/12/2025 10:00 AM EST Office Visit [facility] ADULT DENTAL [address] [place] [address] nOel Tejeda documented as of this encounter Visit Diagnoses Not on filedocumented in this encounter Care Teams Heel Gouger Relationship Specialty Start Date End Date Jinny Cunningham DO [address] [place] [id number] PCP - General Family Medicine 10/03/11 documented as of this encounter
--- OUTSIDE RECORDS SUMMARY | 2025-04-14 07:46 | XMS_ITS | Encounter Summary ---
Author Organization [employer] Address [address] [facility] 7 [place] [address] Care Team Providers Care Chief Clinical Dietitian Name Role Phone Jinny Cunningham DO Primary Care Provider + [phone] Reason for Visit * Reason Onset Date Comments Appointment Request 09/21/2023 Encounter Details Date Type Department Care Team ([facility] Contact Info) Description 09/21/2023 Telephone [facility] MEDICINE [address] [place], [place] [phone] Jinny Cunningham DO [address] [place], [place] [phone] Appointment Request Social History Tobacco Use Types [...] call from last appt to schedule however sports writer does not see anything on patients chart documented in this encounter Plan of Treatment Upcoming Encounters Date Type Department Care Team ([facility] Contact Info) Description 10/12/2025 10:00 AM EST Office Visit [facility] ADULT DENTAL [address] [place] [address] Onel Tejeda documented as of this encounter Visit Diagnoses Not on filedocumented in this encounter Care Teams Chief Clinical Dietitian Relationship Specialty Start Date End Date Jinny Cunningham DO [address] [place] [address] PCP - General Family Medicine 10/03/11 documented as of this encounter
--- OUTSIDE RECORDS SUMMARY | 2025-04-14 07:46 | XMS_ITS | Encounter Summary ---
Author Organization [employer] Address [address] [place] [address] [address] [place] [address] Care Team Providers Care Stucco Mason Name Role Phone Jinny Cunningham DO Primary Care Provider [phone] Encounter Details Date Type Department Care Team (Late st Contact Info) Description 12/13/2022 Orders Only [facility] [address] [place] [address] Jinny [place] LPN Social History Tobacco Use [...] 10/12/2025 10:00 AM EST Office Visit [facility] ADULT DENTAL [address] [place] [address] Onel Tejeda documented as of this encounter Visit Diagnoses Not on filedocumented in this encounter Care Teams Stucco Mason Relationship Specialty Start Date End Date Jinny Cunningham DO [address] [place] [address] PCP - General Family Medicine 10/03/11 documented as of this encounter
--- OUTSIDE RECORDS SUMMARY | 2025-04-14 07:46 | XMS_ITS | Encounter Summary ---
Author Organization [employer] Address 75 [facility] 7t [place] [address] Care Team Providers Care Substation Operator Chief Name Role Phone Jinny Cunningham DO Primary Care Provider + [phone] Reason for Visit * Reason Comments Med Refill Encounter Details Date Type Department Care Team ([facility] st Contact Info) Description 02/27/2025 Refill [facility] MEDICINE [address] [place], [place] [phone] Jinny Cunningham DO [address] [place], [place] [phone] Social History Tobacco Use Types Packs/Day Years [...] Description 10/12/2025 10:00 AM EST Office Visit [facility] ADULT DENTAL [address] [place] [address] Onel Tejeda documented as of this encounter Visit Diagnoses Not on filedocumented in this encounter Additional Health Concerns Assessment Noted Time PHQ-9 Depression Total Score: 0 10/03/19 25 9:21 AM EST documented as of this encounter Care Teams Substation Operator Chief Relationship Specialty Start Date End Date Jinny Cunningham DO [address] [place] [phone] PCP - General Family Medicine 10/03/11 documented as of this encounter
--- OUTSIDE RECORDS SUMMARY | 2025-04-14 07:47 | XMS_ITS | Encounter Summary ---
Author Organization [employer] Address 75 [facility] 7t [place] [address] Care Team Providers Care Investor Relations Specialist Name Role Phone Jinny Cunningham DO Primary Care Provider + [phone] Reason for Visit * Reason Comments Med Change Request Encounter Details Date Type Department Care Team ([facility] st Contact Info) Description 03/19/2024 Refill [facility] [address] [place], [place] [phone] Kristina Cid FNP [address] [place] [address] Social History Tobacco Use Types Packs/Day Years [...] 10/12/2025 10:00 AM EST Office Visit [facility] ADULT DENTAL [address] [place] [address] Onel Tejeda documented as of this encounter Visit Diagnoses Not on filedocumented in this encounter Additional Health Concerns Assessment Noted Time PHQ-9 Depression Total Score: 6 12/21/19 24 10:44 AM EDT documented as of this encounter Care Teams Investor Relations Specialist Relationship Specialty Start Date End Date Jinny Cunningham DO [address] [place] [address] PCP - General Family Medicine 10/03/11 documented as of this encounter
--- OUTSIDE RECORDS SUMMARY | 2025-04-14 07:47 | XMS_ITS | Encounter Summary ---
Author Organization [employer] Address 75 [facility] 7t [place] [address] Care Team Providers Care Complaint Evaluation Officer Name Role Phone Jinny Cunningham DO Primary Care Provider + [phone] Reason for Visit * Reason Onset Date Comments Nurse Triage 02/15/2024 Encounter Details Date Type Department Care Team ([facility] st Contact Info) Description 02/15/2024 Telephone [facility] MEDICINE [address] [place], [place] [phone] Jinny Cunningham DO [address] [place], [place] [phone] Nurse Triage Social History Tobacco Use Types [...] Description 10/12/2025 10:00 AM EST Office Visit [facility] ADULT DENTAL [address] [place] [address] Onel Tejeda documented as of this encounter Visit Diagnoses Not on filedocumented in this encounter Additional Health Concerns Assessment Noted Time PHQ-9 Depression Total Score: 6 12/21/19 24 10:44 AM EDT documented as of this encounter Care Teams Complaint Evaluation Officer Relationship Specialty Start Date End Date Jinny Cunningham DO [address] [place] [phone] PCP - General Family Medicine 10/03/11 documented as of this encounter
--- OUTSIDE RECORDS SUMMARY | 2025-04-14 07:47 | XMS_ITS | Clinical Summary ---
Author Organization [employer] Address [address] [facility] [address] [place] [address] Care Team Providers Care Serology Technician Name Role Phone Jinny Cunningham DO Primary Care Provider + [phone] Allergies No known active allergies Medications magnesium oxide (Mag-Ox) 400 (240 Mg) MG tablet Take 400 mg by mouth Once per day. 03/11/20 23 Active methocarbamol (Robaxin) 750 MG [...] (pain). 150 g 3 10/03/19 25 Active phentermine 15 MG capsuleIndicat ions:Class 1 obesity due to excess calories with serious comorbidity and body mass index (BMI) of 31.0 to 31.9 in adult Take 1 capsule (15 mg) by mouth before breakfast. 30 capsule 1 02/03/20 25 Active cetirizine (ZyrTEC) 10 MG tablet Take 1 tablet (10 mg) by mouth Once per day. 30 tablet 02/28/20 Active fluticasone (Flonase) 50 MCG/ACT nasal spray Administer 2 sprays into each nostril Once per day. Shake gently. Before first use, prime pump. After use, clean tip and replace cap. 16 g 02/28/20 Active docusate sodium (Colace) 100 MG capsule Take 1 capsule (100 mg) by mouth 2 times daily. 180 capsule 02/28/20 Active polycarbophil (Fibercon) 625 MG tablet Take 1 tablet (625 mg) by mouth 2 times daily. 180 tablet 02/28/20 Active esomeprazole (NexIUM) [address] capsule Take 1 capsule (20 mg) by mouth before breakfast and before evening meal. Do not open capsule. 60 capsule 02/28/20 Active Tirzepatide-We ight Management (Zepbound) 5 MG/0.5ML solution auto-injectorI ndications:BMI 35.0-35.9,adul t Inject 0.5 mL (5 mg) under the skin 1 (one) time per week. 2 mL 04/01/20 25 Active Tirzepatide-We ight Management (Zepbound) 2.5 MG/0.5ML solution auto-injectorI ndications:BMI 35.0-35.9,adul t Inject 0.5 mL (2.5 mg) under the skin 1 (one) time per week. 2 mL 03/05/20 25 025 Discontinued Tirzepatide-We ight Management (Zepbound) 5 MG/0.5ML solution auto-injectorI ndications:BMI 35.0-35.9,adul t Inject 0.5 mL (5 mg) under the skin every 7 (seven) days. 2 mL 04/01/20 25 025 Discontinued(Re order (will not trigger notification to Pharmacy)) Active Problems Problem Noted Date Diagnosed Date Metabolic dysfunction-associ ated steatotic liver disease (MASLD) 02/02/2025 Assessment & Plan (02/02/2025 10:20 AM EDT): Continue to follow-up with GI Healthy diet and weight loss is recommended, it will be tried today phentermine hopefully it will be helpful if not patient will really benefit from a GLP-1 medication Class 1 obesity due to exces s calories with serious comorbidity and body mass index (BMI) of 31.0 to 31.9 in adult 02/02/2025 Assessment & Plan (02/02/2025 10:19 AM EDT): Extensive counseling about healthy diet and exercise on today I will start patient on phentermine 15 mg daily, side effects were reviewed with patient including anxiety palpitations insomnia... Patient is to be follow-up to be reassessed Vertigo 12/11/2024 Assessment & Plan (02/02/2025 10:18 AM EDT): Patient reports she has underlying vertigo and she ran out of her medication for her dizziness today she is asking for refills Assessment & Plan (12/11/2024 9:06 AM EDT): [...] Encounters Date Type Department Care Team Description 04/08/2025 9:00 AM EDT Office Visit [facility] [address] [place] [address] Onel Tejeda Dental calculus (Primary Dx); Encounter for dental examination and cleaning with abnormal findings 04/01/2025 Refill [facility] [address] [place] [address] Jinny Cunningham DO BMI 35.0-35.9,adult 04/01/2025 Travel 03/28/2025 Refill [facility] [address] [place] [phone] Jinny Cunningham DO BMI 35.0-35.9,adult 03/16/2025 Orders Only [facility] External Provider, [facility] 03/04/2025 Telephone [facility] [address] [place] [phone] Jinny Cunningham DO Medication Question 03/03/[address] [address] Jinny Cunningham DO Prior Authorization (Mannie CASEY: Juan) 02/27/2025 10:15 AM EDT Office Visit [address] [address] Jinny Cunningham DO Prediabetes (Primary Dx); Fatty liver; Obstructive sleep apnea; Chronic GERD; Chronic bilateral low back pain without sciatica; Chronic left shoulder pain; Chest pain, unspecified type; Obesity (BMI 30.0-34.9); Vertigo; Pelvic pain in female; Healthcare maintenance; BMI 35.0-35.9,adult 02/27/2025 Refill [facility] [address] [place] [phone] Jinny Cunningham DO 02/27/2025 Travel 02/19/[address] [address] Jinny Cunningham DO Chart Prep 02/19/[address] [place] [address] Jinny Cunningham DO Chart Prep 02/06/[address] [place] [address] Jinny Cunningham DO 02/02/2025 9:15 AM EDT Office Visit [address] [place] [address] Mable Price MD Vertigo; Metabolic dysfunction-associate d steatotic liver disease (MASLD); Class 1 obesity due to excess calories with serious comorbidity and body mass index (BMI) of 31.0 to 31.9 in adult 02/02/2025 Travel 01/27/2025 Orders Only GENERIC EXTERNAL DATA DEPARTMENT Provider, Generic External Data 01/27/[address] [address] Jinny Cunningham DO fyi 01/26/2025 Travel 01/26/[address] [address] Jinny Cunningham DO Chart Prep 01/23/2025 Patient Outreach [address] [address] Jinny Cunningham DO Pre-visit Planning ([facility] screening completed on 10/03/2024) from Last 3 Months Immunizations Immunization Administration Dates Next Due Hep A, Adult [...] Pulse 72 04/08/2025 8:56 AM EDT Temperature 35.9 C (96.7 F) 02/27/2025 9:58 AM EDT Respiratory Rate 21 02/27/2025 9:58 AM EDT Oxygen Saturation 99% 02/27/2025 9:58 AM EDT Inhaled Oxygen Concentration - - Weight 84.5 kg (186 lb 4 oz) 02/27/2025 9:58 AM EDT Height 167.6 cm (5' 6 ) 02/27/2025 9:58 AM EDT Body Mass Index 30.06 02/27/2025 9:58 AM EDT Plan of Treatment Upcoming Encounters Date Type Department Care Team (Late st Contact Info) Description 10/12/2025 10:00 AM EST Office Visit [facility] [address] [place] [address] Onel Tejeda Health Maintenance Due Date Last Done Comments CT Colonography 1965 FIT DNA/Cologuard 1965 FIT 1965 FOBT 1965 Sigmoidoscopy 1965 Zoster Vaccines (1 of 2) 2017 COVID-19 Vaccine ( season) 2024 08/04/2021, 10/22/2020, 10/01/2020 Influenza Vaccine (#1) 2025 , 06/08/2023, 05/30/2022, Additional history exists Mammogram 05/27/2025 05/27/2024, 10/2023, 05/02/2024, Additional history exists Alcohol/Substance Use Screening 10/03/2025 10/03/2024 Depression Screening 10/03/2025 10/03/2024, 10/03/19 SDOH Screening 10/03/2025 10/03/2024 Dental X-Ray: Bitewings 10/09/2025 10/08/19, 09/21/2023, 08/31/2020 Dental Oral Exam 10/10/2025 04/08/2025, , 04/02/2024, Additional history exists Dental Prophylaxis 10/10/2025 04/08/2025, 0 10/08/2024, 04/02/2024, Additional history exists Disability Screening 02/02/2026 02/02/2025 Diabetes: Hemoglobin A1C 03/02/2026 025, 08/07/2024, 05/28/2024, Additional history exists Tobacco Screening 04/08/2026 04/08/2025 Cervical Cancer Screening 06/08/2026 Pap Smear 06/08/2026 06/08/2023, 06/25/2020 Dental X-Ray: Full Mouth 09/22/2026 09/21/2023, 08/20 HPV/Cotest 06/08/2028 06/08/2023, 110 01/2020, 05/03/2016 Lipid Panel 03/02/2030 03/02/2025, 100 04/2024, 12/28/2023, Additional history exists Colonoscopy 03/09/2032 03/09/2022, 01/02/2019 Colorectal Cancer Screening 03/09/2032 DTaP/Tdap/Td Vaccines (4 - Td or Tdap) 10/30/2032 10/30/2022, 06/11/2012, 10/03/2011 RSV Patients and Patients Aged 60 years or older (1 - 1-dose 75+ series) 2042 Hepatitis A Vaccines Completed 03/26/2013, 11/24/19 12 Hepatitis C Screening Completed 12/28/2023 , 11/08/2022, 04/07/2022, Additional history exists HIV Screening Completed 08/07/2024, [...] patient's age to complete this topic Meningococcal B Vaccine Aged Out No l onger eligible based on patient's age to complete [...] Procedure Name Priority Date/Time Associated Diagnosis Comments PERIODIC ORAL EVALUATION - ESTABLISHED PATIENT Routine 04/08/2025 9:00 AM EDT Encounter for dental examination and cleaning with abnormal findings ORAL HYGIENE INSTRUCTIONS Routine 04/08/2025 9:00 AM EDT Encounter for dental examination and cleaning with abnormal findings PROPHYLAXIS - ADULT Routine 04/08/2025 9 :00 AM EDT Encounter for dental examination and cleaning with abnormal findings CASE PRESENTATION, DETAILED AND EXTENSIVE TREATMENT PLANNING Routine 04/08/2025 9:00 AM EDT Encounter for dental examination and cleaning with abnormal findings FL ESOPHAGUS BARIUM SWALLOW Routine 03/16/2025 7:20 AM EDT ALPHA FETOPROTEIN, TUMOR MARKER Routine 03/02/2025 8:35 AM EDT Prediabetes Fatty liver Obstructive sleep apnea Chronic GERD Chronic bilateral low back pain without sciatica Chronic left shoulder pain Chest pain, unspecified type Obesity (BMI 30.0-34.9) Vertigo Pelvic pain in female Healthcare maintenance BASIC METABOLIC PANEL Routine 03/02/2025 8:35 AM EDT Prediabetes Fatty liver Obstructive sleep apnea Chronic GERD Chronic bilateral low back pain without sciatica Chronic left shoulder pain Chest pain, unspecified type Obesity (BMI 30.0-34.9) Vertigo Pelvic pain in female Healthcare maintenance CBC Routine 03/02/2025 8:35 AM EDT Prediabetes Fatty liver Obstructive sleep apnea Chronic GERD Chronic bilateral low back pain without sciatica Chronic left shoulder pain Chest pain, unspecified type Obesity (BMI 30.0-34.9) Vertigo Pelvic pain in female Healthcare maintenance HEMOGLOBIN A1C Routine 03/02/2025 8:35 AM EDT Prediabetes Fatty liver Obstructive sleep apnea Chronic GERD Chronic bilateral low back pain without sciatica Chronic left shoulder pain Chest pain, unspecified type Obesity (BMI 30.0-34.9) Vertigo Pelvic pain in female Healthcare maintenance HEPATIC FUNCTION PANEL Routine 8:35 AM EDT Prediabetes Fatty liver Obstructive sleep apnea Chronic GERD Chronic bilateral low back pain without sciatica Chronic left shoulder pain Chest pain, unspecified type Obesity (BMI 30.0-34.9) Vertigo Pelvic pain in female Healthcare maintenance VITAMIN D,25-OH,TOTAL,IA Routine 03/02/2025 8:35 AM EDT Prediabetes Fatty liver Obstructive sleep apnea Chronic GERD Chronic bilateral low back pain without sciatica Chronic left shoulder pain Chest pain, unspecified type Obesity (BMI 30.0-34.9) Vertigo Pelvic pain in female Healthcare maintenance TSH Routine 03/02/2025 8:35 AM EDT Prediabetes Fatty liver Obstructive sleep apnea Chronic GERD Chronic bilateral low back pain without sciatica Chronic left shoulder pain Chest pain, unspecified type Obesity (BMI 30.0-34.9) Vertigo Pelvic pain in female Healthcare maintenance LIPID PANEL, STANDARD Routine 03/02/2025 8:35 AM EDT Prediabetes Fatty liver Obstructive sleep apnea Chronic GERD Chronic bilateral low back pain without sciatica Chronic left shoulder pain Chest pain, unspecified type Obesity (BMI 30.0-34.9) Vertigo Pelvic pain in female Healthcare maintenance T4, FREE Routine 03/02/2025 8:35 AM EDT Prediabetes Fatty liver Obstructive sleep apnea Chronic GERD Chronic bilateral low back pain without sciatica Chronic left shoulder pain Chest pain, unspecified type Obesity (BMI 30.0-34.9) Vertigo Pelvic pain in female Healthcare maintenance CHLAMYDIA/TRICHOMONAS/ NEISSERIA GONORRHOEAE, PCR, URINE Routine 03/02/2025 8:35 AM EDT Pelvic pain in female POCT URINALYSIS DIPSTICK Routine 02/27/2025 11:16 AM EDT Pelvic pain in female CULTURE, URINE, ROUTINE Routine 02/27/2025 10:46 AM EDT Pelvic pain in female COMPREHENSIVE METABOLIC PANEL Routine 01/27/2025 12:43 PM EDT PROTHROMBIN TIME-INR Routine 01/27/2025 12:43 PM EDT CBC Routine 01/27/2025 12:43 PM EDT BITEWINGS - 4 RADIOGRAPHIC IMAGES Routine 10/08/2024 8:00 AM EST HIV 1/2 ANTIGEN/ANTIBODY, FOURTH GENERATION W/RFL Routine 08/07/2024 10:28 AM EST BI MAMMOGRAM [...] Recently Relevant to Health Maintenance Results * FL Esophagus Barium Swallow (03/16/2025 7:20 AM EDT) Anatomical Region Laterality Modality Head, Neck Radiographic Sarah ging 03/16/2025 7:20 AM EDT Narrative 03/17/2025 7:20 AM EDT [address] [address] Fluoroscopy Report Signed Patient: Nae Pulido MR#: [id number] : 1965 Acct:[id number] Age/Sex: 59 / F ADM Date: 03/16/25 Loc: HO.XRAY Attending Dr: Annel Schreiber MD Ordering Physician: Annel Schreiber MD Date of Service: 03/16/25 Procedure(s): FL barium swallow Accession Number(s): [id number] cc: Jinny Cunningham DO; Annel Schreiber MD EXAMINATION: XR BARIUM SWALLOW CLINICAL INFORMATION: Gastroesophageal reflux disease without esophagitis COMPARISON: None available. TECHNIQUE: Routine upright barium swallow with thick barium and saltine crackers and thin barium in prone lying position was performed FINDINGS: Following oral administration of thick barium in upright view there is normal propagation bolus from the oral cavity through the pharynx, esophagus into stomach without obstruction, narrowing or stricture. No intraluminal filling defect or extrinsic compression. On oral administration of saltine crackers coated with barium paste there is normal oral mastication and propagation bolus from the oral cavity through the pharynx, esophagus into stomach. On placing patient prone lying and oral demonstration of thin barium there is good distention of the esophagus prominent circular muscular contractions in the midesophagus along the anterior margin at the level of bronchial bifurcation. Incidental diagnosis submucosal edema or underlying lesion. No gastroesophageal reflux or hiatal hernia seen in supine and prone lying position. FLUOROSCOPY TIME: 2 minute 30 seconds DOSE AREA PRODUCT: 57.47 uGy-m2 (microgray-meter squared) FL/FL barium swallow IMPRESSION: Prominent indentation along the anterior margin of mid esophagus likely muscular contractions. Other etiologies to consider submucosal edema or underlying lesion. Electronically signed by: Chente Borja MD 03/17/2025 07:17 AM EDT Dictated By: Chente Borja MD Signed By: <Electronically signed by Chente Borja MD in OV> 03/17/25 0717 DD/ 0720 TD/TT: 03/16/25 0734 Steam Press Tender: [facility] Procedure Note Donotuseinterpreter, Image - 03/17/[address] [address] Fluoroscopy Report Signed Patient: Carina Pulido#: [id number] : 1965Acct:[id number] Age/Sex: 59 / FADM Date: 03/16/25 Loc: HO.XRAY Attending Dr: Annel Schreiber MD Ordering Physician: Annel Schreiber MD Date of Service: 03/16/25 Procedure(s): FL barium swallow Accession Number(s): [id number] cc: Jinny Cunningham DO; Annel Schreiber MD EXAMINATION: XR BARIUM SWALLOW CLINICAL INFORMATION: Gastroesophageal reflux disease without esophagitis COMPARISON: None available. TECHNIQUE: Routine upright barium swallow with thick barium and saltine crackers and thin barium in prone lying position was performed FINDINGS: Following oral administration of thick barium in upright view there is normal propagation bolus from the oral cavity through the pharynx, esophagus into stomach without obstruction, narrowing or stricture. No intraluminal filling defect or extrinsic compression. On oral administration of saltine crackers coated with barium paste there is normal oral mastication and propagation bolus from the oral cavity through the pharynx, esophagus into stomach. On placing patient prone lying and oral demonstration of thin barium there is good distention of the esophagus prominent circular muscular contractions in the midesophagus along the anterior margin at the level of bronchial bifurcation. Incidental diagnosis submucosal edema or underlying lesion. No gastroesophageal reflux or hiatal hernia seen in supine and prone lying position. FLUOROSCOPY TIME: 2 minute 30 seconds DOSE AREA PRODUCT: 57.47 uGy-m2 (microgray-meter squared) FL/FL barium swallow IMPRESSION: Prominent indentation along the anterior margin of mid esophagus likely muscular contractions. Other etiologies to consider submucosal edema or underlying lesion. Electronically signed by: Chente Borja MD 03/17/2025 07:17 AM EDT Dictated By: Chente Borja MD Signed By: <Electronically signed by Chente Borja MD in OV> 03/17/25 0717 DD/ 0720 TD/TT: 03/16/25 0734 Steam Press Tender: [facility] External Provider IMG FLU OROSCOPY PROCEDURES Final Result * Chlamydia/N. Gonorrhoeae, PCR, Urine (03/02/2025 8:35 AM EDT) CT PCR, Urine NOT DETECTED Not Detect. [facility] Comment:A not detected test result does not exclude the possibilityof infection because test results can be affected byimproper specimen collection, concurrent antibiotic therapy,or the number of organisms in the specimen which may bebelow the sensitivity of the test. As with many diagnostictests, results from the Xpert CT/NG assay should beinterpreted in conjunction with other laboratory andclinical data available to the clinician.The Xpert CT/NG assay should not be used for the evaluationof suspected sexual abuse or for other medico-legalindications. Additional testing is recommended in anycircumstance when false positive or false negative resultscould lead to adverse medical, social or psychologicalconsequences. NG PCR, Urine NOT DETECTED Not Detect. [facility] Comment:A not detected test result does not exclude the possibilityof infection because test results can be affected byimproper specimen collection, concurrent antibiotic therapy,or the number of organisms in the specimen which may bebelow the sensitivity of the test. As with many diagnostictests, results from the Xpert CT/NG assay should beinterpreted in conjunction with other laboratory andclinical data available to the clinician.The Xpert CT/NG assay should not be used for the evaluationof suspected sexual abuse or for other medico-legalindications. Additional testing is recommended in anycircumstance when false positive or false negative resultscould lead to adverse medical, social or psychologicalconsequences. Urine (Urine, Random) 03/02/2025 8:35 AM EDT 03/02/2025 11:20 AM EDT Jinny Cunningham DO LAB URINE ORDERABLES Final R esult [facility] [address] [place] [phone] * Vitamin D, 25-Hydroxy, Total, Immunoassay (03/02/2025 8:35 AM EDT) Vitamin D 25-OH Total 31.2 >30 ng/mL [facility] Comment: Health Based Reference Values*< 20 ng/mL Centfqprv33-41 ng/mL Insufficient> 30 ng/mL Sufficient*Priscila TRUJILLO. N Engl J Med. 2007;357:266-280There is no well-established upper level of normal vitamin Dlevels. Some laboratories use 50 ng/mL as an upper limit ofnormal. However, toxicity is patient-dependent and may occurat any level. Careful correlation with the patient'spresentation is necessary and, if there is concern forvitamin D toxicity, treatment should be consideredirrespective of the serum level.Care must be taken in interpreting Vitamin D results fromdifferent laboratories and methodologies. Published datademonstrated that results from patients undergoinghemodialysis may show a negative bias when tested withvarious automated 25-OH vitamin D assays when compared toLC-MS/MS.When testing samples from patients whose predominant form ofVitamin D is Vitamin D2, such as patients receiving VitaminD2 supplementation, results that are subtherapeutic shouldbe confirmed with another method such as LC-MS/MS. Blood Venous blood specimen / Unknown 03/02/2025 8:35 AM EDT 03/02/2025 11:32 AM EDT Jinny Cunningham DO LAB BLOOD ORDERABLES Final R esult [facility] [address] [place] [phone] * Alpha-Fetoprotein, Tumor Marker (03/02/2025 8:35 AM EDT) Alpha Fetoprotein 4.9 ng/mL [facility] Comment:Reference Range: <6. 1The use of AFP as a tumor marker in females is not recommended.This test was performed using the Abraham Coulterchemiluminescent method. Values obtained fromdifferent assay methods cannot be usedinterchangeably. AFP levels, regardless ofvalue, should not be interpreted as absoluteevidence of the presence or absence of disease.THIS TEST WAS PERFORMED AT:[facility] [place] [phone] AVERY MD Blood Venous blood specimen / Unknown 03/02/2025 8:35 AM EDT 03/02/2025 11:32 AM EDT us Jinny Cunningham DO LAB BLOOD ORDERABLES Final R esult [facility] [address] [place] [phone] * CBC (03/02/2025 8:35 AM EDT) Only the most recent of2 resultswithin the time period is included. White Blood Count 6.4 4.8 - 10.8 X10*3/uL [facility] Red Blood Count 4.89 4.20 - 5.50 X10*6/uL [facility] Hemoglobin 14.7 12.0 - 16.0 g/dl [facility] Hematocrit 44.9 37.0 - 47.0 % [facility] Mean Corpuscular Volume 91.8 80.0 - 98.0 fL [facility] Mean Corpuscular Hemoglobin 30.1 27.0 - 33.0 pg [facility] Mean Corpuscular HGB Conc 32.7 31.0 - 35.0 g/dl [facility] Red Cell Distribution Width 13.5 11.0 - 16.0 % [facility] Platelet Count 207 160 - 400 X10*3/uL [facility] Mean Platelet Volume 11.9 9.4 - 12.3 fL [facility] NRBC Pct Auto 0.0 0.0 - 0.2 /100WBC [facility] NRBC Abs Auto 0.000 0.0 - 0.012 X10*3/uL [facility] Blood Venous blood specimen / Unknown 03/02/2025 8:35 AM EDT 03/02/2025 11:29 AM EDT us Jinny Cunningham DO LAB BLOOD ORDERABLES Final R esult [facility] [address] [place] [phone] * TSH (03/02/2025 8:35 AM EDT) Thyroid Stimulating Hormone 1.85 0.32 - 4.0 uIU/mL [facility] Comment:TSH 3rd Generation ( [facility]) Blood Venous blood specimen / Unknown 03/02/2025 8:35 AM EDT 03/02/2025 11:32 AM EDT Jinny Cunningham LAB BLOOD ORDERABLES Final R esult Performing Organization Address City/[facility]/ZIP Co de Phone Number [facility] [address] [place] [phone] * T4, Free (03/02/2025 8:35 AM EDT) Free T4 (Free Thyroxine) 0.87 0.71 - 1.85 ng/dL [facility] Blood Venous blood specimen / Unknown 03/02/2025 8:35 AM EDT 03/02/2025 11:32 AM EDT Jinny Marisa LAB BLOOD ORDERABLES Final R esult Performing Organization Address [facility] Co de Phone Number [facility] [address] [place] [phone] * Hemoglobin A1c (03/02/2025 8:35 AM EDT) Hemoglobin A1c 5.5 <6.0 % [facility] Comment:Hemoglobin A1C Refer ence Range Adults: 4.8 - 6.0 % Non diabetic: < 6.0 % Goal: < 7.0 %Additional Action Suggested: > 8.0 %Note: Hemoglobin A1c results are invalid for patients with abnormal amounts of HbF. Blood transfusions may impact the HbA1c concentration in the patient sample. Estimated Average Glucose 111 mg/dL [facility] Comment:eAG = Estimated ave rage glucose which is %A1C expressed asaverage glucose, using the formula of the [id number] Glucose study (ADAG), Diabetes Care, Vol.31,#8,2007 Blood Venous blood specimen / Unknown 03/02/2025 8:35 AM EDT 03/02/2025 11:29 AM EDT Jinny Cunningham DO LAB BLOOD ORDERABLES Final R esult Performing Organization Address [facility] Co de Phone Number [facility] [address] [place] [phone] * (ABNORMAL) Hepatic Function Panel (03/02/2025 8:35 AM EDT) Bilirubin, Total 0.6 0.0 - 1.0 mg/dL [facility] Bilirubin, Direct 0.3 0.0 - 0.5 mg/dL [facility] Aspartate Amino Transferase 47(H) 5 - 31 U/L [facility] Alanine Aminotransferase 50(H) 0 - 31 U/L [facility] Total Protein 7.2 6.5 - 8.0 g/dL [facility] Albumin Level 4.2 3.5 - 5.0 g/dL [facility] Alkaline Phosphatase 119(H) 39 - 117 U/L [facility] Blood Venous blood specimen / Unknown 03/02/2025 8:35 AM EDT 03/02/2025 11:32 AM EDT Jinny Cunningham DO LAB BLOOD ORDERABLES Final R esult Performing Organization Address [facility] Co de Phone Number [facility] [address] [place] [address] [phone] * Lipid Panel, Standard (03/02/2025 8:35 AM EDT) Triglycerides 79 <150 mg/dL [facility] Comment:Desirable Triglyceri de: less than 150 mg/dLBorderline High Triglyceride 150-199 mg/dLHigh Triglyceride: 200-499 mg/dLVery High Triglyceride: greater than or equal to 5OO mg/dL Cholesterol 157 <200 mg/dL [facility] Comment:Desirable Cholestero l: less than 200 mg/dLBorderline High Cholesterol: 200-239 mg/dLHigh Cholesterol: greater than 239 mg/dL LDL Cholesterol Calculated 89 <100 mg/dL [facility] Comment:Desirable LDL: less than 100 mg/dLNear Optimal/Above Optimal LDL: 110- 129 mg/dLBorderline High LDL: 130-159 mg/dLHigh LDL: 160-189 mg/dLVery High LDL: greater than or equal to 190 mg/dL HDL Cholesterol 53 >40 mg/dL [facility] Comment:Desirable HDL: great er than 40 mg/dL Note: This HDL assay may give artificially low results in patients with liver disease. Blood Venous blood specimen / Unknown 03/02/2025 8:35 AM EDT 03/02/2025 11:32 AM EDT us Jinny Cunningham DO LAB BLOOD ORDERABLES Final R esult [facility] [address] [place] [phone] * (ABNORMAL) Basic Metabolic Panel (03/02/2025 8:35 AM EDT) Sodium 142 135 - 145 mmol/L [facility] Potassium 4.3 3.3 - 5.1 mmol/L [facility] Chloride 109(H) 96 - 108 mmol/L [facility] Carbon Dioxide 27 22 - 29 mmol/L [facility] Anion Gap 10(L) 12 - 20 [facility] Urea Nitrogen (BUN) 16 9 - 16 mg/dL [facility] Creatinine, Serum 0.64 0.5 - 1.4 mg/dL [facility] Estimated Glomerular Filt Rate >60 [facility] Comment:Chronic Kidney Disea se: Estimated GFR < 60 mL/min/1.92y8Duepfo Kidney Disease: Estimated GFR < 15 mL/min/1.73m2 Glucose 101 60 - 115 mg/dL [facility] Calcium 9.3 8.4 - 10.2 mg/dL [facility] Blood Venous blood specimen / Unknown 03/02/2025 8:35 AM EDT 03/02/2025 11:32 AM EDT Jinny Cunningham DO LAB BLOOD ORDERABLES Final R esult Performing Organization Address [facility]/ZIP Co de Phone Number [facility] [address] [place] [address] [phone] * (ABNORMAL) POCT Urinalysis (02/27/2025 11:16 AM EDT) Color, UA Yellow Clarity, UA Clear Glucose, UA Negative Bilirubin, UA Negative Ketones, UA Negative Spec Grav, UA 1.015 Blood, UA Positive(A) Negative, None Detected Comment:Trace-Intact pH, UA 7.0 Protein, UA Negative Urobilinogen, UA 1.0 Leukocytes, UA Few 15(A) Negative, Rare, Trace Comment:Small Nitrite, UA Negative Negative, None Detected QC Media Lot # [id number] Lot# Expiration Date [id number] Urine 02/27/2025 11:1 6 AM EDT Jinny Cunningham DO POINT OF CARE TEST ENTER/MIKE T ORDERABLES Final Result * Culture, Urine, Routine (02/27/2025 10:46 AM EDT) Urine Urine specimen obtained by clean catch procedure / Unknown 02/27/2025 10:46 AM EDT 02/27/2025 1:38 PM EDT Comment:UACC Narrative [facility] - 02/28/2025 12:50 PM EDT Urine Culture No growth. Specimen Source: Urine clean catch Jinny Cunningham DO LAB MICROBIOLOGY - GENERAL O RDERABLES Final Result Performing Organization Address City/[facility]/ZIP Co de Phone Number [facility] [address] [place] [address] [phone] * Prothrombin Time-INR (01/27/2025 12:43 PM EDT) Prothrombin Time 11.1 10.9 - 12.4 SEC [facility] INTERNATIONAL NORM RATIO 1.0 0.9 - 1.1 [facility] Comment:INTERNATIONAL NORMAL IZED RATIO (INR) REFERENCE RANGES Reference RangeFor patients not on anticoagulant therapy: 0.9 - 1.1INR ranges for oral anticoagulanttherapy:For prevention and treatment of venous thrombosis and pulmonary embolism: 2.0 - 3.0For acute myocardial infarction with aspirin therapy: 2.0 - 3.0For acute myocardial infarction without aspirin therapy: 3.0 - 4.0For patients with mechanical prosthetic heart valves: 2.5 - 3.5 01/27/2025 12:4 3 PM EDT 01/27/2025 12:43 PM EDT us Generic External Data Provider LAB BLOOD ORDERAB LES Final Result [facility] [address] [place] [address] [phone] * (ABNORMAL) Comprehensive Metabolic Panel (01/27/2025 12:43 PM EDT) Sodium 144 135 - 145 mmol/L [facility] Potassium 4.4 3.3 - 5.1 mmol/L [facility] Chloride 105 96 - 108 mmol/L [facility] Carbon Dioxide 30(H) 22 - 29 mmol/L [facility] Anion Gap 13 12 - 20 [facility] Urea Nitrogen (BUN) 21(H) 9 - 16 mg/dL [facility] Creatinine, Serum 0.73 0.5 - 1.4 mg/dL [facility] Estimated Glomerular Filt Rate >60 [facility] Comment:Chronic Kidney Disea se: Estimated GFR < 60 mL/min/1.15f1Vkxhye Kidney Disease: Estimated GFR < 15 mL/min/1.73m2 Glucose 99 60 - 115 mg/dL [facility] Calcium 10.1 8.4 - 10.2 mg/dL [facility] Bilirubin, Total 0.4 0.0 - 1.0 mg/dL [facility] Aspartate Amino Transferase 40(H) 5 - 31 U/L [facility] Alanine Aminotransferase 59(H) 0 - 31 U/L [facility] Total Protein 8.0 6.5 - 8.0 g/dL [facility] Albumin Level 4.7 3.5 - 5.0 g/dL [facility] Alkaline Phosphatase 139(H) 39 - 117 U/L [facility] 01/27/2025 12:4 3 PM EDT 01/27/2025 12:43 PM EDT Generic External Data Provider LAB BLOOD ORDERAB LES Final Result Performing Organization Address [facility]/ZIP Co de Phone Number [facility] [address] [place] [address] [phone] * HIV-1/2 Antigen and Antibodies, Fourth Generation, with Reflexes (08/07/2024 10:28 AM EST) HIV AB/AG Nonreactive Nonreactive [facility] Comment:HIV-1 p24 Ag and/or HIV-1/HIV-2 Ab not detected.A test result that is nonreactive does not exclude thepossibility of exposure to or infection with HIV-1 and/orHIV-2. Nonreactive results in this assay for individualswith prior exposure to HIV-1 and/or HIV-2 may be due toantigen and antibody levels that are below the limit ofdetection of this assay.The [employer] HIV Ag/Ab Combo assay result andsupplemental assay results should be interpreted inconjunction with the patient's clinical presentation,history and other laboratory results. If the results areinconsistent with clinical evidence, additional testing issuggested to confirm the result. 08/07/2024 10:2 8 AM EST 08/07/2024 10:36 AM EST us Generic External Data Provider LAB BLOOD ORDERAB LES Final Result Performing Organization Address [facility]/ZIP Co de Phone Number [facility] [address] [place] [address] [phone] * BI Mammogram Diagnostic Tomosynthesis Left (05/27/2024 8:32 AM EDT) Anatomical Region Laterality Modality Breast Left Mammography 05/27/2024 8:32 AM EDT Narrative 05/27/2024 11:00 AM EDT [place] [facility] [address] [place] [address] Mammography Report Signed with Addenda Patient: Nae Pulido MR#: [id number] : 1965 Acct:[id number] Age/Sex: 58 / F ADM Date: 05/27/24 Loc: HO.MAMMO Attending Dr: Domenico lFores MD Ordering Physician: Domenico Flroes MD Results: Date of Service: 05/27/24 Follow Up: Procedure(s): MM tomosynthesis diagnostic LT Accession Number(s): [id number] cc: Jinny Cunningham DO; Domenico Flores MD [...] targeted area with a 14G spring loaded VIOlifeera core biopsy device. There was real-time confirmation [...] signed by Karthik Patterson MD in OV> 05/27/241056 DD/ 1 TD/TT: 05/27/24917 Steam Press Tender: Procedure Note Donotuseinterpreter, Image - [facility] [address] [place], [place] [address] Mammography Report Signed with Addenda Patient: Carina Pulido#: [id number] : 1965Acct:[id number] Age/Sex: 58 / FADM Date: 05/27/24 Loc: HO.MAMMO Attending Dr: Domenico Flores MD Ordering Physician: Domenico Floresesults: Date of Service: 05/27/24Follow Up: Procedure(s): MM tomosynthesis diagnostic LT Accession Number(s): [id number] cc: Jinny Cunningham DO; Domenico Flores MD [...] targeted area with a 14G spring loaded VIOlifeera core biopsy device. There was real-time confirmation [...] 05/27/24 1057 DD/ 0832 TD/TT: 05/27/24 0918 Steam Press Tender: [facility] External Provider IMG BI PROCEDURES Edited Result - Final * Hepatitis C Antibody with Reflex to HCV, RNA, Quantitative, Real-Time PCR (12/28/2023 8:42 AM EDT) Hepatitis C Antibody Nonreactive Nonreactive [facility] Comment:Antibodies to HCV no t detected; does not exclude early acuteHCV infection. Blood Venous blood specimen / Unknown 12/28/2023 8:42 AM EDT 12/28/2023 11:28 AM EDT Jinny Cunningham DO LAB BLOOD ORDERABLES Final R esult [facility] [address] [place] [address] [phone] * HPV mRNA E6/E7 w/Reflex to HPV Genotypes 16, 18/45 (06/08/2023 11:45 AM EDT) HPV nRNA E6/E7 Not Detected Not Detected [facility] Comment:Methodology: Transcr iption-Mediated AmplificationThis assay detects E6/E7 viral messenger RNA (mRNA) from 14high-risk HPV types (16,18,31,33,35,39,45,51,52,56,58,59,66,68).Cervical sources are required for HPV testing.If a vaginal source from a patient who has had atotal hysterectomy with removal of cervix wassubmitted, please contact the testing laboratoryfor alternative testing options.For additional information, please refer [email or web address].[email or web address]/TQV326y0(This link if provided for information/educational purposes only.)THIS TEST WAS PERFORMED AT:[facility] [place] [phone] AVERY MD HPV mRNA E6/E7 TNP [facility] HPV 16 RNA TNP [facility] HPV 18/45 RNA TNP [facility] 06/08/2023 11:4 5 AM EDT 06/11/2023 9:15 AM EDT us Jinny Cunningham DO LAB CYTOLOGY ORDERABLES Tahira longoria Result [facility] [address] [place] [address] [phone] * Pap Smear (06/08/2023 11:45 AM EDT) 06/08/2023 11:4 5 AM EDT 06/11/2023 9:15 AM EDT Narrative [facility] - 06/14/2023 9:39 AM EDT ----- ------- Name: Jason ArciniegaNae Age/Sex: 57/F : 1965 Unit#: [id number] Attend Dr: Jinny Cunningham DO Re06/08/23 Status: DANIELLE REF Location: HO.HHCLNP Disch: ----- ------- SPEC : [id number] RECD: 06/11/23 STATUS: STEPHANIE GILLESPIE NUM: [id number] ZION: 06/08/23-[address] [facility] [address]: Jinny Cunningham DO ENTERED: 06/11/237 SP TYPE: Pap Smr OT DR: ORDERED: Pap Smear Interpretation Satisfactory for evaluation. Mild inflammation. Negative for intraepithelial lesion or malignancy. HPV mRNA E6/E7: NOT DETECTED This assay detects E6/E7 viral messenger RNA (mRNA) from 14 high-risk HPV types (16, 18, 31, 33, 35, 39, 45, 51, 52, 56, 58, 59, 66, 68) HPV testing performed by [facility], [place], [place]. See reference laboratory pion of the EMR for entire report. Clinical Information LMP: Unknown date Previous PAP test: Unknown date, WNL Material Received ThinPrep-Cervical ----- ------- Signed (signature on file) SRAVAN Sanches (ASCP) 06/14/23 0939 ----- ------- END OF REPORT Jinny Cunningham DO LAB CYTOLOGY ORDERABLES Tahira longoria Result [facility] [address] [place] [phone] * Hm Colonoscopy (03/09/2022 10:01 AM EDT) Historical Provider HEALTH MAINTENANCE Final Result from Last 3 Months or Most Recently Relevant to Health Maintenance [facility] - HSN PARTIAL (MEDICAID) Care Teams Serology Technician Relationship Specialty Start Date End Date Jinny Cunningham DO [address] [place] [address] PCP - General Family Medicine 10/03/11
== END 2025-04-14 07:39 | disposition home or self-care (01) ==
LOC: HO.US 07:38
PROVIDERS: PCP Family Medicine; Visit Provider Internal Medicine
DX: R79.89 Other specified abnormal findings of blood chemistry (principal); K76.0 Fatty (change of) liver, not elsewhere classified
CPT/HCPCS: 76700; 76981

== ENCOUNTER → 2025-04-14 07:41 | Outpatient (BNV) | payer OTHER, SELFPAY | PROVIDERS: PCP Family Medicine; Visit Provider Radiology Diagnostic Radiology | DX: R79.89 Other specified abnormal findings of blood chemistry (principal); K76.0 Fatty (change of) liver, not elsewhere classified | CPT/HCPCS: 76700 ==

== ENCOUNTER 2025-05-05 08:44 | Outpatient (REF) | payer OTHER, SELFPAY ==
--- NOTE | ~2025-05-05 | MM_ITS ---
EXAMINATION: MM SCREENING DIGITAL BREAST TOMOSYNTHESIS, BILATERAL CLINICAL INFORMATION: Enlarged lymph nodes. History of left axillary lymph node biopsy with benign results on May 27, 2024; a butterfly shaped metallic clip was placed. COMPARISON: Comparison made to multiple prior, most recent May 02, 2024, and most remote January 27, 2021. TECHNIQUE: Digital breast tomosynthesis is performed in mediolateral oblique and craniocaudal views along with computer-aided detection (CAD). Synthesized 2D images are generated from the tomosynthesis. FINDINGS: BREAST COMPOSITION: There are scattered areas of fibroglandular density (ACR BI-RADS breast composition Category b). RIGHT BREAST: No significant masses, suspicious calcifications or other abnormalities are seen. LEFT BREAST: Left axillary lymph node with biopsy clip; this is not completely included on the current examination, but appears smaller than 2023. No significant masses, suspicious calcifications or other abnormalities are seen. MM/MM tomosynthesis screening BI IMPRESSION: BILATERAL BREASTS: Benign, no mammographic evidence of malignancy. Clinical follow-up is recommended for the concern of enlarged lymph nodes. Otherwise, normal interval follow-up mammogram is recommended in 12 months. ASSESSMENT: BI-RADS 2 - Benign Findings RECOMMENDATION: Routine annual mammography screening. FOLLOW-UP: 1. Patient should be managed based on the clinical impression. 2. Otherwise, routine annual screening mammography. This examination should not preclude the clinical evaluation of a suspicious palpable abnormality. This patient's information was entered into a reminder system with a target due date for their next mammogram. Electronically signed by: Allie Byrnes MD 05/05/2025 07:30 PM EDT
--- OUTSIDE RECORDS SUMMARY | 2025-05-05 10:33 | XMS_ITS | Encounter Summary ---
Author Organization [employer] Address [address] [facility] [address] [place] [address] Care Team Providers Care Er Tech Name Role Phone Jinny Cunningham DO Primary Care Provider + [phone] Reason for Visit * Reason Comments Med Change Request Encounter Details Date Type Department Care Team ([facility] st Contact Info) Description 03/19/2024 Refill [facility] [address] [place], [place] [phone] Kristina Cid FNP [address] [place] [address] Social History Tobacco Use Types Packs/Day Years [...] Team (Late st Contact Info) Description 10/12/2025 10:15 AM EST Office Visit [facility] [address] [place] [address] Onel Tejeda documented as of this encounter Visit Diagnoses Not on filedocumented in this encounter Additional Health Concerns Assessment Noted Time PHQ-9 Depression Total Score: 6 12/21/19 24 10:44 AM EDT documented as of this encounter Care Teams Er Tech Relationship Specialty Start Date End Date Jinny Cunningham DO [address] [place] [address] PCP - General Family Medicine 10/03/11 documented as of this encounter
--- OUTSIDE RECORDS SUMMARY | 2025-05-05 10:33 | XMS_ITS | Encounter Summary ---
Author Organization [employer] Address [address] [facility] [address] [place] [address] Care Team Providers Care Client Delivery Manager Name Role Phone Jinny Cunningham DO Primary Care Provider + [phone] Encounter Details Date Type Department Care Team (Latest Contact Info) Description 08/31/2020 Abstract [facility] CONVERSIONS Dental, Provider, DDS Social History [...] Description 10/12/2025 10:15 AM EST Office Visit [facility] [address] [place] [address] Onel Tejeda documented as of this encounter Visit Diagnoses Not on filedocumented in this encounter Care Teams Client Delivery Manager Relationship Specialty Start Date End Date Jinny Cunningham DO [address] [place] [address] PCP - General Family Medicine 10/03/11 documented as of this encounter
--- OUTSIDE RECORDS SUMMARY | 2025-05-05 10:33 | XMS_ITS | Encounter Summary ---
Author Organization [employer] Address [address] [facility] [address] [place] [address] Care Team Providers Care Resistor Coater Name Role Phone Jinny Cunningham DO Primary Care Provider + [phone] Reason for Visit * Reason Comments Med Refill Encounter Details Date Type Department Care Team ([facility] st Contact Info) Description 02/27/2025 Refill [facility] [address] [place], [place] [phone] Jinny Cunningham DO [address] [place], [place] [phone] Social History Tobacco Use Types Packs/Day Years [...] Description 10/12/2025 10:15 AM EST Office Visit [facility] [address] [place] [address] Onel Tejeda documented as of this encounter Visit Diagnoses Not on filedocumented in this encounter Additional Health Concerns Assessment Noted Time PHQ-9 Depression Total Score: 0 10/03/19 25 9:21 AM EST documented as of this encounter Care Teams Resistor Coater Relationship Specialty Start Date End Date Jinny Cunningham DO [address] [place] [phone] PCP - General Family Medicine 10/03/11 documented as of this encounter
--- OUTSIDE RECORDS SUMMARY | 2025-05-05 10:33 | XMS_ITS | Clinical Summary ---
Author Organization [facility] Address [address] [address] Phone Care Team Providers Care Carpenter/Labor Name Role Phone Jinny Cunningham DO Primary Care Provider + [phone] Social History Tobacco Use Types Packs/Day Years [...] 2017 ZOSTER VACCINES (1 of 2) 2017 INFLUENZA VACCINE (#1) 2025 COVID-19 VACCINE (2023-2 5 season) 2025 HEPATITIS A VACCINES Aged Out No long [...] topic Medical Devices Not on file Insurance [facility] [employer] [employer] [facility] [address] [address] PCP [employer] [facility] [address] [address] [employer] [facility] [employer] Care Teams Carpenter/Labor Relationship Specialty Start Date End Date Jinny Cunningham DO [address] [place] [address] PCP - General Family Medicine 11/04/24 Additional Source Comments The information contained in this document represents components of the legal health record. It is not the complete legal health record.[facility]
--- OUTSIDE RECORDS SUMMARY | 2025-05-05 10:33 | XMS_ITS | Encounter Summary ---
Author Organization [employer] Address [address] [facility] [address] [place] [address] Care Team Providers Care Director Search Name Role Phone Jinny Cunningham DO Primary Care Provider + [phone] Reason for Visit * Reason Onset Date Comments Appointment Request 09/21/2023 Encounter Details Date Type Department Care Team ([facility] Contact Info) Description 09/21/2023 Telephone [facility] [address] [place], [place] [phone] Jinny Cunningham DO [address] [place], [place] [phone] Appointment Request Social History Tobacco Use Types [...] call from last appt to schedule however creative services writer does not see anything on patients chart documented in this encounter Plan of Treatment Upcoming Encounters Date Type Department Care Team ([facility] Contact Info) Description 10/12/2025 10:15 AM EST Office Visit [facility] [address] [place] [address] Onel Tejeda documented as of this encounter Visit Diagnoses Not on filedocumented in this encounter Care Teams Director Search Relationship Specialty Start Date End Date Jinny Cunningham DO [address] [place] [address] PCP - General Family Medicine 10/03/11 documented as of this encounter
--- OUTSIDE RECORDS SUMMARY | 2025-05-05 10:33 | XMS_ITS | Encounter Summary ---
Author Organization [employer] Address [address] [facility] [address] [place] [address] Care Team Providers Care Cyber Operator Name Role Phone Jinny Cunningham DO Primary Care Provider + [phone] Reason for Visit * Reason Onset Date Comments Nurse Triage 02/15/2024 Encounter Details Date Type Department Care Team ([facility] st Contact Info) Description 02/15/2024 Telephone [facility] [address] [place], [place] [phone] Jinny Cunningham DO [address] [place], [place] [phone] Nurse Triage Social History Tobacco Use Types [...] 10:15 AM EST Office Visit [facility] [address] [place] [address] Onel Tejeda documented as of this encounter Visit Diagnoses Not on filedocumented in this encounter Additional Health Concerns Assessment Noted Time PHQ-9 Depression Total Score: 6 12/21/19 24 10:44 AM EDT documented as of this encounter Care Teams Cyber Operator Relationship Specialty Start Date End Date Jinny Cunningham DO [address] [place] [phone] PCP - General Family Medicine 10/03/11 documented as of this encounter
--- OUTSIDE RECORDS SUMMARY | 2025-05-05 10:33 | XMS_ITS | Clinical Summary ---
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 30 tablet 02/28/20 026 Active fluticasone (Flonase) 50 MCG/ACT nasal spray Administer 2 sprays into each nostril Once per day. Shake gently. Before first use, prime pump. After use, clean tip and replace cap. 16 g 02/28/20 25 026 Active docusate sodium (Colace) 100 MG capsule Take 1 capsule (100 mg) by mouth 2 times daily. 180 capsule 02/28/20 25 Active polycarbophil (Fibercon) 625 MG tablet Take 1 tablet (625 mg) by mouth 2 times daily. 180 tablet 02/28/20 25 Active esomeprazole (NexIUM) [address] capsule Take 1 capsule (20 mg) by mouth before breakfast and before evening meal. Do not open capsule. 60 capsule 02/28/20 026 Active Tirzepatide-We ight Management (Zepbound) 5 MG/0.5ML solution auto-injectorI ndications:BMI 35.0-35.9,adul t Inject 0.5 mL (5 mg) under the skin 1 (one) time per week. 2 mL 04/28/20 25 Active Tirzepatide-We ight Management (Zepbound) 5 MG/0.5ML solution auto-injectorI ndications:BMI 35.0-35.9,adul t Inject 0.5 mL (5 mg) under the skin 1 (one) time per week. 2 mL 04/01/20 25 025 Discontinued(Re order [...] Encounters Date Type Department Care Team Description 04/27/2025 Refill [facility] [address] [place] [address] Jinny Cunningham, BMI 35.0-35.9,adult 04/26/2025 Refill [facility] [address] [place] [address] Jinny Cunningham DO BMI 35.0-35.9,adult 04/08/2025 9:00 AM EDT Office Visit [facility] [address] [place] [address] Onel Tejeda Dental calculus (Primary Dx); Encounter for dental examination and cleaning with abnormal findings 04/01/2025 Refill [facility] [address] [place] [address] Jinny Cunningham DO BMI 35.0-35.9,adult 04/01/2025 Travel 03/28/2025 Refill [facility] [address] [place] [address] Jinny Cunningham DO BMI 35.0-35.9,adult 03/16/2025 Orders Only [facility] External Provider, [facility] 03/04/2025 Telephone [facility] [address] [place] [phone] Jinny Cunningham DO Medication Question 03/03/2025 Telephone [facility] [address] [place] [place] [phone] Jinny Cunningham DO Prior Authorization (Mannie CASEY: Juan) 02/27/2025 10:15 AM EDT Office Visit [facility] [address] [place] [phone] Jinny Cunningham DO Prediabetes (Primary Dx); Fatty liver; Obstructive sleep apnea; Chronic GERD; Chronic bilateral low back pain without sciatica; Chronic left shoulder pain; Chest pain, unspecified type; Obesity (BMI 30.0-34.9); Vertigo; Pelvic pain in female; Healthcare maintenance; BMI 35.0-35.9,adult 02/27/2025 Refill [facility] [address] [place] [address] Jinny Cunningham DO 02/27/2025 Travel 02/19/2025 Telephone [facility] [address] [facility] [place] [address] Jinny Cunningham, DO Chart Prep 02/19/2025 Telephone [facility] [address] [facility] [place] [address] Jinny Cunningham, DO Chart Prep 02/06/2025 Telephone [facility] [address] [place] [address] Jinny Cunningham, 02/02/2025 9:15 AM EDT Office Visit [facility] [address] [facility] [place] [address] Mable Price MD Vertigo; Metabolic dysfunction-associated steatotic liver disease (MASLD); Class 1 obesity due to excess calories with serious comorbidity and body mass index (BMI) of 31.0 to 31.9 in adult 02/02/2025 Travel from Last 3 Months Immunizations Immunization Administration [...] Description 10/12/2025 10:15 AM EST Office Visit [facility] [address] [place] [address] Onel Tejeda Health Maintenance Due Date Last Done Comments CT Colonography 1965 FIT DNA/Cologuard 1967 FIT 1967 FOBT 1965 Sigmoidoscopy 1965 Zoster Vaccines (1 of 2) 2017 COVID-19 Vaccine ( season) 2025 08/04/2021, 10/22/2020, 10/01/2020 Influenza Vaccine (#1) 2025 , 06/08/2023, 05/30/2022, Additional history exists Mammogram 05/27/2025 05/27/2024, 10/2023, 05/02/2024, Additional history exists Alcohol/Substance Use Screening 10/03/2025 10/03/2024 Depression Screening 10/03/2025 10/03/2024, 10/03/19 SDOH Screening 10/03/2025 10/03/2024 Dental X-Ray: Bitewings 10/09/2025 10/08/19 25, 09/21/2023, 08/31/2020 Dental Oral Exam 10/10/2025 04/08/2025, , 04/02/2024, Additional history exists Dental Prophylaxis 10/10/2025 04/08/2025, 0 10/08/2024, 04/02/2024, Additional history exists Disability Screening 02/02/2026 02/02/2025 Diabetes: Hemoglobin A1C 03/02/2026 07 025, 08/07/2024, 05/28/2024, Additional history exists Tobacco Screening 04/08/2026 04/08/2025 Cervical Cancer Screening 06/08/2026 Pap Smear 06/08/2026 06/08/2023, 06/25/2020 Dental X-Ray: Full Mouth 09/22/2026 09/21/2023, 08/20 HPV/Cotest 06/08/2028 06/08/2023, 01/2020, 05/03/2016 Lipid Panel 03/02/2030 03/02/2025, 04/2024, 12/28/2023, Additional history exists Colonoscopy 03/09/2032 03/09/2022, 01/02/2019 Colorectal Cancer Screening 03/09/2032 DTaP/Tdap/Td Vaccines (4 - Td or Tdap) 10/30/2032 10/30/2022, 06/11/2012, 10/03/2011 RSV Patients and Patients Aged 60 years or older (1 - 1-dose 75+ series) 2042 Hepatitis A Vaccines Completed 03/26/2013, 11/24/19 Hepatitis C Screening Completed 12/28/2023 , 11/08/2022, [...] Procedure Name Priority Date/Time Associated Diagnosis Comments US ABDOMEN COMPLETE WITH ELASTOGRAPHY Routine 04/14/2025 8:09 AM EDT PERIODIC ORAL EVALUATION - ESTABLISHED [...] 10:46 AM EDT Pelvic pain in female BITEWINGS - 4 RADIOGRAPHIC IMAGES Routine 10/08/2024 [...] Recently Relevant to Health Maintenance Results * US Abdomen Comp w elastography (04/14/2025 8:09 AM EDT) Anatomical Region Laterality Modality Abdomen Ultrasound 04/14/2025 8:09 AM EDT Narrative 04/14/2025 8:41 AM EDT [place] [address] Ultrasound Report Signed Patient: Nae Pulido MR#: [id number] : 1965 Acct:[id number] Age/Sex: 59 / F ADM Date: 04/14/25 Loc: HO.US Attending Dr: Annel Schreiber MD Ordering Physician: Annel Schreiber MD Date of Service: 04/14/25 Procedure(s): US abdomen comp w elastography Accession Number(s): [id number] cc: Jinny Cunningham DO; Annel Schreiber MD EXAMINATION: US ABDOMEN COMPLETE WITH LIVER ELASTOGRAPHY HISTORY: R79.89 - Other specified abnormal findings of blood chemistry TECHNIQUE: Real-time grayscale ultrasound imaging of the abdomen was performed and images were reviewed. COMPARISON: Comparison is made with the prior examination dated 06/17/2024. FINDINGS: Liver: The right lobe of the liver measures 14.5 cm in size. The left lobe of the liver measures 9.7 cm in size. The liver demonstrates increased echotexture, consistent with steatosis. No focal mass or intrahepatic biliary ductal dilatation is identified. There is normal hepatopedal flow in the portal vein. Ultrasound elastography of the liver was performed with 10 separate measurements of the liver parenchyma with the patient in the supine position. Measurements were obtained approximately 2 cm below Evie's capsule and perpendicular to the capsule. The median shear wave velocity is 1.64 m/s (previously 1.50 m/s). The interquartile range/median (IQR/median) is 0.15. Gallbladder and biliary tree: The gallbladder is surgically absent. The common bile duct is normal in caliber measuring 5 mm. Kidneys: The right kidney measures 12.6 cm in length. The left kidney measures 11.5 cm in length. The kidneys are unremarkable, without evidence of masses, hydronephrosis, or calculi. Pancreas: The pancreas is obscured by bowel gas. Spleen: The spleen is normal in size and contour, measuring 9.3 cm in length. Abdominal aorta and inferior vena cava: The visualized portions of the abdominal aorta and inferior vena cava are normal in caliber. There is no free fluid in the abdomen. US/US abdomen comp w elastography IMPRESSION: Hepatic steatosis. The median shear wave velocity in the liver is 1.64 m/s, corresponding to a median liver stiffness of 8.28 kPa. The IQR/median value is 0.15. This is indicative of a quality data set. Findings are indicative of a low elastography value which rules out advanced chronic liver disease in asymptomatic patients. REFERENCE: Society of Radiologists in Ultrasound Liver Stiffness Thresholds (2020): LIVER STIFFNESS THRESHOLDS: *Shear wave velocity less than 1.3 m/s (Liver Stiffness equal or less than 5 kPa): High probability of being normal. *Shear wave velocity less than 1.7 m/s (Liver Stiffness less than 9 kPa): In the absence of other known clinical signs, rules out compensated advanced chronic liver disease. *Shear wave velocity between 1.7-2.1 m/s (Liver Stiffness 9-13 kPa): Suggestive of compensated advanced chronic liver disease but need further test for confirmation. *Shear wave velocity between 2.1-2.4 m/s (Liver Stiffness 13-17 kPa): Rules in compensated advanced chronic liver disease. *Shear wave velocity greater than 2.4 m/s (Liver Stiffness over 17 kPa): Suggestive of clinically significant portal hypertension. QUALITY OF DATA SET: *IQR/Median value equal or less than 0.15 implies a quality data set. *IQR/Median value over 0.15 implies a poor quality data set. SIGNIFICANT CHANGE FROM PRIOR EXAM: Significant change if liver stiffness measurement is 10% or greater from prior exam. OTHER CONSIDERATIONS: The stage of liver fibrosis may be overestimated in the setting of acute hepatitis, liver inflammation, elevated liver function tests, hepatic vascular congestion, obstructive cholestasis, non-fasting state, and infiltrative diseases such as amyloidosis and lymphoma. In some patients with NAFLD, the liver stiffness thresholds for compensated advanced chronic liver disease may be lower. In causes other than viral hepatitis and NAFLD, liver stiffness thresholds are not well established. Electronically signed by: Jc Chavis MD 04/14/2025 08:38 AM EDT RP Dictated By: Jc Chavis MD Signed By: <Electronically signed by Jc Chavis MD in OV> 04/14/25837 DD/ 8 TD/TT: 04/14/25821 Die Designer: Procedure Note Donotuseinterpreter, Image - 04/14/2025 [place] [address] Ultrasound Report Signed Patient: Carina Pulido#: [id number] : 1965Acct:[id number] Age/Sex: 59 / FADM Date: 04/14/25 Loc: HO.US Attending Dr: Annel Schreiber MD Ordering Physician: Annel Schreiber MD Date of Service: 04/14/25 Procedure(s): US abdomen comp w elastography Accession Number(s): [id number] cc: Jinny Cunningham DO; Annel Schreiber MD EXAMINATION: US ABDOMEN COMPLETE WITH LIVER ELASTOGRAPHY HISTORY: R79.89 - Other specified abnormal findings of blood chemistry TECHNIQUE: Real-time grayscale ultrasound imaging of the abdomen was performed and images were reviewed. COMPARISON: Comparison is made with the prior examination dated 06/17/2024. FINDINGS: Liver: The right lobe of the liver measures 14.5 cm in size. The left lobe of the liver measures 9.7 cm in size. The liver demonstrates increased echotexture, consistent with steatosis. No focal mass or intrahepatic biliary ductal dilatation is identified. There is normal hepatopedal flow in the portal vein. Ultrasound elastography of the liver was performed with 10 separate measurements of the liver parenchyma with the patient in the supine position. Measurements were obtained approximately 2 cm below Evie's capsule and perpendicular to the capsule. The median shear wave velocity is 1.64 m/s (previously 1.50 m/s). The interquartile range/median (IQR/median) is 0.15. Gallbladder and biliary tree: The gallbladder is surgically absent. The common bile duct is normal in caliber measuring 5 mm. Kidneys: The right kidney measures 12.6 cm in length. The left kidney measures 11.5 cm in length. The kidneys are unremarkable, without evidence of masses, hydronephrosis, or calculi. Pancreas: The pancreas is obscured by bowel gas. Spleen: The spleen is normal in size and contour, measuring 9.3 cm in length. Abdominal aorta and inferior vena cava: The visualized portions of the abdominal aorta and inferior vena cava are normal in caliber. There is no free fluid in the abdomen. US/US abdomen comp w elastography IMPRESSION: Hepatic steatosis. The median shear wave velocity in the liver is 1.64 m/s, corresponding to a median liver stiffness of 8.28 kPa. The IQR/median value is 0.15. This is indicative of a quality data set. Findings are indicative of a low elastography value which rules out advanced chronic liver disease in asymptomatic patients. REFERENCE: Society of Radiologists in Ultrasound Liver Stiffness Thresholds (2020): LIVER STIFFNESS THRESHOLDS: *Shear wave velocity less than 1.3 m/s (Liver Stiffness equal or less than 5 kPa): High probability of being normal. *Shear wave velocity less than 1.7 m/s (Liver Stiffness less than 9 kPa): In the absence of other known clinical signs, rules out compensated advanced chronic liver disease. *Shear wave velocity between 1.7-2.1 m/s (Liver Stiffness 9-13 kPa): Suggestive of compensated advanced chronic liver disease but need further test for confirmation. *Shear wave velocity between 2.1-2.4 m/s (Liver Stiffness 13-17 kPa): Rules in compensated advanced chronic liver disease. *Shear wave velocity greater than 2.4 m/s (Liver Stiffness over 17 kPa): Suggestive of clinically significant portal hypertension. QUALITY OF DATA SET: *IQR/Median value equal or less than 0.15 implies a quality data set. *IQR/Median value over 0.15 implies a poor quality data set. SIGNIFICANT CHANGE FROM PRIOR EXAM: Significant change if liver stiffness measurement is 10% or greater from prior exam. OTHER CONSIDERATIONS: The stage of liver fibrosis may be overestimated in the setting of acute hepatitis, liver inflammation, elevated liver function tests, hepatic vascular congestion, obstructive cholestasis, non-fasting state, and infiltrative diseases such as amyloidosis and lymphoma. In some patients with NAFLD, the liver stiffness thresholds for compensated advanced chronic liver disease may be lower. In causes other than viral hepatitis and NAFLD, liver stiffness thresholds are not well established. Electronically signed by: Jc Chavis MD 04/14/2025 08:38 AM EDT Dictated By: Jc Chavis MD Signed By: <Electronically signed by Jc Chavis MD in OV> 04/14/2538 DD/ 0809 TD/TT: 04/14/25 08 Die Designer: us [facility] External Provider IMG US PROCEDURES Final Result * FL Esophagus Barium Swallow (03/16/2025 7:20 AM EDT) Anatomical Region Laterality Modality Head, Neck Radiographic Sarah ging 03/16/2025 7:20 AM EDT Narrative 03/17/2025 7:20 AM EDT [place] [address] Fluoroscopy Report Signed Patient: Nae Pulido MR#: [id number] : 1965 Acct:[id number] Age/Sex: 59 / F ADM Date: 03/16/25 Loc: HO.XRAY Attending Dr: Annel Schreiber MD Ordering Physician: Annel Schreiber MD Date of Service: 03/16/25 Procedure(s): FL barium swallow Accession Number(s): [id number] cc: Jinny Cunningham DO; Annel Schreiber MD [...] signed by Chente Borja MD in OV> 03/17/25716 DD/ 07 TD/TT: 03/16/25 0734 Die Designer: [facility] Donotuseinterpreter, Image - 03/17/2025 [place] [address] Fluoroscopy Report Signed Patient: Carina Pulido#: [id number] : 1965Acct:[id number] Age/Sex: 59 / FADM Date: 03/16/25 Loc: HO.XRAY Attending Dr: Annel Schreibre MD Ordering Physician: Annel Schreiber MD Date of Service: 03/16/25 Procedure(s): FL barium swallow Accession Number(s): [id number] cc: Jinny Cunningham DO; Annel Schreiber MD [...] signed by Chente Borja MD in OV> 03/17/25716 DD/ 07 TD/TT: 03/16/25 0734 Die Designer: [facility] External Provider IMG FLU OROSCOPY PROCEDURES Final Result * Chlamydia/N. Gonorrhoeae, PCR, Urine (03/02/2025 8:35 AM EDT) CT PCR, Urine NOT DETECTED Not Detect. [facility] Comment:A not detected test result [...] NG PCR, Urine NOT DETECTED Not Detect. [facility] Comment:A not detected test result [...] DO LAB URINE ORDERABLES Final R esult [facility] [address] [place] [phone] * Vitamin D, 25-Hydroxy, Total, Immunoassay (03/02/2025 8:35 AM EDT) Vitamin D 25-OH Total 31.2 >30 ng/mL [facility] Comment: Health Based Reference Values*< 20 ng/mL Fczgsxmst97-90 ng/mL Insufficient> 30 ng/mL Sufficient*Priscila TRUJILLO. N [...] ORDERABLES Final R esult Performing Organization Address [facility] Co de Phone Number [facility] [address] [place] [address] [phone] * Alpha-Fetoprotein, Tumor Marker (03/02/2025 8:35 AM EDT) Alpha Fetoprotein 4.9 ng/mL [facility] Comment:Reference Range: <6. 1The use of AFP as a tumor marker in females is not recommended.This test was performed using the Abraham Coulterchemiluminescent method. Values obtained fromdifferent assay methods cannot be usedinterchangeably. AFP levels, regardless ofvalue, should not be interpreted as absoluteevidence of the presence or absence of disease.THIS TEST WAS PERFORMED AT:[facility] [place] [phone] AVERY MD Blood Venous blood specimen / Unknown 03/02/2025 8:35 AM EDT 03/02/2025 11:32 AM EDT Jinny Marisa LAB BLOOD ORDERABLES Final R esult Performing Organization Address [facility] Co de Phone Number [facility] [address] [place] [address] [phone] * CBC (03/02/2025 8:35 AM EDT) Pathologist [facility] White Blood Count 6.4 4.8 - 10.8 X10*3/uL [facility] Red Blood Count 4.89 4.20 - 5.50 X10*6/uL [facility] Hemoglobin 14.7 12.0 - 16.0 g/dl [facility] Hematocrit 44.9 37.0 - 47.0 % [facility] Mean Corpuscular Volume 91.8 80.0 - 98.0 fL [facility] Mean Corpuscular Hemoglobin 30.1 27.0 - 33.0 pg [facility] Mean Corpuscular HGB Conc 32.7 31.0 - 35.0 g/dl [facility] Red Cell Distribution Width 13.5 11.0 - 16.0 % [facility] Platelet Count 207 160 - 400 X10*3/uL [facility] Mean Platelet Volume 11.9 9.4 - 12.3 fL [facility] NRBC Pct Auto 0.0 0.0 - 0.2 /100WBC [facility] NRBC Abs Auto 0.000 0.0 - 0.012 X10*3/uL [facility] Blood Venous blood specimen / Unknown 03/02/2025 8:35 AM EDT 03/02/2025 11:29 AM EDT Jinny Cunningham DO LAB BLOOD ORDERABLES Final R esult Performing Organization Address City/[facility]/ZIP Co de Phone Number [facility] [address] [place] [phone] * TSH (03/02/2025 8:35 AM EDT) Thyroid Stimulating Hormone 1.85 0.32 - 4.0 uIU/mL [facility] Comment:TSH 3rd Generation ( [employer]) Blood Venous blood specimen / Unknown 03/02/2025 8:35 AM EDT 03/02/2025 11:32 AM EDT Jinny Cunningham DO LAB BLOOD ORDERABLES Final R esult [facility] [address] [place] [phone] * T4, Free (03/02/2025 8:35 AM EDT) Free T4 (Free Thyroxine) 0.87 0.71 - 1.85 ng/dL [facility] Blood Venous blood specimen / Unknown 03/02/2025 8:35 AM EDT 03/02/2025 11:32 AM EDT Jinny Cunningham DO LAB BLOOD ORDERABLES Final R esult Performing Organization Address [facility] de Phone Number [facility] [address] [place] [phone] * Hemoglobin A1c (03/02/2025 8:35 AM EDT) Hemoglobin A1c 5.5 <6.0 % [facility] Comment:Hemoglobin A1C Refer ence Range Adults: 4.8 - 6.0 % Non diabetic: < 6.0 % Goal: < 7.0 %Additional Action Suggested: > 8.0 %Note: Hemoglobin A1c results are invalid for patients with abnormal amounts of HbF. Blood transfusions may impact the HbA1c concentration in the patient sample. Estimated Average Glucose 111 mg/dL [facility] Comment:eAG = Estimated ave rage glucose which is %A1C expressed asaverage glucose, using the formula of the E7T-AttkeyjKwzemke Glucose study (ADAG), Diabetes Care, Vol.31,#8,2007 Blood Venous blood specimen / Unknown 03/02/2025 8:35 AM EDT 03/02/2025 11:29 AM EDT Jinny Cunningham DO LAB BLOOD ORDERABLES Final R esult Performing Organization Address [facility] Co de Phone Number [facility] [address] [place] [phone] * (ABNORMAL) Hepatic Function Panel (03/02/2025 8:35 AM EDT) Bilirubin, Total 0.6 0.0 - 1.0 mg/dL [facility] Bilirubin, Direct 0.3 0.0 - 0.5 mg/dL [facility] Aspartate Amino Transferase 47(H) 5 - 31 U/L [facility] Alanine Aminotransferase 50(H) 0 - 31 U/L [facility] Total Protein 7.2 6.5 - 8.0 g/dL [facility] Albumin Level 4.2 3.5 - 5.0 g/dL [facility] Alkaline Phosphatase 119(H) 39 - 117 U/L [facility] Blood Venous blood specimen / Unknown 03/02/2025 8:35 AM EDT 03/02/2025 11:32 AM EDT us Jinny Cunningham DO LAB BLOOD ORDERABLES Final R esult [facility] [address] [place] [phone] * Lipid Panel, Standard (03/02/2025 8:35 AM EDT) Triglycerides 79 <150 mg/dL [facility] Comment:Desirable Triglyceri de: less than 150 mg/dLBorderline High Triglyceride 150-199 mg/dLHigh Triglyceride: 200-499 mg/dLVery High Triglyceride: greater than or equal to 5OO mg/dL Cholesterol 157 <200 mg/dL [facility] Comment:Desirable Cholestero l: less than 200 mg/dLBorderline High Cholesterol: 200-239 mg/dLHigh Cholesterol: greater than 239 mg/dL LDL Cholesterol Calculated 89 <100 mg/dL [facility] Comment:Desirable LDL: less than 100 mg/dLNear Optimal/Above Optimal LDL: 110- 129 mg/dLBorderline High LDL: 130-159 mg/dLHigh LDL: 160-189 mg/dLVery High LDL: greater than or equal to 190 mg/dL HDL Cholesterol 53 >40 mg/dL [facility] Comment:Desirable HDL: great er than 40 mg/dL Note: This HDL assay may give artificially low results in patients with liver disease. Blood Venous blood specimen / Unknown 03/02/2025 8:35 AM EDT 03/02/2025 11:32 AM EDT Jinny Cunningham DO LAB BLOOD ORDERABLES Final R esult Performing Organization Address City/[facility]/ZIP Co de Phone Number [facility] [address] [place] [phone] * (ABNORMAL) Basic Metabolic Panel (03/02/2025 8:35 AM EDT) Sodium 142 135 - 145 mmol/L [facility] Potassium 4.3 3.3 - 5.1 mmol/L [facility] Chloride 109(H) 96 - 108 mmol/L [facility] Carbon Dioxide 27 22 - 29 mmol/L [facility] Anion Gap 10(L) 12 - 20 [facility] Urea Nitrogen (BUN) 16 9 - 16 mg/dL [facility] Creatinine, Serum 0.64 0.5 - 1.4 mg/dL [facility] Estimated Glomerular Filt Rate >60 [facility] Comment:Chronic Kidney Disea se: Estimated GFR < 60 mL/min/1.67x3Sniyji Kidney Disease: Estimated GFR < 15 mL/min/1.73m2 Glucose 101 60 - 115 mg/dL [facility] Calcium 9.3 8.4 - 10.2 mg/dL [facility] Blood Venous blood specimen / Unknown 03/02/2025 8:35 AM EDT 03/02/2025 11:32 AM EDT Jinny Cunningham DO LAB BLOOD ORDERABLES Final R esult Performing Organization Address City/[facility]/ZIP Co de Phone Number [facility] [address] [place] [phone] * (ABNORMAL) POCT Urinalysis (02/27/2025 11:16 [...] Media Lot # [id number] Lot# Expiration Date [id number] Urine 02/27/2025 11:1 6 AM EDT Jinny Cunningham DO POINT OF CARE TEST ENTER/MIKE T ORDERABLES Final Result * Culture, Urine, Routine (02/27/2025 10:46 AM EDT) Urine Urine specimen obtained by clean catch procedure / Unknown 02/27/2025 10:46 AM EDT 02/27/2025 1:38 PM EDT Comment:UACC Narrative [facility] - 02/28/2025 12:50 PM EDT Urine Culture No growth. Specimen Source: Urine clean catch Jinny Cunningham DO LAB MICROBIOLOGY - GENERAL O RDERABLES Final Result [facility] [address] [place] [phone] * HIV-1/2 Antigen and Antibodies, Fourth Generation, with Reflexes (08/07/2024 10:28 AM EST) HIV AB/AG Nonreactive Nonreactive [facility] Comment:HIV-1 p24 Ag and/or HIV-1/HIV-2 Ab not detected.A test result that is nonreactive does not exclude thepossibility of exposure to or infection with HIV-1 and/orHIV-2. Nonreactive results in this assay for individualswith prior exposure to HIV-1 and/or HIV-2 may be due toantigen and antibody levels that are below the limit ofdetection of this assay.The Sicubo HIV Ag/Ab Combo assay result andsupplemental assay results should be interpreted inconjunction with the patient's clinical presentation,history and other laboratory results. If the results areinconsistent with clinical evidence, additional testing issuggested to confirm the result. 08/07/2024 10:2 8 AM EST 08/07/2024 10:36 AM EST us Generic External Data Provider LAB BLOOD ORDERAB LES Final Result Performing Organization Address City/State/[facility] Co de Phone Number [facility] [address] [place] [phone] * BI Mammogram Diagnostic Tomosynthesis Left (05/27/2024 8:32 AM EDT) Anatomical Region Laterality Modality Breast Left Mammography 05/27/2024 8:32 AM EDT Narrative 05/27/2024 11:00 AM EDT [address] [place] [address] Mammography Report Signed with Addenda Patient: Nae Pulido MR#: [id number] : 1965 Acct:[id number] Age/Sex: 58 / F ADM Date: 05/27/24 Loc: HO.MAMMO Attending Dr: Domenico Flores MD Ordering Physician: Domenico Flores MD Results: Date of Service: 05/27/24 Follow Up: Procedure(s): MM tomosynthesis diagnostic LT Accession Number(s): [id number] cc: Jinny Cunningham DO; Domenico Flores MD [...] targeted area with a 14G spring loaded Intrapaceera core biopsy device. There was real-time confirmation [...] Patterson MD in OV> 05/27/24 1057 DD/ 1 TD/TT: 05/27/24917 Die Designer: Procedure Note Donotuseinterpreter, Image - [facility] [address] [place] [address] Mammography Report Signed with Addenda Patient: Carina Pulido#: [id number] : 1965Acct:[id number] Age/Sex: 58 / FADM Date: 05/27/24 Loc: HO.MAMMO Attending Dr: Domenico Flores MD Ordering Physician: Domenico Floresesults: Date of Service: 05/27/24Follow Up: Procedure(s): MM tomosynthesis diagnostic LT Accession Number(s): [id number] cc: Jinny Cunningham DO; Domenico Flores MD [...] targeted area with a 14G spring loaded Intrapaceera core biopsy device. There was real-time confirmation [...] Patterson MD in OV> 05/27/24 1057 DD/ 1 TD/TT: 05/27/24 0918 Die Designer: [facility] External Provider IMG BI PROCEDURES Edited Result - Final * Hepatitis C Antibody with Reflex to HCV, RNA, Quantitative, Real-Time PCR (12/28/2023 8:42 AM EDT) Hepatitis C Antibody Nonreactive Nonreactive [facility] Comment:Antibodies to HCV no t detected; does not exclude early acuteHCV infection. Blood Venous blood specimen / Unknown 12/28/2023 8:42 AM EDT 12/28/2023 11:28 AM EDT Jinny Cunningham DO LAB BLOOD ORDERABLES Final R esult [facility] [address] [place] [phone] * HPV mRNA E6/E7 w/Reflex to HPV Genotypes 16, 18/45 (06/08/2023 11:45 AM EDT) HPV nRNA E6/E7 Not Detected Not Detected [facility] Comment:Methodology: Transcr iption-Mediated AmplificationThis assay detects E6/E7 viral messenger RNA (mRNA) from 14high-risk HPV types (16,18,31,33,35,39,45,51,52,56,58,59,66,68).Cervical sources are required for HPV testing.If a vaginal source from a patient who has had atotal hysterectomy with removal of cervix wassubmitted, please contact the testing laboratoryfor alternative testing options.For additional information, please refer tohttp://education.EximForce/faq/CTC007v6(This link if provided for information/educational purposes only.)THIS TEST WAS PERFORMED AT:[facility] [place] [phone] AVERY MD HPV mRNA E6/E7 TNP [facility] HPV 16 [facility] HPV 18/45 RNA [facility] 06/08/2023 11:4 5 AM EDT 06/11/2023 9:15 AM EDT Jinny Cunningham DO LAB CYTOLOGY ORDERABLES Tahira longoria Result [facility] [address] [place], [place] [phone] * Pap Smear (06/08/2023 11:45 AM EDT) 06/08/2023 11:4 5 AM EDT 06/11/2023 9:15 AM EDT Narrative [facility] - 06/14/2023 9:39 AM EDT ----- ------- Name: Nae Pulido Age/Sex: 57/F : 1965 Unit#: [id number] Attend Dr: Jinny Cunningham DO Re06/08/23 Status: DEP REF Location: [facility] Disch: ----- ------- SPEC : [id number] RECD: 06/11/23 STATUS: STEPHANIE GILLESPIE NUM: [id number] ZION: 06/08/23 [facility] DR: Jinny Cunningham DO ENTERED: 06/11/23 SP TYPE: Pap Smr OTHR DR: ORDERED: Pap Smear Interpretation Satisfactory for evaluation. Mild inflammation. Negative for intraepithelial lesion or malignancy. HPV mRNA E6/E7: NOT DETECTED This assay detects E6/E7 viral messenger RNA (mRNA) from 14 high-risk HPV types (16, 18, 31, 33, 35, 39, 45, 51, 52, 56, 58, 59, 66, 68) HPV testing performed by [facility], [place], [place]. See reference laboratory pion of the EMR for entire report. Clinical Information LMP: Unknown date Previous PAP test: Unknown date, WNL Material Received ThinPrep-Cervical ----- ------- Signed (signature on file) SRAVAN Sanches (ASC) 06/14/23 0939 ----- ------- END OF REPORT Jinny Cunningham DO LAB CYTOLOGY ORDERABLES Tahira l Result [facility] [address] [place] [phone] [phone] * Colonoscopy (03/09/2022 10:01 AM EDT) Historical Provider MD HEALTH MAINTENANCE Final Result from Last 3 Months or Most Recently Relevant to Health Maintenance [place] [address] [place] [address] 3 DENTAL - HSN PARTIAL (MEDICAID) Care Teams Tele Grout Sewer Line Repairer Relationship Specialty Start Date End Date Jinny Cunningham DO [address] [place] [address] PCP - General Family Medicine 10/03/11
--- OUTSIDE RECORDS SUMMARY | 2025-05-05 10:33 | XMS_ITS | Encounter Summary ---
Author Organization [employer] Address [address] [place] [address] [address] [place] [address] Care Team Providers Care Lone Lead Lineman Name Role Phone Jinny Cunningham DO Primary Care Provider [phone] Encounter Details Date Type Department Care Team (Late st Contact Info) Description 12/13/2022 Orders Only [facility] MED & PEDS [address] [place] [address] Jinny Reynolds LPN Social History Tobacco Use [...] Description 10/12/2025 10:15 AM EST Office Visit [facility] ADULT DENTAL [address] [place] [address] Onel Tejeda documented as of this encounter Visit Diagnoses Not on filedocumented in this encounter Care Teams Lone Lead Lineman Relationship Specialty Start Date End Date Jinny Cunningham DO [address] [place] [address] PCP - General Family Medicine 10/03/11 documented as of this encounter
--- OUTSIDE RECORDS SUMMARY | 2025-05-05 10:33 | XMS_ITS | Encounter Summary ---
Author Organization [employer] Address [address] [facility] 7t [place] [address] Care Team Providers Care Oil Dispenser Name Role Phone Jinny Cunningham DO Primary Care Provider + [phone] Reason for Visit * Reason Onset Date Comments Referral 03/08/2023 Encounter Details Date Type Department Care Team (Late Contact Info) Description 03/08/[address] [facility] MEDICINE [address] [place], [place] [phone] Jinny Cunningham DO [address] [place] [address] Referral Social History Tobacco Use Types Packs/Day [...] from pt requesting status on referral to behavioral health case manager. Please contact pt at [phone] (Lithuanian) documented in this encounter Plan of Treatment Upcoming Encounters Date Type Department Care Team (Late Contact Info) Description 10/12/2025 10:15 AM EST Office Visit [facility] ADULT DENTAL [address] [place] [address] Onel Tejeda documented as of this encounter Visit Diagnoses Not on filedocumented in this encounter Care Teams Oil Dispenser Relationship Specialty Start Date End Date Jinny Cunningham DO [address] [place] [address] PCP - General Family Medicine 10/03/11 documented as of this encounter
--- OUTSIDE RECORDS SUMMARY | 2025-05-05 10:33 | XMS_ITS | Encounter Summary ---
Author Organization [employer] Address [address] [facility] 7t [place] [address] Care Team Providers Care Cath Laboratory Technician Name Role Phone Jinny Cunningham DO Primary Care Provider [phone] Reason for Referral * Consultation (Routine) - Closed Specialty Diagnoses / Procedures Referred By Contac t Referred To Contact Nutrition Diagnoses Fatty liver Obesity (BMI 30-39.9) Delilah Ayala MD [address] [place] [address] Phone: tel: fax: Referral ID Status Reason Start Date Expiration Date V isits Requested Visits Authorized [id number] Closed Specialty Services Required 04/03/2023 04/02/2024 1 1 Encounter Details Date Type Department Care Team (Late st Contact Info) Description 04/03/2023 Orders Only [facility] MEDICINE [address] [place], [place] [phone] Delilah Ayala MD [address] [place], [place] [phone] Fatty liver (Primary Dx); Obesity (BMI 30-39.9) [...] Description 10/12/2025 10:15 AM EST Office Visit [facility] ADULT DENTAL [address] [place] [address] Onel Tejeda Scheduled Referrals Name Type Priority Associated Diagnoses Orde r Schedule Referral to Nutrition Services Outpatient Referral Routine Fatty liver Obesity (BMI 30-39.9) Expected: 04/03/2023 (Approximate), Expires: 04/03/2024 documented as of this encounter Visit Diagnoses Diagnosis Fatty liver- Primary Other chronic nonalcoholic liver disease Obesity (BMI 30-39.9) documented in this encounter Care Teams Cath Laboratory Technician Relationship Specialty Start Date End Date Jinny Cunningham DO [address] [place] [phone] PCP - General Family Medicine 10/03/11 documented as of this encounter
--- OUTSIDE RECORDS SUMMARY | 2025-05-05 10:33 | XMS_ITS | Encounter Summary ---
Author Organization [employer] Address [address] [facility] 7t [place] [address] Care Team Providers Care Warehouse Examiner Name Role Phone YolandaJinny salas Primary Care Provider + [phone] Encounter Details Date Type Department Care Team (Late Contact Info) Description 11/29/2023 Orders Only [facility] MEDICINE [address] [place] [phone] Provider, Roro, Social History Tobacco Use Types [...] Description 10/12/2025 10:15 AM EST Office Visit [facility] ADULT DENTAL [address] [place] [address] Onel Tejeda documented as of this encounter [...] on filedocumented in this encounter Care Teams Warehouse Examiner Relationship Specialty Start Date End Date Jinny Cunningham DO [address] [place] [address] PCP - General Family Medicine 10/03/11 documented as of this encounter
--- OUTSIDE RECORDS SUMMARY | 2025-05-05 10:33 | XMS_ITS | Encounter Summary ---
Author Organization [employer] Address [address] [facility] 7t [place] [address] Care Team Providers Care Data Management Engineer Name Role Phone Jinny Cunningham DO Primary Care Provider + [phone] Reason for Visit * Reason Comments Med Refill Encounter Details Date Type Department Care Team ([facility] st Contact Info) Description 04/26/2025 Refill [facility] CHC MED & PEDS [address] [place] [address] Jinny Cunningham DO [address] [place] [address] BMI 35.0-35.9,adult Social History Tobacco Use Types Packs/Day Years [...] Description 10/12/2025 10:15 AM EST Office Visit [facility] ADULT DENTAL [address] [place] [address] Onel Tejeda documented as of this encounter Visit Diagnoses Diagnosis BMI 35.0-35.9,adult documented in this encounter Additional Health Concerns Assessment Noted Time PHQ-9 Depression Total Score: 0 10/03/19 25 9:21 AM EST documented as of this encounter Care Teams Data Management Engineer Relationship Specialty Start Date End Date Jinny Cunningham DO [address] [place] [address] PCP - General Family Medicine 10/03/11 documented as of this encounter
== END 2025-05-05 08:45 | disposition home or self-care (01) ==
LOC: HO.MAMMO 08:44
PROVIDERS: PCP Family Medicine; Visit Provider Surgery
DX: Z12.31 Encounter for screening mammogram for malignant neoplasm of breast (principal)
CPT/HCPCS: 77063; 77067

== ENCOUNTER → 2025-05-05 09:15 | Outpatient (BNV) | payer OTHER, SELFPAY | PROVIDERS: PCP Family Medicine; Visit Provider Radiology Body Imaging | DX: Z12.31 Encounter for screening mammogram for malignant neoplasm of breast (principal) | CPT/HCPCS: 77063; 77067 ==

== ENCOUNTER 2025-05-11 13:38 | Outpatient (REF) | payer OTHER, SELFPAY ==
[2025-05-11] MEDS: iohexoL 350 MG/ML 100 ML INFUS..BTL 65 ML IV (15:17)
--- OUTSIDE RECORDS SUMMARY | 2025-05-11 16:06 | XMS_ITS | Encounter Summary ---
Demographics Address [address] [place] [address] Mobile Phone Home Phone Work Phone Email Address Preferred Language es
[2025-05-11 16:56] LABS: Creatinine POC 1.1 mg/dL (0.5-1.4); GFR POC 54
== END 2025-05-11 13:39 | disposition home or self-care (01) ==
LOC: HO.CT 13:38
PROVIDERS: PCP Family Medicine; Visit Provider Internal Medicine
DX: R07.9 Chest pain, unspecified (principal); R93.3 Abnormal findings on diagnostic imaging of other parts of digestive tract
CPT/HCPCS: 71260; 82565; Q9967

== ENCOUNTER → 2025-05-11 13:39 | Outpatient (BNV) | payer OTHER, SELFPAY | PROVIDERS: PCP Family Medicine; Visit Provider Radiology Diagnostic Radiology | DX: R07.9 Chest pain, unspecified (principal) | CPT/HCPCS: 71260 ==

== ENCOUNTER 2025-05-15 07:42 | Outpatient (REF) | payer OTHER, SELFPAY ==
--- OUTSIDE RECORDS SUMMARY | 2025-05-15 07:45 | XMS_ITS | Encounter Summary ---
Author Organization [employer] Address [address] [facility] 7t [place] [address] Care Team Providers Care Agricultural Chemist Name Role Phone Jinny Cunningahm DO Primary Care Provider + [phone] Reason for Visit * Reason Onset Date Comments Referral 03/08/2023 Encounter Details Date Type Department Care Team (Late Contact Info) Description 03/08/2023 Telephone [facility] MEDICINE [address] [place], [place] [phone] Jinny Cunningham DO [address] [place] [address] Referral Social History Tobacco Use Types Packs/Day [...] pt requesting status on referral to director medicaid. Please contact pt at [phone] (Panamanian) documented in this encounter Plan of Treatment Upcoming Encounters Date Type Department Care Team (Late Contact Info) Description 10/12/2025 10:15 AM EST Office Visit [facility] ADULT DENTAL [address] [place] [address] Onel Tejeda documented as of this encounter Visit Diagnoses Not on filedocumented in this encounter Care Teams Agricultural Chemist Relationship Specialty Start Date End Date Jinny Cunningham DO [address] [place] [address] PCP - General Family Medicine 10/03/11 documented as of this encounter
--- OUTSIDE RECORDS SUMMARY | 2025-05-15 07:45 | XMS_ITS | Encounter Summary ---
Author Organization [employer] Address [address] [facility] 7t [place] [address] Care Team Providers Care Bell Captain Name Role Phone Jinny Cunningham DO Primary Care Provider + [phone] Encounter Details Date Type Department Care Team (Late st Contact Info) Description 05/11/2025 Orders Only GENERIC EXTERNAL DATA DEPARTMENT Provider, [...] Description 10/12/2025 10:15 AM EST Office Visit [facility] ADULT DENTAL [address] [place] [address] Onel Tejeda documented as of this encounter Procedures Procedure Name Priority Date/Time Associated Diagnosis Comments POCT CREATININE GFR Routine 05/11/2025 2 :14 PM EDT documented in this encounter Results * POCT Creatinine GFR (05/11/2025 2:14 PM EDT) POCT Creatinine 1.1 0.5 - 1.4 mg/dL [facility] GFR POC 54 [facility] Comment:Chronic Kidney Disea se: Estimated GFR < 60 mL/min/1.51p0Yhvxqp Kidney Disease: Estimated GFR < 15 mL/min/1.73m2 05/11/2025 2:14 PM EDT 05/11/2025 4:55 PM EDT Narrative [facility] - 05/11/2025 4:56 PM EDT [id number] us Generic External Data Provider LAB POINT OF CARE TEST DOCKED DEVICE ORDERABLES Final Result [facility] [address] [place] [address] [phone] documented in this encounter Visit Diagnoses Not on filedocumented in this encounter Additional Health Concerns Assessment Noted Time PHQ-9 Depression Total Score: 0 10/03/19 25 9:21 AM EST documented as of this encounter Care Teams Bell Captain Relationship Specialty Start Date End Date Jinny Cunningham DO [address] [place] [address] PCP - General Family Medicine 10/03/11 documented as of this encounter
--- OUTSIDE RECORDS SUMMARY | 2025-05-15 07:45 | XMS_ITS | Encounter Summary ---
Author Organization [employer] Address [address] [facility] 7t [place] [address] Care Team Providers Care Pot Liner Name Role Phone Jinny Cunningham DO Primary Care Provider + [phone] Reason for Visit * Reason Comments Med Refill Encounter Details Date Type Department Care Team ([facility] st Contact Info) Description 02/27/2025 Refill [facility] MEDICINE [address] [place], [place] [phone] Jinny Cunningham DO [address] [place], [place] [phone] Social History Tobacco Use Types Packs/Day Years [...] [facility] ADULT DENTAL [address] [place] [address] Onel Tejeda documented as of this encounter Visit Diagnoses Not on filedocumented in this encounter Additional Health Concerns Assessment Noted Time PHQ-9 Depression Total Score: 0 10/03/19 25 9:21 AM EST documented as of this encounter Care Teams Pot Liner Relationship Specialty Start Date End Date Jinny Cunningham DO [address] [place] [address] PCP - General Family Medicine 10/03/11 documented as of this encounter
--- OUTSIDE RECORDS SUMMARY | 2025-05-15 07:45 | XMS_ITS | Encounter Summary ---
Author Organization [employer] Address [address] [place] [address] [address] [place] [address] Care Team Providers Care Roll Hand Name Role Phone Jinny Cunningham DO Primary Care Provider [phone] Encounter Details Date Type Department Care Team (Late st Contact Info) Description 12/13/2022 Orders Only [facility] MED & PEDS [address] [place] [address] Jinny Reynolds LPN Social History Tobacco Use [...] Description 10/12/2025 10:15 AM EST Office Visit [facility] ADULT DENTAL [address] [place] [address] Onel Tejeda documented as of this encounter Visit Diagnoses Not on filedocumented in this encounter Care Teams Roll Hand Relationship Specialty Start Date End Date Jinny Cunningham DO [address] [place] [address] PCP - General Family Medicine 10/03/11 documented as of this encounter
--- OUTSIDE RECORDS SUMMARY | 2025-05-15 07:45 | XMS_ITS | Encounter Summary ---
Author Organization [employer] Address [address] [facility] 7t [place] [address] Care Team Providers Care Repair Service Clerk Name Role Phone Jinny Cunningham DO Primary Care Provider + [phone] Reason for Visit * Reason Comments Med Refill Encounter Details Date Type Department Care Team ([facility] st Contact Info) Description 04/26/2025 Refill [facility] MED & PEDS [address] [place] [address] Jinny Cunningham DO [address] [place] [address] BMI 35.0-35.9,adult Social History Tobacco Use Types [...] 10:15 AM EST Office Visit [facility] ADULT DENTAL [address] [place] [address] Onel Tejeda documented as of this encounter Visit Diagnoses Diagnosis BMI 35.0-35.9,adult documented in this encounter Additional Health Concerns Assessment Noted Time PHQ-9 Depression Total Score: 0 10/03/19 25 9:21 AM EST documented as of this encounter Care Teams Repair Service Clerk Relationship Specialty Start Date End Date Jinny Cunningham DO [address] [place] [address] PCP - General Family Medicine 10/03/11 documented as of this encounter
--- OUTSIDE RECORDS SUMMARY | 2025-05-15 07:45 | XMS_ITS | Clinical Summary ---
Author Organization [facility] Address [address] [address] Phone Care Team Providers Care Pharmacy Service Associate Name Role Phone Jinny Cunningham DO Primary Care Provider + [phone] Social History Tobacco Use Types Packs/Day Years [...] topic Medical Devices Not on file Insurance [facility] [employer] [employer] [facility] [employer] [employer] [facility] [employer] [place] [address] [place] [address] PCP [employer] [address] [place] [address] [employer] [employer] Care Teams Pharmacy Service Associate Relationship Specialty Start Date End Date Jinny Cunningham DO [address] [place] [address] PCP - General Family Medicine 11/04/24 Additional Source Comments The information contained in this document represents components of the legal health record. It is not the complete legal health record.[facility]
--- OUTSIDE RECORDS SUMMARY | 2025-05-15 07:45 | XMS_ITS | Clinical Summary ---
Author Organization [facility] Address [address] [place] [address] Care Team Providers Care Photographic Hand Developer Name Role Phone Jinny Cunningham DO Primary [...] SCREENING/FOLLOWUP 08/20/2024 SOCIAL NEEDS SCREENING 08/20/2024 INFLUENZA (#1) 2025 PNEUMOCOCCAL VACCINE FOR HIGH RISK PATIENTS (#1) 06/09 Care Teams Photographic Hand Developer Relationship Specialty Start Date End Date Jinny Cunningham DO PCP - General Internal Medicine 12/12/18
--- OUTSIDE RECORDS SUMMARY | 2025-05-15 07:45 | XMS_ITS | Encounter Summary ---
Author Organization [employer] Address [address] [facility] 7t [place] [address] Care Team Providers Care Silver Miner Name Role Phone Jinny Cunningham DO Primary Care Provider + [phone] Reason for Visit * Reason Comments Med Change Request Encounter Details Date Type Department Care Team ([facility] st Contact Info) Description 03/19/2024 Refill [facility] [address] [place], [place] [phone] Kristina Cid FNP [address] [place] [address] Social History Tobacco Use Types Packs/Day Years [...] 10/12/2025 10:15 AM EST Office Visit [facility] ADULT DENTAL [address] [place] [address] Onel Tejeda documented as of this encounter Visit Diagnoses Not on filedocumented in this encounter Additional Health Concerns Assessment Noted Time PHQ-9 Depression Total Score: 6 12/21/19 24 10:44 AM EDT documented as of this encounter Care Teams Silver Miner Relationship Specialty Start Date End Date Jinny Cunningham DO [address] [place] [address] PCP - General Family Medicine 10/03/11 documented as of this encounter
--- OUTSIDE RECORDS SUMMARY | 2025-05-15 07:45 | XMS_ITS | Encounter Summary ---
Author Organization [employer] Address [address] [facility] [address] [place] [address] Care Team Providers Care Adoption Agent Name Role Phone Jinny Cunningham DO Primary Care Provider + [phone] Reason for Visit * Reason Onset Date Comments Appointment Request 09/21/2023 Encounter Details Date Type Department Care Team ([facility] Contact Info) Description 09/21/2023 Telephone [facility] MEDICINE [address] [place], [place] [phone] Jinny Cunningham DO [address] [place], [place] [phone] Appointment Request Social History Tobacco Use Types [...] call from last appt to schedule however radio script writer does not see anything on patients chart documented in this encounter Plan of Treatment Upcoming Encounters Date Type Department Care Team ([facility] Contact Info) Description 10/12/2025 10:15 AM EST Office Visit [facility] ADULT D[facility]AL [address] [place] [address] Onel Tejeda documented as of this encounter Visit Diagnoses Not on filedocumented in this encounter Care Teams Adoption Agent Relationship Specialty Start Date End Date Jinny Cunningham DO [address] [place] [address] PCP - General Family Medicine 10/03/11 documented as of this encounter
--- OUTSIDE RECORDS SUMMARY | 2025-05-15 07:45 | XMS_ITS | Encounter Summary ---
Author Organization [employer] Address [address] [facility] [address] [place] [address] Care Team Providers Care Paper Cup Machine Operator Name Role Phone Jinny Cunningham DO Primary Care Provider + [phone] Encounter Details Date Type Department Care Team (Latest Contact Info) Description 08/31/2020 Abstract [facility] CONVERSIONS Dental, Provider, DDS Social [...] Description 10/12/2025 10:15 AM EST Office Visit [facility] ADULT DENTAL [address] [place] [address] Onel Tejeda documented as of this encounter Visit Diagnoses Not on filedocumented in this encounter Care Teams Paper Cup Machine Operator Relationship Specialty Start Date End Date Jinny Cunningham DO [address] [place] [address] PCP - General Family Medicine 10/03/11 documented as of this encounter
--- OUTSIDE RECORDS SUMMARY | 2025-05-15 07:45 | XMS_ITS | Encounter Summary ---
Author Organization [employer] Address [address] [facility] [address] [place] [address] Care Team Providers Care Overhead Crane Truck Loader Name Role Phone Yolandamaritza Jinny Primary Care Provider + [phone] Encounter Details Date Type Department Care Team (Late Contact Info) Description 11/29/2023 Orders Only [facility] MEDICINE [address] [place] [phone] Provider, Roro, Social History Tobacco Use Types [...] Description 10/12/2025 10:15 AM EST Office Visit [facility] ADULT DENTAL [address] [place] [address] Onel Tejeda documented as of this encounter [...] on filedocumented in this encounter Care Teams Overhead Crane Truck Loader Relationship Specialty Start Date End Date Jinny Cunningham DO [address] [place] [address] PCP - General Family Medicine 10/03/11 documented as of this encounter
--- OUTSIDE RECORDS SUMMARY | 2025-05-15 07:45 | XMS_ITS | Encounter Summary ---
Author Organization [employer] Address [address] [facility] [address] [place] [address] Care Team Providers Care Marketing Representative Name Role Phone Jinny Cunningham DO Primary Care Provider + [phone] Reason for Visit * Reason Onset Date Comments Nurse Triage 02/15/2024 Encounter Details Date Type Department Care Team ([facility] st Contact Info) Description 02/15/2024 Telephone [facility] MEDICINE [address] [place], [place] [phone] Jinny Cunningham DO [address] [place], [place] [phone] Nurse Triage Social History Tobacco Use Types [...] your housing situation today? I have moe hlal 12/14/[address] you li [...] 10:15 AM EST Office Visit [facility] ADULT DENTAL [address] [place] [address] Onel Tejeda documented as of this encounter Visit Diagnoses Not on filedocumented in this encounter Additional Health Concerns Assessment Noted Time PHQ-9 Depression Total Score: 6 12/21/19 24 10:44 AM EDT documented as of this encounter Care Teams Marketing Representative Relationship Specialty Start Date End Date Jinny Cunningham DO [address] [place] [id number] PCP - General Family Medicine 10/03/11 documented as of this encounter
--- OUTSIDE RECORDS SUMMARY | 2025-05-15 07:45 | XMS_ITS | Encounter Summary ---
Author Organization [employer] Address [address] [facility] 7[address] [place] [address] Care Team Providers Care Economic Development Director Name Role Phone Jinny Cunningham DO Primary Care Provider [phone] Reason for Referral * Consultation (Routine) - Closed Specialty Diagnoses / Procedures Referred By Contac t Referred To Contact Nutrition Diagnoses Fatty liver Obesity (BMI 30-39.9) Delilah Ayala MD [address] [place] [address] Phone: tel: fax: Referral ID Status Reason Start Date Expiration Date V isits Requested Visits Authorized [id number] Closed Specialty Services Required 04/03/2023 04/02/2024 1 1 Encounter Details Date Type Department Care Team (Late st Contact Info) Description 04/03/2023 Orders Only [facility] MEDICINE [address] [place], [place] [phone] Delilah Ayala MD [address] [place], [place] [phone] Fatty liver (Primary Dx); Obesity (BMI 30-39.9) [...] 10/12/2025 10:15 AM EST Office Visit [facility] ADULT D[facility]AL [address] [place] [address] Onel Tejeda Scheduled Referrals Name Type Priority Associated Diagnoses Orde r Schedule Referral to Nutrition Services Outpatient Referral Routine Fatty liver Obesity (BMI 30-39.9) Expected: 04/03/2023 (Approximate), Expires: 04/03/2024 documented as of this encounter Visit Diagnoses Diagnosis Fatty liver- Primary Other chronic nonalcoholic liver disease Obesity (BMI 30-39.9) documented in this encounter Care Teams Economic Development Director Relationship Specialty Start Date End Date Jinny Cunningham DO [address] [place] [id number] PCP - General Family Medicine 10/03/11 documented as of this encounter
--- OUTSIDE RECORDS SUMMARY | 2025-05-15 07:45 | XMS_ITS | Clinical Summary ---
Author Organization [employer] Address [address] [facility] [address] [place] [address] Care Team Providers Care Sergeant At Arms Name Role Phone Jinny Cunningham DO Primary Care Provider + [phone] Allergies No known active allergies Medications magnesium [...] Encounters Date Type Department Care Team Description 05/11/2025 Orders Only GENERIC EXTERNAL DATA DEPARTMENT Provider, Generic External Data 05/05/2025 Orders Only [facility] External Provider, [facility] 04/27/2025 Refill [facility] MEDICINE [address] [place] [address] Jinny Cunningham DO BMI 35.0-35.9,adult 04/26/2025 Refill [facility] MED & PEDS [address] [place] [address] Jinny Cunningham DO BMI 35.0-35.9,adult 04/08/2025 9:00 AM EDT Office Visit [facility] ADULT DENTAL [address] [place] [address] Onel Tejeda Dental calculus (Primary Dx); Encounter for dental examination and cleaning with abnormal findings 04/01/2025 Refill [facility] MED & PEDS [address] [place] [address] Jinny Cunningham DO BMI 35.0-35.9,adult 04/01/2025 Travel 03/28/2025 Refill [facility] [address] [place] [address] Jinny Cunningham DO BMI 35.0-35.9,adult 03/16/2025 Orders Only [facility] External Provider, [facility] 03/04/2025 Telephone [facility] [address] [place] [phone] Jinny Cunningham DO Medication Question 03/03/2025 Telephone [facility] [address] [place] [phone] Jinny Cunningham DO Prior Authorization (Mannie CASEY: [employer]) 02/27/2025 10:15 AM EDT Office Visit [facility] [address] [place] [address] Jinny Cunningham DO Prediabetes (Primary Dx); Fatty liver; Obstructive sleep apnea; Chronic GERD; Chronic bilateral low back pain without sciatica; Chronic left shoulder pain; Chest pain, unspecified type; Obesity (BMI 30.0-34.9); Vertigo; Pelvic pain in female; Healthcare maintenance; BMI 35.0-35.9,adult 02/27/2025 Refill [facility] [address] [place] [address] Jinny Cunningham, DO 02/27/2025 Travel 02/19/2025 Telephone [facility] [address] [place] [address] Jinny Cunningham, Chart Prep 02/19/2025 Telephone [facility] [address] [place] [address] Jinny Cunningham, Chart Prep from Last 3 Months Immunizations Immunization Administration [...] 10:15 AM EST Office Visit [facility] ADULT DENTAL [address] [place] [address] Onel Tejeda Health Maintenance Due Date Last Done Comments CT Colonography 1967 FIT DNA/Cologuard 1967 FIT 1967 FOBT 1965 Sigmoidoscopy 1967 Zoster Vaccines (1 of 2) 2017 COVID-19 Vaccine ( season) 2025 08/04/2021, 10/22/2020, 10/01/2020 Influenza Vaccine (#1) 2025 , 06/08/2023, 05/30/2022, Additional history exists Alcohol/Substance Use Screening 10/03/2025 10/03/2024 Depression Screening 10/03/2025 10/03/2024, 10/03/19 SDOH Screening 10/03/2025 10/03/2024 Dental X-Ray: Bitewings 10/09/2025 10/08/19, 09/21/2023, 08/31/2020 Dental Oral Exam 10/10/2025 04/08/2025, , 04/02/2024, Additional history exists Dental Prophylaxis 10/10/2025 04/08/2025, 0 10/08/2024, 04/02/2024, Additional history exists Disability Screening 02/02/2026 02/02/2025 Diabetes: Hemoglobin A1C 03/02/2026 025, 08/07/2024, 05/28/2024, Additional history exists Tobacco Screening 04/08/2026 04/08/2025 Mammogram 05/05/2026 05/05/2025, 03/2024, 05/22/2024, Additional history exists Cervical Cancer Screening 06/08/2026 Pap Smear 06/08/2026 06/08/2023, 06/25/2020 Dental X-Ray: Full Mouth 09/22/2026 09/21/2023, 08/20 HPV/Cotest 06/08/2028 06/08/2023, 110 01/2020, 05/03/2016 Lipid Panel 03/02/2030 03/02/2025, 04/2024, [...] Procedure Name Priority Date/Time Associated Diagnosis Comments CT CHEST W CONTRAST Routine 05/11/2025 2 :16 PM EDT POCT CREATININE GFR Routine 05/11/2025 2 :14 PM EDT BI MAMMOGRAM SCREENING TOMOSYNTHESIS BILATERAL Routine 05/05/2025 8:47 AM EDT US ABDOMEN COMPLETE WITH ELASTOGRAPHY Routine 04/14/2025 [...] W/RFL Routine 08/07/2024 10:28 AM EST HEPATITIS C AB W/REFL TO HCV RNA, [...] Recently Relevant to Health Maintenance Results * CT Chest w/ Contrast (05/11/2025 2:16 PM EDT) Anatomical Region Laterality Modality Body, Chest Computed Tomogra phy 05/11/2025 2:16 PM EDT Narrative 05/11/2025 3:34 PM EDT [place] [address] [address] Scan Report Signed Patient: Nae Pulido MR#: [id number] : 1965 Acct:[id number] Age/Sex: 59 / F ADM Date: 05/11/25 Loc: HO.CT Attending Dr: Annel Schreiber MD Ordering Physician: Annel Schreiber MD Date of Service: 05/11/25 Procedure(s): CT chest w IV con Accession Number(s): [id number] cc: Jinny Cunningham DO; Annel Schreiber MD Report Number: [id number]: Total DLP = 132.00 mGy-cm Reason for Exam: R07.9 - Chest pain, unspecified EXAMINATION: CT CHEST WITH CONTRAST CLINICAL INFORMATION: Unspecified chest pain. COMPARISON: No prior CT of the chest. History of benign left axillary lymph node biopsy. TECHNIQUE: Multidetector volumetric CT imaging of the chest was obtained after the administration of 65 mL of Omnipaque 350 intravenous contrast without immediate adverse reactions. Axial MIP volume rendering provided. Sagittal and coronal reformatted images were obtained. This CT examination was performed using dose optimization techniques as appropriate, variously including the following: *Automated exposure control *Adjustment of mA and/or kV according to patient size (this includes techniques or standardized protocols for targeted exams where dose is matched to indication/reason for exam; i.e. extremities or head) *Use of iterative reconstruction technique FINDINGS: LUNGS: The lungs are clear bilaterally. There are no abnormal opacities. There are no suspicious nodules. The small airways appear normal. There are no interstitial abnormalities. There is no effusion or pneumothorax. MEDIASTINUM: There is no mass or abnormal lymphadenopathy. Normal thyroid. Normal aorta and main pulmonary artery. Heart size is normal. There is no pericardial effusion. Mildly patulous esophagus. Small type I hiatus hernia. PLEURA: There is no pleural effusion. No pleural mass or thickening. AXILLA/CHEST WALL: There is a prominent left inferior axillary lymph node measuring 1.2 cm short axis. By history this is benign. No additional abnormal lymph nodes or masses identified. UPPER ABDOMEN: There is mild diffuse fatty infiltration of the liver. There has been a cholecystectomy. Remainder the imaged upper abdominal contents appear normal. OSSEOUS STRUCTURES: There is no suspicious lytic or blastic bone lesion. There are mild to moderate degenerative changes throughout the spine. There are flowing thoracic disc osteophytes present, suggesting underlying DISH. CT/CT chest w IV con IMPRESSION: 1. No acute findings in the thorax. No active pulmonary disease. 2. Enlarged 1.2 cm left axillary lymph node, benign by history. Electronically signed by: Karthik Patterson MD 05/11/2025 03:31 PM EDT Dictated By: Karthik Patterson MD Signed By: <Electronically signed by Karthik Patterson MD in OV> 05/11/25 1531 DD/ 1416 TD/TT: 05/11/25 1520 Wire Basket Maker: Procedure Note Donotuseinterpreter, Image - 05/11/[address] [address] [address] Scan Report Signed Patient: Carina Pulido#: [id number] : 1965Acct:[id number] Age/Sex: 59 / FADM Date: 05/11/25 Loc: HO.CT Attending Dr: Annel Schreiber MD Ordering Physician: Annel Schreiber MD Date of Service: 05/11/25 Procedure(s): CT chest w IV con Accession Number(s): [id number] cc: Jinny Cunningham DO; Annel Schreiber MD Report Number: [id number]: Total DLP = 132.00 mGy-cm Reason for Exam: R07.9 - Chest pain, unspecified EXAMINATION: CT CHEST WITH CONTRAST CLINICAL INFORMATION: Unspecified chest pain. COMPARISON: No prior CT of the chest. History of benign left axillary lymph node biopsy. TECHNIQUE: Multidetector volumetric CT imaging of the chest was obtained after the administration of 65 mL of Omnipaque 350 intravenous contrast without immediate adverse reactions. Axial MIP volume rendering provided. Sagittal and coronal reformatted images were obtained. This CT examination was performed using dose optimization techniques as appropriate, variously including the following: *Automated exposure control *Adjustment of mA and/or kV according to patient size (this includes techniques or standardized protocols for targeted exams where dose is matched to indication/reason for exam; i.e. extremities or head) *Use of iterative reconstruction technique FINDINGS: LUNGS: The lungs are clear bilaterally. There are no abnormal opacities. There are no suspicious nodules. The small airways appear normal. There are no interstitial abnormalities. There is no effusion or pneumothorax. MEDIASTINUM: There is no mass or abnormal lymphadenopathy. Normal thyroid. Normal aorta and main pulmonary artery. Heart size is normal. There is no pericardial effusion. Mildly patulous esophagus. Small type I hiatus hernia. PLEURA: There is no pleural effusion. No pleural mass or thickening. AXILLA/CHEST WALL: There is a prominent left inferior axillary lymph node measuring 1.2 cm short axis. By history this is benign. No additional abnormal lymph nodes or masses identified. UPPER ABDOMEN: There is mild diffuse fatty infiltration of the liver. There has been a cholecystectomy. Remainder the imaged upper abdominal contents appear normal. OSSEOUS STRUCTURES: There is no suspicious lytic or blastic bone lesion. There are mild to moderate degenerative changes throughout the spine. There are flowing thoracic disc osteophytes present, suggesting underlying DISH. CT/CT chest w IV con IMPRESSION: 1. No acute findings in the thorax. No active pulmonary disease. 2. Enlarged 1.2 cm left axillary lymph node, benign by history. Electronically signed by: Karthik Patterson MD 05/11/2025 03:31 PM EDT Workstation: [id number] Dictated By: Karthik Patterson MD Signed By: <Electronically signed by Karthik Patterson MD in OV> 05/11/25 1531 DD/ 1416 TD/TT: 05/11/25 1520 Wire Basket Maker: [facility] External Provider IMG CT PROCEDURES Final Result * POCT Creatinine GFR (05/11/2025 2:14 PM EDT) POCT Creatinine 1.1 0.5 - 1.4 mg/dL [facility] GFR POC 54 [facility] Comment:Chronic Kidney Disea se: Estimated GFR < 60 mL/min/1.74i8Ojfmyn Kidney Disease: Estimated GFR < 15 mL/min/1.73m2 05/11/2025 2:14 PM EDT 05/11/2025 4:55 PM EDT Narrative [facility] - 05/11/2025 4:56 PM EDT [id number] Generic External Data Provider LAB POINT OF CARE TEST DOCKED DEVICE ORDERABLES Final Result Performing Organization Address City/State/[facility] Co de Phone Number [facility] [address] [place] [phone] * BI Mammogram Screening Tomosynthesis Bilateral (05/05/2025 8:47 AM EDT) Anatomical Region Laterality Modality Breast Bilateral Mammography 05/05/2025 8:47 AM EDT Narrative 05/05/2025 7:32 PM EDT [facility] [address] [place] [address] Mammography Report Signed Patient: Nae Pulido MR#: [id number] : 1965 Acct:[id number] Age/Sex: 59 / F ADM Date: 05/05/25 Loc: HOJIAO Attending Dr: Domenico Flores MD Ordering Physician: Domenico Flores MD Results: 2Benig n Findings Date of Service: 05/05/25 Follow Up: 1 Year From [facility] Mammogram Procedure(s): MM tomosynthesis screening BI Accession Number(s): [id number] cc: Jinny Cunningham Pasquale MD Reason For Exam: R59.9 - Enlarged lymph nodes, unspecified EXAMINATION: MM SCREENING DIGITAL BREAST TOMOSYNTHESIS, BILATERAL CLINICAL INFORMATION: Enlarged lymph nodes. History of left axillary lymph node biopsy with benign results on May 27, 2024; a butterfly shaped metallic clip was placed. COMPARISON: Comparison made to multiple prior, most recent May 02, 2024, and most remote January 27, 2021. TECHNIQUE: Digital breast tomosynthesis is performed in mediolateral oblique and craniocaudal views along with computer-aided detection (CAD). Synthesized 2D images are generated from the tomosynthesis. FINDINGS: BREAST COMPOSITION: There are scattered areas of fibroglandular density (ACR BI-RADS breast composition Category b). RIGHT BREAST: No significant masses, suspicious calcifications or other abnormalities are seen. LEFT BREAST: Left axillary lymph node with biopsy clip; this is not completely included on the current examination, but appears smaller than 2023. No significant masses, suspicious calcifications or other abnormalities are seen. MM/MM tomosynthesis screening BI IMPRESSION: BILATERAL BREASTS: Benign, no mammographic evidence of malignancy. Clinical follow-up is recommended for the concern of enlarged lymph nodes. Otherwise, normal interval follow-up mammogram is recommended in 12 months. ASSESSMENT: BI-RADS 2 - Benign Findings RECOMMENDATION: Routine annual mammography screening. FOLLOW-UP: 1. Patient should be managed based on the clinical impression. 2. Otherwise, routine annual screening mammography. This examination should not preclude the clinical evaluation of a suspicious palpable abnormality. This patient's information was entered into a reminder system with a target due date for their next mammogram. Electronically signed by: Allie Byrnes MD 05/05/2025 07:30 PM EDT Dictated By: Allie Byrnes MD Signed By: <Electronically signed by Allie Byrnes MD in OV> 05/05/25 1930 DD/ 0847 TD/TT: 05/05/25 0908 Wire Basket Maker: Procedure Note Donotuseinterpreter, Image - 05/05/2025 [facility] [address] [place], [place] [address] Mammography Report Signed Patient: Carina Pulido#: [id number] : 1965Acct:[id number] Age/Sex: 59 / FADM Date: 05/05/25 Loc: HO.MAMMO Attending Dr: Domenico Flores MD Ordering Physician: Domenico Flores MDResults: 2Benig n Findings Date of Service: 05/05/25Follow Up: 1 Year From Orig inal Mammogram Procedure(s): MM tomosynthesis screening BI Accession Number(s): [id number] cc: Jinny Cunningham DO; Domenico Flores MD Reason For Exam: R59.9 - Enlarged lymph nodes, unspecified EXAMINATION: MM SCREENING DIGITAL BREAST TOMOSYNTHESIS, BILATERAL CLINICAL INFORMATION: Enlarged lymph nodes. History of left axillary lymph node biopsy with benign results on May 27, 2024; a butterfly shaped metallic clip was placed. COMPARISON: Comparison made to multiple prior, most recent May 02, 2024, and most remote January 27, 2021. TECHNIQUE: Digital breast tomosynthesis is performed in mediolateral oblique and craniocaudal views along with computer-aided detection (CAD). Synthesized 2D images are generated from the tomosynthesis. FINDINGS: BREAST COMPOSITION: There are scattered areas of fibroglandular density (ACR BI-RADS breast composition Category b). RIGHT BREAST: No significant masses, suspicious calcifications or other abnormalities are seen. LEFT BREAST: Left axillary lymph node with biopsy clip; this is not completely included on the current examination, but appears smaller than 2023. No significant masses, suspicious calcifications or other abnormalities are seen. MM/MM tomosynthesis screening BI IMPRESSION: BILATERAL BREASTS: Benign, no mammographic evidence of malignancy. Clinical follow-up is recommended for the concern of enlarged lymph nodes. Otherwise, normal interval follow-up mammogram is recommended in 12 months. ASSESSMENT: BI-RADS 2 - Benign Findings RECOMMENDATION: Routine annual mammography screening. FOLLOW-UP: 1. Patient should be managed based on the clinical impression. 2. Otherwise, routine annual screening mammography. This examination should not preclude the clinical evaluation of a suspicious palpable abnormality. This patient's information was entered into a reminder system with a target due date for their next mammogram. Electronically signed by: Allie Byrnes MD 05/05/2025 07:30 PM EDT RP Workstation: [employer] Dictated By: Allie Byrnes MD Signed By: <Electronically signed by Allie Byrnes MD in OV> 05/05/25 193 DD/ 0847 TD/TT: 05/05/25 0908 Wire Basket Maker: us [facility] External Provider IMG BI PROCEDURES Edited Result - Final * US Abdomen Comp w elastography (04/14/2025 8:09 AM EDT) Anatomical Region Laterality Modality Abdomen Ultrasound 04/14/2025 8:09 AM EDT Narrative 04/14/2025 8:41 AM EDT [place] [address] Ultrasound Report Signed Patient: Nae Pulido MR#: [id number] : 1965 Acct:[id number] Age/Sex: 59 / F ADM Date: 04/14/25 Loc: HO.US Attending Dr: Annel Schreiber MD Ordering Physician: Annel Schreiber MD Date of Service: 04/14/25 Procedure(s): US abdomen comp w elastography Accession Number(s): [id number] cc: Jinny Cunningham DO; Annel Schreiber MD [...] Jc Chavis MD in OV> 04/14/2538 DD/ TD/TT: 04/14/25821 Wire Basket Maker: Procedure Note Donotuseinterpreter, Image - 04/14/2025 [place] [address] Ultrasound Report Signed Patient: Carina Pulido#: [id number] : 1965Acct:[id number] Age/Sex: 59 / FADM Date: 04/14/25 Loc: HO.US Attending Dr: Annel Schreiber MD Ordering Physician: Annel Schreiber MD Date of Service: 04/14/25 Procedure(s): US abdomen comp w elastography Accession Number(s): [id number] cc: Jinny Cunningham DO; Annel Schreiber MD [...] Jc Chavis MD in OV> 04/14/2538 DD/ 8 TD/TT: 04/14/25821 Wire Basket Maker: us [facility] External Provider IMG US PROCEDURES Final Result * FL Esophagus Barium Swallow (03/16/2025 7:20 AM EDT) Anatomical Region Laterality Modality Head, Neck Radiographic Sarah ging 03/16/2025 7:20 AM EDT Narrative 03/17/2025 7:20 AM EDT [place] [address] Fluoroscopy Report Signed Patient: Nae Pulido MR#: [id number] : 1965 Acct:[id number] Age/Sex: 59 / F ADM Date: 03/16/25 Loc: HO.YOSEFAY Attending Dr: Annel Schreiber MD Ordering Physician: Annel Schreiber MD Date of Service: 03/16/25 Procedure(s): FL barium swallow Accession Number(s): [id number] cc: Jinny Cunningham DO; Annel Schreiber MD [...] Chente Borja MD 03/17/2025 07:17 AM EDT RP Dictated By: Chente Borja MD Signed By: <Electronically signed by Chente Borja MD in OV> 03/17/25 0717 DD/ 0720 TD/TT: 03/16/25 0734 Wire Basket Maker: LYDIA Procedure Note Donotuseinterpreter, Image - 03/17/2025 [place] [address] Fluoroscopy Report Signed Patient: Carina Pulido#: [id number] : 1965Acct:[id number] Age/Sex: 59 / FADM Date: 03/16/25 Loc: HO.XRAY Attending Dr: Annel Schreiber MD Ordering Physician: Annel Schreiber MD Date of Service: 03/16/25 Procedure(s): FL barium swallow Accession Number(s): [id number] cc: Jinny Cunningham DO; Annel Schreiber MD [...] 03/17/25 0717 DD/ 0720 TD/TT: 03/16/25 0734 Wire Basket Maker: LYDIA [facility] External Provider IMG FLU OROSCOPY PROCEDURES Final Result * Chlamydia/N. Gonorrhoeae, PCR, Urine (03/02/2025 8:35 AM EDT) CT PCR, Urine NOT DETECTED Not Detect. [facility] Comment:A not detected test result [...] NG PCR, Urine NOT DETECTED Not Detect. [facility] Comment:A not detected test result [...] 8:35 AM EDT 03/02/2025 11:20 AM EDT us Jinny Cunningham DO LAB URINE ORDERABLES Final R esult [facility] [address] [place] [phone] * Vitamin D, 25-Hydroxy, Total, Immunoassay (03/02/2025 8:35 AM EDT) Vitamin D 25-OH Total 31.2 >30 ng/mL [facility] Comment: Health Based Reference Values*< 20 ng/mL Ztgpezovw07-58 ng/mL Insufficient> 30 ng/mL Sufficient*Priscila TRUJILLO. N [...] ORDERABLES Final R esult Performing Organization Address [facility] Co de Phone Number [facility] [address] [place] [phone] * Alpha-Fetoprotein, Tumor Marker (03/02/2025 8:35 AM EDT) Pathologist [facility] Alpha Fetoprotein 4.9 ng/mL [facility] Comment:Reference Range: <6. 1The use of AFP as a tumor marker in females is not recommended.This test was performed using the Abraham Coulterchemiluminescent method. Values obtained fromdifferent assay methods cannot be usedinterchangeably. AFP levels, regardless ofvalue, should not be interpreted as absoluteevidence of the presence or absence of disease.THIS TEST WAS PERFORMED AT:[facility] [place] [phone] AVERY MD Blood Venous blood specimen / Unknown 03/02/2025 8:35 AM EDT 03/02/2025 11:32 AM EDT Jinny Cunningham LAB BLOOD ORDERABLES Final R esult Performing Organization Address [facility] Co de Phone Number [facility] [address] [place] [address] [phone] * CBC (03/02/2025 8:35 AM EDT) Pathologist [facility] White Blood Count 6.4 4.8 - 10.8 X10*3/uL [facility] Red Blood Count 4.89 4.20 - 5.50 X10*6/uL [facility] Hemoglobin 14.7 12.0 - 16.0 g/dl [facility] Hematocrit 44.9 37.0 - 47.0 % [facility] Mean Corpuscular Volume 91.8 80.0 - 98.0 fL [facility] Mean Corpuscular Hemoglobin 30.1 27.0 - 33.0 pg [facility] Mean Corpuscular HGB Conc 32.7 31.0 - 35.0 g/dl [facility] Red Cell Distribution Width 13.5 11.0 - 16.0 % [facility] Platelet Count 207 160 - 400 X10*3/uL [facility] Mean Platelet Volume 11.9 9.4 - 12.3 fL [facility] NRBC Pct Auto 0.0 0.0 - 0.2 /100WBC [facility] NRBC Abs Auto 0.000 0.0 - 0.012 X10*3/uL [facility] Blood Venous blood specimen / Unknown 03/02/2025 8:35 AM EDT 03/02/2025 11:29 AM EDT Jinny Cunningham DO LAB BLOOD ORDERABLES Final R esult Performing Organization Address City/State/[facility] Co de Phone Number [facility] [address] [place] [address] [phone] * TSH (03/02/2025 8:35 AM EDT) Thyroid Stimulating Hormone 1.85 0.32 - 4.0 uIU/mL [facility] Comment:TSH 3rd Generation ( [facility]) Blood Venous blood specimen / Unknown 03/02/2025 8:35 AM EDT 03/02/2025 11:32 AM EDT Jinny Cunningham DO LAB BLOOD ORDERABLES Final R esult Performing Organization Address City/State/[facility] Co de Phone Number [facility] [address] [place] [address] [phone] * T4, Free (03/02/2025 8:35 AM EDT) Free T4 (Free Thyroxine) 0.87 0.71 - 1.85 ng/dL [facility] Blood Venous blood specimen / Unknown 03/02/2025 8:35 AM EDT 03/02/2025 11:32 AM EDT Jinny Cunningham DO LAB BLOOD ORDERABLES Final R esult Performing Organization Address [facility] de Phone Number [facility] [address] [place] [address] [phone] * Hemoglobin A1c (03/02/2025 8:35 AM EDT) Hemoglobin A1c 5.5 <6.0 % [facility] Comment:Hemoglobin A1C Refer ence Range Adults: 4.8 - 6.0 % Non diabetic: < 6.0 % Goal: < 7.0 %Additional Action Suggested: > 8.0 %Note: Hemoglobin A1c results are invalid for patients with abnormal amounts of HbF. Blood transfusions may impact the HbA1c concentration in the patient sample. Estimated Average Glucose 111 mg/dL [facility] Comment:eAG = Estimated ave rage glucose which is %A1C expressed asaverage glucose, using the formula of the W1B-WkpqzfhEophhby Glucose study (ADAG), Diabetes Care, Vol.31,#8,2007 Blood Venous blood specimen / Unknown 03/02/2025 8:35 AM EDT 03/02/2025 11:29 AM EDT Jinny Cunningham DO LAB BLOOD ORDERABLES Final R esult Performing Organization Address [facility] Co de Phone Number [facility] [address] [place] [address] [phone] * (ABNORMAL) Hepatic Function Panel (03/02/2025 8:35 AM EDT) Bilirubin, Total 0.6 0.0 - 1.0 mg/dL [facility] [facility] Bilirubin, Direct 0.3 0.0 - 0.5 mg/dL [facility] Aspartate Amino Transferase 47(H) 5 - 31 U/L [facility] Alanine Aminotransferase 50(H) 0 - 31 U/L [facility] Total Protein 7.2 6.5 - 8.0 g/dL [facility] Albumin Level 4.2 3.5 - 5.0 g/dL [facility] Alkaline Phosphatase 119(H) 39 - 117 U/L [facility] Blood Venous blood specimen / Unknown 03/02/2025 8:35 AM EDT 03/02/2025 11:32 AM EDT us Jinny Cunningham DO LAB BLOOD ORDERABLES Final R esult [facility] [address] [place] [phone] * Lipid Panel, Standard (03/02/2025 8:35 AM EDT) Pathologist [facility] Triglycerides 79 <150 mg/dL [facility] Comment:Desirable Triglyceri de: less than 150 mg/dLBorderline High Triglyceride 150-199 mg/dLHigh Triglyceride: 200-499 mg/dLVery High Triglyceride: greater than or equal to 5OO mg/dL Cholesterol 157 <200 mg/dL [facility] Comment:Desirable Cholestero l: less than 200 mg/dLBorderline High Cholesterol: 200-239 mg/dLHigh Cholesterol: greater than 239 mg/dL LDL Cholesterol Calculated 89 <100 mg/dL [facility] Comment:Desirable LDL: less than 100 mg/dLNear Optimal/Above Optimal LDL: 110- 129 mg/dLBorderline High LDL: 130-159 mg/dLHigh LDL: 160-189 mg/dLVery High LDL: greater than or equal to 190 mg/dL HDL Cholesterol 53 >40 mg/dL [facility] Comment:Desirable HDL: great er than 40 mg/dL Note: This HDL assay may give artificially low results in patients with liver disease. Blood Venous blood specimen / Unknown 03/02/2025 8:35 AM EDT 03/02/2025 11:32 AM EDT us Jinny Cunningham DO LAB BLOOD ORDERABLES Final R esult Performing Organization Address [facility] Co de Phone Number [facility] [address] [place] [phone] * (ABNORMAL) Basic Metabolic Panel (03/02/2025 8:35 AM EDT) Sodium 142 135 - 145 mmol/L [facility] Potassium 4.3 3.3 - 5.1 mmol/L [facility] Chloride 109(H) 96 - 108 mmol/L [facility] Carbon Dioxide 27 22 - 29 mmol/L [facility] Anion Gap 10(L) 12 - 20 [facility] Urea Nitrogen (BUN) 16 9 - 16 mg/dL [facility] Creatinine, Serum 0.64 0.5 - 1.4 mg/dL [facility] Estimated Glomerular Filt Rate >60 [facility] Comment:Chronic Kidney Disea se: Estimated GFR < 60 mL/min/1.48d7Qsidsa Kidney Disease: Estimated GFR < 15 mL/min/1.73m2 Glucose 101 60 - 115 mg/dL [facility] Calcium 9.3 8.4 - 10.2 mg/dL [facility] Blood Venous blood specimen / Unknown 03/02/2025 8:35 AM EDT 03/02/2025 11:32 AM EDT Jinny Cunningham DO LAB BLOOD ORDERABLES Final R esult Performing Organization Address [facility]/ZIP Co de Phone Number [facility] [address] [place] [phone] * (ABNORMAL) POCT Urinalysis (02/27/2025 11:16 [...] Media Lot # [id number] Lot# Expiration Date [id number] Urine 02/27/2025 11:1 6 AM EDT Jinny Cunningham DO POINT OF CARE TEST ENTER/MIKE T ORDERABLES Final Result * Culture, Urine, Routine (02/27/2025 10:46 AM EDT) Urine Urine specimen obtained by clean catch procedure / Unknown 02/27/2025 10:46 AM EDT 02/27/2025 1:38 PM EDT Comment:UACC Narrative [facility] - 02/28/2025 12:50 PM EDT Urine Culture No growth. Specimen Source: Urine clean catch Jinny Cunningham DO LAB MICROBIOLOGY - GENERAL O RDERABLES Final Result [facility] [address] [place] [phone] * HIV-1/2 Antigen and Antibodies, Fourth Generation, with Reflexes (08/07/2024 10:28 AM EST) HIV AB/AG Nonreactive Nonreactive [facility] Comment:HIV-1 p24 Ag and/or HIV-1/HIV-2 Ab not detected.A test result that is nonreactive does not exclude thepossibility of exposure to or infection with HIV-1 and/orHIV-2. Nonreactive results in this assay for individualswith prior exposure to HIV-1 and/or HIV-2 may be due toantigen and antibody levels that are below the limit ofdetection of this assay.The [employer] HIV Ag/Ab Combo assay result andsupplemental assay results should be interpreted inconjunction with the patient's clinical presentation,history and other laboratory results. If the results areinconsistent with clinical evidence, additional testing issuggested to confirm the result. 08/07/2024 10:2 8 AM EST 08/07/2024 10:36 AM EST us Generic External Data Provider LAB BLOOD ORDERAB LES Final Result Performing Organization Address [facility]/ZIP Co de Phone Number [facility] [address] [place] [phone] * Hepatitis C Antibody with Reflex to HCV, RNA, Quantitative, Real-Time PCR (12/28/2023 8:42 AM EDT) Hepatitis C Antibody Nonreactive Nonreactive [facility] Comment:Antibodies to HCV no t detected; does not exclude early acuteHCV infection. Blood Venous blood specimen / Unknown 12/28/2023 8:42 AM EDT 12/28/2023 11:28 AM EDT Jinny Cunningham DO LAB BLOOD ORDERABLES Final R esult Performing Organization Address [facility] Co de Phone Number [facility] [address] [place] [phone] * HPV mRNA E6/E7 w/Reflex to HPV Genotypes 16, 18/45 (06/08/2023 11:45 AM EDT) HPV nRNA E6/E7 Not Detected Not Detected [facility] Comment:Methodology: Transcr iption-Mediated AmplificationThis assay detects E6/E7 viral messenger RNA (mRNA) from 14high-risk HPV types (16,18,31,33,35,39,45,51,52,56,58,59,66,68).Cervical sources are required for HPV testing.If a vaginal source from a patient who has had atotal hysterectomy with removal of cervix wassubmitted, please contact the testing laboratoryfor alternative testing options.For additional information, please refer [email or web address]/[email or web address](This link if provided for information/educational purposes only.)THIS TEST WAS PERFORMED AT:[facility] [place] [phone] AVERY MD HPV mRNA E6/E7 TNP [facility] HPV 16 RNA TNP [facility] HPV 18/45 RNA TNP [facility] 06/08/2023 11:4 5 AM EDT 06/11/2023 9:15 AM EDT us Jinny Cunningham DO LAB CYTOLOGY ORDERABLES Tahira longoria Result [facility] [address] [place] [phone] * Pap Smear (06/08/2023 11:45 AM EDT) 06/08/2023 11:4 5 AM EDT 06/11/2023 9:15 AM EDT Narrative [facility] - 06/14/2023 9:39 AM EDT ----- ------- Name: Jason DemianNae Age/Sex: 57/F : 1965 Unit#: [id number] Attend Dr: Jinny Cunningham DO Re06/08/23 Status: DEP REF Location: HO.HHCLNP Disch: ----- ------- SPEC : [id number] RECD: 06/11/23 STATUS: STEPHANIE GILLESPIE NUM: [id number] ZION: 06/08/[address] [facility] [address]: Jinny Cunningham DO ENTERED: 06/11/23 [...] 59, 66, 68) HPV testing performed by [facility], [place], [place]. See reference laboratory pion of the EMR for entire report. Clinical Information LMP: Unknown date Previous PAP test: Unknown date, WNL Material Received ThinPrep-Cervical ----- ------- Signed (signature on file) SRAVAN Sanches (ASCP) 06/14/23 0939 ----- ------- END OF REPORT Jinny Cunningham DO LAB CYTOLOGY ORDERABLES Tahira l Result [facility] [address] [place] [phone] * Hm Colonoscopy (03/09/2022 10:01 AM EDT) us Historical Provider HEALTH MAINTENANCE Final Result from Last 3 Months or Most Recently Relevant to Health Maintenance [place] [address] [address] [address] 3 DENTAL - HSN PARTIAL (MEDICAID) Care Teams Sergeant At Arms Relationship Specialty Start Date End Date Jinny Cunningham DO [address] [place] [phone] PCP - General Family Medicine 10/03/11
[2025-05-15 08:12] LABS: MANUAL DIFF FLAG NO
[2025-05-15 08:27] LABS: Hematocrit 45.5 % (37.0-47.0); Hemoglobin 15.4 g/dl (12.0-16.0); Imm Gran Abs Auto 0.01 X10*3/uL (0.00-0.03); Imm Gran Pct Auto 0.2 % (0.0-0.4); Lymphocytes Absolute Auto 2.8 X10*3/uL (1.2-4.9); Mean Corpuscular HGB Conc 33.8 g/dl (31.0-35.0); Mean Corpuscular Hemoglobin 30.2 pg (27.0-33.0); Mean Corpuscular Volume 89.2 fL (80.0-98.0); NRBC Abs Auto 0.000 X10*3/uL (0.0-0.012); NRBC Pct Auto 0.0 /100WBC (0.0-0.2); Platelet Count 197 X10*3/uL (160-400); Red Blood Count 5.10 X10*6/uL (4.20-5.50); White Blood Count 6.7 X10*3/uL (4.8-10.8)
[2025-05-15 08:35] LABS: Hemoglobin A1C 136.2708 umol/L
[2025-05-15 09:28] LABS: Alanine Aminotransferase 37 U/L (0-31); Albumin Level 4.6 g/dL (3.5-5.0); Alkaline Phosphatase 117 U/L (39-117); Anion Gap 12 (12-20); Aspartate Amino Transferase 37 U/L (5-31); Blood Urea Nitrogen 14 mg/dL (9-16); Calcium 9.7 mg/dL (8.4-10.2); Carbon Dioxide 29 mmol/L (22-29); Chloride 109 mmol/L (96-108); Cholesterol 154 mg/dL (<200); Estimated Glomerular Filt Rate > 60; HDL Cholesterol 52 mg/dL (>40); Iron 114 mcg/dL (30-160); Percent Iron Saturation 52 % (15-50); Potassium 4.5 mmol/L (3.3-5.1); Sodium 145 mmol/L (135-145); Total Iron Binding Capacity 218 mcg/dL (228-428); Total Protein 7.6 g/dL (6.5-8.0); Triglycerides 70 mg/dL (<150); Unsaturated Iron Binding 104 ug/dL
[2025-05-15 09:30] LABS: Ferritin 216 ng/mL (10-250)
[2025-05-15 09:44] LABS: Folate 9.0 ng/mL (> or = 4.0); Vitamin B12 648 pg/mL (200-900)
== END 2025-05-15 07:43 | disposition home or self-care (01) ==
LOC: HO.LAB 07:42
PROVIDERS: PCP Family Medicine; Visit Provider Surgery
DX: E66.811 Obesity, class 1 (principal); Z68.30 Body mass index [BMI] 30.0-30.9, adult; E11.9 Type 2 diabetes mellitus without complications; K21.9 Gastro-esophageal reflux disease without esophagitis; G47.33 Obstructive sleep apnea (adult) (pediatric)
CPT/HCPCS: 36415; 80053; 80061; 82306; 82607; 82728; 82746; 83036; 83525; 83540; 84425; 84443; 84590; 84630; 85025; 86140

== ENCOUNTER 2025-05-29 10:32 | Outpatient (REF) | payer OTHER, SELFPAY ==
--- NOTE | ~2025-05-29 | US_ITS ---
CLINICAL HISTORY: L sided pelvic pain US pelvis transvaginal Comparison: None provided Findings: Transvaginal scanning performed. Anteverted uterus is 5.7 cm length. Normal myometrium. No endometrial lesion, 3.0 mm thickness. Right ovary 2.0 x 1.4 x 1.3 cm. Left ovary 2.0 x 1.4 x 1.4 cm. Normal color Doppler of both ovaries. No free fluid. IMPRESSION: 1. Normal pelvic ultrasound This document has been electronically signed by: Junior Almanza MD on 05/30/2025 09:04:19
== END 2025-05-29 10:33 | disposition home or self-care (01) ==
LOC: HO.US 10:32
PROVIDERS: PCP Family Medicine; Visit Provider Family Medicine
DX: R10.20 Pelvic and perineal pain unspecified side (principal)
CPT/HCPCS: 76830; 76856

== ENCOUNTER 2025-06-03 08:44 | Outpatient (AMB) | payer OTHER, SELFPAY ==
--- NOTE | 2025-06-03 08:45 | MHC.OFFVIS ---
Vital Signs 06/03/25 08:52 Height 5 ft 5 in Weight 170 lb 4 oz BMI 28.3 BP 115/72 Blood Pressure Location Rt brachial Position Sitting Pulse 72 Intake Visit Reasons: 1 year follow upUS bx Lt br axillary node Intake Note: This patient presents for a yearly follow-up for Left-sided chest wall pain. Pt c/o; no complaints at this time. 05/05/2025: MM Screening 09/03/2024: MALIHA Health/Safety Job Titles Required: Yes Health/Safety Job Titles Language: Machine Milker Services: Health/Safety Job Titles Present Accompanied by: Self / Same As Patient Allergies No Known Allergies Allergy (Verified 06/03/25 08:53) Medication List - Last Reconciled 06/03/25 by Hunter Gastelum MD cetirizine 10 mg PO DAILY PRN cholecalciferol (vitamin D3) 50 mcg PO DAILY docusate sodium 100 mg PO DAILY magnesium oxide 400 mg PO DAILY naproxen 500 mg PO BID omeprazole 40 mg PO DAILY tirzepatide (weight loss) (Zepbound) 5 mg subcut QWEEK vitamin A palmitate 3,000 mcg PO DAILY HPI HPI 1 year follow upUS bx Lt br axillary node: Details: [age] year old female here for follow-up after a left axillary lymph node biopsy a year ago with Dr. Flores. This had shown reactive lymphatic tissue. She also had a mammogram last month which was unremarkable and not suggestive of any malignancy. Her menarche was at age of 11. Her 1st was at the age of 20. She had 2 pregnancies but 1 was a miscarriage. She had menopause at age of 57. She also says that her mother was diagnosed to have breast cancer in her 70s. She also says that her maternal aunt had breast cancer in her 40s. [facility] Medical History (Updated 06/03/25 @ 09:22 by Hunter Gastelum MD) Family history of breast cancer BMI 30.0-30.9,adult Obesity Abnormal barium swallow History of colon polyps Obesity (BMI 35.0-39.9 without comorbidity) Constipation by delayed colonic transit NANCY (obstructive sleep apnea) Hepatic steatosis GERD (gastroesophageal reflux disease) Surgical History H/O esophagogastroduodenoscopy Hx of cholecystectomy Hx of colonoscopy Family History Father Brain cancer Mother Diabetes Breast cancer Maternal Aunt Breast cancer Paternal Aunt Breast cancer Social History Household Members: Spouse, Family and Children Housing: House Alcohol intake: never Patient Tobacco Use Status: Never used Tobacco Second Hand Smoke Exposure: No service: No Current occupational status: employed 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 Review of Systems Const Denies chills and Denies fever(s) Card Denies chest pain, Denies dyspnea and Denies dyspnea on exertion Resp Denies cough, Denies dyspnea and Denies dyspnea on exertion GI Denies hematochezia and Denies change in bowel habits Denies hematuria Musc Denies back pain and Denies limited range of motion Neuro Denies focal weakness and Denies convulsions Psych Denies depression and Denies mood swings Physical Exam Vital Signs: Last Vital Signs Pulse 72 06/03/25 08:52 BP 115/72 06/03/25 08:52 BMI result Body Mass Index 28.3 Const General: comfortable and no acute distress Orientation/consciousness: patient oriented x3 Neck Neck: Yes no lymphadenopathy Chest Other: No palpable breast masses, no axillary lymphadenopathy, no nipple or skin changes Resp Auscultation: clear to auscultation bilaterally Cardio Rhythm: regular rhythm GI Palpation (GI): Soft to palpation, nontender and no guarding Neuro General: patient oriented x3 Assessment & Plan Assessment & Plan (1) Family history of breast cancer: Code(s): Z80.3 - Family history of malignant neoplasm of breast Category: Medical Plan: She had an enlarged left axillary lymph node last year and a biopsy of this had this showed benign reactive lymphatic tissue. Current exam does not suggest any mass or axillary lymphadenopathy. She does describe having a maternal aunt with breast cancer in her 40s, and her mother having had breast cancer in her 70s. She may qualify for genetic testing. I explained to her the implications of this test to herself and her family She says she wants to proceed with genetic testing She was reminded to continue with a regular screening mammograms. Coding Level of Care Code Est Pt Level 3 (59804) Diagnoses Family history of breast cancer Z80.3
[2025-06-03 08:52] VITALS: BP 115/72; PULSE 72; BMI 28.3
--- OUTSIDE RECORDS SUMMARY | 2025-06-03 09:19 | XMS_ITS | Encounter Summary ---
Author Organization [employer] Address [address] [facility] 7t [place] [address] Care Team Providers Care Buncher Machine Name Role Phone Jinny Cunningham DO Primary Care Provider + [phone] Encounter Details Date Type Department Care Team (Latest Contact Info) Description 08/31/2020 Abstract [facility] Dental, Provider, DDS Social History Tobacco [...] SYSTEM - [facility] [address] [place] [address] Onel Tejeda documented as of this encounter Visit Diagnoses Not on filedocumented in this encounter Care Teams Buncher Machine Relationship Specialty Start Date End Date Jinny Cunningham DO [address] [place] [address] PCP - General Family Medicine 10/03/11 documented as of this encounter
--- OUTSIDE RECORDS SUMMARY | 2025-06-03 09:19 | XMS_ITS | Encounter Summary ---
Author Organization [employer] Address [address] [place] [address] [address] [place] [address] Care Team Providers Care Sorority Supervisor Name Role Phone Jinny Cunningham DO Primary Care Provider [phone] Encounter Details Date Type Department Care Team (Late st Contact Info) Description 12/13/2022 Orders Only [facility] [address] [place] [address] Jinny Reynolds LPN Social History Tobacco Use [...] Description 10/12/2025 10:15 AM EST Office Visit [facility] [address] [place] [address] Onel Tejeda documented as of this encounter Visit Diagnoses Not on filedocumented in this encounter Care Teams Sorority Supervisor Relationship Specialty Start Date End Date Jinny Cunningham DO [address] [place] [phone] PCP - General Family Medicine 10/03/11 documented as of this encounter
--- OUTSIDE RECORDS SUMMARY | 2025-06-03 09:19 | XMS_ITS | Encounter Summary ---
Author Organization [employer] Address [address] [facility] 7t [place] [address] Care Team Providers Care Molder Pipe Covering Name Role Phone YolandaJinny salas Primary Care Provider + [phone] Encounter Details Date Type Department Care Team (Late Contact Info) Description 11/29/2023 Orders Only [facility] [address] [place] [phone] Provider, Roro, Social History Tobacco Use Types [...] Description 10/12/2025 10:15 AM EST Office Visit [facility] [address] [place] [address] Onel Tejeda documented as of this encounter [...] on filedocumented in this encounter Care Teams Molder Pipe Covering Relationship Specialty Start Date End Date Jinny Cunningham DO [address] [place] [address] PCP - General Family Medicine 10/03/11 documented as of this encounter
--- OUTSIDE RECORDS SUMMARY | 2025-06-03 09:19 | XMS_ITS | Encounter Summary ---
Author Organization [employer] Address [address] [facility] 7t [place] [address] Care Team Providers Care Balloon Design Printer Name Role Phone Jinny Cunningham DO Primary Care Provider [phone] Reason for Referral * Consultation (Routine) - Closed Specialty Diagnoses / Procedures Referred By Contac t Referred To Contact Nutrition Diagnoses Fatty liver Obesity (BMI 30-39.9) Delilah Ayala MD [address] [place] [address] Phone: tel: fax: Referral ID Status Reason Start Date Expiration Date V isits Requested Visits Authorized [id number] Closed Specialty Services Required 04/03/2023 04/02/2024 1 1 Encounter Details Date Type Department Care Team (Late st Contact Info) Description 04/03/2023 Orders Only [facility] [address] [place], [place] [phone] Delilah Ayala MD [address], [place] [phone] Fatty liver (Primary Dx); Obesity (BMI 30-39.9) [...] 10/12/2025 10:15 AM EST Office Visit [facility]ULT [facility] [address] [place] [address] Onel Tejeda Scheduled Referrals Name Type Priority Associated Diagnoses Orde r Schedule Referral to Nutrition Services Outpatient Referral Routine Fatty liver Obesity (BMI 30-39.9) Expected: 04/03/2023 (Approximate), Expires: 04/03/2024 documented as of this encounter Visit Diagnoses Diagnosis Fatty liver- Primary Other chronic nonalcoholic liver disease Obesity (BMI 30-39.9) documented in this encounter Care Teams Balloon Design Printer Relationship Specialty Start Date End Date Jinny Cunningham DO [address] [place] [phone] PCP - General Family Medicine 10/03/11 documented as of this encounter
--- OUTSIDE RECORDS SUMMARY | 2025-06-03 09:19 | XMS_ITS | Encounter Summary ---
Author Organization [employer] Address [address] [facility] 7[address] [place] [address] Care Team Providers Care Technical Training Manager Name Role Phone Jinny Cunninghma DO Primary Care Provider + [phone] Reason for Visit * Reason Onset Date Comments Referral 03/08/2023 Encounter Details Date Type Department Care Team (Late Contact Info) Description 03/08/2023 Telephone [facility] [address] [place], [place] [phone] Jinny Cunningham DO [address] [place] [address] Referral Social History Tobacco Use Types Packs/Day [...] from pt requesting status on referral to coding specialist. Please contact pt at [phone] (Icelandic) documented in this encounter Plan of Treatment Upcoming Encounters Date Type Department Care Team (Late Contact Info) Description 10/12/2025 10:15 AM EST Office Visit [facility] [address] [place] [address] Onel Tejeda documented as of this encounter Visit Diagnoses Not on filedocumented in this encounter Care Teams Technical Training Manager Relationship Specialty Start Date End Date Jinny Cunningham DO [address] [place] [address] PCP - General Family Medicine 10/03/11 documented as of this encounter
--- OUTSIDE RECORDS SUMMARY | 2025-06-03 09:19 | XMS_ITS | Encounter Summary ---
Author Organization [employer] Address [address] [facility] 7t [place] [address] Care Team Providers Care Decorative Engraver Name Role Phone Jinny Cunningham DO Primary Care Provider + [phone] Reason for Visit * Reason Onset Date Comments Nurse Triage 02/15/2024 Encounter Details Date Type Department Care Team ([facility] st Contact Info) Description 02/15/2024 Telephone [facility] MED[facility] [address] [place], [place] [phone] Jinny Cunningham DO [address] [place], [place] [phone] Nurse Triage Social History Tobacco Use Types [...] 10:15 AM EST Office Visit [facility] ADULT D[facility] [address] [place] [address] Onel Tejeda documented as of this encounter Visit Diagnoses Not on filedocumented in this encounter Additional Health Concerns Assessment Noted Time PHQ-9 Depression Total Score: 6 12/21/19 24 10:44 AM EDT documented as of this encounter Care Teams Decorative Engraver Relationship Specialty Start Date End Date Jinny Cunningham DO [address] [place] [phone] PCP - General Family Medicine 10/03/11 documented as of this encounter
--- OUTSIDE RECORDS SUMMARY | 2025-06-03 09:19 | XMS_ITS | Clinical Summary ---
Author Organization [facility] Address [address] [address] Phone Care Team Providers Care Flight Service Agent Name Role Phone Jinny Cunningham DO Primary Care Provider + [phone] Social History Tobacco Use Types Packs/Day Years [...] 2017 INFLUENZA VACCINE (#1) 2025 COVID-19 VACCINE ( - 2024-2 6 season) 2025 RSV VACCINE (1 - 1-dose 75+ series) 2042 HEPATITIS A VACCINES Aged Out No long [...] topic Medical Devices Not on file [place] [address] [facility] [employer] [place] [place] [address] PCP [employer] [facility] PCP S[employer] [facility] PCP [employer] [facility] Care Teams Flight Service Agent Relationship Specialty Start Date End Date Jinny Cunningham DO [address] [place] [phone] PCP - General Family Medicine 11/04/24 Additional Source Comments The information contained in this document represents components of the legal health record. It is not the complete legal health record.[facility]
--- OUTSIDE RECORDS SUMMARY | 2025-06-03 09:19 | XMS_ITS | Encounter Summary ---
Author Organization [employer] Address [address] [facility] [address] [place] [address] Care Team Providers Care Medical Aides Teacher Name Role Phone Jinny Cunningham DO Primary Care Provider + [phone] Reason for Visit * Reason Onset Date Comments Appointment Request 09/21/2023 Encounter Details Date Type Department Care Team ([facility] Contact Info) Description 09/21/2023 Telephone [facility] MEDICINE [address] [place], [place] [phone] Jinny Cunningham DO [address] [place], [place] [phone] Appointment Request Social History Tobacco Use Types [...] call from last appt to schedule however technical writer and editor does not see anything on patients chart documented in this encounter Plan of Treatment Upcoming Encounters Date Type Department Care Team ([facility] Contact Info) Description 10/12/2025 10:15 AM EST Office Visit [facility] [address] [place] [address] Onel Tejeda documented as of this encounter Visit Diagnoses Not on filedocumented in this encounter Care Teams Medical Aides Teacher Relationship Specialty Start Date End Date Jinny Cunningham DO [address] [place] [address] PCP - General Family Medicine 10/03/11 documented as of this encounter
--- OUTSIDE RECORDS SUMMARY | 2025-06-03 09:19 | XMS_ITS | Encounter Summary ---
Author Organization [employer] Address [address] [facility] 7t [place] [address] Care Team Providers Care Reinforcing Iron And Rebar Workers Name Role Phone Jinny Cunningham DO Primary Care Provider + [phone] Reason for Visit * Reason Comments Med Change Request Encounter Details Date Type Department Care Team ([facility] st Contact Info) Description 03/19/2024 Refill [facility] [address] [place], [place] [phone] Kristina Cid FNP [address] [place] [address] Social History Tobacco Use Types Packs/Day Years [...] Description 10/12/2025 10:15 AM EST Office Visit [facility] ADULT D[facility] [address] [place] [address] Onel Tejeda documented as of this encounter Visit Diagnoses Not on filedocumented in this encounter Additional Health Concerns Assessment Noted Time PHQ-9 Depression Total Score: 6 12/21/19 24 10:44 AM EDT documented as of this encounter Care Teams Reinforcing Iron And Rebar Workers Relationship Specialty Start Date End Date Jinny Cunningham DO [address] [place] [address] PCP - General Family Medicine 10/03/11 documented as of this encounter
--- OUTSIDE RECORDS SUMMARY | 2025-06-03 09:19 | XMS_ITS | Encounter Summary ---
Author Organization [employer] Address [address] [place] [address] Care Team Providers Care Instrument Lens Generator Name Role Phone Jinny Cunningham DO Primary Care Provider + [phone] Reason for Visit * Reason Comments Med Refill Encounter Details Date Type Department Care Team ([facility] st Contact Info) Description 02/27/2025 Refill [facility] [address] [place], [place] [phone] Jinny Cunningham DO [address] [place], [place] [phone] Social History Tobacco Use Types Packs/Day Years [...] 10:15 AM EST Office Visit [facility] [address] [place] [address] Onel Tejeda documented as of this encounter Visit Diagnoses Not on filedocumented in this encounter Additional Health Concerns Assessment Noted Time PHQ-9 Depression Total Score: 0 10/03/19 25 9:21 AM EST documented as of this encounter Care Teams Instrument Lens Generator Relationship Specialty Start Date End Date Jinny Cunningahm DO [address] [place] [id number] PCP - General Family Medicine 10/03/11 documented as of this encounter
--- OUTSIDE RECORDS SUMMARY | 2025-06-03 09:19 | XMS_ITS | Clinical Summary ---
Author Organization [employer] Address [address] [facility] [address] [place] [address] Care Team Providers Care Fur Sorter Name Role Phone Jinny Cunningham DO Primary Care Provider [phone] Allergies No known active allergies Medications magnesium oxide (Mag-Ox) 400 (240 Mg) MG tablet Take 400 mg by mouth Once per day. 3 Active methocarbamol (Robaxin) 750 MG tablet Take 1 tablet (750 mg) by mouth if needed in the morning and at bedtime for muscle spasms. 60 tablet 1 4 Active acetaminophen (Tylenol 8 Hour) 650 MG ER tablet Take 1 tablet (650 mg) by mouth every 8 (eight) hours. 40 tablet 1 4 Active triamcinolone (Kenalog) 0.1 % ointment Apply topically if needed in the morning and at bedtime for rash (and itching). 30 g 1 4 Active naproxen (Naprosyn) 500 MG tablet TAKE 1 TABLET BY MOUTH TWICE A DAY 60 tablet 4 Active Diclofenac Sodium 1 % gel Apply 2 g topically if needed in the morning, at noon, in the evening, and at bedtime (pain). 150 g 3 5 Active phentermine 15 MG capsuleIndicati ons:Class 1 obesity due to excess calories with serious comorbidity and body mass index (BMI) of 31.0 to 31.9 in adult Take 1 capsule (15 mg) by mouth before breakfast. 30 capsule 1 5 Active cetirizine (ZyrTEC) 10 MG tablet Take 1 tablet (10 mg) by mouth Once per day. 30 tablet 3 5 02/28/20 26 Active fluticasone (Flonase) 50 MCG/ACT nasal spray Administer 2 sprays into each nostril Once per day. Shake gently. Before first use, prime pump. After use, clean tip and replace cap. 16 g 5 02/28/20 Active docusate sodium (Colace) 100 MG capsule Take 1 capsule (100 mg) by mouth 2 times daily. 180 capsule 5 02/28/20 Active polycarbophil (Fibercon) 625 MG tablet Take 1 tablet (625 mg) by mouth 2 times daily. 180 tablet 5 02/28/20 Active esomeprazole (NexIUM) [address] capsule Take 1 capsule (20 mg) by mouth before breakfast and before evening meal. Do not open capsule. 60 capsule 5 02/28/20 26 Active Tirzepatide-Dwight ght Management (Zepbound) 7.5 MG/0.5ML solutionIndicat ions:Class 1 obesity due to excess calories with serious comorbidity and body mass index (BMI) of 31.0 to 31.9 in adult Inject 7.5 mg under the skin 1 (one) time per week. 2 mL 1 5 Active Tirzepatide-Dwight ght Management (Zepbound) 5 MG/0.5ML solution auto-injectorIn dications:BMI 35.0-35.9,adult Inject 0.5 mL (5 mg) under the skin 1 (one) time per week. 2 mL 5 05/22/20 25 Discontin ued(Dose adjustmen t) Active Problems Problem Noted Date Diagnosed Date [...] Encounters Date Type Department Care Team Description 05/22/2025 Refill [facility] [address] [place] [address] Jinny Cunningham DO Class 1 obesity due to excess calories with serious comorbidity and body mass index (BMI) of 31.0 to 31.9 in adult 05/15/2025 Orders Only GENERIC EXTERNAL DATA DEPARTMENT Provider, Generic External Data 05/11/2025 Orders Only GENERIC EXTERNAL DATA DEPARTMENT Provider, Generic External Data 05/05/2025 Orders Only [facility] External Provider, [facility] 04/27/2025 Refill [facility] [address] [place] [address] Jinny Cunningham, DO BMI 35.0-35.9,adult 04/26/2025 Refill [facility] [address] [place] [address] Jinny Cunningham, BMI 35.0-35.9,adult 04/08/2025 9:00 AM EDT Office Visit [facility] [address] [place] [address] Onel Tejeda Dental calculus (Primary Dx); Encounter for dental examination and cleaning with abnormal findings 04/01/2025 Refill [facility] [address] [place] [address] Jinny Cunningham, BMI 35.0-35.9,adult 04/01/2025 Travel 03/28/2025 Refill [facility] [address] [place] [address] Jinny Cunningham DO BMI 35.0-35.9,adult 03/16/2025 Orders Only [facility] External Provider, [facility] 03/04/2025 Telephone [facility] [address] [place] [address] Jinny Cunningham DO Medication Question 03/03/2025 Telephone [facility] [address] [place] [address] Jinny Cunningham DO Prior Authorization (Mannie CASEY: Juan) from Last 3 Months Immunizations Immunization Administration Dates Next Due Hep A, Adult 03/26/2013,11/24/2011 Hep B, adult 12/29/2024, 4,06/30/2024,2012,04/16/2013,11/24/2011 Influenza injectable quadriv alent IIV4 with preservative [...] Description 10/12/2025 10:15 AM EST Office Visit [facility] [address] [place] [address] Onel Tejeda Health Maintenance Due Date Last Done Comments CT Colonography 1965 FIT DNA/Cologuard 1965 FIT 1965 FOBT 1965 Sigmoidoscopy 1965 Zoster Vaccines (1 of 2) 2017 COVID-19 Vaccine ( - season) 2025 08/04/2021, 10/22/2020, 10/01/2020 Influenza Vaccine (#1) 2025 , 06/08/2023, 05/30/2022, Additional history exists Alcohol/Substance Use Screening 10/03/2025 10/03/2024 Depression Screening 10/03/2025 10/03/2024, 10/03/19 SDOH Screening 10/03/2025 10/03/2024 Dental X-Ray: Bitewings 10/09/2025 10/08/19, 09/21/2023, 08/31/2020 Dental Oral Exam 10/10/2025 04/08/2025, , 04/02/2024, Additional history exists Dental Prophylaxis 10/10/2025 04/08/2025, 0 10/08/2024, 04/02/2024, Additional history exists Disability Screening 02/02/2026 02/02/2025 Tobacco Screening 04/08/2026 04/08/2025 Mammogram 05/05/2026 05/05/2025, 1003/2024, 05/22/2024, Additional history exists Diabetes: Hemoglobin A1C 05/15/2026 025, 03/02/2025, 08/07/2024, Additional history exists Cervical Cancer Screening 06/08/2026 Pap Smear 06/08/2026 06/08/2023, 06/25/2020 Dental X-Ray: Full Mouth 09/22/2026 09/21/2023, 08/20 HPV/Cotest 06/08/2028 06/08/2023, 11/0 01/2020, 05/03/2016 Lipid Panel 05/15/2030 05/15/2025, 02/17, 05/28/2024, Additional history exists Colonoscopy 03/09/2032 03/09/2022, 01/02/2019 [...] Name Priority Date/Time Associated Diagnosis Comments US PELVIS TRANSVAGINAL Routine 9:04 AM EDT Pelvic pain in female VITAMIN B1 Routine 05/15/2025 8:09 AM EDT VITAMIN A Routine 05/15/2025 8:09 AM EDT ZINC Routine 05/15/2025 8:09 AM EDT VITAMIN B12/FOLATE, SERUM PANEL Routine 05/15/2025 8:09 AM EDT INSULIN Routine 05/15/2025 8:09 AM EDT TSH W/REFLEX TO FT4 Routine 05/15/2025 8 :09 AM EDT VITAMIN D,25-OH,TOTAL,IA Routine 05/15/2025 8:09 AM EDT FERRITIN Routine 05/15/2025 8:09 AM EDT LIPID PANEL, STANDARD Routine 05/15/2025 8:09 AM EDT C-REACTIVE PROTEIN Routine 05/15/2025 8: 09 AM EDT IRON AND TOTAL IRON BINDING CAPACITY Routine 05/15/2025 8:09 AM EDT COMPREHENSIVE METABOLIC PANEL Routine 05/15/2025 8:09 AM EDT HEMOGLOBIN A1C Routine 05/15/2025 8:09 AM EDT CBC WITH AUTO DIFFERENTIAL Routine 05/15/2025 8:[address] CHEST W CONTRAST Routine 05/11/2025 2 [...] BARIUM SWALLOW Routine 03/16/2025 7:20 AM EDT BITEWINGS - 4 RADIOGRAPHIC IMAGES Routine [...] Relevant to Health Maintenance Results * US Pelvis Transvaginal (05/30/2025 9:04 AM EDT) Anatomical Region Laterality Modality Pelvis Ultrasound 05/30/2025 9:04 AM EDT Narrative 05/30/2025 9:05 AM EDT [place] [address] Ultrasound Report Signed Patient: Nae Pulido MR#: [id number] : 1965 Acct:[id number] Age/Sex: 59 / F ADM Date: 05/29/25 Loc: HO.US Attending Dr: Jinny Cunningham DO Ordering Physician: Jinny Cunningham DO Date of Service: 05/29/25 Procedure(s): US pelvic and transvaginal Accession Number(s): [id number] cc: Jinny Cunningham DO Reason for Exam: L sided pelvic pain CLINICAL HISTORY: L sided pelvic pain US pelvis transvaginal Comparison: None provided Findings: Transvaginal scanning performed. Anteverted uterus is 5.7 cm length. Normal myometrium. No endometrial lesion, 3.0 mm thickness. Right ovary 2.0 x 1.4 x 1.3 cm. Left ovary 2.0 x 1.4 x 1.4 cm. Normal color Doppler of both ovaries. No free fluid. IMPRESSION: 1. Normal pelvic ultrasound This document has been electronically signed by: Junior Almanza MD on 05/30/2025 09:04:19 Dictated By: Junior Almazna MD Signed By: <Electronically signed by Junior Almanza MD in OV> 05/30/25904 DD/ 3 TD/TT: 05/30/25903 Wood Barker: Procedure Note Donotuseinterpreter, Image - 05/30/[address] [address] Ultrasound Report Signed Patient: Carina Pulido#: [id number] : 1965Acct:[id number] Age/Sex: 59 / FADM Date: 05/29/25 Loc: HO.US Attending Dr: Jinny Cunningham DO Ordering Physician: Jinny Cunningham DO Date of Service: 05/29/25 Procedure(s): US pelvic and transvaginal Accession Number(s): [id number] cc: Jinny Cunningham DO Reason for Exam: L sided pelvic pain CLINICAL HISTORY: L sided pelvic pain US pelvis transvaginal Comparison: None provided Findings: Transvaginal scanning performed. Anteverted uterus is 5.7 cm length. Normal myometrium. No endometrial lesion, 3.0 mm thickness. Right ovary 2.0 x 1.4 x 1.3 cm. Left ovary 2.0 x 1.4 x 1.4 cm. Normal color Doppler of both ovaries. No free fluid. IMPRESSION: 1. Normal pelvic ultrasound This document has been electronically signed by: Junior Almanza MD on 05/30/2025 09:04:19 Dictated By: Junior Almanza MD Signed By: <Electronically signed by Junior Almanza MD in OV> 05/30/25904 DD/ 3 TD/TT: 05/30/25903 Wood Barker: us Jinny Cunningham DO IMG US PROCEDURES Final Resu lt * Vitamin D, 25-Hydroxy, Total, Immunoassay (05/15/2025 8:09 AM EDT) Vitamin D 25-OH Total 38.3 >30 ng/mL [facility] Comment: Health Based Reference Values*< 20 ng/mL [id number] ng/mL Insufficient> 30 ng/mL Sufficient*Priscila TRUJILLO. N [...] confirmed with another method such as LC-MS/MS. 05/15/2025 8:09 AM EDT 05/15/2025 8:09 AM EDT us Generic External Data Provider LAB BLOOD ORDERAB LES Final Result [facility] [address] [place] [address] [phone] * Vitamin B12 (Cobalamin) and Folate Panel, Serum (05/15/2025 8:09 AM EDT) Vitamin B12 648 200 - 900 pg/mL [facility] Comment:NORMAL 200-900 PG/ML INDETERMINATE 160-199 PG/ML DEFICIENT < 160 PG/ML Folate 9.0 > or = 4.0 ng/mL [facility] Comment:Reference Values:> o r = 4.0 ng/mL< 4.0 ng/mL suggests folate deficiency Methotrexate, aminopterin and folinic acid(leucovorin) are chemotherapeutic agents whose molecularstructures are similar to folate; therefore, the Architectfolate assay cannot be used for patients using these drugs. 05/15/2025 8:09 AM EDT 05/15/2025 8:09 AM EDT us Generic External Data Provider LAB BLOOD ORDERAB LES Final Result Performing Organization Address City/[facility]/ZIP Co de Phone Number [facility] [address] [place] [phone] * TSH with Reflex to Free T4 (05/15/2025 8:09 AM EDT) [facility] TSH reflex Free T4 2.22 0.32 - 4.0 uIU/mL [facility] 05/15/2025 8:09 AM EDT 05/15/2025 8:09 AM EDT Generic External Data Provider LAB BLOOD ORDERAB LES Final Result Performing Organization Address City/[facility]/ZIP Co de Phone Number [facility] [address] [place] [phone] * (ABNORMAL) CBC auto differential (05/15/2025 8:09 AM EDT) [facility] White Blood Count 6.7 4.8 - 10.8 X10*3/uL [facility] Red Blood Count 5.10 4.20 - 5.50 X10*6/uL [facility] Hemoglobin 15.4 12.0 - 16.0 g/dl [facility] Hematocrit 45.5 37.0 - 47.0 % [facility] Mean Corpuscular Volume 89.2 80.0 - 98.0 fL [facility] Mean Corpuscular Hemoglobin 30.2 27.0 - 33.0 pg [facility] Mean Corpuscular HGB Conc 33.8 31.0 - 35.0 g/dl [facility] Red Cell Distribution Width 12.7 11.0 - 16.0 % [facility] Platelet Count 197 160 - 400 X10*3/uL [facility] Mean Platelet Volume 11.2 9.4 - 12.3 fL [facility] Neutrophils Percent Auto 46.8 45 - 73 % [facility] Imm Gran Pct Auto 0.2 0.0 - 0.4 % [facility] Lymphocytes Percent Auto 42.6(H) 20 - 40 % [facility] Monocytes Percent Auto 6.5 2 - 11 % [facility] Eosinophils Percent Auto 3.3 0 - 4 % [facility] Basophils Percent Auto 0.6 0 - 2 % [facility] NRBC Pct Auto 0.0 0.0 - 0.2 /100WBC [facility] Neutrophils Absolute Auto 3.1 2.0 - 8.3 x10*3/uL [facility] Imm Gran Abs Auto 0.01 0.00 - 0.03 X10*3/uL [facility] Lymphocytes Absolute Auto 2.8 1.2 - 4.9 X10*3/uL [facility] Monocytes Absolute Auto 0.4 0.1 - 1.2 X10*3/uL [facility] Eosinophils Absolute Auto 0.2 0.0 - 0.4 X10*3/uL [facility] Basophils Absolute Auto 0.0 0.0 - 0.2 X10*3/uL [facility] NRBC Abs Auto 0.000 0.0 - 0.012 X10*3/uL [facility] 05/15/2025 8:09 AM EDT 05/15/2025 8:09 AM EDT us Generic External Data Provider LAB BLOOD ORDERAB LES Final Result [facility] [address] [place] [phone] * (ABNORMAL) Iron And Total Iron Binding Capacity (05/15/2025 8:09 AM EDT) Iron 114 30 - 160 mcg/dL [facility] Total Iron Binding Capacity 218(L) 228 - 428 mcg/dL [facility] Percent Iron Saturation 52(H) 15 - 50 % [facility] Unsaturated Iron Binding 104 ug/dL [facility] 05/15/2025 8:09 AM EDT 05/15/2025 8:09 AM EDT us Generic External Data Provider LAB BLOOD ORDERAB LES Final Result Performing Organization Address [facility] Co de Phone Number [facility] [address] [place] [phone] * Insulin (05/15/2025 8:09 AM EDT) Insulin 12 2 - 29 uU/mL [facility] Comment:This test was perfor med using the Arenas chemiluminescentmethod. Values obtained from different assay methods cannot beused interchangeably. This insulin assay shows a possiblecross-reactivity with antibodies generated against insulin(immunoreactive insulin and some patients treated withbovine or porcine insulin). Insulin levels may be measuredlower in patients with insulin autoimmune syndrome orfamilial high pro-insulinemia. 05/15/2025 8:09 AM EDT 05/15/2025 8:09 AM EDT Generic External Data Provider LAB BLOOD ORDERAB LES Final Result Performing Organization Address [facility] Co de Phone Number [facility] [address] [place] [phone] * Zinc (05/15/2025 8:09 AM EDT) Zinc 76 60 - 130 mcg/dL [facility] Comment:This test was develo ped and its analytical performancecharacteristics have been determined by [employer] [place], [place]. It hasnot been cleared or approved by the U.S. Food and DrugAdministration. This assay has been validated pursuantto the CLIA regulations and is used for clinicalpurposes.THIS TEST WAS PERFORMED AT:[id number] [place] [address]HCBINRYARPIT GILBERT MD,PHD 05/15/2025 8:09 AM EDT 05/15/2025 8:09 AM EDT us Generic External Data Provider LAB BLOOD ORDERAB LES Final Result Performing Organization Address [facility]/ZIP Co de Phone Number [facility] [address] [place] [phone] * (ABNORMAL) Vitamin A (05/15/2025 8:09 AM EDT) Vitamin A (Retinol) 37(A) 38 - 98 mcg/dL [facility] Comment:Vitamin supplementat ion within 24 hours prior toblood draw may affect the accuracy of the results.This test was developed and its analytical performancecharacteristics have been determined by [employer] [place], [place]. It hasnot been cleared or approved by the U.S. Food and DrugAdministration. This assay has been validated pursuantto the CLIA regulations and is used for clinicalpurposes.THIS TEST WAS PERFORMED AT:[id number] [place] [address]ABEATIPARPIT GILBERT MD,PHD 05/15/2025 8:09 AM EDT 05/15/2025 8:09 AM EDT Generic External Data Provider LAB BLOOD ORDERAB LES Final Result Performing Organization Address [facility] Co de Phone Number [facility] [address] [place] [phone] * (ABNORMAL) C-reactive Protein (05/15/2025 8:09 AM EDT) C Reactive Protein 0.73(H) < or = 0.50 mg/dL [facility] 05/15/2025 8:09 AM EDT 05/15/2025 8:09 AM EDT Generic External Data Provider LAB BLOOD ORDERAB LES Final Result Performing Organization Address [facility] Co de Phone Number [facility] [address] [place] [phone] * (ABNORMAL) Vitamin B1 (05/15/2025 8:09 AM EDT) Vitamin B1 7(A) 8 - 30 nmol/L [facility] Comment:Vitamin supplementat ion within 24 hours prior toblood draw may affect the accuracy of the results.This test was developed and its analytical performancecharacteristics have been determined by [employer] [place], [place]. It hasnot been cleared or approved by the U.S. Food and DrugAdministration. This assay has been validated pursuantto the CLIA regulations and is used for clinicalpurposes.THIS TEST WAS PERFORMED AT:[employer]/[id number] [place] [address]UHZQGZFARPIT GILBERT MD,PHD 05/15/2025 8:09 AM EDT 05/15/2025 8:09 AM EDT us Generic External Data Provider LAB BLOOD ORDERAB LES Final Result [facility] [address] [place] [phone] * Hemoglobin A1c (05/15/2025 8:09 AM EDT) Hemoglobin A1c 5.4 <6.0 % [facility] Comment:Hemoglobin A1C Refer ence Range Adults: 4.8 - 6.0 % Non diabetic: < 6.0 % Goal: < 7.0 %Additional Action Suggested: > 8.0 %Note: Hemoglobin A1c results are invalid for patients with abnormal amounts of HbF. Blood transfusions may impact the HbA1c concentration in the patient sample. Estimated Average Glucose 108 mg/dL [facility] Comment:eAG = Estimated ave rage glucose which is %A1C expressed asaverage glucose, using the formula of the F5J-AfbuzcjZhrjcmu Glucose study (ADAG), Diabetes Care, Vol.31,#8,2007 05/15/2025 8:09 AM EDT 05/15/2025 8:09 AM EDT us Generic External Data Provider LAB BLOOD ORDERAB LES Final Result Performing Organization Address City/[facility]/ZIP Co de Phone Number [facility] [address] [place] [phone] * Ferritin (05/15/2025 8:09 AM EDT) Ferritin 216 10 - 250 ng/mL [facility] 05/15/2025 8:09 AM EDT 05/15/2025 8:09 AM EDT Generic External Data Provider LAB BLOOD ORDERAB LES Final Result Performing Organization Address City/[facility] Co de Phone Number [facility] [address] [place] [phone] * Lipid Panel, Standard (05/15/2025 8:09 AM EDT) Triglycerides 70 <150 mg/dL [facility] Comment:Desirable Triglyceri de: less than 150 mg/dLBorderline High Triglyceride 150-199 mg/dLHigh Triglyceride: 200-499 mg/dLVery High Triglyceride: greater than or equal to 5OO mg/dL Cholesterol 154 <200 mg/dL [facility] Comment:Desirable Cholestero l: less than 200 mg/dLBorderline High Cholesterol: 200-239 mg/dLHigh Cholesterol: greater than 239 mg/dL LDL Cholesterol Calculated 88 <100 mg/dL [facility] Comment:Desirable LDL: less than 100 mg/dLNear Optimal/Above Optimal LDL: 110- 129 mg/dLBorderline High LDL: 130-159 mg/dLHigh LDL: 160-189 mg/dLVery High LDL: greater than or equal to 190 mg/dL HDL Cholesterol 52 >40 mg/dL [facility] Comment:Desirable HDL: great er than 40 mg/dL Note: This HDL assay may give artificially low results in patients with liver disease. 05/15/2025 8:09 AM EDT 05/15/2025 8:09 AM EDT Generic External Data Provider LAB BLOOD ORDERAB LES Final Result Performing Organization Address City/[facility]/ZIP Co de Phone Number [facility] [address] [place] [phone] * (ABNORMAL) Comprehensive Metabolic Panel (05/15/2025 8:09 AM EDT) Sodium 145 135 - 145 mmol/L [facility] Potassium 4.5 3.3 - 5.1 mmol/L [facility] Chloride 109(H) 96 - 108 mmol/L [facility] Carbon Dioxide 29 22 - 29 mmol/L [facility] Anion Gap 12 12 - 20 [facility] Urea Nitrogen (BUN) 14 9 - 16 mg/dL [facility] Creatinine, Serum 0.63 0.5 - 1.4 mg/dL [facility] Estimated Glomerular Filt Rate >60 [facility] Comment:Chronic Kidney Disea se: Estimated GFR < 60 mL/min/1.48p7Ygrrgr Kidney Disease: Estimated GFR < 15 mL/min/1.73m2 Glucose 85 60 - 115 mg/dL [facility] Calcium 9.7 8.4 - 10.2 mg/dL [facility] Bilirubin, Total 0.7 0.0 - 1.0 mg/dL [facility] Aspartate Amino Transferase 37(H) 5 - 31 U/L [facility] Alanine Aminotransferase 37(H) 0 - 31 U/L [facility] Total Protein 7.6 6.5 - 8.0 g/dL [facility] Albumin Level 4.6 3.5 - 5.0 g/dL [facility] Alkaline Phosphatase 117 39 - 117 U/L [facility] 05/15/2025 8:09 AM EDT 05/15/2025 8:09 AM EDT Generic External Data Provider LAB BLOOD ORDERAB LES Final Result Performing Organization Address City/[facility]/ZIP Co de Phone Number [facility] [address] [place] [phone] * CT Chest w/ Contrast (05/11/2025 2:16 PM EDT) Anatomical Region Laterality Modality Body, Chest Computed Tomogra phy 05/11/2025 2:16 PM EDT Narrative 05/11/2025 3:34 PM EDT [address] [address] [address] Scan Report Signed Patient: Nae Pulido MR#: [id number] : 1965 Acct:[id number] Age/Sex: 59 / F ADM Date: 05/11/25 Loc: HO.CT Attending Dr: Annel Schreiber MD Ordering Physician: Annel Schreiber MD Date of Service: 05/11/25 Procedure(s): CT chest w IV con Accession Number(s): [id number] cc: Jinny Cunningham DO; Annel Schreiber MD Report Number: [id number]: Total DLP = 132.00 mGy-cm Reason for [...] 05/11/25 1531 DD/ 1416 TD/TT: 05/11/25 1520 Wood Barker: Procedure Note Donotuseinterpreter, Image - 05/11/[address] [place] [address] [address] Scan Report Signed Patient: Carina Pulido#: [id number] : 1965Acct:[id number] Age/Sex: 59 / FADM Date: 05/11/25 Loc: HO.CT Attending Dr: Annel Schreiber MD Ordering Physician: Annel Schreiber MD Date of Service: 05/11/25 Procedure(s): CT chest w IV con Accession Number(s): [id number] cc: Jinny Cunningham DO; Annel Schreiber MD Report Number: [id number]: Total DLP = 132.00 mGy-cm Reason for [...] 05/11/25 1531 DD/ 1416 TD/TT: 05/11/25 1520 Wood Barker: [facility] External Provider IMG CT PROCEDURES Final Result * POCT Creatinine GFR (05/11/2025 2:14 PM EDT) POCT Creatinine 1.1 0.5 - 1.4 mg/dL [facility] GFR POC 54 [facility] Comment:Chronic Kidney Disea se: Estimated GFR < 60 mL/min/1.78u5Bgqnop Kidney Disease: Estimated GFR < 15 mL/min/1.73m2 05/11/2025 2:14 PM EDT 05/11/2025 4:55 PM EDT Narrative [facility] - 05/11/2025 4:56 PM EDT [id number] us Generic External Data Provider LAB POINT OF CARE TEST DOCKED DEVICE ORDERABLES Final Result [facility] [address] [place] [phone] * BI Mammogram Screening Tomosynthesis Bilateral (05/05/2025 8:47 AM EDT) Anatomical Region Laterality Modality Breast Bilateral Mammography 05/05/2025 8:47 AM EDT Narrative 05/05/2025 7:32 PM EDT [address] [place] [address] Mammography Report Signed Patient: Nae Pulido MR#: [id number] : 1965 Acct:[id number] Age/Sex: 59 / F ADM Date: 05/05/25 Loc: HO.MAMMO Attending Dr: Dmoenico Flores MD Ordering Physician: Domenico Flores MD Results: 2Benig n Findings Date of Service: 05/05/25 Follow Up: 1 Year From Orig ina Mammogram Procedure(s): MM tomosynthesis screening BI Accession Number(s): [id number] cc: Jinny Cunningham Pasquale MD Reason For [...] 05/05/25 1930 DD/ 0847 TD/TT: 05/05/25 0908 Wood Barker: Procedure Note Donotuseinterpreter, Image - 05/05/[facility] [address] [place] [address] Mammography Report Signed Patient: Carina Pulido#: [id number] : 1965Acct:[id number] Age/Sex: 59 / FADM Date: 05/05/25 Loc: HO.MAMMO Attending Dr: Domenico Flores MD Ordering Physician: Domenico Flores MDResults: 2Benig n Findings Date of Service: 05/05/25Follow Up: 1 Year From Orig inal Mammogram Procedure(s): MM tomosynthesis screening BI Accession Number(s): [id number] cc: Jinny Cunningham Pasquale MD Reason For [...] 05/05/25 1930 DD/ 0847 TD/TT: 05/05/25 0908 Wood Barker: us [facility] External Provider IMG BI PROCEDURES Edited Result - Final * US Abdomen Comp w elastography (04/14/2025 8:09 AM EDT) Anatomical Region Laterality Modality Abdomen Ultrasound 04/14/2025 8:09 AM EDT Narrative 04/14/2025 8:41 AM EDT [address] [address] Ultrasound Report Signed Patient: Nae Pulido MR#: [id number] : 1965 Acct:[id number] Age/Sex: 59 / F ADM Date: 04/14/25 Loc: HO.US Attending Dr: Annel Schreiber MD Ordering Physician: Annel Schreiber MD Date of Service: 04/14/25 Procedure(s): US abdomen comp w elastography Accession Number(s): [id number] cc: Jinny Cunningham DO; Annel Schreiber MD [...] of Radiologists in Ultrasound Liver Stiffness Thresholds (2019): LIVER STIFFNESS THRESHOLDS: *Shear wave velocity less [...] in OV> 04/14/25837 DD/ 8 TD/TT: 04/14/25821 Wood Barker: Procedure Note Donotuseinterpreter, Image - 04/14/2025 [place] [address] Ultrasound Report Signed Patient: Carina Pulido#: [id number] : 1965Acct:[id number] Age/Sex: 59 / FADM Date: 04/14/25 Loc: HO.US Attending Dr: Annel Schreiber MD Ordering Physician: Annel Schreiber MD Date of Service: 04/14/25 Procedure(s): US abdomen comp w elastography Accession Number(s): [id number] cc: Jinny Cunningham DO; Annel Schreiber MD [...] signed by Jc Chavis MD in OV> 04/14/25 0838 DD/ 0809 TD/TT: 04/14/25 0822 Wood Barker: us [facility] External Provider IMG US PROCEDURES Final Result * FL Esophagus Barium Swallow (03/16/2025 7:20 AM EDT) Anatomical Region Laterality Modality Head, Neck Radiographic Sarah ging 03/16/2025 7:20 AM EDT Narrative 03/17/2025 7:20 AM EDT [address] [address] Fluoroscopy Report Signed Patient: Nae Pulido MR#: [id number] : 1965 Acct:[id number] Age/Sex: 59 / F ADM Date: 03/16/25 [facility]: Annel Schreiber MD Ordering Physician: Annel Schreiber MD Date of Service: 03/16/25 Procedure(s): FL barium swallow Accession Number(s): [id number] cc: Jinny Cunningham DO; Annel Schreiber MD [...] Borja MD in OV> 03/17/25 0717 DD/ 9 TD/TT: 03/16/25 0734 Wood Barker: [facility] [place] Note Donotuseinterpreter, Image - 03/17/2025 [place] [address] Fluoroscopy Report Signed Patient: Carina Pulido#: [id number] : 1965Acct:[id number] Age/Sex: 59 / FADM Date: 03/16/25 Loc: HO.XRAY Attending Dr: Annel Schreiber MD Ordering Physician: Annel Schreiber MD Date of Service: 03/16/25 Procedure(s): FL barium swallow Accession Number(s): [id number] cc: Jinny Cunningham DO; Annel Schreiber MD [...] Chente Borja MD in OV> 03/17/25716 DD/ 9 TD/TT: 03/16/2534 Wood Barker: LYDIA [facility] External Provider IMG FLU OROSCOPY PROCEDURES Final Result * HIV-1/2 Antigen and Antibodies, Fourth Generation, with Reflexes (08/07/2024 10:28 AM EST) HIV AB/AG Nonreactive Nonreactive [facility] Comment:HIV-1 p24 Ag and/or HIV-1/HIV-2 Ab not detected.A test result that is nonreactive does not exclude thepossibility of exposure to or infection with HIV-1 and/orHIV-2. Nonreactive results in this assay for individualswith prior exposure to HIV-1 and/or HIV-2 may be due toantigen and antibody levels that are below the limit ofdetection of this assay.The COFCO HIV Ag/Ab Combo assay result andsupplemental assay results should be interpreted inconjunction with the patient's clinical presentation,history and other laboratory results. If the results areinconsistent with clinical evidence, additional testing issuggested to confirm the result. 08/07/2024 10:2 8 AM EST 08/07/2024 10:36 AM EST Generic External Data Provider LAB BLOOD ORDERAB LES Final Result [facility] [address] [place] [phone] * Hepatitis C Antibody with Reflex to HCV, RNA, Quantitative, Real-Time PCR (12/28/2023 8:42 AM EDT) Pathologist [facility] Hepatitis C Antibody Nonreactive Nonreactive [facility] Comment:Antibodies to HCV no t detected; does not exclude early acuteHCV infection. Blood Venous blood specimen / Unknown 12/28/2023 8:42 AM EDT 12/28/2023 11:28 AM EDT us Jinny Cunningham DO LAB BLOOD ORDERABLES Final R esult [facility] [address] [place] [address] [phone] * HPV mRNA E6/E7 w/Reflex to HPV Genotypes 16, 18/45 (06/08/2023 11:45 AM EDT) Pathologist [facility] HPV nRNA E6/E7 Not Detected Not Detected [facility] Comment:Methodology: Transcr iption-Mediated AmplificationThis assay detects E6/E7 viral messenger RNA (mRNA) from 14high-risk HPV types (16,18,31,33,35,39,45,51,52,56,58,59,66,68).Cervical sources are required for HPV testing.If a vaginal source from a patient who has had atotal hysterectomy with removal of cervix wassubmitted, please contact the testing laboratoryfor alternative testing options.For additional information, please refer tohttp://education.sonarDesign/faq/NXU340n2(This link if provided for information/educational purposes only.)THIS TEST WAS PERFORMED AT:[facility] [place] [phone] AVERY MD HPV mRNA E6/E7 [facility] HPV 16 RNA [facility] HPV 18/45 RNA [facility] 06/08/2023 11:4 5 AM EDT 06/11/2023 9:15 AM EDT Jinny Cunningham DO LAB CYTOLOGY ORDERABLES Tahira longoria Result [facility] [address] [place] [address] [phone] * Pap Smear (06/08/2023 11:45 AM EDT) 06/08/2023 11:4 5 AM EDT 06/11/2023 9:15 AM EDT Narrative [facility] - 06/14/2023 9:39 AM EDT ----- ------- Name: Nae Pulido Age/Sex: 57/F : 1965 Unit#: [id number] Attend Dr: Jinny Cunningham DO Re06/08/23 Status: DANIELLE REF Location: [facility] Disch: ----- ------- SPEC : [id number] RECD: 06/11/23 STATUS: STEPHANIE GILLESPIE NUM: [id number] ZION: 06/08/23-[address] [facility] DR: Jinny Cunningham DO ENTERED: 06/11/23-8941 SP TYPE: Pap Smr OTHR DR: ORDERED: Pap Smear Interpretation Satisfactory for evaluation. Mild inflammation. Negative for intraepithelial lesion or malignancy. HPV mRNA E6/E7: NOT DETECTED This assay detects E6/E7 viral messenger RNA (mRNA) from 14 high-risk HPV types (16, 18, 31, 33, 35, 39, 45, 51, 52, 56, 58, 59, 66, 68) HPV testing performed by [employer], [place], [place]. See reference laboratory pion of the EMR for entire report. Clinical Information LMP: Unknown date Previous PAP test: Unknown date, WNL Material Received ThinPrep-Cervical ----- ------- Signed (signature on file) SRAVAN Sanches (ASCP) 06/14/23 0939 ----- ------- END OF REPORT Jinny Cunningham DO LAB CYTOLOGY ORDERABLES Tahira longoria Result [facility] [address] [place] [phone] * Hm Colonoscopy (03/09/2022 10:01 AM EDT) Historical Provider HEALTH MAINTENANCE Final Result from Last 3 Months or Most Recently Relevant to Health Maintenance Insurance [facility] 3 DENTAL - HSN PARTIAL (MEDICAID) Care Teams Fur Sorter Relationship Specialty Start Date End Date Jinny Cunningham DO [address] [place] [address] PCP - General Family Medicine 10/03/11
--- OUTSIDE RECORDS SUMMARY | 2025-06-03 09:19 | XMS_ITS | Encounter Summary ---
Author Organization [employer] Address [address] [facility] 7t [place] [address] Care Team Providers Care Farm Reporter Name Role Phone Jinny Cunningham DO Primary Care Provider + [phone] Reason for Visit * Reason Comments Med Refill Encounter Details Date Type Department Care Team ([facility] st Contact Info) Description 04/26/2025 Refill [facility] [address] [place] [address] Jinny Cunningham DO [address] [place] [address] BMI 35.0-35.9,adult Social History Tobacco Use Types [...] Description 10/12/2025 10:15 AM EST Office Visit [facility]ULT D[facility] [address] [place] [address] Onel Tejeda documented as of this encounter Visit Diagnoses Diagnosis BMI 35.0-35.9,adult documented in this encounter Additional Health Concerns Assessment Noted Time PHQ-9 Depression Total Score: 0 10/03/19 25 9:21 AM EST documented as of this encounter Care Teams Farm Reporter Relationship Specialty Start Date End Date Jinny Cunningham DO [address] [place] [address] PCP - General Family Medicine 10/03/11 documented as of this encounter
== END 2025-06-03 09:23 | disposition home or self-care (01) ==
LOC: HO.HGS 08:45
PROVIDERS: PCP Family Medicine; Visit Provider Surgery
DX: Z80.3 Family history of malignant neoplasm of breast (principal)
CPT/HCPCS: 99213

== ENCOUNTER → 2025-06-03 08:44 | Outpatient (BNVA) | payer OTHER, SELFPAY | PROVIDERS: PCP Family Medicine; Visit Provider Surgery | DX: R07.89 Other chest pain (principal); Z80.3 Family history of malignant neoplasm of breast | CPT/HCPCS: 99212 ==

== ENCOUNTER 2025-07-22 09:41 | Outpatient (AMB) | payer OTHER, SELFPAY ==
--- NOTE | 2025-07-22 09:44 | A.OFFVIS_ITS ---
Vital Signs 07/22/25 09:46 Weight 160 lb 14.999 oz BP 111/73 Blood Pressure Location Rt brachial Position Sitting Pulse 81 Intake Visit Reasons: fatty liver Intake Note: Nae presents in the office as a follow up for fatty liver. CC: States that she has constipation but denies other symptoms. Adhesive Bonding Machine Operator Required: No Allergies No Known Allergies Allergy (Verified 07/22/25 09:46) HPI Comments Details: 59 y.o F with PMH of who is here for elevated LFTs. Pt reports RUQ pain x year which radiates to the back which is not associated with food intake, N,V, changes in stool or weight. Patient had LFTs done by primary care provider that have been remarkably elevated. On chart review, she has always had elevated transaminases, however have been gradually increasing as of this year. In addition, primary care provider also ordered a liver elastography on 06/17, however the results are still pending. Previous elastography 2020 did not show chronic liver disease. BMI 35. Pt does not drink. Has prediabetes. No HLD. Does have NANCY. No fam hx of liver disease. 10/15/24: Seen with Martha WRAY for interpretation. W/up consistent with non etOH fatty liver. Pt has been working on weight and has already lost 10 lbs since she was last seen! Also waiting on insurance approval for GLP-1. Results were already reviewed with the pt previously and reinforced again today. 01/28/25: Seen with chain forming machine operator. Has lost 20 lbs since Aug. Fib 4 improved to 1.34. Reports GLP 1 not approved by insurance but she plans to review this further with PCP who had previously recommended zepbound. Otherwise no acute GI complaints. 07/22/25: Here for follow-up on abnormal liver function tests. The patient has a history of elevated liver enzymes, suggestive of fatty liver disease, which were noted to be improving previously. Fib 4 based on most recent labs is 1.7. Prev 1.34. For weight management, the patient recently started Zepbound and reports feeling well on the medication. Since the last visit, when the patient's weight was close to 180 pounds, there has been a weight loss of approximately 20 pounds. She reports new-onset constipation that has worsened since starting Zepbound. Her current regimen for this includes drinking 64 ounces of water daily and taking a fiber supplement in the morning. Does not take any laxatives. Last colonoscopy was 2021, with a recommended 10-year follow-up interval. --- Pt was informed and consented to the use of ambient scribe for this encounter. --- [facility] Medical History Family history of breast cancer BMI 30.0-30.9,adult Obesity Abnormal barium swallow History of colon polyps Obesity (BMI 35.0-39.9 without comorbidity) Constipation by delayed colonic transit NANCY (obstructive sleep apnea) Hepatic steatosis GERD (gastroesophageal reflux disease) Surgical History H/O esophagogastroduodenoscopy Hx of cholecystectomy Hx of colonoscopy Family History Father Brain cancer Mother Diabetes Breast cancer Maternal Aunt Breast cancer Paternal Aunt Breast cancer Social History Household Members: Spouse, Family and Children Housing: House Alcohol intake: never Patient Tobacco Use Status: Never used Tobacco Second Hand Smoke Exposure: No service: No Current occupational status: employed 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 Physical Exam Exam Exam: No apparent distress Nonicteric Abdomen soft, nondistended Alert and oriented x3, normal gait Vital Signs: Last Vital Signs Pulse 81 07/22/25 09:46 BP 111/73 07/22/25 09:46 Assessment & Plan Assessment & Plan (1) Elevated LFTs: Code(s): R79.89 - Other specified abnormal findings of blood chemistry Category: Medical (2) Obesity (BMI 35.0-39.9 without comorbidity): Code(s): E66.9 - Obesity, unspecified Category: Medical (3) Hepatic steatosis: Code(s): K76.0 - Fatty (change of) liver, not elsewhere classified Category: Medical (4) Chronic idiopathic constipation: Code(s): K59.04 - Chronic idiopathic constipation Category: Medical Plan Reviewed with the patient that based on clinical history, most likely has nonalcohol related fatty liver disease. Risk factors include obesity, prediabetes. Although Fib 4 has worsened a bit her LFTs have improved since last time. Elastography also not consistent with advanced liver disease, Plan: -Cont management of metabolic risk factors including DM, obesity -150 mins/week of mod intensity exercise -Cont tirzepatide as per PCP - Repeat CBC and LFTs in 6 months for updated Fib 4. -If patient remains with low fib 4 and no advanced fibrosis on the next evaluation, can be discharged back to primary care provider's care. CIC: Likely 2/2 recent dietary and med changes with Zepbound. Plan: - COnt adequate hydration and fiber intake - Add miralax daily - Can take senna if no BM x 2 days despite above Follow up 6 months Orders: Orders Complete Blood Count no Diff 6 Months R79.89 - Other specified abnormal findings of blood chemistry Liver Panel 6 Months R79.89 - Other specified abnormal findings of blood chemistry Medications: New polyethylene glycol 3350 (Miralax) Take daily or every other day 17 grams PO DAILY 30 ea 1RF Coding Level of Care Code Est Pt Level 4 (12627) Diagnoses Elevated LFTs R79.89 Obesity (BMI 35.0-39.9 without comorbidity) E66.9 Hepatic steatosis K76.0 Chronic idiopathic constipation K59.04
[2025-07-22 09:46] VITALS: BP 111/73; PULSE 81
--- OUTSIDE RECORDS SUMMARY | 2025-07-22 10:44 | XMS_ITS | Clinical Summary ---
Author Organization [facility] Address [address] [address] Phone Care Team Providers Care Finance Consultant Name Role Phone Jinny Cunningham DO Primary Care Provider + [phone] Social History Tobacco Use Types Packs/Day Years [...] topic Medical Devices Not on file [place] [address] [place] [address] [facility] PCP [employer] [place] [address] [place] [address] PCP [employer] [facility] PCP S[employer] [facility] PCP [employer] Care Teams Finance Consultant Relationship Specialty Start Date End Date Jinny Cunningham DO [address] [place] [address] PCP - General Family Medicine 11/04/24 Additional Source Comments The information contained in this document represents components of the legal health record. It is not the complete legal health record.[facility]
--- OUTSIDE RECORDS SUMMARY | 2025-07-22 10:44 | XMS_ITS | Encounter Summary ---
Author Organization [employer] Address [address] [place] [address] [address] [place] [address] Care Team Providers Care Fuel Oil Clerk Name Role Phone Jinny Cunningham DO Primary Care Provider [phone] Encounter Details Date Type Department Care Team (Late st Contact Info) Description 12/13/2022 Orders Only [facility] MED & PEDS [address] [place] [address] Jinny Reynolds LPN Social History Tobacco Use [...] Description 10/12/2025 10:15 AM EST Office Visit [facility] ADULT DENTAL [address] [place] [address] Onel Tejeda documented as of this encounter Visit Diagnoses Not on filedocumented in this encounter Care Teams Fuel Oil Clerk Relationship Specialty Start Date End Date Jinny Cunningham DO [address] [place] [address] PCP - General Family Medicine 10/03/11 documented as of this encounter
--- OUTSIDE RECORDS SUMMARY | 2025-07-22 10:44 | XMS_ITS | Encounter Summary ---
Author Organization [employer] Address [address] [facility] 7t [place] [address] Care Team Providers Care Safety Equipment Testing Specialist Name Role Phone Jinny Cunningham DO Primary Care Provider [phone] Reason for Referral * Consultation (Routine) - Closed Specialty Diagnoses / Procedures Referred By Contac t Referred To Contact Nutrition Diagnoses Fatty liver Obesity (BMI 30-39.9) Delilah Ayala MD [address] [place] [address] Phone: tel: fax: Referral ID Status Reason Start Date Expiration Date V isits Requested Visits Authorized [id number] Closed Specialty Services Required 04/03/2023 04/02/2024 1 1 Encounter Details Date Type Department Care Team (Late st Contact Info) Description 04/03/2023 Orders Only [facility] MEDICINE [address] [place], [place] [phone] Delilah Ayala MD [address] [place], [place] [phone] Fatty liver (Primary Dx); Obesity (BMI 30-39.9) [...] 10:15 AM EST Office Visit [facility] ADULT D[facility] [address] [place] [address] Onel Tejeda Scheduled Referrals Name Type Priority Associated Diagnoses Orde r Schedule Referral to Nutrition Services Outpatient Referral Routine Fatty liver Obesity (BMI 30-39.9) Expected: 04/03/2023 (Approximate), Expires: 04/03/2024 documented as of this encounter Visit Diagnoses Diagnosis Fatty liver- Primary Other chronic nonalcoholic liver disease Obesity (BMI 30-39.9) documented in this encounter Care Teams Safety Equipment Testing Specialist Relationship Specialty Start Date End Date Jinny Cunningham DO [address] [place] [address] PCP - General Family Medicine 10/03/11 documented as of this encounter
--- OUTSIDE RECORDS SUMMARY | 2025-07-22 10:44 | XMS_ITS | Encounter Summary ---
Author Organization [employer] Address [address] [facility] 7t [place] [address] Care Team Providers Care Compliance Review Specialist Name Role Phone Jinny Cunningham DO Primary Care Provider + [phone] Encounter Details Date Type Department Care Team (Latest Contact Info) Description 08/31/2020 Abstract [facility] Dental, Provider, DDS Social History Tobacco [...] Description 10/12/2025 10:15 AM EST Office Visit [facility] ADULT D[facility] [address] [place] [address] Onel Tejeda documented as of this encounter Visit Diagnoses Not on filedocumented in this encounter Care Teams Compliance Review Specialist Relationship Specialty Start Date End Date Jinny Cunningham DO [address] [place] [address] PCP - General Family Medicine 10/03/11 documented as of this encounter
--- OUTSIDE RECORDS SUMMARY | 2025-07-22 10:44 | XMS_ITS | Encounter Summary ---
Author Organization [employer] Address [address] [facility] 7t [place] [address] Care Team Providers Care Customer Care Consultant Name Role Phone Jinny Cunningham DO Primary Care Provider + [phone] Reason for Visit * Reason Onset Date Comments Med Refill 06/23/2025 Encounter Details Date Type Department Care Team ([facility] st Contact Info) Description 06/23/2025 Telephone [facility] [address] [place], [place] [phone] Jinny Cunningham DO [address] [place], [place] [phone] Med Refill Social History Tobacco Use Types Packs/Day Years [...] encounter Miscellaneous Notes * Telephone Encounter - Jinny Reynolds LPN - 06/23/2025 10:07 AM EST Script was sent to [facility][id number] on 05/22/25 with 1 refill. * Telephone Encounter - Abiodun Garcia - 06/23/2025 10:00 AM EST TC from pt requesting medication refill. Medications needing refill : Tirzepatide-Weight Management (Zepbound) 7.5 MG/0.5ML solution To be sent to: [facility]/pharmacy #[id number] - [place] [facility] ARMEN WALTON documented in this encounter Plan of Treatment Upcoming Encounters Date Type Department Care Team (Late st Contact Info) Description 10/12/2025 10:15 AM EST Office Visit [facility] ADULT DENTAL [address] [place] [address] Onel Tejeda documented as of this encounter Visit Diagnoses Not on filedocumented in this encounter Additional Health Concerns Assessment Noted Time PHQ-9 Depression Total Score: 0 10/03/19 25 9:21 AM EST documented as of this encounter Care Teams Customer Care Consultant Relationship Specialty Start Date End Date Jinny Cunningham DO [address] [place] [address] PCP - General Family Medicine 10/03/11 documented as of this encounter
--- OUTSIDE RECORDS SUMMARY | 2025-07-22 10:44 | XMS_ITS | Encounter Summary ---
Author Organization [employer] Address [address] [facility] [address] [place] [address] Care Team Providers Care Commercial Painter Name Role Phone Jinny Cunningham DO Primary Care Provider + [phone] Reason for Visit * Reason Onset Date Comments Appointment Request 09/21/2023 Encounter Details Date Type Department Care Team ([facility] Contact Info) Description 09/21/2023 Telephone [facility] MEDICINE [address] [place], [place] [phone] Jinny Cunningham DO [address] [place], [place] [phone] Appointment Request Social History Tobacco Use Types [...] call from last appt to schedule however business writer does not see anything on patients chart documented in this encounter Plan of Treatment Upcoming Encounters Date Type Department Care Team ([facility] Contact Info) Description 10/12/2025 10:15 AM EST Office Visit [facility] [address] [place] [address] Onel Tejeda documented as of this encounter Visit Diagnoses Not on filedocumented in this encounter Care Teams Commercial Painter Relationship Specialty Start Date End Date Jinny Cunningham DO [address] [place] [address] PCP - General Family Medicine 10/03/11 documented as of this encounter
--- OUTSIDE RECORDS SUMMARY | 2025-07-22 10:44 | XMS_ITS | Encounter Summary ---
Author Organization [employer] Address [address] [facility] 7t [place] [address] Care Team Providers Care Special Services Director Name Role Phone Jinny Cunningham DO Primary Care Provider + [phone] Reason for Visit * Reason Onset Date Comments Referral 03/08/2023 Encounter Details Date Type Department Care Team (Late Contact Info) Description 03/08/2023 Telephone [facility] MED[facility] [address] [place], [place] [phone] Jinny Cunningham DO [address] [place] [address] Referral Social History Tobacco Use Types Packs/Day [...] from pt requesting status on referral to physical therapy aide. Please contact pt at [phone] (Bulgarian) documented in this encounter Plan of Treatment Upcoming Encounters Date Type Department Care Team (Late Contact Info) Description 10/12/2025 10:15 AM EST Office Visit [facility] ADULT D[facility] [address] [place] [address] Onel Tejeda documented as of this encounter Visit Diagnoses Not on filedocumented in this encounter Care Teams Special Services Director Relationship Specialty Start Date End Date Jinny Cunningham DO [address] [place] [address] PCP - General Family Medicine 10/03/11 documented as of this encounter
--- OUTSIDE RECORDS SUMMARY | 2025-07-22 10:44 | XMS_ITS | Encounter Summary ---
Author Organization [employer] Address [address] [facility] 7t [place] [address] Care Team Providers Care Proc Tech Name Role Phone Jinny Cunningham DO Primary Care Provider + [phone] Reason for Visit * Reason Comments Med Refill Encounter Details Date Type Department Care Team ([facility] st Contact Info) Description 02/27/2025 Refill [facility] MEDICINE [address] [place], [place] [phone] Jinny Cunningham DO [address] [place], [place] [phone] Social History Tobacco Use Types Packs/Day Years [...] Description 10/12/2025 10:15 AM EST Office Visit [facility] ADULT DENTAL [address] [place] [address] Onel Tejeda documented as of this encounter Visit Diagnoses Not on filedocumented in this encounter Additional Health Concerns Assessment Noted Time PHQ-9 Depression Total Score: 0 10/03/19 25 9:21 AM EST documented as of this encounter Care Teams Proc Tech Relationship Specialty Start Date End Date Jinny Cunningham DO [address] [place] [address] PCP - General Family Medicine 10/03/11 documented as of this encounter
--- OUTSIDE RECORDS SUMMARY | 2025-07-22 10:44 | XMS_ITS | Encounter Summary ---
Author Organization [employer] Address [address] [facility] [address] [place] [address] Care Team Providers Care Military Logistics Specialist Name Role Phone Yolandamaritza Jinny Primary Care Provider + [phone] Encounter Details Date Type Department Care Team (Late Contact Info) Description 11/29/2023 Orders Only [facility] MEDICINE [address] [place] [phone] Provider, [place], Social History Tobacco Use Types [...] Description 10/12/2025 10:15 AM EST Office Visit [facility] CHC ADULT DENTAL [address] [place] [address] Onel Tejeda documented as of this encounter [...] on filedocumented in this encounter Care Teams Military Logistics Specialist Relationship Specialty Start Date End Date Jinny Cunningham DO [address] [place] [address] PCP - General Family Medicine 10/03/11 documented as of this encounter
--- OUTSIDE RECORDS SUMMARY | 2025-07-22 10:44 | XMS_ITS | Encounter Summary ---
Author Organization [employer] Address [address] [facility] [address] [place] [address] Care Team Providers Care Cd Technician Name Role Phone Jinny Cunningham DO Primary Care Provider + [phone] Reason for Visit * Reason Comments Med Refill Encounter Details Date Type Department Care Team ([facility] st Contact Info) Description 04/26/2025 Refill [facility] CHC MED & PEDS [address] [place] [address] Jinny Cunningham DO [address] [place] [address] BMI 35.0-35.9,adult Social History Tobacco Use Types [...] 10/12/2025 10:15 AM EST Office Visit [facility] ADULT DENTAL [address] [place] [address] Onel Tejeda documented as of this encounter Visit Diagnoses Diagnosis BMI 35.0-35.9,adult documented in this encounter Additional Health Concerns Assessment Noted Time PHQ-9 Depression Total Score: 0 10/03/19 25 9:21 AM EST documented as of this encounter Care Teams Cd Technician Relationship Specialty Start Date End Date Jinny Cunningham DO [address] [place] [address] PCP - General Family Medicine 10/03/11 documented as of this encounter
--- OUTSIDE RECORDS SUMMARY | 2025-07-22 10:45 | XMS_ITS | Encounter Summary ---
Author Organization [employer] Address [address] [facility] [address] [place] [address] Care Team Providers Care Senior Informatica Developer Name Role Phone Jinny Cunningham DO Primary Care Provider + [phone] Reason for Visit * Reason Comments Med Change Request Encounter Details Date Type Department Care Team ([facility] st Contact Info) Description 03/19/2024 Refill [facility] [address] [place], [place] [phone] Kristina Cid FNP [address] [place] [address] Social History Tobacco Use Types Packs/Day Years [...] 10:15 AM EST Office Visit [facility] ADULT DENTAL [address] [place] [address] Onel Tejeda documented as of this encounter Visit Diagnoses Not on filedocumented in this encounter Additional Health Concerns Assessment Noted Time PHQ-9 Depression Total Score: 6 12/21/19 24 10:44 AM EDT documented as of this encounter Care Teams Senior Informatica Developer Relationship Specialty Start Date End Date Jinny Cunningham DO [address] [place] [address] PCP - General Family Medicine 10/03/11 documented as of this encounter
--- OUTSIDE RECORDS SUMMARY | 2025-07-22 10:45 | XMS_ITS | Encounter Summary ---
Author Organization [employer] Address [address] [facility] [address] [place] [address] Care Team Providers Care Account Group Supervisor Name Role Phone Jinny Cunningham DO Primary Care Provider + [phone] Reason for Visit * Reason Onset Date Comments Nurse Triage 02/15/2024 Encounter Details Date Type Department Care Team ([facility] st Contact Info) Description 02/15/2024 Telephone [facility] MEDICINE [address] [place], [place] [phone] Jinny Cunningham DO [address] [place], [place] [phone] Nurse Triage Social History Tobacco Use Types [...] Description 10/12/2025 10:15 AM EST Office Visit [facility] ADULT DENTAL [address] [place] [address] Onel Tejeda documented as of this encounter Visit Diagnoses Not on filedocumented in this encounter Additional Health Concerns Assessment Noted Time PHQ-9 Depression Total Score: 6 12/21/19 24 10:44 AM EDT documented as of this encounter Care Teams Account Group Supervisor Relationship Specialty Start Date End Date Jinny Cunninhgam DO [address] [place] [id number] PCP - General Family Medicine 10/03/11 documented as of this encounter
--- OUTSIDE RECORDS SUMMARY | 2025-07-22 10:45 | XMS_ITS | Clinical Summary ---
Author Organization [employer] Address [address] [place] [address] Care Team Providers Care Geometry Teacher Name Role Phone Jinny Cunningham DO Primary Care Provider + [phone] Allergies No known active allergies Medications magnesium [...] g 3 5 Active phentermine 15 MG capsuleIndicatio ns:Class 1 obesity due to excess calories with [...] not open capsule. 60 capsule 02/28/20 Active Tirzepatide-Weig ht Management (Zepbound) 7.5 MG/0.5ML solutionIndicati ons:Class 1 obesity due to excess calories with serious comorbidity and body mass index (BMI) of 31.0 to 31.9 in adult Inject 7.5 mg under the skin 1 (one) time per week. 2 mL 1 5 Active Active Problems Problem Noted Date [...] Encounters Date Type Department Care Team Description 06/23/2025 Telephone [facility] [address] [place] [address] Jinny Cunningham, Med Refill 05/22/2025 Refill [facility] [address] [place] [address] Jinny Cunningham DO Class 1 obesity due to excess calories with serious comorbidity and body mass index (BMI) of 31.0 to 31.9 in adult 05/15/2025 Orders Only GENERIC EXTERNAL DATA DEPARTMENT Provider, Generic External Data 05/11/2025 Orders Only GENERIC EXTERNAL DATA DEPARTMENT Provider, Generic External Data 05/05/2025 Orders Only [facility] External Provider, [facility] 04/27/2025 Refill [facility] [address] [place] [address] Jinny Cunningham, DO BMI 35.0-35.9,adult 04/26/2025 Refill [facility] [address] [place] [address] Jinny Cunningham, DO BMI 35.0-35.9,adult from Last 3 Months Immunizations Immunization Administration [...] [facility] [address] [place] [address] Onel Tejeda Health Maintenance Due Date Last Done Comments CT Colonography 1965 FIT DNA/Cologuard 1965 FIT 1965 FOBT 1965 Sigmoidoscopy 1965 RSV Patients and Patients Aged 60 years or older (1 - Risk 50-74 years 1-dose series) 2017 Zoster Vaccines (1 of 2) 2017 COVID-19 Vaccine ( season) 2025 08/04/2021, 10/22/2020, 10/01/2020 Alcohol/Substance Use Screening 10/03/2025 10/03/2024 Depression Screening 10/03/2025 10/03/2024, 10/03/19 SDOH Screening 10/03/2025 10/03/2024 Dental X-Ray: Bitewings 10/09/2025 10/08/19, 09/21/2023, 08/31/2020 Dental Oral Exam 10/10/2025 04/08/2025, , 04/02/2024, Additional history exists Dental Prophylaxis 10/10/2025 04/08/2025, 0 10/08/2024, 04/02/2024, Additional history exists Disability Screening 02/02/2026 02/02/2025 Tobacco Screening 04/08/2026 04/08/2025 Mammogram 05/05/2026 05/05/2025, 03/2024, 05/22/2024, Additional history exists Diabetes: Hemoglobin A1C [...] Td or Tdap) 10/30/2032 10/30/2022, 06/11/2012, 10/03/2011 Hepatitis A Vaccines Completed 03/26/2013, 11/24/19 12 Hepatitis C Screening Completed 12/28/2023 , 11/08/2022, 04/07/2022, Additional history exists HIV Screening Completed 08/07/2024, 12/18, 11/08/2022, Additional history exists Pneumococcal Vaccine: 50+ Years Completed 10/03/2024 Hepatitis B Vaccines Completed 12/29/2024, 07/28/2024, 06/30/2024, Additional history exists Influenza Vaccine Completed 07/14/2025, , 06/08/2023, Additional history exists HIB Vaccines Aged Out [...] TOMOSYNTHESIS BILATERAL Routine 05/05/2025 8:47 AM EDT PROPHYLAXIS - ADULT Routine 04/08/2025 9 :00 AM EDT Encounter for dental examination and cleaning with abnormal findings PERIODIC ORAL EVALUATION - ESTABLISHED PATIENT Routine 04/08/2025 9:00 AM EDT Encounter for dental examination and cleaning with abnormal findings BITEWINGS - 4 RADIOGRAPHIC IMAGES Routine 10/08/2024 [...] AM EDT Narrative 05/30/2025 9:05 AM EDT [place] [address] Ultrasound Report Signed Patient: Nae Pulido MR#: [id number] : 1965 Acct:[id number] Age/Sex: 59 / F ADM Date: 05/29/25 Loc: .US Attending Dr: Jinny Cunningham DO Ordering Physician: Jinny Cunningham DO Date of Service: 05/29/25 Procedure(s): US pelvic and transvaginal Accession Number(s): [id number] cc: Jinny Cunningham DO Reason for Exam: [...] in OV> 05/30/25904 DD/ 3 TD/TT: 05/30/25903 Data Management Manager: Procedure Note Donotuseinterpreter, Image - 05/30/2025 [place] [address] Ultrasound Report Signed Patient: Carina Pulido#: [id number] : 1965Acct:[id number] Age/Sex: 59 / FADM Date: 05/29/25 Loc: HO.US Attending Dr: Jinny Cunningham DO Ordering Physician: Jinny Cunningham DO Date of Service: 05/29/25 Procedure(s): US pelvic and transvaginal Accession Number(s): [id number] cc: Jinny Cunningham DO Reason for Exam: [...] in OV> 05/30/25904 DD/ 3 TD/TT: 05/30/25903 Data Management Manager: us Jinny Cunningham DO IMG US PROCEDURES Final Resu lt * Vitamin D, 25-Hydroxy, Total, Immunoassay (05/15/2025 8:09 AM EDT) Vitamin D 25-OH Total 38.3 >30 ng/mL [facility] Comment: Health Based Reference Values*< 20 ng/mL [id number] ng/mL Insufficient> 30 ng/mL Sufficient*Priscila TRUJILLO. N [...] Provider LAB BLOOD ORDERAB LES Final Result [facility] [address] [place] [phone] * Vitamin B12 (Cobalamin) and Folate Panel, Serum (05/15/2025 8:09 AM EDT) Vitamin B12 648 200 - 900 pg/mL [facility] Comment:NORMAL 200-900 PG/ML INDETERMINATE 160-199 PG/ML DEFICIENT < 160 PG/ML Folate 9.0 > or = 4.0 ng/mL [facility] Comment:Reference Values:> o r = 4.0 ng/mL< 4.0 ng/mL suggests folate deficiency Methotrexate, aminopterin and folinic acid(leucovorin) are chemotherapeutic agents whose molecularstructures are similar to folate; therefore, the Architectfolate assay cannot be used for patients using these drugs. 05/15/2025 8:09 AM EDT 05/15/2025 8:09 AM EDT Generic External Data Provider LAB BLOOD ORDERAB LES Final Result Performing Organization Address [facility]/ZIP Co de Phone Number [facility] [address] [place] [phone] * TSH with Reflex to Free T4 (05/15/2025 8:09 AM EDT) Pathologist [facility] TSH reflex Free T4 2.22 0.32 - 4.0 uIU/mL [facility] 05/15/2025 8:09 AM EDT 05/15/2025 8:09 AM EDT Generic External Data Provider LAB BLOOD ORDERAB LES Final Result Performing Organization Address [facility] Co de Phone Number [facility] [address] [place] [phone] * (ABNORMAL) CBC auto differential (05/15/2025 8:09 AM EDT) Pathologist [facility] White Blood Count 6.7 4.8 - 10.8 X10*3/uL [facility] Red Blood Count 5.10 4.20 - 5.50 X10*6/uL [facility] Hemoglobin 15.4 12.0 - 16.0 g/dl [facility] Hematocrit 45.5 37.0 - 47.0 % [facility] Mean Corpuscular Volume 89.2 80.0 - 98.0 fL [facility] Mean Corpuscular Hemoglobin 30.2 27.0 - 33.0 pg [facility] Mean Corpuscular HGB Conc 33.8 31.0 - 35.0 g/dl [facility] Red Cell Distribution Width 12.7 11.0 - 16.0 % [facility] Platelet Count 197 160 - 400 X10*3/uL [facility] Mean Platelet Volume 11.2 9.4 - 12.3 fL [facility] Neutrophils Percent Auto 46.8 45 - 73 % [facility] Imm Gran Pct Auto 0.2 0.0 - 0.4 % [facility] Lymphocytes Percent Auto 42.6(H) 20 - 40 % [facility] Monocytes Percent Auto 6.5 2 - 11 % [facility] Eosinophils Percent Auto 3.3 0 - 4 % [facility] Basophils Percent Auto 0.6 0 - 2 % [facility] NRBC Pct Auto 0.0 0.0 - 0.2 /100WBC [facility] Neutrophils Absolute Auto 3.1 2.0 - 8.3 x10*3/uL [facility] Imm Gran Abs Auto 0.01 0.00 - 0.03 X10*3/uL [facility] Lymphocytes Absolute Auto 2.8 1.2 - 4.9 X10*3/uL [facility] Monocytes Absolute Auto 0.4 0.1 - 1.2 X10*3/uL [facility] Eosinophils Absolute Auto 0.2 0.0 - 0.4 X10*3/uL [facility] Basophils Absolute Auto 0.0 0.0 - 0.2 X10*3/uL [facility] NRBC Abs Auto 0.000 0.0 - 0.012 X10*3/uL [facility] 05/15/2025 8:09 AM EDT 05/15/2025 8:09 AM EDT us Generic External Data Provider LAB BLOOD ORDERAB LES Final Result [facility] [address] [place], [place] [phone] * (ABNORMAL) Iron And Total Iron Binding Capacity (05/15/2025 8:09 AM EDT) Iron 114 30 - 160 mcg/dL [facility] Total Iron Binding Capacity 218(L) 228 - 428 mcg/dL [facility] Percent Iron Saturation 52(H) 15 - 50 % [facility] Unsaturated Iron Binding 104 ug/dL [facility] 05/15/2025 8:09 AM EDT 05/15/2025 8:09 AM EDT Generic External Data Provider LAB BLOOD ORDERAB LES Final Result Performing Organization Address [facility] Phone Number [facility] [address] [place] [phone] * Insulin (05/15/2025 8:09 AM EDT) Insulin 12 2 - 29 uU/mL [facility] Comment:This test was perfor med [...] ORDERAB LES Final Result Performing Organization Address [facility] Number [facility] [address] [place] [phone] * Zinc (05/15/2025 8:09 AM EDT) Zinc 76 60 - 130 mcg/dL [facility] Comment:This test was develo ped and its analytical performancecharacteristics have been determined by [employer] [place]. It hasnot been cleared or approved by the U.S. Food and DrugAdministration. This assay has been validated pursuantto the CLIA regulations and is used for clinicalpurposes.THIS TEST WAS PERFORMED AT:[employer] [place] [address]ZTFMCKCARPIT GILBERT MD,PHD 05/15/2025 8:09 AM EDT 05/15/2025 8:09 AM EDT Generic External Data Provider LAB BLOOD ORDERAB LES Final Result Performing Organization Address [facility] Co de Phone Number [facility] [address] [place] [address] [phone] * (ABNORMAL) Vitamin A (05/15/2025 8:09 AM EDT) Vitamin A (Retinol) 37(A) 38 - 98 mcg/dL [facility] Comment:Vitamin supplementat ion within 24 hours prior toblood draw may affect the accuracy of the results.This test was developed and its analytical performancecharacteristics have been determined by [employer] [place]. It hasnot been cleared or approved by the U.S. Food and DrugAdministration. This assay has been validated pursuantto the CLIA regulations and is used for clinicalpurposes.THIS TEST WAS PERFORMED AT:[employer] [place] [address]IXPGRGZARPIT GILBERT MD,PHD 05/15/2025 8:09 AM EDT 05/15/2025 8:09 AM EDT Generic External Data Provider LAB BLOOD ORDERAB LES Final Result Performing Organization Address [facility] Co de Phone Number [facility] [address] [place] [phone] * (ABNORMAL) C-reactive Protein (05/15/2025 8:09 AM EDT) C Reactive Protein 0.73(H) < or = 0.50 mg/dL [facility] 05/15/2025 8:09 AM EDT 05/15/2025 8:09 AM EDT us Generic External Data Provider LAB BLOOD ORDERAB LES Final Result Performing Organization Address City/[facility]/ZIP Co de Phone Number [facility] [address] [place] [address] [phone] * (ABNORMAL) Vitamin B1 (05/15/2025 8:09 AM EDT) Vitamin B1 7(A) 8 - 30 nmol/L [facility] Comment:Vitamin supplementat ion within 24 hours prior toblood draw may affect the accuracy of the results.This test was developed and its analytical performancecharacteristics have been determined by [employer] [place], [place]. It hasnot been cleared or approved by the U.S. Food and DrugAdministration. This assay has been validated pursuantto the CLIA regulations and is used for clinicalpurposes.THIS TEST WAS PERFORMED AT:[employer]/[facility] [place] [address]NAWVHWAARPIT GILBERT MD,PHD 05/15/2025 8:09 AM EDT 05/15/2025 8:09 AM EDT Generic External Data Provider LAB BLOOD ORDERAB LES Final Result Performing Organization Address [facility]/ZIP Co de Phone Number [facility] [address] [place] [phone] * Hemoglobin A1c (05/15/2025 8:09 AM EDT) Hemoglobin A1c 5.4 <6.0 % [facility] Comment:Hemoglobin A1C Refer ence Range Adults: 4.8 - 6.0 % Non diabetic: < 6.0 % Goal: < 7.0 %Additional Action Suggested: > 8.0 %Note: Hemoglobin A1c results are invalid for patients with abnormal amounts of HbF. Blood transfusions may impact the HbA1c concentration in the patient sample. Estimated Average Glucose 108 mg/dL [facility] Comment:eAG = Estimated ave rage glucose which is %A1C expressed asaverage glucose, using the formula of the B9C-YskjbxuMcrizvr Glucose study (ADAG), Diabetes Care, Vol.31,#8,Mar. 2007 05/15/2025 8:09 AM EDT 05/15/2025 8:09 AM EDT us Generic External Data Provider LAB BLOOD ORDERAB LES Final Result Performing Organization Address City/[facility]/ZIP Co de Phone Number [facility] [address] [place] [phone] * Ferritin (05/15/2025 8:09 AM EDT) Ferritin 216 10 - 250 ng/mL [facility] 05/15/2025 8:09 AM EDT 05/15/2025 8:09 AM EDT us Generic External Data Provider LAB BLOOD ORDERAB LES Final Result Performing Organization Address City/[facility]/ZIP Co de Phone Number [facility] [address] [place] [address] [phone] * Lipid Panel, Standard (05/15/2025 8:09 AM EDT) Triglycerides 70 <150 mg/dL [facility] Comment:Desirable Triglyceri de: less than 150 mg/dLBorderline High Triglyceride 150-199 mg/dLHigh Triglyceride: 200-499 mg/dLVery High Triglyceride: greater than or equal to 5OO mg/dL Cholesterol 154 <200 mg/dL [facility] Comment:Desirable Cholestero l: less than 200 mg/dLBorderline High Cholesterol: 200-239 mg/dLHigh Cholesterol: greater than 239 mg/dL LDL Cholesterol Calculated 88 <100 mg/dL [facility] Comment:Desirable LDL: less than 100 mg/dLNear Optimal/Above Optimal LDL: 110- 129 mg/dLBorderline High LDL: 130-159 mg/dLHigh LDL: 160-189 mg/dLVery High LDL: greater than or equal to 190 mg/dL HDL Cholesterol 52 >40 mg/dL [facility] Comment:Desirable HDL: great er than 40 mg/dL Note: This HDL assay may give artificially low results in patients with liver disease. 05/15/2025 8:09 AM EDT 05/15/2025 8:09 AM EDT us Generic External Data Provider LAB BLOOD ORDERAB LES Final Result [facility] [address] [place] [phone] * (ABNORMAL) Comprehensive Metabolic Panel (05/15/2025 8:09 AM EDT) Sodium 145 135 - 145 mmol/L [facility] Potassium 4.5 3.3 - 5.1 mmol/L [facility] Chloride 109(H) 96 - 108 mmol/L [facility] Carbon Dioxide 29 22 - 29 mmol/L [facility] Anion Gap 12 12 - 20 [facility] Urea Nitrogen (BUN) 14 9 - 16 mg/dL [facility] Creatinine, Serum 0.63 0.5 - 1.4 mg/dL [facility] Estimated Glomerular Filt Rate >60 [facility] Comment:Chronic Kidney Disea se: Estimated GFR < 60 mL/min/1.95i1Vnbyif Kidney Disease: Estimated GFR < 15 mL/min/1.73m2 Glucose 85 60 - 115 mg/dL [facility] Calcium 9.7 8.4 - 10.2 mg/dL [facility] Bilirubin, Total 0.7 0.0 - 1.0 mg/dL [facility] Aspartate Amino Transferase 37(H) 5 - 31 U/L [facility] Alanine Aminotransferase 37(H) 0 - 31 U/L [facility] Total Protein 7.6 6.5 - 8.0 g/dL [facility] Albumin Level 4.6 3.5 - 5.0 g/dL [facility] Alkaline Phosphatase 117 39 - 117 U/L [facility] 05/15/2025 8:09 AM EDT 05/15/2025 8:09 AM EDT us Generic External Data Provider LAB BLOOD ORDERAB LES Final Result [facility] [address] [place] [phone] * CT Chest w/ Contrast (05/11/2025 2:16 PM EDT) Anatomical Region Laterality Modality Body, Chest Computed Tomogra phy 05/11/2025 2:16 PM EDT Narrative 05/11/2025 3:34 PM EDT [address] [address] [address] Scan Report Signed Patient: Nae Pulido MR#: [id number] : 1965 Acct:[id number] Age/Sex: 59 / F ADM Date: 05/11/25 Loc: HO.CT Attending Dr: Annel Schreiber MD Ordering Physician: Annel Schreiber MD Date of Service: 05/11/25 Procedure(s): CT chest w IV con Accession Number(s): [id number] cc: Jinny Cunningham DO; Annel Schreiber MD Report Number: [id number]: Total DLP = 132.00 mGy-cm Reason for [...] 05/11/25 1531 DD/ 1416 TD/TT: 05/11/25 1520 Data Management Manager: Procedure Note Donotuseinterpreter, Image - 05/11/[address] [place] [address] [address] Scan Report Signed Patient: Carina Pulido#: [id number] : 1965Acct:[id number] Age/Sex: 59 / FADM Date: 05/11/25 Loc: HO.CT Attending Dr: Annel Schreiber MD Ordering Physician: Annel Schreiber MD Date of Service: 05/11/25 Procedure(s): CT chest w IV con Accession Number(s): [id number] cc: Jinny Cunningham DO; Annel Schreiber MD Report Number: [id number]: Total DLP = 132.00 mGy-cm Reason for [...] 05/11/25 1531 DD/ 1416 TD/TT: 05/11/25 1520 Data Management Manager: us [facility] External Provider IMG CT PROCEDURES Final Result * POCT Creatinine GFR (05/11/2025 2:14 PM EDT) POCT Creatinine 1.1 0.5 - 1.4 mg/dL [facility] GFR POC 54 [facility] Comment:Chronic Kidney Disea se: Estimated GFR < 60 mL/min/1.87v6Gybjsk Kidney Disease: Estimated GFR < 15 mL/min/1.73m2 05/11/2025 2:14 PM EDT 05/11/2025 4:55 PM EDT Narrative [facility] - 05/11/2025 4:56 PM EDT [id number] Generic External Data Provider LAB POINT OF CARE TEST DOCKED DEVICE ORDERABLES Final Result Performing Organization Address City/State/[facility] Co de Phone Number [facility] [address] [place] [phone] * BI Mammogram Screening Tomosynthesis Bilateral (05/05/2025 8:47 AM EDT) Anatomical Region Laterality Modality Breast Bilateral Mammography 05/05/2025 8:47 AM EDT Narrative 05/05/2025 7:32 PM EDT [address] [place] [address] Mammography Report Signed Patient: Nae Pulido MR#: [id number] : 1965 Acct:[id number] Age/Sex: 59 / F ADM Date: 05/05/25 Loc: HO.MAMMO Attending Dr: Domenico Flores MD Ordering Physician: Domenico Flores MD Results: 2Benig n Findings Date of Service: 05/05/25 Follow Up: 1 Year From Orig inal Mammogram Procedure(s): MM tomosynthesis screening BI Accession Number(s): [id number] cc: Jinny Cunningham DO; Domenico Flores MD [...] 05/05/25 1930 DD/ 0847 TD/TT: 05/05/25 0908 Data Management Manager: Procedure Note Donotuseinterpreter, Image - 05/05/2025 [facility] [address] [place] [address] Mammography Report Signed Patient: Carina Pulido#: [id number] : 1965Acct:[id number] Age/Sex: 59 / FADM Date: 05/05/25 Loc: HO.MAMMO Attending Dr: Domenico Flores MD Ordering Physician: Domenico Flores MDResults: 2Benig n Findings Date of Service: 05/05/25Follow Up: 1 Year From Orig inal Mammogram Procedure(s): MM tomosynthesis screening BI Accession Number(s): [id number] cc: Jinny Cunningham DO; Domenico Flores MD [...] Byrnes MD 05/05/2025 07:30 PM EDT RP Dictated By: Allie Byrnes MD Signed By: <Electronically signed by Allie Byrnes MD in OV> 05/05/251929 DD/ 0847 TD/TT: 05/05/25 0908 Data Management Manager: [facility] External Provider IMG BI PROCEDURES Edited Result - Final * HIV-1/2 Antigen and Antibodies, Fourth Generation, with Reflexes (08/07/2024 10:28 AM EST) HIV AB/AG Nonreactive Nonreactive [facility] Comment:HIV-1 p24 Ag and/or HIV-1/HIV-2 Ab not detected.A test result that is nonreactive does not exclude thepossibility of exposure to or infection with HIV-1 and/orHIV-2. Nonreactive results in this assay for individualswith prior exposure to HIV-1 and/or HIV-2 may be due toantigen and antibody levels that are below the limit ofdetection of this assay.The [employer] HIV Ag/Ab Combo assay result andsupplemental assay results should be interpreted inconjunction with the patient's clinical presentation,history and other laboratory results. If the results areinconsistent with clinical evidence, additional testing issuggested to confirm the result. 08/07/2024 10:2 8 AM EST 08/07/2024 10:36 AM EST Generic External Data Provider LAB BLOOD ORDERAB LES Final Result [facility] [address] [place] [address] [phone] * Hepatitis C Antibody with Reflex to HCV, RNA, Quantitative, Real-Time PCR (12/28/2023 8:42 AM EDT) Hepatitis C Antibody Nonreactive Nonreactive [facility] Comment:Antibodies to HCV no t detected; does not exclude early acuteHCV infection. Blood Venous blood specimen / Unknown 12/28/2023 8:42 AM EDT 12/28/2023 11:28 AM EDT Jinny Cunningham DO LAB BLOOD ORDERABLES Final R esult Performing Organization Address City/[facility] Hospital/ZIP Co de Phone Number [facility] [address] [place] [phone] * HPV mRNA E6/E7 w/Reflex to HPV Genotypes 16, 18/45 (06/08/2023 11:45 AM EDT) HPV nRNA E6/E7 Not Detected Not Detected [facility] Comment:Methodology: Transcr iption-Mediated AmplificationThis assay detects E6/E7 viral messenger RNA (mRNA) from 14high-risk HPV types (16,18,31,33,35,39,45,51,52,56,58,59,66,68).Cervical sources are required for HPV testing.If a vaginal source from a patient who has had atotal hysterectomy with removal of cervix wassubmitted, please contact the testing laboratoryfor alternative testing options.For additional information, please refer [email or web address](This link if provided for information/educational purposes only.)THIS TEST WAS PERFORMED AT:[facility] [place] [id number] AVERY MD HPV mRNA E6/E7 [facility] HPV 16 RNA [facility] HPV 18/45 RNA [facility] 06/08/2023 11:4 5 AM EDT 06/11/2023 9:15 AM EDT Jinny Cunningham DO LAB CYTOLOGY ORDERABLES Tahira l Result [facility] [address] [place] [phone] * Pap Smear (06/08/2023 11:45 AM EDT) 06/08/2023 11:4 5 AM EDT 06/11/2023 9:15 AM EDT [facility] - 06/14/2023 9:39 AM EDT ----- ------- Name: Nae Pulido Age/Sex: 57/F : 1965 Unit#: [id number] Attend Dr: Jinny Cunningham DO Re06/08/23 Status: [facility] Location: .HHCLNP Disch: ----- ------- SPEC : [id number] RECD: 06/11/23 STATUS: STEPHANIE GILLESPIE NUM: [id number] ZION: 06/08/23-1145 [facility] DR: Jinny Cunningham DO ENTERED: 06/11/23-7280 SP TYPE: Pap Smr OT DR: ORDERED: Pap Smear Interpretation Satisfactory for evaluation. Mild inflammation. Negative for intraepithelial lesion or malignancy. HPV mRNA E6/E7: NOT DETECTED This assay detects E6/E7 viral messenger RNA (mRNA) from 14 high-risk HPV types (16, 18, 31, 33, 35, 39, 45, 51, 52, 56, 58, 59, 66, 68) HPV testing performed by [facility], [place], [place]. See reference laboratory pion of the EMR for entire report. Clinical Information LMP: Unknown date Previous PAP test: Unknown date, WNL Material Received ThinPrep-Cervical ----- ------- Signed (signature on file) SRAVAN Sanches (ASCP) 06/14/23 0939 ----- ------- END OF REPORT Jinny Cunningham DO LAB CYTOLOGY ORDERABLES Tahira l Result [facility] [address] [place] [address] [phone] * Hm Colonoscopy (03/09/2022 10:01 AM EDT) Historical Provider HEALTH MAINTENANCE Final Result from Last 3 Months or Most Recently Relevant to Health Maintenance [place] [address] [address] 3 DENTAL - HSN PARTIAL (MEDICAID) Care Teams Geometry Teacher Relationship Specialty Start Date End Date Jinny Cunningham DO [address] [place] [id number] PCP - General Family Medicine 10/03/11
== END 2025-07-22 10:22 | disposition home or self-care (01) ==
LOC: HO.HGI 09:41
PROVIDERS: PCP Family Medicine; Visit Provider Internal Medicine
DX: R79.89 Other specified abnormal findings of blood chemistry (principal); E66.9 Obesity, unspecified; K76.0 Fatty (change of) liver, not elsewhere classified; K59.04 Chronic idiopathic constipation
CPT/HCPCS: 99214

== ENCOUNTER → 2025-07-22 09:41 | Outpatient (BNVA) | payer OTHER, SELFPAY | PROVIDERS: PCP Family Medicine; Visit Provider Internal Medicine | DX: R79.89 Other specified abnormal findings of blood chemistry (principal); K76.0 Fatty (change of) liver, not elsewhere classified; K59.04 Chronic idiopathic constipation; E66.9 Obesity, unspecified | CPT/HCPCS: 99212 ==

== ENCOUNTER 2025-07-28 08:54 | Outpatient (AMB) | payer OTHER, SELFPAY ==
--- NOTE | 2025-07-28 09:08 | A.OFFVIS_ITS ---
VS Expanded 07/28/25 09:09 Height 5 ft 5 in Weight 187 lb BMI 31.1 Intake Visit Reasons: fatty liver Allergies No Known Allergies Allergy (Verified 07/22/25 09:46) Nutrition Presentation Details: Pt presents for medical nutrition therapy for fatty liver Patient reports interesting losing, reports having no meal routine wants to work on meal planning Food frequency Fruits 0-1 a day Vegetable : 3 times a week dairy : 2 times a day Fish: 0 to once a week Fluids: working on having water, drinks juices and regular soda Physical activity: Daily life activities BS Monitoring Most Recent Diabetes Results: Cholesterol, (<200) 154 mg/dL 05/15/25 HDL Cholesterol, (>40) 52 mg/dL 05/15/25 Triglycerides, (<150) 70 mg/dL 05/15/25 Creatinine, (0.5-1.4) 0.63 mg/dL 05/15/25 BUN, (9-16) 14 mg/dL 05/15/25 Sodium, (135-145) 145 mmol/L 05/15/25 Potassium, (3.3-5.1) 4.5 mmol/L 05/15/25 Chloride, (96-108) 109 mmol/L H 05/15/25 Carbon Dioxide, (22-29) 29 mmol/L 05/15/25 Calcium, (8.4-10.2) 9.7 mg/dL 05/15/25 AST, (5-31) 37 U/L H 05/15/25 ALT, (0-31) 37 U/L H 05/15/25 Total Protein, (6.5-8.0) 7.6 g/dL 05/15/25 Albumin, (3.5-5.0) 4.6 g/dL 05/15/25 NET-Ahowxfr-Hn.Jeor Equation Height: 5 ft 5 in Weight: 187 lb Resting Metabolic Rate: 1432.88 Calculated Activity Level: Sedentary Calories Needed to Maintain Weight: 1719.46 Diagnosis Nutrition problem #1: food nutri know defi As related to (etiology) #1: diagnosis As evidenced by (sign/symptom) #1: knowledge deficit of diet [facility] Medical History Family history of breast cancer BMI 30.0-30.9,adult Obesity Abnormal barium swallow History of colon polyps Obesity (BMI 35.0-39.9 without comorbidity) Constipation by delayed colonic transit NANCY (obstructive sleep apnea) Hepatic steatosis GERD (gastroesophageal reflux disease) Surgical History H/O esophagogastroduodenoscopy Hx of cholecystectomy Hx of colonoscopy Family History Father Brain cancer Mother Diabetes Breast cancer Maternal Aunt Breast cancer Paternal Aunt Breast cancer Social History Household Members: Spouse, Family and Children Housing: House Alcohol intake: never Patient Tobacco Use Status: Never used Tobacco Second Hand Smoke Exposure: No service: No Current occupational status: employed 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 Assessment & Plan Assessment & Plan (1) Hepatic steatosis: Code(s): K76.0 - Fatty (change of) liver, not elsewhere classified Category: Medical Plan: Wt: 85 Kg ( 01/11 ) Est kcal needs as per MSJ: 2000-250= 1700 (40% carb, 30% protein/fat) Est fluid needs as per 25-30 ml/d: 2600 Est prot per day as per 1 g/kg bw: 85 Recommend fiber intake : 8-10 g per day and gradually increase to 25-28 g per day for women and 35-38 g for men or as tolerated Recommend sodium intake per day : less than 2000 mg Educated patient on: ( R = reviewed V = verbalizes understanding N/R = needs review N/A = not applicable * Food sources of carbohydrate, adequate serving sizes and its role in various health conditions: R * Differences between complex carbohydrates a simple carbohydrates, role of fiber in diet: R * Lean protein sources of foods: R V * Differences between types of fats and role in diet (mono on saturated fat fatty acids, saturated fatty acids, trans fats): R * Food sources of sodium in salt and healthy modifications for heart health in kidney health: R V R/V * Vitamins and minerals: R V N/R * Healthy plate method concept: R * Physical activity: Benefits a precaution: R V N/R * Hypoglycemia protocol (rule of 15): R V N/R * Dietary prevention of Hyperglycemia: R Patient Instructions: Abstain from alcohol consumption Work on including fiber rich foods and reducing on sugars (a fruit instead of food juices or sodas, choose whole grain foods and cereals See meal ideas consisting of 45 g of carbohydrates per meal, 3 meals a day following healthy plate method Coding Level of Care Code Nutr Indiv Intake (13329) Diagnoses Hepatic steatosis K76.0 Time Spent (min) 30
[2025-07-28 09:09] VITALS: BMI 31.1
[2025-08-03 12:21] VITALS: BMI 31.1
== END 2025-07-28 09:38 | disposition home or self-care (01) ==
LOC: HO.ENCR 08:54
PROVIDERS: PCP Family Medicine; Visit Provider Dietitian, Registered
DX: K76.0 Fatty (change of) liver, not elsewhere classified (principal)

== ENCOUNTER → 2025-07-28 08:54 | Outpatient (BNVA) | payer OTHER, SELFPAY | PROVIDERS: PCP Family Medicine; Visit Provider Dietitian, Registered | DX: K76.0 Fatty (change of) liver, not elsewhere classified (principal); Z71.3 Dietary counseling and surveillance | CPT/HCPCS: 97802 ==

== ENCOUNTER 2025-08-04 08:56 | Outpatient (AMB) | payer OTHER, SELFPAY ==
[2025-08-04 09:32] VITALS: BP 120/78; PULSE 86; O2SAT 97; BMI 27.0
--- NOTE | 2025-08-04 09:32 | MHC.OFFVIS ---
Vital Signs 08/04/25 09:32 Height 5 ft 5 in Weight 162 lb BMI 27.0 BP 120/78 Blood Pressure Location Rt brachial Position Sitting Pulse 86 Pulse Source Pulse Oximeter Pulse Oximetry (%) 97 Oxygen Delivery Method Room Air Intake Visit Reasons: 1 yr follow up Electrician Deck Required: No Electrician Deck Name: Patient speaks tajik Accompanied by: Self / Same As Patient Allergies No Known Allergies Allergy (Verified 07/22/25 09:46) HPI Comments Details: History of Present Illness The patient is a 60-year-old female presenting for a follow-up visit for management of obstructive sleep apnea with CPAP therapy. Obstructive sleep apnea: - The patient uses a CPAP machine for treatment and reports feeling she has enough daytime energy. - She has been using her current machine for over five years. - She confirms having sufficient supplies for her CPAP, cleaning them regularly, and using distilled water. - The patient is considering purchasing a smaller, portable CPAP machine for travel. Social History - Travel: The patient is planning to travel to [place]. CPAP compliance review: Do you have any questions or concerns related to your PAP therapy today? Do you have sufficient PAP supplies? Yes Do you change your PAP supplies on a regular basis? Do you clean PAP supplies on a regular basis? Yes Do you use distilled water in their PAP machine water reservoir? Yes PAP compliance report reviewed. Kannact's name: Compliance report date range: 08/20/2019 -08/20/2024 Overall PAP usage: 98 percent PAP usage greater than 4 hours: 98 percent PAP setting: CPAP 8 cmH2O Average usage on days used: 8 hours and 8 minutes Average mask leakage: 8.7 L/min Maximum mask leakage: 34.8 L/min Residual AHI: 1.6 per hour [facility] Medical History Family history of breast cancer BMI 30.0-30.9,adult Obesity Abnormal barium swallow History of colon polyps Obesity (BMI 35.0-39.9 without comorbidity) Constipation by delayed colonic transit NANCY (obstructive sleep apnea) Hepatic steatosis GERD (gastroesophageal reflux disease) Surgical History H/O esophagogastroduodenoscopy Hx of cholecystectomy Hx of colonoscopy Family History Father Brain cancer Mother Diabetes Breast cancer Maternal Aunt Breast cancer Paternal Aunt Breast cancer Social History Household Members: Spouse, Family and Children Housing: House Alcohol intake: never Patient Tobacco Use Status: Never used Tobacco Second Hand Smoke Exposure: No service: No Current occupational status: employed 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 Physical Exam Exam Exam: Vital Signs: Last Vital Signs Pulse 86 08/04/25 09:32 BP 120/78 08/04/25 09:32 Pulse Ox 97 08/04/25 09:32 Oxygen Delivery Method Room Air 08/04/25 09:32 BMI result Body Mass Index 27.0 Const General: no acute distress Orientation/consciousness: patient oriented x3 Resp Effort & Inspection: normal respiratory effort and able to speak in complete sentences Auscultation: clear to auscultation bilaterally Neuro General: patient oriented x3 Psych Mental Status: mental status grossly normal Speech and movement: Clear speech present Attitude: cooperative Assessment & Plan Assessment & Plan (1) NANCY (obstructive sleep apnea): Comment: In-lab PSG (October 2020 at [facility]): AHI 11/hr, REM AHI 33/hr, O2 cesar 86%, PLMS 24/hr with PLMS arousal index of 1.5/hr. On CPAP 9 cmH2O. Home care company: [facility]. Code(s): G47.33 - Obstructive sleep apnea (adult) (pediatric) Category: Medical Plan Discussion Notes I reviewed the patient's 90-day CPAP compliance report, noting excellent use at 98% with an average duration of 8 hours and 8 minutes on nights used. Her residual sleep apnea is well-controlled at 1.6 events per hour, and mask leak is minimal. I informed her that her machine is over five years old and may soon require replacement, advising her to notify me if an end of life message appears so a new order can be placed. A new order for CPAP supplies will be sent, as it has been a year since her last order. We discussed her interest in purchasing a smaller, portable CPAP machine for travel. I advised that the respiratory company can set up the new device to the correct pressure and that she should contact me if a prescription is required. I also provided guidance on travel, noting that a CPAP machine does not count as a carry-on item for flights. Anticipatory guidance was given regarding pausing CPAP use during severe respiratory congestion and isolating if she contracts COVID-19. Follow-up is scheduled in one year. Plan Continue CPAP 9 cmH2O w/ EPR 3 nightly > 4 hours, as pt continues to have good reduction in AHI with good clinical effect. - Updated order written CPAP supplies- well send updated order to [facility]. - Continue to use nightly with a goal of greater than 4 hours nightly, as patient is experiencing good clinical effect from use. - Clean and change PAP supplies routinely, including filters, masks, tubing, and water reservoir. - Use distilled water in PAP water reservoir. - The patient plans to purchase a portable CPAP machine for travel and was informed that the respiratory company can configure it to the correct pressure settings; she will be provided a prescription if needed. - The patient was advised that her current CPAP machine is over five years old and a replacement can be ordered if it indicates it has reached the end of its functional life. - Patient was educated to temporarily discontinue CPAP use in the event of a severe respiratory infection with significant congestion, and to not use the device in the same room with another person if she has COVID-19. - Monitor for any s/s PLMS. - Follow up in one year. Patient was informed and verbally consented to the use of an ambient scribe for clinic note documentation during this visit. Coding Level of Care Code Est Pt Level 3 (77790) Diagnoses NANCY (obstructive sleep apnea) G47.33
== END 2025-08-04 10:04 | disposition home or self-care (01) ==
LOC: HO.HSMS 08:57
PROVIDERS: PCP Family Medicine; Visit Provider Nurse Practitioner Family
DX: G47.33 Obstructive sleep apnea (adult) (pediatric) (principal)
CPT/HCPCS: 99213

== ENCOUNTER → 2025-08-04 08:56 | Outpatient (BNVA) | payer OTHER, SELFPAY | PROVIDERS: PCP Family Medicine; Visit Provider Nurse Practitioner Family | DX: G47.33 Obstructive sleep apnea (adult) (pediatric) (principal); Z99.89 Dependence on other enabling machines and devices | CPT/HCPCS: 99212 ==